=== PATIENT | female | born 1935 | race Caucasian/White ===

== ENCOUNTER → 2017-09-04 14:09 | Outpatient (CLI) | payer MEDICARE, SELFPAY ==
[2017-09-04 15:44] LABS: Absolute Lymphocyte Count 2.53 X10^3/ul (0.83-4.51); Absolute Neutrophil Count 4.2 X10^3/uL (2.0-7.7); Basophil# 0.04 X10^3/uL; Basophil% 0.5 % (0-1); Eosinophil# 0.16 X10^3/uL; Eosinophils% 2.2 % (0-5); Hematocrit 39.9 % (37-47); Hemoglobin 12.5 g/dl (12.0-15.0); Lymphocyte # 2.53 X10^3/ul (4.0); Lymphocyte % 34.6 % (19-41); Mean Corp Hgb Conc 31.3 g/gl (32-36); Mean Corpuscular Hgb 27.2 pg (27.0-32.0); Mean Corpuscular Volume 86.7 fL (81-99); Mean Platelet Vol. 9.2 fl (6.2-12.0); Monocyte# 0.36 X10^3/uL; Monocyte% 4.9 % (0-10); Neutrophil # 4.22 X10^3/uL (2.7-7.7); Neutrophil % 57.7 % (47-70); Platelet Count 234 K/mm3 (150-450); RBC Distribution Width CV 14.3 % (11.6-14.6); RBC Distribution Width SD 44.8 fl (35.1-43.9); White Blood Count 7.3 K/mm3 (4.4-11.0)
[2017-09-04 15:47] LABS: POSITIVE COUNT NO; POSITIVE DIFFERENTIAL NO; POSITIVE MORPHOLOGY NO
[2017-09-04 16:26] LABS: ALB/GLOB Ratio 1.1 RATIO (0.9-2.4); AST(SGOT) 18 U/L (15-37); Alanine Aminotransfer ALT/SGPT 25 U/L (13-56); Albumin, Serum 3.7 g/dL (3.2-5.0); Alkaline Phosphatase 46 U/L (45-117); Anion Gap 8 (5-15); BUN 23 mg/dL (7-18); Calcium,Total 9.2 mg/dL (8.5-10.1); Chloride 101 mmol/L (98-107); Creatinine, Serum 0.82 mg/dL (0.55-1.02); EST Glomerular Filtration Rate 71 mL/min (>60); Est Glom Filt Rate - Afr Amer 86 mL/min (>60); Globulin 3.5 g/dL (2.2-4.2); Glucose 94 mg/dL (70-110); Potassium 3.8 mmol/L (3.5-5.1); Protein, Total 7.2 g/dL (6.4-8.2); Sodium Level 139 mmol/L (136-145); Thyroid Stim Hormone (TSH) 1.33 uIU/mL (0.358-3.74)
[2017-09-05 10:04] LABS: Vitamin D,25 Hydroxy 30.4 ng/mL (19.95-100.01)
== END ==
PROVIDERS: Family Provider Family Medicine Geriatric Medicine; PCP Family Medicine Geriatric Medicine; Visit Provider Family Medicine Geriatric Medicine
DX: I10 Essential (primary) hypertension (principal); E55.9 Vitamin D deficiency, unspecified
CPT/HCPCS: 36415; 80053; 82306; 84443; 85025

== ENCOUNTER → 2018-02-21 09:18 | Outpatient (CLI) | payer MEDICARE, SELFPAY ==
[2018-02-21 12:53] LABS: Absolute Lymphocyte Count 1.98 X10^3/ul (0.83-4.51); Absolute Neutrophil Count 3.5 X10^3/uL (2.0-7.7); Basophil# 0.02 X10^3/uL; Basophil% 0.3 % (0-1); Eosinophils% 1.7 % (0-5); Hemoglobin 13.4 g/dl (12.0-15.0); Lymphocyte # 1.98 X10^3/ul (4.0); Lymphocyte % 32.9 % (19-41); Mean Corp Hgb Conc 31.9 g/gl (32-36); Mean Corpuscular Hgb 27.7 pg (27.0-32.0); Mean Corpuscular Volume 86.8 fL (81-99); Mean Platelet Vol. 10.5 fl (6.2-12.0); Monocyte% 6.7 % (0-10); Neutrophil % 58.2 % (47-70); Platelet Count 279 K/mm3 (150-450); RBC Distribution Width CV 14.4 % (11.6-14.6); RBC Distribution Width SD 45.7 fl (35.1-43.9); Red Blood Count 4.84 M/mm3 (4.2-5.4)
[2018-02-21 12:54] LABS: POSITIVE COUNT NO; POSITIVE DIFFERENTIAL NO; POSITIVE MORPHOLOGY NO
[2018-02-21 13:12] LABS: ALB/GLOB Ratio 1.1 RATIO (0.9-2.4); AST(SGOT) 17 U/L (15-37); Alanine Aminotransfer ALT/SGPT 30 U/L (13-56); Albumin, Serum 3.8 g/dL (3.2-5.0); Alkaline Phosphatase 49 U/L (45-117); Anion Gap 9 (5-15); BUN 21 mg/dL (7-18); BUN/Creat Ratio 20.4 RATIO (10-20); Calcium,Total 9.2 mg/dL (8.5-10.1); Chloride 106 mmol/L (98-107); Creatinine, Serum 1.03 mg/dL (0.55-1.02); EST Glomerular Filtration Rate 55 mL/min (>60); Est Glom Filt Rate - Afr Amer 66 mL/min (>60); Globulin 3.6 g/dL (2.2-4.2); Glucose 98 mg/dL (74-106); Potassium 4.2 mmol/L (3.5-5.1); Protein, Total 7.4 g/dL (6.4-8.2); Sodium Level 144 mmol/L (136-145); Thyroid Stim Hormone (TSH) 1.11 uIU/mL (0.358-3.74)
[2018-02-22 08:24] LABS: Vitamin D,25 Hydroxy 40.2 ng/mL (29.95-100.01)
== END ==
PROVIDERS: Family Provider Family Medicine Geriatric Medicine; PCP Family Medicine Geriatric Medicine; Visit Provider Family Medicine Geriatric Medicine
DX: E55.9 Vitamin D deficiency, unspecified (principal); I10 Essential (primary) hypertension
CPT/HCPCS: 36415; 80053; 82306; 84443; 85025

== ENCOUNTER → 2018-08-22 12:18 | Outpatient (CLI) | payer MEDICARE, SELFPAY ==
[2018-08-22 14:02] LABS: Absolute Lymphocyte Count 2.25 X10^3/ul (0.83-4.51); Absolute Neutrophil Count 4.3 X10^3/uL (2.0-7.7); Basophil# 0.03 X10^3/uL; Basophil% 0.4 % (0-1); Eosinophil# 0.12 X10^3/uL; Eosinophils% 1.7 % (0-5); Hematocrit 42.7 % (37-47); Hemoglobin 13.4 g/dl (12.0-15.0); Lymphocyte # 2.25 X10^3/ul (4.0); Lymphocyte % 31.3 % (19-41); Mean Corp Hgb Conc 31.4 g/gl (32-36); Mean Corpuscular Hgb 27.5 pg (27.0-32.0); Mean Corpuscular Volume 87.7 fL (81-99); Mean Platelet Vol. 10.5 fl (6.2-12.0); Monocyte# 0.47 X10^3/uL; Monocyte% 6.5 % (0-10); Neutrophil # 4.31 X10^3/uL (2.7-7.7); Neutrophil % 59.8 % (47-70); Platelet Count 280 K/mm3 (150-450); RBC Distribution Width CV 14.4 % (11.6-14.6); RBC Distribution Width SD 45.9 fl (35.1-43.9); Red Blood Count 4.87 M/mm3 (4.2-5.4); White Blood Count 7.2 K/mm3 (4.4-11.0)
[2018-08-22 14:06] LABS: POSITIVE COUNT NO; POSITIVE DIFFERENTIAL NO; POSITIVE MORPHOLOGY NO
[2018-08-22 14:16] LABS: Vitamin D,25 Hydroxy 38.8 ng/mL (29.95-100.01)
[2018-08-22 14:17] LABS: ALB/GLOB Ratio 1.1 RATIO (0.9-2.4); AST(SGOT) 20 U/L (15-37); Alanine Aminotransfer ALT/SGPT 31 U/L (13-56); Albumin, Serum 3.9 g/dL (3.2-5.0); Alkaline Phosphatase 51 U/L (45-117); Anion Gap 10 (5-15); BUN 25 mg/dL (7-18); BUN/Creat Ratio 23.4 RATIO (10-20); Calcium,Total 9.1 mg/dL (8.5-10.1); Chloride 106 mmol/L (98-107); Creatinine, Serum 1.07 mg/dL (0.55-1.02); EST Glomerular Filtration Rate 52 mL/min (>60); Est Glom Filt Rate - Afr Amer 63 mL/min (>60); Globulin 3.7 g/dL (2.2-4.2); Glucose 90 mg/dL (74-106); Potassium 4.1 mmol/L (3.5-5.1); Protein, Total 7.6 g/dL (6.4-8.2); Sodium Level 142 mmol/L (136-145); Thyroid Stim Hormone (TSH) 1.29 uIU/mL (0.358-3.74)
--- OUTSIDE RECORDS SUMMARY | 2018-10-27 04:19 | XMS RPT_ITS ---
:1935 Author Organization OH[facility] Care Team Providers Name Role Phone Aly, Maximino Chi Attending Unavailable Aly, Maximino Chi Primary Care Unavailable Aly, Maximino Chi Attending Unavailable Aly, Maximino Chi Primary Care Unavailable Aly, Maximino Chi Attending Unavailable Aly, Maximino Chi Primary Care Unavailable PROBLEMS PROBLEMS DATE TYPE CONDITION / CODE ATTENDING STATUS SOURCE 02/21/2018 Unknown E55.9 - Vitamin D Aly, Maximino Chi Active [place] deficiency, Community unspecified / Hospital E55.9(ICD-10) Repository 02/21/2018 Unknown I10 - Essential Aly, Maximino Chi Active [place] (primary) Community hypertension / Hospital I10(ICD-10) Repository PROCEDURES PROCEDURES No Procedure Records FoundRESULTS RESULTS CBC W/DIFF, AUTOMATED Collected: 08/22/2018 Status: F Source: [place] 12:19 PM [facility] REPOSITORY TYPE CODE TESTS RESULT OUT OF RANGE REFERENCE UNITS LAB L100.1000 4.4-11.0 K/mm3 Normal WBC 7.2 LAB L100.1200 4.2-5.4 M/mm3 Normal RBC 4.87 LAB L100.1300 12.0-15.0 g/dl Normal HGB 13.4 LAB L100.1400 37-47 % Normal HCT 42.7 LAB L100.1500 81-99 fL Normal MCV 87.7 LAB L100.1600 27.0-32.0 pg Normal MCH 27.5 LAB L100.1700 32-36 g/gl Low MCHC 31.4 LAB L100.1810 11.6-14.6 % Normal RDW CV 14.4 LAB L100.1820 35.1-43.9 fl High RDW SD 45.9 LAB L100.1900 150-450 K/mm3 Normal PLT 280 LAB L100.2000 6.2-12.0 fl Normal MPV 10.5 LAB L100.2100 47-70 % Normal NEUT% 59.8 LAB L100.2200 19-41 % Normal LY% 31.3 LAB L100.2300 0-10 % Normal MONO% 6.5 LAB L100.2400 0-5 % Normal EO% 1.7 LAB L100.2500 0-1 % Normal BASO% 0.4 LAB L100.2550 0.0-0.9 % Normal IM GRAN % 0.300 Result Comment: IG% - Immature Granulocytes (promyelocytes, myelocytes and metamyelocytes) > 1% indicates that a LEFT SHIFT is Present. LAB L100.2620 2.0-7.7 X10 3/uL Normal Absolute Neut 4.3 LAB L100.2720 0.83-4.51 X10 3/ul Normal Absolute Lymph 2.25 Performed By: #### L100.0100 #### [facility] [address] [place], [place], [address] VITAMIN D,25 HYDROXY Collected: 08/22/2018 Status: F Source: [place] 12:19 PM [facility] REPOSITORY TYPE CODE TESTS RESULT OUT OF RANGE REFERENCE UNITS LAB L506.1000 29.95-100.01 ng/mL Normal Vitamin D 38.8 25-OH Result Comment: Vitamin D 25(OH) Status Range Deficiency <20 ng/mL (50nmol/L) Insuffciency 20 - 30 ng/mL (50 - 75 nmol/L) Sufficiency 30 - 100 ng/mL (75 - 250 nmol/L) Toxicity >100 ng/mL (>250 nmol/L) Performed By: #### L506.1000 #### [facility] [address] [place], [address] COMPREHENSIVE METABOLIC Collected: 08/22/2018 Status: F Source: [facility] 12:19 PM [facility] REPOSITORY TYPE CODE TESTS RESULT OUT OF RANGE REFERENCE UNITS LAB L501.0100 74-106 mg/dL Normal GLU 90 Result Comment: Please note revised GLUCOSE reference range effective 2017. LAB L501.1000 7-18 mg/dL High BUN 25 LAB L501.1100 0.55-1.02 mg/dL High CREAT,SERUM 1.07 Result Comment: The validity of the calculated GFR AND GFRAA in patients over 70 years has not been determined. Clinical correlation is essential. LAB L501.1110 >60 mL/min Low EST GFR 52 Result Comment: Non- GFR Calc LAB L501.1115 >60 mL/min Normal EST GFR - AA 63 Result Comment: GFR Calc LAB L501.1300 10-20 RATIO High BUN/CRE 23.4 LAB L501.1500 6.4-8.2 g/dL T Normal PROT 7.6 LAB L501.1800 3.2-5.0 g/dL Normal ALB 3.9 LAB L501.1950 2.2-4.2 g/dL Normal GLOB 3.7 LAB L501.2000 0.9-2.4 RATIO Normal A/G 1.1 LAB L501.2200 8.5-10.1 mg/dL CA Normal 9.1 LAB L501.4100 15-37 U/L Normal AST 20 LAB L501.4305 45-117 U/L Normal ALK P 51 LAB L501.4405 13-56 U/L Normal ALT 31 LAB L501.4600 0.20-1.00 mg/dL T Normal BILI 0.50 LAB L501.5300 136-145 mmol/L NA Normal 142 LAB L501.5600 3.5-5.1 mmol/L K Normal 4.1 LAB L501.5900 98-107 mmol/L CL Normal 106 LAB L501.6100 21.0-32.0 mmol/L Normal CO2 26.0 LAB L501.6200 5-15 Normal GAP 10 Performed By: #### L500.4050, L501.9520 #### [facility] [address] [place], [address] THYROID STIM HORMONE Collected: 08/22/2018 Status: F Source: [place] (TSH) 12:19 PM [facility] REPOSITORY TYPE CODE TESTS RESULT OUT OF RANGE REFERENCE UNITS LAB L501.9520 0.358-3.74 uIU/mL Normal TSH 1.29 Performed By: #### L500.4050, L501.9520 #### [facility] [address] [place], [place], [address] CBC W/DIFF, AUTOMATED Collected: 02/21/2018 Status: F Source: [place] 10:18 AM [facility] REPOSITORY TYPE CODE TESTS RESULT OUT OF RANGE REFERENCE UNITS LAB L100.1000 4.4-11.0 K/mm3 Normal WBC 6.0 LAB L100.1200 4.2-5.4 M/mm3 Normal RBC 4.84 LAB L100.1300 12.0-15.0 g/dl Normal HGB 13.4 LAB L100.1400 37-47 % Normal HCT 42.0 LAB L100.1500 81-99 fL Normal MCV 86.8 LAB L100.1600 27.0-32.0 pg Normal MCH 27.7 LAB L100.1700 32-36 g/gl Low MCHC 31.9 LAB L100.1810 11.6-14.6 % Normal RDW CV 14.4 LAB L100.1820 35.1-43.9 fl High RDW SD 45.7 LAB L100.1900 150-450 K/mm3 Normal PLT 279 LAB L100.2000 6.2-12.0 fl Normal MPV 10.5 LAB L100.2100 47-70 % Normal NEUT% 58.2 LAB L100.2200 19-41 % Normal LY% 32.9 LAB L100.2300 0-10 % Normal MONO% 6.7 LAB L100.2400 0-5 % Normal EO% 1.7 LAB L100.2500 0-1 % Normal BASO% 0.3 LAB L100.2550 0.0-0.9 % Normal IM GRAN % 0.200 Result Comment: IG% - Immature Granulocytes (promyelocytes, myelocytes and metamyelocytes) > 1% indicates that a LEFT SHIFT is Present. LAB L100.2620 2.0-7.7 X10 3/uL Normal Absolute Neut 3.5 LAB L100.2720 0.83-4.51 X10 3/ul Normal Absolute Lymph 1.98 Performed By: #### L100.0100 #### [facility] [address] [place], [address] COMPREHENSIVE METABOLIC Collected: 02/21/2018 Status: F Source: [place] SANCHEZ 10:18 AM [facility] REPOSITORY TYPE CODE TESTS RESULT OUT OF RANGE REFERENCE UNITS LAB L501.0100 74-106 mg/dL Normal GLU 98 Result Comment: Please note revised GLUCOSE reference range effective 2017. LAB L501.1000 7-18 mg/dL High BUN 21 LAB L501.1100 0.55-1.02 mg/dL High CREAT,SERUM 1.03 Result Comment: The validity of the calculated GFR AND GFRAA in patients over 70 years has not been determined. Clinical correlation is essential. LAB L501.1110 >60 mL/min Low EST GFR 55 Result Comment: Non- GFR Calc LAB L501.1115 >60 mL/min Normal EST GFR - AA 66 Result Comment: GFR Calc LAB L501.1300 10-20 RATIO High BUN/CRE 20.4 LAB L501.1500 6.4-8.2 g/dL T Normal PROT 7.4 LAB L501.1800 3.2-5.0 g/dL Normal ALB 3.8 LAB L501.1950 2.2-4.2 g/dL Normal GLOB 3.6 LAB L501.2000 0.9-2.4 RATIO Normal A/G 1.1 LAB L501.2200 8.5-10.1 mg/dL CA Normal 9.2 LAB L501.4100 15-37 U/L Normal AST 17 Result Comment: Slight Hemolysis, Result may be falsely increased. LAB L501.4305 45-117 U/L Normal ALK P 49 LAB L501.4405 13-56 U/L Normal ALT 30 LAB L501.4600 0.20-1.00 mg/dL Normal T BILI 0.30 LAB L501.5300 136-145 mmol/L Normal NA 144 LAB L501.5600 3.5-5.1 mmol/L Normal K 4.2 Result Comment: Slight Hemolysis, Result may be falsely increased. LAB L501.5900 98-107 mmol/L Normal CL 106 LAB L501.6100 21.0-32.0 mmol/L Normal CO2 29.0 LAB L501.6200 5-15 Normal 9 GAP Performed By: #### L500.4050, L501.9520 #### [facility] [address] [place], [address] THYROID STIM HORMONE Collected: 02/21/2018 Status: F Source: [place] (TSH) 10:18 AM [facility] REPOSITORY TYPE CODE TESTS RESULT OUT OF RANGE REFERENCE UNITS LAB L501.9520 0.358-3.74 uIU/mL Normal TSH 1.11 Performed By: #### L500.4050, L501.9520 #### [facility] [address] [place], [address] VITAMIN D,25 HYDROXY Collected: 02/21/2018 Status: F Source: [place] 10:18 AM [facility] REPOSITORY TYPE CODE TESTS RESULT OUT OF RANGE REFERENCE UNITS LAB L506.1000 29.95-100.01 ng/mL Normal Vitamin D 40.2 25-OH Result Comment: Vitamin D 25(OH) Status Range Deficiency <20 ng/mL (50nmol/L) Insuffciency 20 - 30 ng/mL (50 - 75 nmol/L) Sufficiency 30 - 100 ng/mL (75 - 250 nmol/L) Toxicity >100 ng/mL (>250 nmol/L) Performed By: #### L506.1000 #### [facility] [address] [place], [address] CBC W/DIFF, AUTOMATED Collected: 09/04/2017 Status: F Source: [place] 2:14 PM [facility] REPOSITORY TYPE CODE TESTS RESULT OUT OF RANGE REFERENCE UNITS LAB L100.1000 4.4-11.0 K/mm3 Normal WBC 7.3 LAB L100.1200 4.2-5.4 M/mm3 Normal RBC 4.60 LAB L100.1300 12.0-15.0 g/dl Normal HGB 12.5 LAB L100.1400 37-47 % Normal HCT 39.9 LAB L100.1500 81-99 fL Normal MCV 86.7 LAB L100.1600 27.0-32.0 pg Normal MCH 27.2 LAB L100.1700 32-36 g/gl Low MCHC 31.3 LAB L100.1810 11.6-14.6 % Normal RDW CV 14.3 LAB L100.1820 35.1-43.9 fl High RDW SD 44.8 LAB L100.1900 150-450 K/mm3 Normal PLT 234 LAB L100.2000 6.2-12.0 fl Normal MPV 9.2 LAB L100.2100 47-70 % Normal NEUT% 57.7 LAB L100.2200 19-41 % Normal LY% 34.6 LAB L100.2300 0-10 % Normal MONO% 4.9 LAB L100.2400 0-5 % Normal EO% 2.2 LAB L100.2500 0-1 % Normal BASO% 0.5 LAB L100.2550 0.0-0.9 % Normal IM GRAN % 0.100 Result Comment: IG% - Immature Granulocytes (promyelocytes, myelocytes and metamyelocytes) > 1% indicates that a LEFT SHIFT is Present. LAB L100.2620 2.0-7.7 X10 3/uL Normal Absolute Neut 4.2 LAB L100.2720 0.83-4.51 X10 3/ul Normal Absolute Lymph 2.53 Performed By: #### L100.0100 #### [facility] [address] [place], [place], [address] COMPREHENSIVE METABOLIC Collected: 09/04/2017 Status: F Source: [facility] 2:14 PM [facility] REPOSITORY TYPE CODE TESTS RESULT OUT OF RANGE REFERENCE UNITS LAB L501.0100 70-110 mg/dL Normal GLU 94 LAB L501.1000 7-18 mg/dL High BUN 23 LAB L501.1100 0.55-1.02 mg/dL Normal 0.82 CREAT,SERUM Result Comment: The validity of the calculated GFR AND GFRAA in patients over 70 years has not been determined. Clinical correlation is essential. LAB L501.1110 >60 mL/min Normal EST GFR 71 Result Comment: Non- GFR Calc LAB L501.1115 >60 mL/min Normal EST GFR - AA 86 Result Comment: GFR Calc LAB L501.1300 10-20 RATIO High BUN/CRE 28.0 LAB L501.1500 6.4-8.2 g/dL T Normal PROT 7.2 LAB L501.1800 3.2-5.0 g/dL Normal ALB 3.7 LAB L501.1950 2.2-4.2 g/dL Normal GLOB 3.5 LAB L501.2000 0.9-2.4 RATIO Normal A/G 1.1 LAB L501.2200 8.5-10.1 mg/dL CA Normal 9.2 LAB L501.4100 15-37 U/L Normal AST 18 LAB L501.4305 45-117 U/L Normal ALK P 46 LAB L501.4405 13-56 U/L Normal ALT 25 Result Comment: Please note revised ALT reference range effective 2017. LAB L501.4600 0.20-1.00 mg/dL Normal T BILI 0.30 LAB L501.5300 136-145 mmol/L Normal NA 139 LAB L501.5600 3.5-5.1 mmol/L Normal K 3.8 LAB L501.5900 98-107 mmol/L Normal CL 101 LAB L501.6100 21.0-32.0 mmol/L Normal CO2 30.0 LAB L501.6200 5-15 Normal GAP 8 Performed By: #### L500.4050, L501.9520 #### [facility] [address] [place], [place], [address] THYROID STIM HORMONE Collected: 09/04/2017 Status: F Source: [place] (TSH) 2:14 PM [facility] REPOSITORY TYPE CODE TESTS RESULT OUT OF RANGE REFERENCE UNITS LAB L501.9520 0.358-3.74 uIU/mL Normal TSH 1.33 Performed By: #### L500.4050, L501.9520 #### [facility] [address] [place], [address] VITAMIN D,25 HYDROXY Collected: 09/04/2017 Status: F Source: [place] 2:14 PM [facility] REPOSITORY TYPE CODE TESTS RESULT OUT OF RANGE REFERENCE UNITS LAB L506.1000 19.95-100.01 ng/mL Normal Vitamin D 30.4 25-OH Result Comment: Vitamin D 25(OH) Status Range Deficiency <20 ng/mL (50nmol/L) Insuffciency 20 - 30 ng/mL (50 - 75 nmol/L) Sufficiency 30 - 100 ng/mL (75 - 250 nmol/L) Toxicity >100 ng/mL (>250 nmol/L) Performed By: #### L506.1000 #### [facility] [place], [address] ALLERGIES ALLERGIES DATE TYPE / CODE NAME / CODE REACTION SEVERITY SOURCE 10/27/2014 Drug ibandronate Other Unknown [place] Allergy/416 sodium/[id number]( [facility] 230457[facility]) Repository ENCOUNTERS ENCOUNTERS ADMIT/DISCHARGE ACCOUNT ADMITTING ENCOUNTER LOCATION SOURCE NUMBER CLASS 08/22/2018 [id number] Ambulatory [place] 7 [facility] ing:POLAB3 Repository 02/21/2018 [id number] Ambulatory [place] 3 [facility] ing:POLAB3 Repository 09/04/2017 [id number] Ambulatory [place] 4 [facility] ing:POLAB3 Repository PAYERS PAYERS ENCOUNTER GUARANTOR PAYER SUBSCRIBER SOURCE 08/22/2018 Frannie L Primary Frannie L [place] [id number] [facility] [place], MEDICAREPolicy [id number] [address]Bjf: Number: Repository [id number] (HP) Date:[id number] [address] [address]AK: 08/22/2018 Secondary NOT GIVENUNK [place] Insurance:SELF PAY [facility] Number: Effective Repository Date:2018-08-22 02/21/2018 Frannie L Primary Frannie L [place] [id number] [facility] Community [place], MEDICAREPolicy [id number] [address]Ofc: Number: Repository [id number] (HP) Date:[id number] [address] [address]AU: 02/21/2018 Secondary NOT GIVENUNK [place] Insurance:SELF PAY [facility] Number: Effective Repository Date:2018-02-21 09/04/2017 Frannie L Primary Frannie L [place] [address] Insurance:[facility] CooperDOB: [place] [id number] [address]Csw: Number: Repository [phone] [id number] (HP) Date:[id number], [place] [address]YQ: 09/04/2017 Secondary NOT GIVENRON [place] Insurance:SELF PAY [facility] Number: Effective Repository Date:2017-09-04
== END ==
PROVIDERS: Family Provider Family Medicine Geriatric Medicine; PCP Family Medicine Geriatric Medicine; Visit Provider Family Medicine Geriatric Medicine
DX: I10 Essential (primary) hypertension (principal); E55.9 Vitamin D deficiency, unspecified
CPT/HCPCS: 36415; 80053; 82306; 84443; 85025

== ENCOUNTER 2018-12-23 09:17 | Emergency (ER) | payer MEDICARE, SELFPAY ==
[2018-11-27 10:53] VITALS: BMI 32.3
[2018-12-23 09:18] VITALS: BP 117/66; PULSE 88; RESP 17; TEMP 37.2; O2SAT 98; BMI 31.6
--- NOTE | 2018-12-23 09:22 | NURSING ---
NO OLD EKGS
--- NOTE | 2018-12-23 09:37 | CT_ITS ---
STUDY: CT BRAIN WITHOUT CONTRAST REASON FOR EXAM: Female, 83 years old. Fall due to syncopal episode. RADIATION DOSAGE (If Supplied By Facility): CTDIvol = ( 44.99 ) mGy, DLP = ( 829.85 ) mGycm TECHNIQUE: Transaxial CT imaging of the brain was performed without administration of intravenous contrast material. Individualized dose optimization techniques were used for this CT. COMPARISON: No relevant priors. FINDINGS: Normal soft tissue structures. Normal calvarium. There is mild cerebral atrophy with widening of the extra-axial spaces and ventricular dilatation. There are areas of decreased attenuation within the white matter tracts of the supratentorial brain, consistent with microvascular disease changes. Normal basal ganglia and thalami. Normal brainstem. Normal cerebellum. There is no intracranial hemorrhage. There are no findings of an acute ischemic infarction. Atherosclerotic calcification of the cavernous portions of the internal carotid arteries bilaterally. Normal visualized paranasal sinuses. CT/Brain/Head without Contrast IMPRESSION: Chronic involutional changes of the brain. Electronically Signed: Roberto Brunner, at 10:39 EDT , Service support ,
--- NOTE | 2018-12-23 09:38 | EKG12_ITS ---
Test Reason : SYNCOPE Blood Pressure : / mmHG Vent. Rate : 074 BPM Atrial Rate : 074 BPM P-R Int : 156 ms QRS Dur : 098 ms QT Int : 400 ms P-R-T Axes : 033 -29 097 degrees QTc Int : 444 ms Sinus rhythm with Premature atrial complexes Left ventricular hypertrophy with repolarization abnormality Abnormal ECG Confirmed by SHARON CHEN, KENDRA ([id number]), dictionary editor FLORIAN BECKWITH ([id number]) on 12/26/2018 1:12:32 PM Referred By: SHAWNA Confirmed By:KENDRA HERRERA MD
--- NOTE | 2018-12-23 09:38 | RAD_ITS ---
STUDY: X-RAY CHEST REASON FOR EXAM: Female, 83 years old. Syncope. TECHNIQUE: Single AP portable view of the chest. COMPARISON: Comparison is made with prior study May 20, 2007. FINDINGS: EKG electrodes are seen. The lungs are clear and expanded. Scattered calcified granulomas. There is no demonstrated pleural abnormality. Normal size heart. Normal mediastinum and sonia. Normal visualized pulmonary arteries. There is atherosclerotic calcification of the aortic arch with tortuosity. There are degenerative changes of the visualized thoracic spine. Normal visualized ribs, clavicles, and shoulders. There is no demonstrated abnormality of the visualized soft tissue structures of the upper abdomen. RAD/Chest 1 View IMPRESSION: Scattered calcified granulomas. The lungs are clear. Electronically Signed: Roberto Brunner, at 10:32 EDT , Service support ,
--- NOTE | 2018-12-23 09:38 | RAD_ITS ---
STUDY: X-RAY - PELVIS REASON FOR EXAM: Female, 83 years old. Pain following a fall. TECHNIQUE: One view of the pelvis was obtained. COMPARISON: None. FINDINGS: There is a non-specific bowel gas pattern. There are atherosclerotic vascular calcifications of the pelvic arteries. A pessary device is seen within the pelvis. Normal bilateral iliac wings, sacroiliac joints and visualized sacrum. Normal visualized bilateral superior and inferior pubic rami. Normal pubic symphysis. Normal ischial tuberosities. Normal visualized right femoral head. Normal right acetabulum. There is mild articular joint space narrowing of the right hip. Normal visualized left femoral head. Normal left acetabulum. There is mild articular joint space narrowing of the left hip. RAD/Pelvis 1 or 2 Views IMPRESSION: No acute abnormality is seen. Electronically Signed: Roberto Brunner, at 10:32 EDT , Service support ,
--- NOTE | 2018-12-23 09:38 | CT_ITS ---
STUDY: CT CERVICAL SPINE WITHOUT CONTRAST REASON FOR EXAM: Female, 83 years old. Fall due to a syncopal episode. RADIATION DOSAGE (If Supplied By Facility): CTDIvol = ( 25.02 ) mGy, DLP = ( 466.96 ) mGycm TECHNIQUE: High resolution transaxial imaging was performed without contrast material. Sagittal and coronal images were reconstructed. Individualized dose optimization techniques were used for this CT. COMPARISON: None FINDINGS: Normal craniovertebral junction. There are degenerative changes of the anterior atlantoaxial articulation. Normal odontoid process. Normal cervical lordosis. Normal vertebral bodies and posterior osseous elements. C2-3: Normal endplates. Normal disc height and morphology. Normal central canal and intervertebral neuroforamina. 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 Mild degree of left neural foraminal stenosis. C4-5: Moderate degree of disc space narrowing. Minimal anterior listhesis of C4 on C5. 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 Moderate degree of left neural foraminal stenosis. C5-6: Marked degree of disc space narrowing. Spondylosis. Uncovertebral arthrosis. No significant stenosis is seen. C6-7: Marked degree of disc space narrowing. Minimal spondylosis. Uncovertebral arthrosis. No significant neural foraminal stenosis is seen. Scarring at the right lung apex. CT/Spine Cervical without Contras IMPRESSION: Multilevel degenerative changes, as described above. Electronically Signed: Roberto Brunner, at 10:42 EDT , Service support ,
[2018-12-23 09:50] LABS: Absolute Lymphocyte Count 0.99 X10^3/ul (0.83-4.51); Absolute Neutrophil Count 13.4 X10^3/uL (2.0-7.7); Basophil# 0.01 X10^3/uL; Basophil% 0.1 % (0-1); Hematocrit 43.5 % (37-47); Hemoglobin 14.6 g/dl (12.0-15.0); Lymphocyte # 0.99 X10^3/ul (4.0); Lymphocyte % 6.5 % (19-41); Mean Corp Hgb Conc 33.6 g/gl (32-36); Mean Corpuscular Hgb 27.8 pg (27.0-32.0); Mean Corpuscular Volume 82.7 fL (81-99); Monocyte# 0.85 X10^3/uL; Monocyte% 5.6 % (0-10); Neutrophil # 13.36 X10^3/uL (2.7-7.7); Neutrophil % 87.6 % (47-70); Platelet Count 293 K/mm3 (150-450); RBC Distribution Width SD 45.2 fl (35.1-43.9); Red Blood Count 5.26 M/mm3 (4.2-5.4); White Blood Count 15.2 K/mm3 (4.4-11.0)
[2018-12-23] MEDS: 0.9% Normal Saline 1,000 ML 1000 ML IV (09:53)
[2018-12-23 09:54] LABS: POSITIVE COUNT NO; POSITIVE DIFFERENTIAL NO; POSITIVE MORPHOLOGY NO
--- NOTE | 2018-12-23 10:59 | ED.DCSUM_ITS ---
- ER Visit Summary Date of Service: 12/23/18 Chief Complaint: Syncope History of Present Illness: The patient is a 83 F who states that yesterday around noon she began to have nausea vomiting and diarrhea. This persisted through the night. At around 0430 in the morning she was in the bathroom. After a bout of diarrhea she was washing her hands. She denies any prodrome and states that the next thing she remembers she woke up on the ground. She states that she struck the posterior left neck on the bathtub. She notes pain in that area in the neck and in her tailbone. She states that after an hour and a half she is able to get up off the floor. She reports that she pushed off the bed. She got up a couple more times with diarrhea and vomiting eventually she spoke with her sister and they came here. She denies any paresthesias or weakness in the upper or lower extremities. She denies any significant abdominal pain of the cramping. Physical Examination: Afebrile vital signs are stable Gen: Well-nourished well-developed Head: Normocephalic atraumatic Eyes: Perrl EOMI ENT: TMs clear no rhinorrhea moist mucous membranes Neck: Supple no lymphadenopathy no JVD neck is tender to palpation in the midline and to the left of midline in the paraspinal musculature. CVS: Regular rate rhythm no murmurs normal S1-S2 Respiratory: No distress clear to auscultation bilaterally chest nontender Abdomen: Soft nontender nondistended normal bowel sounds no masses Back: Tenderness over the lower sacral region Extremity: Nontender no edema Skin: Normal color no rash Neuro: alert orientated ?3 CN II-XII intact normal strength sensation reflexes Psych: Normal affect normal mood Test Results: EKG showed a sinus rhythm with PAC at a rate of 74. X-rays of the chest and pelvis were negative for acute. Head and C-spine CTs were negative. White count is elevated 15.2. BUN of 34 with creatinine 1.3. Troponin negative. Emergency Department Course and Treatment: Patient has received IV fluids and Zofran. P.o. challenge was passed. She was initially offered something for pain but declined. She later asked for Tylenol. Patient has been eating her son is here. Most likely explanations patient had gastroenteritis had a syncopal episode following bowel movements. She struck her neck. Fortunately there is no fractures. She is to expect soreness but should improve. Return if worsening or concerns Impression: 1. Syncope 2. Gastroenteritis 3. Sacral contusion 4. Neck contusion This note was generated with [employer]ogether dictation software. It may contain incorrect words, spelling, and punctuation that were not noted in review of the chart prior to signing ED Disposition - Plan for ED Patient: Disposition: Home or Assisted Living Instructions: ED Syncope Vasovagal, ED Gastroenteritis Viral, ED Contusion Back, ED Contusion Sacrum Coccyx Prescriptions: Ondansetron [Zofran Odt] 4 mg PO Q6H PRN PRN #14 tab PRN Reason: Nausea Referrals: Maximino Lu Chi, MD [Primary Care Provider] - 3-5 Days
[2018-12-23 11:40] VITALS: BP 121/88; PULSE 72; RESP 20; O2SAT 96
[2018-12-23 12:02] LABS: AST(SGOT) 21 U/L (15-37); Alanine Aminotransfer ALT/SGPT 26 U/L (13-56); Albumin, Serum 3.8 g/dL (3.2-5.0); Alkaline Phosphatase 54 U/L (45-117); Anion Gap 12 (5-15); BUN 34 mg/dL (7-18); BUN/Creat Ratio 24.6 RATIO (10-20); Calcium,Total 9.4 mg/dL (8.5-10.1); Chloride 104 mmol/L (98-107); Creatinine, Serum 1.38 mg/dL (0.55-1.02); EST Glomerular Filtration Rate 39 mL/min (>60); Est Glom Filt Rate - Afr Amer 47 mL/min (>60); Estimated Creatinine Clearance 25.29 ml/min; Glucose 165 mg/dL (74-106); Lipase 85 U/L (73-393); Protein, Total 7.8 g/dL (6.4-8.2); Sodium Level 140 mmol/L (136-145)
[2018-12-23 13:15] VITALS: BP 133/66; PULSE 16; O2SAT 99
[2018-12-23] MEDS: Acetaminophen 325 MG Tablet 650 MG PO (14:01)
== END 2018-12-23 14:54 | disposition home or self-care (01) ==
PROVIDERS: Emergency Provider Emergency Medicine; Family Provider Family Medicine Geriatric Medicine; PCP Family Medicine Geriatric Medicine
DX: R55 Syncope and collapse (principal); K52.9 Noninfective gastroenteritis and colitis, unspecified; S30.0XXA Contusion of lower back and pelvis, initial encounter; S10.93XA Contusion of unspecified part of neck, initial encounter; W22.8XXA Striking against or struck by other objects, initial encounter; Y93.9 Activity, unspecified; Y92.192 Bathroom in other specified residential institution as the place of occurrence of the external cause; Y99.9 Unspecified external cause status; I10 Essential (primary) hypertension; E78.00 Pure hypercholesterolemia, unspecified; Z87.891 Personal history of nicotine dependence
CPT/HCPCS: 70450; 71045; 72125; 72170; 80053; 83690; 84484; 85025; 93005; 96360; 99285; J7030; A4216

== ENCOUNTER → 2019-02-07 13:48 | Outpatient (CLI) | payer MEDICARE, SELFPAY ==
[2019-01-08 09:25] VITALS: BMI 32.0
[2019-02-05 09:46] VITALS: BMI 32.0
--- NOTE | 2019-02-07 13:51 | ECHOD_ITS ---
Reason For Study: MURMUR Procedure This was a 2D Doppler, Color Flow transthoracic echocardiogram. Exam performed in department. Left Ventricle Normal LV size. Left ventricular systolic function is normal. The estimated ejection fraction is 65 %. Stage 1 diastolic dysfunction. No regional wall motion abnormalities noted. Right Ventricle Normal RV size. Normal systolic function. Atria Normal left atrium. Normal right atrium. Mitral Valve Normal mitral valve. Trivial eccentric mitral valve insufficiency. Tricuspid Valve Normal tricuspid valve. Mild tricuspid valve insufficiency. Pulmonary artery systolic pressure is 30 mmHg. Aortic Valve Normal aortic valve. Trisinus/trileaflet aortic valve. Pulmonic Valve Normal pulmonic valve. Mild (1+) pulmonic valve insufficiency. Great Vessels Calcified aortic root. The pulmonary artery is normal size. Normal inferior vena cava. Pericardium/Pleural No pericardial effusion. MMode/2D Measurements & Calculations LVIDd: 4.3 cm IVSd: 0.94 cm Ao root diam: 2.7 cm LVIDs: 2.6 cm LVPWd: 0.94 cm RVDd: 3.1 cm FS: 39.8 % LAV(MOD-bp): 57.4 ml LA A4 area: 16.1 cm2 LA dimension(2D): 3.8 cm LAV(MOD-bp) Indexed: 31.8 ml/m2 LAV(MOD-sp2): 50.9 ml LAV(MOD-sp4): 50.9 ml RA A4 area: 13.9 cm2 Time Measurements MV dec time: 0.19 sec Doppler Measurements & Calculations MV E max christopher: 83.4 cm/sec Lat Peak E' Christopher: 6.5 cm/sec Med Peak E' Christopher: 6.5 cm/sec MV A max christopher: 112.8 cm/sec E/E' lat: 12.9 E/E' med: 12.8 MV E/A: 0.74 Ao V2 max: 129.3 cm/sec LV V1 max: 89.7 cm/sec PA V2 max: 86.9 cm/sec Ao max P.7 mmHg LV V1 max P.2 mmHg TR max christopher: 256.1 cm/sec TR max P.3 mmHg Interpretation Summary Normal LV size. Left ventricular systolic function is normal. The estimated ejection fraction is 65 %. Stage 1 diastolic dysfunction. Mild tricuspid valve insufficiency. Pulmonary artery systolic pressure is 30 mmHg. Ordering Physician: Frantz Fishman Referring Physician: Maximino Lu Chi Performed By: Jamaica Felix, SUSANA, RVT
== END ==
PROVIDERS: Family Provider Family Medicine Geriatric Medicine; PCP Family Medicine Geriatric Medicine; Referring Provider Internal Medicine Cardiovascular Disease; Visit Provider Internal Medicine Cardiovascular Disease
DX: I49.1 Atrial premature depolarization (principal)
CPT/HCPCS: 93306

== ENCOUNTER → 2019-02-27 08:40 | Outpatient (CLI) | payer MEDICARE, SELFPAY ==
[2019-02-05 09:46] VITALS: BMI 32.0
[2019-02-27 12:51] LABS: Absolute Lymphocyte Count 2.67 X10^3/uL (0.83-4.51); Basophil# 0.06 X10^3/uL; Basophil% 0.8 % (0-1); Eosinophil# 0.11 X10^3/uL; Eosinophils% 1.5 % (0-5); Hematocrit 41.4 % (37-47); Hemoglobin 12.8 g/dL (12.0-15.0); Lymphocyte # 2.67 X10^3/ul (4.0); Lymphocyte % 36.5 % (19-41); Mean Corp Hgb Conc 30.9 g/dL (32-36); Mean Corpuscular Hgb 27.2 pg (27.0-32.0); Mean Corpuscular Volume 87.9 fL (81-99); Mean Platelet Vol. 10.5 fl (6.2-12.0); Monocyte# 0.43 X10^3/uL; Monocyte% 5.9 % (0-10); NRBC Flagged by Analyzer 0 % (0-5); Neutrophil # 4.02 X10^3/uL (2.7-7.7); Platelet Count 272 K/mm3 (150-450); RBC Distribution Width CV 14.4 % (11.6-14.6); RBC Distribution Width SD 46.5 fl (35.1-43.9); Red Blood Count 4.71 M/mm3 (4.2-5.4); White Blood Count 7.3 K/mm3 (4.4-11.0)
[2019-02-27 13:05] LABS: Vitamin D,25 Hydroxy 37.8 ng/mL (29.95-100.01)
[2019-02-27 13:11] LABS: AST(SGOT) 13 U/L (15-37); Alanine Aminotransfer ALT/SGPT 24 U/L (13-56); Albumin, Serum 3.8 g/dL (3.2-5.0); Alkaline Phosphatase 54 U/L (45-117); Anion Gap 5 (5-15); BUN 29 mg/dL (7-18); BUN/Creat Ratio 31.6 RATIO (10-20); Calcium,Total 9.2 mg/dL (8.5-10.1); Chloride 104 mmol/L (98-107); Creatinine, Serum 0.92 mg/dL (0.55-1.02); EST Glomerular Filtration Rate 62 mL/min (>60); Est Glom Filt Rate - Afr Amer 75 mL/min (>60); Globulin 3.8 g/dL (2.2-4.2); Glucose 76 mg/dL (74-106); Potassium 4.2 mmol/L (3.5-5.1); Protein, Total 7.6 g/dL (6.4-8.2); Sodium Level 137 mmol/L (136-145)
== END ==
PROVIDERS: Family Provider Family Medicine Geriatric Medicine; PCP Family Medicine Geriatric Medicine; Visit Provider Family Medicine Geriatric Medicine
DX: E55.9 Vitamin D deficiency, unspecified (principal); I10 Essential (primary) hypertension
CPT/HCPCS: 36415; 80053; 82306; 84443; 85025

== ENCOUNTER → 2019-08-27 10:23 | Outpatient (CLI) | payer MEDICARE, SELFPAY ==
[2019-02-05 09:46] VITALS: BMI 32.0
[2019-08-27 12:15] LABS: Absolute Lymphocyte Count 2.08 X10^3/uL (0.83-4.51); Basophil# 0.04 X10^3/uL; Basophil% 0.6 % (0-1); Eosinophil# 0.13 X10^3/uL; Eosinophils% 1.9 % (0-5); Hematocrit 40.8 % (37-47); Hemoglobin 12.6 g/dL (12.0-15.0); Lymphocyte # 2.08 X10^3/ul (4.0); Lymphocyte % 30.8 % (19-41); Mean Corp Hgb Conc 30.9 g/dL (32-36); Mean Corpuscular Hgb 26.9 pg (27.0-32.0); Mean Platelet Vol. 10.3 fl (6.2-12.0); Monocyte# 0.52 X10^3/uL; Monocyte% 7.7 % (0-10); NRBC Flagged by Analyzer 0 % (0-5); Neutrophil # 3.97 X10^3/uL (2.7-7.7); Neutrophil % 58.7 % (47-70); Platelet Count 259 K/mm3 (150-450); RBC Distribution Width CV 14.4 % (11.6-14.6); RBC Distribution Width SD 45.7 fl (35.1-43.9); Red Blood Count 4.69 M/mm3 (4.2-5.4); White Blood Count 6.8 K/mm3 (4.4-11.0)
[2019-08-27 12:33] LABS: Vitamin D,25 Hydroxy 48.5 ng/mL (29.95-100.01)
[2019-08-27 12:38] LABS: AST(SGOT) 14 U/L (15-37); Alanine Aminotransfer ALT/SGPT 25 U/L (13-56); Albumin, Serum 3.6 g/dL (3.2-5.0); Alkaline Phosphatase 52 U/L (45-117); Anion Gap 4 (5-15); BUN 25 mg/dL (7-18); Calcium,Total 9.4 mg/dL (8.5-10.1); Chloride 107 mmol/L (98-107); EST Glomerular Filtration Rate 56 mL/min (>60); Est Glom Filt Rate - Afr Amer 68 mL/min (>60); Globulin 3.7 g/dL (2.2-4.2); Glucose 95 mg/dL (74-106); Potassium 4.1 mmol/L (3.5-5.1); Protein, Total 7.3 g/dL (6.4-8.2); Sodium Level 141 mmol/L (136-145)
== END ==
PROVIDERS: PCP Family Medicine Geriatric Medicine; Visit Provider Family Medicine Geriatric Medicine
DX: E55.9 Vitamin D deficiency, unspecified (principal); I10 Essential (primary) hypertension
CPT/HCPCS: 36415; 80053; 82306; 84443; 85025; 87086; 87088; 87186

== ENCOUNTER → 2019-12-17 | Outpatient (CLI) | payer MEDICARE, SELFPAY ==
[2019-02-05 09:46] VITALS: BMI 32.0
== END | disposition home or self-care (01) ==
LOC: LABSPEC 10:28
PROVIDERS: PCP Family Medicine Geriatric Medicine; Visit Provider Family Medicine Geriatric Medicine
DX: N39.0 Urinary tract infection, site not specified (principal)
CPT/HCPCS: 87086; 87088; 87186

== ENCOUNTER → 2020-03-03 | Outpatient (CLI) | payer MEDICARE, SELFPAY ==
[2020-01-08 11:32] VITALS: BMI 30.2
[2020-03-03 13:37] LABS: Vitamin D,25 Hydroxy 58.8 ng/mL
[2020-03-03 13:39] LABS: Absolute Lymphocyte Count 2.47 X10^3/uL (0.83-4.51); Absolute Neutrophil Count 3.7 X10^3/uL (2.0-7.7); Basophil# 0.06 X10^3/uL; Basophil% 0.9 % (0-1); Eosinophil# 0.13 X10^3/uL; Eosinophils% 1.9 % (0-5); Hematocrit 41.6 % (37-47); Hemoglobin 12.8 g/dL (12.0-15.0); Lymphocyte # 2.47 X10^3/ul (4.0); Lymphocyte % 35.8 % (19-41); Mean Corp Hgb Conc 30.8 g/dL (32-36); Mean Corpuscular Hgb 27.3 pg (27.0-32.0); Mean Corpuscular Volume 88.7 fL (81-99); Mean Platelet Vol. 10.4 fl (6.2-12.0); Monocyte# 0.49 X10^3/uL; Monocyte% 7.1 % (0-10); NRBC Flagged by Analyzer 0 % (0-5); Neutrophil # 3.72 X10^3/uL (2.7-7.7); Neutrophil % 53.9 % (47-70); Platelet Count 290 K/mm3 (150-450); RBC Distribution Width CV 14.7 % (11.6-14.6); RBC Distribution Width SD 47.1 fl (35.1-43.9); Red Blood Count 4.69 M/mm3 (4.2-5.4); White Blood Count 6.9 K/mm3 (4.4-11.0)
[2020-03-03 13:51] LABS: ALB/GLOB Ratio 1.1 RATIO (0.9-2.4); AST(SGOT) 17 U/L (15-37); Alanine Aminotransfer ALT/SGPT 22 U/L (13-56); Albumin, Serum 3.6 g/dL (3.2-5.0); Alkaline Phosphatase 53 U/L (45-117); Anion Gap 2 (5-15); BUN 19 mg/dL (7-18); BUN/Creat Ratio 23.1 RATIO (10-20); Calcium,Total 8.9 mg/dL (8.5-10.1); Chloride 108 mmol/L (98-107); Creatinine, Serum 0.82 mg/dL (0.55-1.02); EST Glomerular Filtration Rate 71 mL/min (>60); Est Glom Filt Rate - Afr Amer 86 mL/min (>60); Globulin 3.4 g/dL (2.2-4.2); Glucose 75 mg/dL (74-106); Potassium 4.1 mmol/L (3.5-5.1); Sodium Level 141 mmol/L (136-145); Thyroid Stim Hormone (TSH) 1.87 uIU/mL (0.358-3.74)
== END | disposition home or self-care (01) ==
LOC: POLAB3 12:02
PROVIDERS: PCP Family Medicine Geriatric Medicine; Visit Provider Family Medicine Geriatric Medicine
DX: E55.9 Vitamin D deficiency, unspecified (principal); I10 Essential (primary) hypertension
CPT/HCPCS: 36415; 80053; 82306; 84443; 85025

== ENCOUNTER → 2020-05-04 | Outpatient (CLI) | payer MEDICARE, SELFPAY ==
[2020-01-08 11:32] VITALS: BMI 30.2
== END | disposition home or self-care (01) ==
LOC: LABSPEC 15:56
PROVIDERS: PCP Family Medicine Geriatric Medicine; Visit Provider Family Medicine Geriatric Medicine
DX: N39.0 Urinary tract infection, site not specified (principal)
CPT/HCPCS: 87086; 87088; 87186

== ENCOUNTER → 2020-09-01 10:35 | Outpatient (CLI) | payer MEDICARE, SELFPAY ==
[2020-01-08 11:32] VITALS: BMI 30.2
[2020-09-01 12:12] LABS: Absolute Lymphocyte Count 2.51 X10^3/uL (0.83-4.51); Absolute Neutrophil Count 4.4 X10^3/uL (2.0-7.7); Basophil# 0.05 X10^3/uL; Basophil% 0.7 % (0-1); Eosinophil# 0.12 X10^3/uL; Eosinophils% 1.6 % (0-5); Hematocrit 42.2 % (37-47); Lymphocyte # 2.51 X10^3/ul (4.0); Lymphocyte % 32.7 % (19-41); Mean Corp Hgb Conc 30.8 g/dL (32-36); Mean Corpuscular Volume 87.6 fL (81-99); Mean Platelet Vol. 10.1 fl (6.2-12.0); Monocyte# 0.54 X10^3/uL; NRBC Flagged by Analyzer 0 % (0-5); Neutrophil # 4.42 X10^3/uL (2.7-7.7); Neutrophil % 57.6 % (47-70); Platelet Count 281 K/mm3 (150-450); RBC Distribution Width CV 13.9 % (11.6-14.6); RBC Distribution Width SD 44.8 fl (35.1-43.9); Red Blood Count 4.82 M/mm3 (4.2-5.4); White Blood Count 7.7 K/mm3 (4.4-11.0)
[2020-09-01 12:38] LABS: Vitamin D,25 Hydroxy 41.9 ng/mL
[2020-09-01 12:59] LABS: AST(SGOT) 21 U/L (15-37); Alanine Aminotransfer ALT/SGPT 26 U/L (13-56); Albumin, Serum 3.6 g/dL (3.2-5.0); Alkaline Phosphatase 57 U/L (45-117); Anion Gap 7 (5-15); BUN 18 mg/dL (7-18); BUN/Creat Ratio 19.3 RATIO (10-20); Calcium,Total 9.1 mg/dL (8.5-10.1); Chloride 104 mmol/L (98-107); Creatinine, Serum 0.93 mg/dL (0.55-1.02); EST Glomerular Filtration Rate 61 mL/min (>60); Est Glom Filt Rate - Afr Amer 74 mL/min (>60); Globulin 3.7 g/dL (2.2-4.2); Glucose 75 mg/dL (74-106); Protein, Total 7.3 g/dL (6.4-8.2); Sodium Level 140 mmol/L (136-145); Thyroid Stim Hormone (TSH) 1.11 uIU/mL (0.358-3.74)
== END ==
PROVIDERS: PCP Family Medicine Geriatric Medicine; Visit Provider Family Medicine Geriatric Medicine
DX: E55.9 Vitamin D deficiency, unspecified (principal); I10 Essential (primary) hypertension
CPT/HCPCS: 36415; 80053; 82306; 84443; 85025

== ENCOUNTER 2020-09-03 13:02 | Outpatient (RCR) | payer MEDICARE, SELFPAY ==
[2020-01-08 11:32] VITALS: BMI 30.2
== END 2020-09-03 23:59 ==
LOC: IMMUN 13:02
PROVIDERS: PCP Family Medicine Geriatric Medicine; Referring Provider Family Medicine; Visit Provider Family Medicine
DX: Z23 Encounter for immunization (principal)
CPT/HCPCS: 0011A; 0012A; 91301

== ENCOUNTER → 2021-03-07 10:36 | Outpatient (CLI) | payer MEDICARE, SELFPAY ==
[2020-01-08 11:32] VITALS: BMI 30.2
[2021-03-07 11:04] LABS: Absolute Lymphocyte Count 2.22 X10^3/uL (0.83-4.51); Absolute Neutrophil Count 4.2 X10^3/uL (2.0-7.7); Basophil# 0.04 X10^3/uL; Basophil% 0.6 % (0-1); Eosinophils% 1.4 % (0-5); Hematocrit 41.4 % (37-47); Lymphocyte # 2.22 X10^3/ul (0.83-4.51); Lymphocyte % 31.4 % (19-41); Mean Corp Hgb Conc 31.4 g/dL (32-36); Mean Corpuscular Hgb 27.3 pg (27.0-32.0); Mean Platelet Vol. 9.5 fl (6.2-12.0); Monocyte# 0.46 X10^3/uL; Monocyte% 6.5 % (0-10); NRBC Flagged by Analyzer 0 % (0-5); Neutrophil # 4.24 X10^3/uL (2.7-7.7); Neutrophil % 59.8 % (47-70); Platelet Count 278 K/mm3 (150-450); RBC Distribution Width CV 14.3 % (11.6-14.6); RBC Distribution Width SD 45.7 fl (35.1-43.9); Red Blood Count 4.76 M/mm3 (4.2-5.4); White Blood Count 7.1 K/mm3 (4.4-11.0)
[2021-03-07 11:43] LABS: AST(SGOT) 18 U/L (15-37); Alanine Aminotransfer ALT/SGPT 26 U/L (13-56); Albumin, Serum 3.7 g/dL (3.2-5.0); Alkaline Phosphatase 53 U/L (45-117); Anion Gap 4 (5-15); BUN 23 mg/dL (7-18); BUN/Creat Ratio 27.9 RATIO (10-20); Calcium,Total 9.2 mg/dL (8.5-10.1); Chloride 107 mmol/L (98-107); Creatinine, Serum 0.82 mg/dL (0.55-1.02); EST Glomerular Filtration Rate 70 mL/min (>60); Est Glom Filt Rate - Afr Amer 85 mL/min (>60); Globulin 3.6 g/dL (2.2-4.2); Glucose 80 mg/dL (74-106); Potassium 3.8 mmol/L (3.5-5.1); Protein, Total 7.3 g/dL (6.4-8.2); Sodium Level 139 mmol/L (136-145); Thyroid Stim Hormone (TSH) 1.45 uIU/mL (0.358-3.74)
[2021-03-07 11:55] LABS: Vitamin D,25 Hydroxy 43.6 ng/mL
== END ==
PROVIDERS: PCP Family Medicine Geriatric Medicine; Visit Provider Family Medicine Geriatric Medicine
DX: E55.9 Vitamin D deficiency, unspecified (principal); I10 Essential (primary) hypertension
CPT/HCPCS: 36415; 80053; 82306; 84443; 85025

== ENCOUNTER 2021-09-06 09:38 | Outpatient (CLI) | payer MEDICARE, SELFPAY ==
[2021-09-06 12:13] LABS: Absolute Lymphocyte Count 2.42 X10^3/uL (0.83-4.51); Absolute Neutrophil Count 3.9 X10^3/uL (2.0-7.7); Basophil# 0.05 X10^3/uL; Basophil% 0.7 % (0-1); Eosinophil# 0.11 X10^3/uL; Eosinophils% 1.6 % (0-5); Hematocrit 40.1 % (37-47); Hemoglobin 12.6 g/dL (12.0-15.0); Lymphocyte # 2.42 X10^3/ul (0.83-4.51); Lymphocyte % 34.9 % (19-41); Mean Corp Hgb Conc 31.4 g/dL (32-36); Mean Corpuscular Hgb 27.7 pg (27.0-32.0); Mean Corpuscular Volume 88.1 fL (81-99); Mean Platelet Vol. 9.4 fl (6.2-12.0); Monocyte# 0.41 X10^3/uL; Monocyte% 5.9 % (0-10); NRBC Flagged by Analyzer 0 % (0-5); Neutrophil # 3.91 X10^3/uL (2.7-7.7); Neutrophil % 56.5 % (47-70); Platelet Count 295 K/mm3 (150-450); RBC Distribution Width CV 15.4 % (11.6-14.6); RBC Distribution Width SD 49.1 fl (35.1-43.9); Red Blood Count 4.55 M/mm3 (4.2-5.4); White Blood Count 6.9 K/mm3 (4.4-11.0)
[2021-09-06 12:42] LABS: Vitamin D,25 Hydroxy 40.2 ng/mL
[2021-09-06 12:47] LABS: ALB/GLOB Ratio 0.9 RATIO (0.9-2.4); AST(SGOT) 17 U/L (15-37); Alanine Aminotransfer ALT/SGPT 28 U/L (13-56); Albumin, Serum 3.5 g/dL (3.2-5.0); Alkaline Phosphatase 55 U/L (45-117); Anion Gap 4 (5-15); BUN 16 mg/dL (7-18); Chloride 106 mmol/L (98-107); Creatinine, Serum 0.89 mg/dL (0.55-1.02); EST Glomerular Filtration Rate 65 mL/min (>60); Est Glom Filt Rate - Afr Amer 78 mL/min (>60); Globulin 3.8 g/dL (2.2-4.2); Glucose 100 mg/dL (74-106); Potassium 3.9 mmol/L (3.5-5.1); Protein, Total 7.3 g/dL (6.4-8.2); Sodium Level 140 mmol/L (136-145); Thyroid Stim Hormone (TSH) 1.08 uIU/mL (0.358-3.74)
== END 2021-09-06 23:59 | disposition short-term general hospital (02) ==
LOC: POLAB3 09:39
PROVIDERS: PCP Family Medicine Geriatric Medicine; Visit Provider Family Medicine Geriatric Medicine
DX: E55.9 Vitamin D deficiency, unspecified (principal); I10 Essential (primary) hypertension
CPT/HCPCS: 36415; 80053; 82306; 84443; 85025

== ENCOUNTER → 2022-03-23 | Outpatient (CLI) | payer MEDICARE, SELFPAY ==
[2022-03-23 12:38] LABS: Absolute Neutrophil Count 3.9 X10^3/uL (2.0-7.7); Basophil# 0.05 X10^3/uL; Basophil% 0.7 % (0-1); Eosinophil# 0.17 X10^3/uL; Eosinophils% 2.5 % (0-5); Hematocrit 41.9 % (37-47); Hemoglobin 13.1 g/dL (12.0-15.0); Lymphocyte % 33.4 % (19-41); Mean Corp Hgb Conc 31.3 g/dL (32-36); Mean Corpuscular Hgb 27.5 pg (27.0-32.0); Mean Corpuscular Volume 87.8 fL (81-99); Monocyte# 0.47 X10^3/uL; Monocyte% 6.8 % (0-10); NRBC Flagged by Analyzer 0 % (0-5); Neutrophil # 3.88 X10^3/uL (2.7-7.7); Neutrophil % 56.5 % (47-70); Platelet Count 299 K/mm3 (150-450); RBC Distribution Width CV 14.2 % (11.6-14.6); RBC Distribution Width SD 46.1 fl (35.1-43.9); Red Blood Count 4.77 M/mm3 (4.2-5.4); White Blood Count 6.9 K/mm3 (4.4-11.0)
[2022-03-23 12:48] LABS: Vitamin D,25 Hydroxy 45.2 ng/mL
[2022-03-23 13:07] LABS: AST(SGOT) 14 U/L (15-37); Alanine Aminotransfer ALT/SGPT 24 U/L (13-56); Albumin, Serum 3.7 g/dL (3.2-5.0); Alkaline Phosphatase 51 U/L (45-117); Anion Gap 4 (5-15); BUN 26 mg/dL (7-18); BUN/Creat Ratio 28.5 RATIO (10-20); Chloride 107 mmol/L (98-107); Creatinine, Serum 0.91 mg/dL (0.55-1.02); EST Glomerular Filtration Rate 62 mL/min (>60); Est Glom Filt Rate - Afr Amer 76 mL/min (>60); Globulin 3.7 g/dL (2.2-4.2); Glucose 94 mg/dL (74-106); Potassium 4.2 mmol/L (3.5-5.1); Protein, Total 7.4 g/dL (6.4-8.2); Sodium Level 141 mmol/L (136-145); Thyroid Stim Hormone (TSH) 1.14 uIU/mL (0.358-3.74)
== END | disposition home or self-care (01) ==
LOC: POLAB3 09:15
PROVIDERS: PCP Family Medicine Geriatric Medicine; Visit Provider Family Medicine Geriatric Medicine
DX: I10 Essential (primary) hypertension (principal); E55.9 Vitamin D deficiency, unspecified
CPT/HCPCS: 36415; 80053; 82306; 84443; 85025

== ENCOUNTER → 2022-09-21 | Outpatient (CLI) | payer MEDICARE, SELFPAY ==
[2022-09-21 12:32] LABS: Absolute Lymphocyte Count 1.82 X10^3/uL (0.83-4.51); Absolute Neutrophil Count 4.7 X10^3/uL (2.0-7.7); Basophil# 0.05 X10^3/uL; Basophil% 0.7 % (0-1); Eosinophil# 0.12 X10^3/uL; Eosinophils% 1.7 % (0-5); Hematocrit 41.2 % (37-47); Hemoglobin 12.9 g/dL (12.0-15.0); Lymphocyte # 1.82 X10^3/ul (0.83-4.51); Lymphocyte % 25.7 % (19-41); Mean Corp Hgb Conc 31.3 g/dL (32-36); Mean Corpuscular Hgb 27.6 pg (27.0-32.0); Mean Platelet Vol. 9.8 fl (6.2-12.0); Monocyte# 0.38 X10^3/uL; Monocyte% 5.4 % (0-10); NRBC Flagged by Analyzer 0 % (0-5); Neutrophil # 4.67 X10^3/uL (2.7-7.7); Neutrophil % 66.1 % (47-70); Platelet Count 279 K/mm3 (150-450); RBC Distribution Width CV 14.6 % (11.6-14.6); Red Blood Count 4.68 M/mm3 (4.2-5.4); White Blood Count 7.1 K/mm3 (4.4-11.0)
[2022-09-21 12:59] LABS: Vitamin D,25 Hydroxy 38.7 ng/mL
[2022-09-21 13:23] LABS: AST(SGOT) 18 U/L (15-37); Alanine Aminotransfer ALT/SGPT 23 U/L (13-56); Albumin, Serum 3.7 g/dL (3.2-5.0); Alkaline Phosphatase 58 U/L (45-117); Anion Gap 6 (5-15); BUN 20 mg/dL (7-18); BUN/Creat Ratio 21.7 RATIO (10-20); Calcium,Total 9.1 mg/dL (8.5-10.1); Chloride 107 mmol/L (98-107); Creatinine, Serum 0.92 mg/dL (0.55-1.02); EST Glomerular Filtration Rate 61 mL/min (>60); Est Glom Filt Rate - Afr Amer 74 mL/min (>60); Globulin 3.6 g/dL (2.2-4.2); Glucose 92 mg/dL (74-106); Protein, Total 7.3 g/dL (6.4-8.2); Sodium Level 141 mmol/L (136-145); Thyroid Stim Hormone (TSH) 1.33 uIU/mL (0.358-3.74)
== END | disposition home or self-care (01) ==
LOC: POLAB3 09:51
PROVIDERS: PCP Family Medicine Geriatric Medicine; Visit Provider Family Medicine Geriatric Medicine
DX: I10 Essential (primary) hypertension (principal); E55.9 Vitamin D deficiency, unspecified
CPT/HCPCS: 36415; 80053; 82306; 84443; 85025

== ENCOUNTER → 2023-03-29 | Outpatient (CLI) | payer MEDICARE, SELFPAY ==
[2023-03-29 12:36] LABS: Absolute Lymphocyte Count 2.81 X10^3/uL (0.83-4.51); Absolute Neutrophil Count 4.7 X10^3/uL (2.0-7.7); Basophil# 0.05 X10^3/uL; Basophil% 0.6 % (0-1); Eosinophil# 0.11 X10^3/uL; Eosinophils% 1.3 % (0-5); Hematocrit 44.2 % (37-47); Hemoglobin 13.7 g/dL (12.0-15.0); Lymphocyte # 2.81 X10^3/ul (0.83-4.51); Lymphocyte % 34.2 % (19-41); Mean Corpuscular Hgb 27.6 pg (27.0-32.0); Mean Corpuscular Volume 89.1 fL (81-99); Mean Platelet Vol. 9.8 fl (6.2-12.0); Monocyte% 6.1 % (0-10); NRBC Flagged by Analyzer 0 % (0-5); Neutrophil # 4.72 X10^3/uL (2.7-7.7); Neutrophil % 57.6 % (47-70); Platelet Count 316 K/mm3 (150-450); RBC Distribution Width CV 14.9 % (11.6-14.6); Red Blood Count 4.96 M/mm3 (4.2-5.4); White Blood Count 8.2 K/mm3 (4.4-11.0)
[2023-03-29 12:54] LABS: Vitamin D,25 Hydroxy 44.4 ng/mL
[2023-03-29 12:57] LABS: ALB/GLOB Ratio 1.1 RATIO (0.9-2.4); AST(SGOT) 17 U/L (15-37); Alanine Aminotransfer ALT/SGPT 24 U/L (13-56); Albumin, Serum 3.8 g/dL (3.2-5.0); Alkaline Phosphatase 54 U/L (45-117); Anion Gap 8 (5-15); BUN 16 mg/dL (7-18); BUN/Creat Ratio 17.1 RATIO (10-20); Calcium,Total 9.3 mg/dL (8.5-10.1); Chloride 104 mmol/L (98-107); Creatinine, Serum 0.94 mg/dL (0.55-1.02); EST Glomerular Filtration Rate 60 mL/min (>60); Est Glom Filt Rate - Afr Amer 73 mL/min (>60); Globulin 3.6 g/dL (2.2-4.2); Glucose 85 mg/dL (74-106); Protein, Total 7.4 g/dL (6.4-8.2); Sodium Level 139 mmol/L (136-145); Thyroid Stim Hormone (TSH) 1.58 uIU/mL (0.358-3.74)
== END | disposition home or self-care (01) ==
PROVIDERS: PCP Family Medicine Geriatric Medicine; Visit Provider Family Medicine Geriatric Medicine
DX: I10 Essential (primary) hypertension (principal); E55.9 Vitamin D deficiency, unspecified
CPT/HCPCS: 36415; 80053; 82306; 84443; 85025

== ENCOUNTER → 2023-09-26 | Outpatient (CLI) | payer MEDICARE, SELFPAY ==
[2023-09-26 10:53] LABS: Absolute Lymphocyte Count 2.44 X10^3/uL (0.83-4.51); Absolute Neutrophil Count 4.6 X10^3/uL (2.0-7.7); Basophil# 0.06 X10^3/uL; Basophil% 0.8 % (0-1); Eosinophil# 0.16 X10^3/uL; Eosinophils% 2.1 % (0-5); Hematocrit 42.1 % (37-47); Hemoglobin 13.2 g/dL (12.0-15.0); Lymphocyte # 2.44 X10^3/ul (0.83-4.51); Lymphocyte % 31.3 % (19-41); Mean Corp Hgb Conc 31.4 g/dL (32-36); Mean Corpuscular Hgb 27.3 pg (27.0-32.0); Mean Corpuscular Volume 87.2 fL (81-99); Mean Platelet Vol. 9.9 fl (6.2-12.0); Monocyte# 0.49 X10^3/uL; Monocyte% 6.3 % (0-10); NRBC Flagged by Analyzer 0 % (0-5); Neutrophil # 4.63 X10^3/uL (2.7-7.7); Neutrophil % 59.2 % (47-70); Platelet Count 300 K/mm3 (150-450); RBC Distribution Width SD 48.4 fl (35.1-43.9); Red Blood Count 4.83 M/mm3 (4.2-5.4); White Blood Count 7.8 K/mm3 (4.4-11.0)
[2023-09-26 11:08] LABS: Vitamin D,25 Hydroxy 42.7 ng/mL
[2023-09-26 11:15] LABS: ALB/GLOB Ratio 1.1 RATIO (0.9-2.4); AST(SGOT) 14 U/L (15-37); Alanine Aminotransfer ALT/SGPT 22 U/L (13-56); Albumin, Serum 3.6 g/dL (3.2-5.0); Alkaline Phosphatase 65 U/L (45-117); Anion Gap 3 (5-15); BUN 23 mg/dL (7-18); BUN/Creat Ratio 26.7 RATIO (10-20); Calcium,Total 9.3 mg/dL (8.5-10.1); Chloride 110 mmol/L (98-107); Creatinine, Serum 0.86 mg/dL (0.55-1.02); EST Glomerular Filtration Rate 66 mL/min (>60); Est Glom Filt Rate - Afr Amer 80 mL/min (>60); Globulin 3.4 g/dL (2.2-4.2); Glucose 89 mg/dL (74-106); Potassium 3.9 mmol/L (3.5-5.1); Sodium Level 141 mmol/L (136-145); Thyroid Stim Hormone (TSH) 0.97 uIU/mL (0.358-3.74)
== END | disposition home or self-care (01) ==
LOC: POLAB3 09:56
PROVIDERS: PCP Family Medicine Geriatric Medicine; Visit Provider Family Medicine Geriatric Medicine
DX: I10 Essential (primary) hypertension (principal); E55.9 Vitamin D deficiency, unspecified
CPT/HCPCS: 36415; 80053; 82306; 84443; 85025

== ENCOUNTER 2024-03-25 13:51 | Inpatient (IN) | payer MEDICARE, SELFPAY ==
[2024-03-25 13:52] VITALS: BP 149/71; PULSE 94; RESP 16; TEMP 36.3; O2SAT 100
--- NOTE | 2024-03-25 15:57 | EKG12_ITS ---
Test Reason : Blood Pressure : / mmHG Vent. Rate : 066 BPM Atrial Rate : 066 BPM P-R Int : 146 ms QRS Dur : 094 ms QT Int : 430 ms P-R-T Axes : 064 -41 095 degrees QTc Int : 450 ms Normal sinus rhythm Left axis deviation Left ventricular hypertrophy ( R in aVL , Vic product , Romhilt-James ) Cannot rule out Septal infarct , age undetermined Abnormal ECG Confirmed by JUAN CHEN, GONZALES ([id number]), editorial specialist CASPER RODRIGUEZ ([id number]) on 03/28/2024 6:37:18 AM Referred By: Confirmed By:RHONDA MARTINEZ MD
--- NOTE | 2024-03-25 15:59 | EDS_ITS ---
HPI History of Present Illness Chief Complaint: Abn Labs Narrative Narrative: 88-year-old female past medical history of hypertension presents with her son at the direction of her primary care provider, Dr. Lu, for abnormal laboratory value. She relates history that yesterday morning after 6:30 AM, she had a syncopal episode. She states she passed out and was out for at least 5 hours on her bedroom floor. She was unable to get up. She states she laid on the floor for approximately 11 hours. She was able to grab her cell phone off the nightstand which was plugged in and she called her son. Son states that he took her over to his house, cleaned her up, and they went to see her primary care provider today who did laboratory work. Her lungs sounded congested so he performed a COVID swab which was positive, but she denies any fevers or chills, cough, or any shortness of breath currently. She was also sent in because he performed a CK which was elevated at 2100. There was concern for rhabdomyolysis, and kidney damage. Patient denies any injury from her syncopal episode yesterday, only stating that she has been bruised up, but she has been able to ambulate. [facility] Medical History (Updated 03/25/24 @ 17:50 by Dillon Valdes MD) Acute cervical sprain Segmental and somatic dysfunction of cervical region Syncope (12/23/18) Osteoarthritis Obesity Essential (primary) hypertension Hyperlipidemia Home Medications ?Medication ?Instructions ?Recorded ?Last Taken ?Type multivitamin,cd-uwqe-tlndsttt 27 1 tab PO DAILY 10/27/14 Unknown History mg-0.4 mg tablet lisinopril 20 mg tablet 20 mg PO DAILY 01/08/20 Unknown History cholecalciferol (vitamin D3) 125 250 mcg PO .qsunday 03/25/24 03/25/24 History mcg (5,000 unit) tablet (Vitamin D3) Allergy/AdvReac Type Severity Reaction Status Date / Time latex Allergy Mild Other Verified 03/25/24 13:56 ibandronate sodium (From AdvReac Other Verified 03/25/24 13:56 Boniva) Family History Mother Diabetes Myocardial infarction Father Cancer throat- smoker Surgical History History of total right knee replacement Social History Smoking Status: Former smoker alcohol intake: never substance use type: does not use what type of physical activity do you participate in: walking seatbelt use: always do you feel safe at home: Yes additional social history: - Retired ROS ROS ED ROS Narrative Constitutional: No fever, no chills. HEENT: No sore throat. No neck pain. No loss of vision. No rhinorrhea. Cardiovascular: No chest pain. No palpitations. No pedal edema. Respiratory: No cough, no shortness of breath. Abdominal: No abdominal pain. No nausea. No vomiting. Genitourinary: No dysuria. No hematuria. Musculoskeletal: No myalgias. No arthralgias. Neurologic: No headaches. No dizziness. No lightheadedness. Positive syncopal episode. Skin: No rash. No change in color. Multiple bruises. Psychiatric: No depression. No anxiety. EXAM Physical Exam Narrative Exam Narrative: Afebrile. Vital signs noted. HEENT: Normocephalic. Atraumatic. PERRL, EOMI. Neck soft and supple. No point tenderness or step off. Cardiovascular: Regular rate and rhythm. No murmurs, rubs, or gallops appreciated. Respiratory: No tachypnea. Lungs clear to auscultation bilaterally. Gastrointestinal: Abdomen soft, nontender, with normoactive bowel sounds. No rebound or guarding. Neurological: Awake. Alert. Oriented. Nonfocal, nonlateralizing. Skin: No rash. Normal color. No pallor. Musculoskeletal: No pedal edema. Full range of motion extremities. Const Vital Signs: 03/25/24 13:52 03/25/24 16:11 03/25/24 16:13 Temperature 97.4 F L Temperature Source Temporal Pulse Rate 94 75 Respiratory Rate 16 18 Respiratory Effort Normal Non-Labored Respiratory Pattern Normal Blood Pressure 149/71 H 152/70 H Blood Pressure Mean 97 97 Pulse Ox 100 95 Oxygen Delivery Method Room Air Room Air MDM MDM MDM Narrative Medical decision making narrative: I reviewed the patient's out patient laboratory work and she is positive for COVID. Additionally, her CK was elevated at 2100 and she had a slight elevation in her creatinine. She will be bolused IV fluids. I will recheck her laboratory work including her CK along with a troponin. She may require observation for continued IV fluids and to ensure that her CK continues to trend downward. I reviewed her laboratory work that I repeated here and she has a normal white count 7.8, hemoglobin normal at 14.7 with hematocrit 42.5, platelet count normal at 316. Sodium is normal at 139 with potassium 3.7. BUN is elevated 23 with creatinine 1.08, glucose is normal at 106 with a normal anion gap of 7. Chest x-ray interpreted by myself independently shows no pneumothorax or pneumonia. I reviewed the radiology report which confirms my independent interpretation but comments on not being able to exclude left pleural effusion. EKG was obtained and interpreted by myself independently as normal sinus rhythm at 66 bpm without ectopy or acute ST changes. No STEMI. Additionally, patient is not experiencing chest pain currently. This was obtained more for her reported syncope. Review of her troponin does show that it is elevated at 61. AST is elevated at 81. Total CK is elevated at 1849, but down from previous of greater than 2100. She was bolused normal saline 1 L intravenously but given her elevated CK, elevated troponin with reported syncopal episode, I do feel that she merits discussion with the hospitalist for admission. Patient is in stable condition currently. History & Record Review Discussion w/independent historian: Patient and Family Lab Data Attestation: I reviewed the patient's lab results. Labs: Laboratory Results - last 24 hr 03/25/24 16:19 WBC 7.8 RBC 4.97 Hgb 14.7 Hct 42.5 MCV 85.5 MCH 29.6 MCHC 34.6 D RDW Std Deviation 45.0 H RDW Coeff of Alan 14.5 Plt Count 316 MPV 10.3 Immature Gran % (Auto) 0.300 Neut % (Auto) 70.7 H Lymph % (Auto) 19.5 [place] % (Auto) 9.1 Eos % (Auto) 0.0 Baso % (Auto) 0.4 Absolute Neuts (auto) 5.5 Absolute Lymphs (auto) 1.52 Nucleated RBC % 0 Sodium 139 Potassium 3.7 Chloride 107 Carbon Dioxide 25.0 Anion Gap 7 BUN 23 H Creatinine 1.08 H Estim Creat Clear Calc 34.51 Est GFR (MDRD) Af Amer 62 Est GFR (MDRD) Non-Af 51 L BUN/Creatinine Ratio 21.3 H Glucose 106 Calcium 8.9 Total Bilirubin 0.30 AST 81 H ALT 44 Alkaline Phosphatase 65 Total Creatine Kinase 1849 H Troponin I High Sens 61 H Total Protein 7.4 Albumin 3.5 Globulin 3.9 Albumin/Globulin Ratio 0.9 Radiography Diagnostic Testing: Clinical Impression(s) from Imaging Studies Chest X-Ray 03/25/24 16:45 IMPRESSION: Cannot exclude small left pleural effusion. No other definite acute or significant abnormality seen. Electronically Signed: Rene Jean Baptiste MD at 17:27 EDT , Management Discussion w/another healthcare provider: Hospitalist (Dr. Arce) Discharge Plan Dx/Rx/DC Orders Clinical Impression: Syncope, Elevated CK, Elevated troponin, COVID Disposition Disposition: Acute Care Hospital [facility]
[2024-03-25 16:11] VITALS: BP 152/70; PULSE 75; RESP 18; O2SAT 95; BMI 28.6
[2024-03-25] MEDS: 0.9% Normal Saline (1000mL) 1,000 ML 1000 ML IV (16:29)
--- NOTE | 2024-03-25 16:45 | RAD_ITS ---
STUDY: X-RAY CHEST REASON FOR EXAM: Female, 88 years old. Shortness of Breath TECHNIQUE: Single AP portable view of the chest. COMPARISON: 12/23/2018. FINDINGS: The lungs are clear and expanded. Blunting of the left costophrenic angle-small effusion cannot be excluded. Normal size heart. Normal mediastinum and sonia. Normal visualized pulmonary arteries. There is atherosclerotic calcification of the aortic arch with tortuosity. There are diffuse degenerative changes of the visualized thoracic spine. Normal visualized ribs, clavicles, and shoulders. There is no demonstrated abnormality of the visualized soft tissue structures of the upper abdomen. RAD/Chest 1 View (Portable) IMPRESSION: Cannot exclude small left pleural effusion. No other definite acute or significant abnormality seen. Electronically Signed: Rene Jean Baptiste MD at 17:27 EDT ,
[2024-03-25 16:54] LABS: Absolute Lymphocyte Count 1.52 X10^3/uL (0.83-4.51); Absolute Neutrophil Count 5.5 X10^3/uL (2.0-7.7); Basophil# 0.03 X10^3/uL; Basophil% 0.4 % (0-1); Hematocrit 42.5 % (37-47); Hemoglobin 14.7 g/dL (12.0-15.0); Lymphocyte # 1.52 X10^3/ul (0.83-4.51); Lymphocyte % 19.5 % (19-41); Mean Corp Hgb Conc 34.6 g/dL (32-36); Mean Corpuscular Hgb 29.6 pg (27.0-32.0); Mean Corpuscular Volume 85.5 fL (81-99); Mean Platelet Vol. 10.3 fl (6.2-12.0); Monocyte# 0.71 X10^3/uL; Monocyte% 9.1 % (0-10); NRBC Flagged by Analyzer 0 % (0-5); Neutrophil # 5.53 X10^3/uL (2.7-7.7); Neutrophil % 70.7 % (47-70); Platelet Count 316 K/mm3 (150-450); RBC Distribution Width CV 14.5 % (11.6-14.6); Red Blood Count 4.97 M/mm3 (4.2-5.4); White Blood Count 7.8 K/mm3 (4.4-11.0)
[2024-03-25 17:12] LABS: ALB/GLOB Ratio 0.9 RATIO (0.9-2.4); AST(SGOT) 81 U/L (15-37); Alanine Aminotransfer ALT/SGPT 44 U/L (13-56); Albumin, Serum 3.5 g/dL (3.2-5.0); Alkaline Phosphatase 65 U/L (45-117); Anion Gap 7 (5-15); BUN 23 mg/dL (7-18); BUN/Creat Ratio 21.3 RATIO (10-20); CPK Total, Creatine Kinase 1849 U/L (26-192); Calcium,Total 8.9 mg/dL (8.5-10.1); Chloride 107 mmol/L (98-107); Creatinine, Serum 1.08 mg/dL (0.55-1.02); EST Glomerular Filtration Rate 51 mL/min (>60); Est Glom Filt Rate - Afr Amer 62 mL/min (>60); Estimated Creatinine Clearance 34.51 ml/min; Globulin 3.9 g/dL (2.2-4.2); Glucose 106 mg/dL (74-106); Potassium 3.7 mmol/L (3.5-5.1); Protein, Total 7.4 g/dL (6.4-8.2); Sodium Level 139 mmol/L (136-145); Troponin-I HS 61 pg/mL (3.0-54.0)
[2024-03-25 18:00] VITALS: BP 161/82; PULSE 68; RESP 20; O2SAT 96
[2024-03-25] MEDS: 0.9% Normal Saline (1000mL) 1,000 ML 150 ML IV (18:05)
[2024-03-25 18:06] VITALS: BP 161/82; PULSE 68; RESP 20; TEMP 37; O2SAT 97
[2024-03-25 18:35] LABS: Magnesium 2.2 mg/dL (1.6-2.6); Phosphorus 3.8 mg/dL (2.5-4.9)
--- NOTE | 2024-03-25 19:39 | PCM.HP.STD ---
HPI - General General Date of Admission: 03/25/24 Date of Service: 03/25/24 Chief Complaint: Syncope and fall. Rhabdomyolysis HPI Narrative DENZEL CHU, is a 88 F was sent to ED from PCP Dr. Lu for concern of rhabdomyolysis. CPK 2100. Patient has a history of recurrent fall, feeling weak and fatigued for last 2 to 3 days. She also has imbalance and chronic dyspnea. When she woke up yesterday morning about 6:30 AM to go to the bathroom, she felt dizzy lightheaded and a spinning sensation and then on returning she passed out and fell on the back. She does not remember exact mechanism of fell but thinks he probably fell on the back of the head and then hit left shoulder and arm. She has been on the floor for long time, unable to get up. Will need on the floor for about 11 hours. Then last night she called her son and then he brought to his home and took [address] Lu in the morning. She had also fell down about a month ago and hit the back and buttock. Prior to that she had syncope and fall about 3 to 4 years ago. She denies any major injury but has left shoulder/deltoid region bruising but no open ulcer. Today Dr. Lu did CK level and found very high 2100 therefore sent to ED for rhabdomyolysis. She was able to ambulate today She has been not feeling good for last 3 to 4 days predominantly with sore throat, mild occasional cough but not able to bring up phlegm or expectorate. Fever was 101.8 Fahrenheit yesterday at home. She was tested positive of COVID in in PCP office. She had 4 vaccines of COVID-19 and had RSV and influenza vaccine also. She denies chest pain or shortness of breath. Vitals, labs and imaging reviewed and discussed with assessment and plan [facility] Medical History (Updated 03/25/24 @ 19:[address] Babak Arce MD) Acute cervical sprain Segmental and somatic dysfunction of cervical region Syncope (12/23/18) Osteoarthritis Obesity Essential (primary) hypertension Hyperlipidemia Home Medications ?Medication ?Instructions ?Recorded ?Last Taken ?Type multivitamin,sn-dqia-xevemstb 27 1 tab PO DAILY 10/27/14 Unknown History mg-0.4 mg tablet lisinopril 20 mg tablet 20 mg PO DAILY 01/08/20 Unknown History cholecalciferol (vitamin D3) 125 250 mcg PO .qsunday 03/25/24 03/25/24 History mcg (5,000 unit) tablet (Vitamin D3) Allergy/AdvReac Type Severity Reaction Status Date / Time latex Allergy Mild Other Verified 03/25/24 13:56 ibandronate sodium (From AdvReac Other Verified 03/25/24 13:56 Boniva) Family History Mother Diabetes Myocardial infarction Father Cancer throat- smoker Surgical History (Updated 03/25/24 @ 19:[address] Babak Arce MD) History of total right knee replacement Social History Smoking Status: Former smoker alcohol intake: never substance use type: does not use what type of physical activity do you participate in: walking seatbelt use: always do you feel safe at home: Yes additional social history: - Retired ROS ROS Narrative Constitutional: Reports fatigue and weakness for last 2-3. No fever. HEENT: Reports systems reviewed and no addt'l complaints, except as documented Respiratory/Chest: No acute shortness of breath or respiratory distress or wheezing. CVS: No chest pain pressure or tightness. Rest as described in HPI. Denies history of chronic heart disease Gastrointestinal: Denies coffee ground emesis, hematemesis or vomiting Genitourinary: Denies burning urination or new urinary tract symptoms Musculoskeletal: Chronic degenerative arthritis. Rest as described in HPI Neurologic: Denies seizure-like symptoms. skin: No ulcer. Mild bruise Endocrinology: Reports systems reviewed and no addt'l complaints, except as documented Hematologic/Lymphatic: Reports systems reviewed and no addt'l complaints, except as documented Rest 14 ROS are negative except as mentioned in HPI Vital Signs Vital Signs Vital Signs: 03/25/24 13:52 03/25/24 16:11 03/25/24 16:13 Temperature 97.4 F L Temperature Source Temporal Pulse Rate 94 75 Respiratory Rate 16 18 Respiratory Effort Normal Non-Labored Respiratory Pattern Normal Blood Pressure 149/71 H 152/70 H Blood Pressure Mean 97 97 Pulse Ox 100 95 Oxygen Delivery Method Room Air Room Air 03/25/24 18:00 08/20/24 18:06 Temperature 98.6 F Temperature Source Pulse Rate 68 68 Respiratory Rate 20 H 20 H Respiratory Effort Respiratory Pattern Blood Pressure 161/82 H 161/82 H Blood Pressure Mean 108 108 Pulse Ox 96 97 Oxygen Delivery Method Room Air Weight Weight: 156 lb 8.451 oz Body Mass Index (BMI) 28.6 Physical Exam Narrative General: Alert, Oriented x3, Cooperative HEENT: Atraumatic, PERRLA, EOMI, Normocephalic. No acute tenderness over head and neck region. Oral: No Gingival or Mucosal Lesions/ Ulcerations Neck: Supple, No JVD, Negative Carotid Bruits Chest wall/Lungs: Air entry diminished in bilateral lung bases. No crepitation/rhonchi Cardiovascular: R Regular signhythm, Normal S1, Normal S2, soft systolic murmur at right second ICS Abdomen: Bowel Sounds Present, Soft, Non Tender, Non-Distended : No dysuria. No renal angle tenderness. No suprapubic tenderness. Extremities: No edema, Capillary Refill Less than 3 Seconds Skin: No rashes, No breakdown Musculoskeletal: Mild tenderness over left deltoid region. Right TKR. Degenerative arthritis, chronic Neurological: Cranial nerves II-XII grossly intact, DTR 2+/4. No acute focal neurological deficit. Psych/Mental Status: Normal Affect, Appropriate. Results Lab / Micro Data 03/25/24 16:19 03/25/24 16:19 Labs: Laboratory Results - last 24 hr 03/25/24 16:19: WBC 7.8, RBC 4.97, Hgb 14.7, Hct 42.5, MCV 85.5, MCH 29.6, MCHC 34.6 D, RDW Std Deviation 45.0 H, RDW Coeff of Alan 14.5, Plt Count 316, MPV 10.3, Immature Gran % (Auto) 0.300, Neut % (Auto) 70.7 H, Lymph % (Auto) 19.5, [place] % (Auto) 9.1, Eos % (Auto) 0.0, Baso % (Auto) 0.4, Absolute Neuts (auto) 5.5, Absolute Lymphs (auto) 1.52, Nucleated RBC % 0, Sodium 139, Potassium 3.7, Chloride 107, Carbon Dioxide 25.0, Anion Gap 7, BUN 23 H, Creatinine 1.08 H, Estim Creat Clear Calc 34.51, Est GFR (MDRD) Af Amer 62, Est GFR (MDRD) Non-Af 51 L, BUN/Creatinine Ratio 21.3 H, Glucose 106, Calcium 8.9, Phosphorus 3.8, Magnesium 2.2, Total Bilirubin 0.30, AST 81 H, ALT 44, Alkaline Phosphatase 65, Total Creatine Kinase 1849 H, Troponin I High Sens 61 H, Total Protein 7.4, Albumin 3.5, Globulin 3.9, Albumin/Globulin Ratio 0.9 Imaging Radiology Impression Chest X-Ray 03/25/24 16:45 IMPRESSION: Cannot exclude small left pleural effusion. No other definite acute or significant abnormality seen. Electronically Signed: Rene Jean Baptiste MD at 17:27 EDT , Assessment & Plan Assessment/Plan (1) Syncope: (2) Rhabdomyolysis: PLAN: Plan This is a 88-year-old female came to ED after she had syncope and a fall laying on the floor for about 11 hours. 1. Acute rhabdomyolysis secondary to fall and prolonged laying on the floor: Patient is being admitted on [facility] floor. CPK 2100 at PCPs office today. In the ER CPK revealed 49. Patient had 1 L of normal saline bolus. Continue IV fluid normal saline 100 mL/h. Monitor CPK daily. PT and OT ordered. Pain control with Tylenol. 2. Syncope with dizziness and vertigo: Patient had syncope about 4 years ago. Twelve-lead EKG done in ED shows normal sinus rhythm, LAD, LVH, QTc 450 ms. Last echo in February 2019 shows EF 65%, stage I diastolic dysfunction suggestive of chronic HFpEF. Mild TR. PASP 30 mmHg. Repeat echo ordered. 3. Acute on recurrent fall: Patient had fall about a month ago. Degenerative arthritis of knee joints status post right TKR. 4. Acute COVID-19 infection: Patient had fever at home with generalized fatigue, sore throat. Patient not hypoxic or has significant cough but not able to expiratory phlegm. Mucinex DM 1200 mg twice daily. Incentive spirometry and Pep. Does not need a steroid or remdesivir or any further treatment 5. Hypertension: EKG has hypertensive changes of LVH. Patient used to follow Dr. Fishman last seen in January 2019 for syncope and hypertension. 6. CKD stage IIIb: Patient creatinine slightly went up from baseline 0.86-1.08 but does not meet definition of KENDELL. Continue IV fluid. Hold lisinopril. 7. Dyslipidemia: Not on a statin. Living will/advanced directive/end of life care: Patient does have living will or advanced directive. His son near the bedside is power of managing attorney for health. After discussion of benefits/risks procedures involved with full code, DNR CC arrest and DNR CC, the patient opted for DNR CC arrest with no interval Patient doesn't want artificial life support including intubation, tube feed, ventilator and/chest compression, central venous catheter, vasopressor and DC shock if needed Total time spent in [id number] encounter in discussion of advanced directive 17 minutes. Laboratory Results 03/25/24 16:19: WBC 7.8, RBC 4.97, Hgb 14.7, Hct 42.5, MCV 85.5, MCH 29.6, MCHC 34.6 D, RDW Std Deviation 45.0 H, RDW Coeff of Alan 14.5, Plt Count 316, MPV 10.3, Immature Gran % (Auto) 0.300, Neut % (Auto) 70.7 H, Lymph % (Auto) 19.5, [place] % (Auto) 9.1, Eos % (Auto) 0.0, Baso % (Auto) 0.4, Absolute Neuts (auto) 5.5, Absolute Lymphs (auto) 1.52, Nucleated RBC % 0, Sodium 139, Potassium 3.7, Chloride 107, Carbon Dioxide 25.0, Anion Gap 7, BUN 23 H, Creatinine 1.08 H, Estim Creat Clear Calc 34.51, Est GFR (MDRD) Af Amer 62, Est GFR (MDRD) Non-Af 51 L, BUN/Creatinine Ratio 21.3 H, Glucose 106, Calcium 8.9, Phosphorus 3.8, Magnesium 2.2, Total Bilirubin 0.30, AST 81 H, ALT 44, Alkaline Phosphatase 65, Total Creatine Kinase 1849 H, Troponin I High Sens 61 H, Total Protein 7.4, Albumin 3.5, Globulin 3.9, Albumin/Globulin Ratio 0.9 Charges/Coding Visit Charges Inpatient E&M: 99078 Init Hosp L3 Procedures Hospitalists Procedures: 14894 Advncd Care Plan 30 Min
[2024-03-25 19:43] VITALS: BMI 28.0
[2024-03-25 20:00] VITALS: BP 141/61; PULSE 60; RESP 18; TEMP 36.6; O2SAT 95
[2024-03-25] MEDS: Acetaminophen 500 MG Tablet 1000 MG PO (21:42)
[2024-03-25] MEDS: Enoxaparin 40 MG/0.4 ML Syringe SC (21:42)
[2024-03-26 00:09] VITALS: BMI 28.0
[2024-03-26 03:15] VITALS: BP 153/71; PULSE 61; RESP 18; TEMP 36.6; O2SAT 96
[2024-03-26] MEDS: Acetaminophen 500 MG Tablet 1000 MG PO (05:48)
--- NOTE | 2024-03-26 06:21 | PCM.PN.HOSP ---
Reason for Visit Reason for Visit: Diagnoses Rhabdomyolysis (03/25/24) Syncope and collapse (03/25/24) Subjective Subjective The patient notes less and nausea and no further dry heaving with request for advancement of diet. She notes that during this timeline she has had mild cough, dyspnea, fatigue, malaise, muscle aches as well as nausea and dry heaving although she seems somewhat improved today per her report. She does note feeling significantly weak and fatigued and is amenable to skilled facility placement. Discussed plan of care which included continue cardiac trending, COVID inflammatory panel to be obtained and ongoing PT and OT assessments as well as case management involvement to assist in choosing skilled facility in the community to which she is amenable. Patient denies any recent fevers, chills, nausea, emesis, abdominal pain, chest pain. Objective Data Objective Data Vital Signs: Vital Signs Temp Pulse Resp BP Pulse Ox O2 Del Method 97.8 F 61 18 153/71 H 96 Room Air 03/26/24 03:15 03/26/24 03:15 03/26/24 03:15 03/26/24 03:15 03/26/24 03:15 03/26/24 03:15 Oxygen Delivery Method Room Air Weight: 153 lb 7.068 oz Body Mass Index (BMI) 28.0 Intake & Output: Intake and Output for Last 24 Hours 03/24/24 03/25/24 03/26/24 23:59 23:59 23:59 Intake Total 180 / 1955 150 / 150 Balance 180 / 1955 150 / 150 Lab / Micro Data 03/26/24 07:23 03/26/24 07:23 Labs: Laboratory Results - last 24 hr 03/25/24 16:19: WBC 7.8, RBC 4.97, Hgb 14.7, Hct 42.5, MCV 85.5, MCH 29.6, MCHC 34.6 D, RDW Std Deviation 45.0 H, RDW Coeff of Alan 14.5, Plt Count 316, MPV 10.3, Immature Gran % (Auto) 0.300, Neut % (Auto) 70.7 H, Lymph % (Auto) 19.5, [place] % (Auto) 9.1, Eos % (Auto) 0.0, Baso % (Auto) 0.4, Absolute Neuts (auto) 5.5, Absolute Lymphs (auto) 1.52, Nucleated RBC % 0, Sodium 139, Potassium 3.7, Chloride 107, Carbon Dioxide 25.0, Anion Gap 7, BUN 23 H, Creatinine 1.08 H, Estim Creat Clear Calc 34.51, Est GFR (MDRD) Af Amer 62, Est GFR (MDRD) Non-Af 51 L, BUN/Creatinine Ratio 21.3 H, Glucose 106, Calcium 8.9, Phosphorus 3.8, Magnesium 2.2, Total Bilirubin 0.30, AST 81 H, ALT 44, Alkaline Phosphatase 65, Total Creatine Kinase 1849 H, Troponin I High Sens 61 H, Total Protein 7.4, Albumin 3.5, Globulin 3.9, Albumin/Globulin Ratio 0.9 Radiography Diagnostic Testing: Radiology Impression Chest X-Ray 03/25/24 16:45 IMPRESSION: Cannot exclude small left pleural effusion. No other definite acute or significant abnormality seen. Electronically Signed: Rene Jean Baptiste MD at 17:27 EDT , Physical Exam Narrative Physical Examination: General: Awake, alert, oriented x 3 and cooperative, seated upright in the MS bed, fatigued, ill-appearing. Skin: Normal color, normal turgor, no icterus, no cyanosis except occasional stage ecchymoses, venous stasis skin changes. HEENT: AT/NC, EOMI, PERRLA, mildly dry MM. Lungs: Diminished, greater bases, appropriate effort currently, no evidence of distress, no rales, ronchi or wheezing. Heart: Regular rate and rhythm; no gallop, rub audible. Abdomen: Soft, overweight, NTTP, ND, hyperactive BS Extremities: No cyanosis, no clubbing, mild peripheral not markedly pitting edema present Neurological: Patient awake, alert, oriented as noted, cognitive function intact; pupils equally reactive to light and accommodation, cranial nerves grossly normal, moving all 4 extremities, no focal deficits, strength severely globally decreased secondary to acute presentation. Psychiatric: Affect appears fatigued, ill-appearing, no acute evidence of depressive or anxiety feelings. Assessment & Plan Assessment/Plan (1) COVID: PLAN: Plan The patient is a 88 y/o F w/ PMHx: HTN, HLD, Overweight, OA, CKD stage II based on GFR trending who presents to the [facility] ED on 03/25/24 who presents with recurrent falls, fatigue malaise over the last 2 to 3 days with underlying chronic dyspnea and imbalance awakening the day prior to presentation with reported lightheadedness and dizziness as well as spinning sensation with suspected syncopal event unfortunately landing and hitting her left shoulder and arm lying on the floor for prolonged amount of time potentially 11 hours with PCP evaluation with significantly elevated creatinine kinase prompting referral to the ED for evaluation. #1. Adult FTT, Multifactorial, secondary to Acute Viral Syndrome, COVID-19 in addition to #2 Acute rhabdomyolysis secondary to fall w/ prolonged downtime with syncopal event suspected likely associated: Workup in the ED included T97.4, heart rate 94, BP 149/71, respiratory rate 16, 100% on room air, CBC with WC 7.8, hemoglobin 14.7, MCV 85.5, platelet 316 without marked shift, CMP with BUN/creatinine 23/1.08, GFR 51, AST 81, TCK 1849, troponin initial 61, chest x-ray with possible small left pleural effusion with otherwise no acute cardiopulmonary findings, SARS COVID PCR positive. Admitted to medical surgical floor, maintain on COVID precautions, will maintain on oxygen with wean as tolerated to room air, PRN albuterol, HOB, IS parameters w/ D-dimer, procalcitonin, CRP, CPK, Ferritin, LDH and BNP per cardiology order set protocol, continue supportive care including q 2 hour, given no evidence of any hypoxia of 94% or less will defer any Decadron steroid therapy and IV remdesivir at this time, continue to evaluate as noted also below. PT/OT/case management consult for discharge planning with likely skilled facility needs. #2. Acute rhabdomyolysis likely secondary to mechanical fall with prolonged downtime: Initial presentation TCK 1849, will continue hydration, monitor urine output, monitor liver function and renal function, trend TCK. #3. Elevated cardiac troponin, indeterminate with as noted syncopal event: Presentation troponin mildly elevated 61, likely secondary to acute presentation with COVID viral syndrome as well as acute rhabdomyolysis, will maintain on telemetry monitoring, cycle cardiac enzymes to be cautious, magnesium 2.2, if enzymes rise further may consider echocardiogram however given COVID illness would prefer to wait until out of precautions, continue judicious hydration. #4. Mild Acute Renal Insufficiency on Chronic Kidney Disease Stage II based on GFR trending: Admission BUN/Cr 23/1.08, GFR 51, baseline renal function 0.8-0.9, baseline GFR primarily greater than 60, mild insufficiency likely secondary to acute presentation #1, #2, continue to trend CMP. #5. Hypertension: Continue home regimen including lisinopril, PRN hydralazine. #6. Hyperlipidemia: Not on regimen, defer to outpatient. #7. DVT prophylaxis: Lovenox 30 mg SQ twice daily per COVID protocol. #8. CODE STATUS: DNR-CCA, no intubation. Charges/Coding Visit Charges Inpatient E&M: 54990 Subs Hosp L3
[2024-03-26 06:30] LABS: Bacteria 0 SEEN /hpf (None Seen); Mucous, Urine 0 SEEN /hpf (<or=2+); Red Blood Cells-Urine 0 SEEN /hpf (0-5)
[2024-03-26 06:31] LABS: Color, Urine Yellow (Yellow); Glucose, Dipstick Normal (Normal); Ketone-Dipstick Negative (Negative); Leukocyte Esterase-Dipstick 500 /ul (Negative); Nitrite-Dipstick Negative (Negative); Occult Blood-Urine Negative /ul (Negative); Protein-Dipstick Negative (Negative); Specific Gravity, Urine 1.015 (1.002-1.030); Urine Bilirubin Dipstick Negative (Negative); Urine Clarity Sl. Cloudy (Clear); Urine Urobilinogen Normal (Normal)
[2024-03-26 07:34] LABS: Squamous Epithelial Cells - UA 0-5 SEEN /hpf (5-10); White Blood Cells 5-10 SEEN /hpf (0-5)
[2024-03-26 07:38] LABS: Erythrocyte Sedimentation Rate 13 mm/hr (0-30)
[2024-03-26 07:39] LABS: Absolute Lymphocyte Count 1.92 X10^3/uL (0.83-4.51); Absolute Neutrophil Count 3.2 X10^3/uL (2.0-7.7); Basophil# 0.03 X10^3/uL; Basophil% 0.5 % (0-1); Eosinophil# 0.01 X10^3/uL; Eosinophils% 0.2 % (0-5); Hematocrit 37.8 % (37-47); Hemoglobin 12.1 g/dL (12.0-15.0); Lymphocyte # 1.92 X10^3/ul (0.83-4.51); Lymphocyte % 33.7 % (19-41); Mean Corpuscular Hgb 27.4 pg (27.0-32.0); Mean Corpuscular Volume 85.5 fL (81-99); Mean Platelet Vol. 9.5 fl (6.2-12.0); Monocyte# 0.55 X10^3/uL; Monocyte% 9.6 % (0-10); NRBC Flagged by Analyzer 0 % (0-5); Neutrophil # 3.18 X10^3/uL (2.7-7.7); Neutrophil % 55.8 % (47-70); Platelet Count 207 K/mm3 (150-450); RBC Distribution Width CV 14.5 % (11.6-14.6); RBC Distribution Width SD 45.8 fl (35.1-43.9); Red Blood Count 4.42 M/mm3 (4.2-5.4); White Blood Count 5.7 K/mm3 (4.4-11.0)
[2024-03-26 07:55] LABS: AST(SGOT) 59 U/L (15-37); Alanine Aminotransfer ALT/SGPT 39 U/L (13-56); Alkaline Phosphatase 52 U/L (45-117); Anion Gap 3 (5-15); BUN 18 mg/dL (7-18); BUN/Creat Ratio 24.6 RATIO (10-20); Calcium,Total 8.3 mg/dL (8.5-10.1); Chloride 114 mmol/L (98-107); Creatinine, Serum 0.73 mg/dL (0.55-1.02); EST Glomerular Filtration Rate 80 mL/min (>60); Est Glom Filt Rate - Afr Amer 97 mL/min (>60); Estimated Creatinine Clearance 46.14 ml/min; Globulin 3.1 g/dL (2.2-4.2); Glucose 104 mg/dL (74-106); Potassium 4.2 mmol/L (3.5-5.1); Protein, Total 6.1 g/dL (6.4-8.2); Sodium Level 140 mmol/L (136-145)
[2024-03-26 08:11] LABS: Ferritin 143 ng/mL (8-252); LDH 290 U/L (84-246); Troponin-I HS 44 pg/mL (3.0-54.0)
[2024-03-26 08:30] LABS: Procalcitonin 0.06 ng/mL (0.00-0.09)
[2024-03-26] MEDS: 0.9% Normal Saline (1000mL) 1,000 ML 100 ML IV (08:35)
[2024-03-26] MEDS: 0.9% Normal Saline (500mL Bag) 500 ML 999 ML IV (08:35)
[2024-03-26] MEDS: Menthol/Lanolin/Calamine/Znox 113 GM Tube 1 APPLIC TOPICAL ×4 (08:40→22:36)
[2024-03-26] MEDS: Enoxaparin 30 MG/0.3 ML Syringe SC ×2 (08:40→22:36)
[2024-03-26 09:00] VITALS: BP 155/76; PULSE 66; RESP 16; TEMP 36.6; O2SAT 96
[2024-03-26 09:11] LABS: D-Dimer Quantitative (DVT/PE) 0.63 FEU/ug/m (0.27-0.49)
[2024-03-26 09:30] LABS: BNP,B-Type NATRIURETIC PEPTIDE 55.8 pg/mL (0-100)
[2024-03-26 09:57] LABS: Troponin-I HS 40 pg/mL (3.0-54.0)
--- NOTE | 2024-03-26 11:23 | CASEMGMT ---
Addendum entered by Inés Bush 03/26/24 16:41: TCU accepted, precrt started. Pt advised SHANAE Ureña Original Note: Social Work SW?to room to meet with patient and patient son for initial transition planning/care coordination?assessment.?SW?introduced self and role at [facility].? Pt voices understanding and consents to?assessment.? Pt is A/Ox4 and answers all questions appropriately.?? PCP: Dr Lu Insurance: [facility] LNOK: Augustine, son [phone] Living Arrangements: Lives independently, alone at baseline. Currently staying with son, Augustine, who has offered that pt can reside in his home full-time at d/c if pt is agreeable. Pt states that she feels she can continue to live alone. Pt son makes meals. Transportation:?Pt drives herself to appointments, etc. Pt son expresses no concern. DME: At baseline, pt reports that she uses a cane. Does not have a medical alert, but has [employer] and reports that she has been pricing them through [employer] and is agreeable to get one? HHC/SNF: No HHC or community resources. PLAN: TCU; pending acceptance. SHANAE Ureña
[2024-03-26 13:51] LABS: Troponin-I HS 36 pg/mL (3.0-54.0)
[2024-03-26 15:00] VITALS: BP 140/78; BP 140/80; BP 142/76
[2024-03-26 15:10] VITALS: BP 140/78; PULSE 62; RESP 16; TEMP 36.4; O2SAT 98
[2024-03-26 22:29] VITALS: BP 162/72; PULSE 71; RESP 18; TEMP 36.8; O2SAT 97
[2024-03-26] MEDS: Lisinopril 20 MG Tablet PO (23:27)
[2024-03-27] VITALS (9 sets, daily range): BP systolic 117–171; BP diastolic 68–99; PULSE 68–91; RESP 14–18; TEMP 36.4–37; O2SAT 96–98; BMI 28.1
--- NOTE | 2024-03-27 06:21 | PCM.PN.HOSP ---
Reason for Visit Reason for Visit: Diagnoses Rhabdomyolysis (03/25/24) Syncope and collapse (03/25/24) COVID-19 (03/25/24) Subjective Subjective Patient with no acute events overnight per self and per nursing report. Patient notes her muscle aches have begun to subside and she is able to move around the room with much greater ease. Patient remains amenable to skilled facility transition although still awaiting precertification and she understands this may be today or tomorrow. Patient denies fevers, chills, nausea, emesis, abdominal pain, chest pain or dyspnea. Objective Data Objective Data Vital Signs: Vital Signs Temp Pulse Resp BP Pulse Ox O2 Del Method 98.6 F 69 18 158/72 H 96 Room Air 03/27/24 04:00 03/27/24 04:00 03/27/24 04:00 03/27/24 04:00 03/27/24 04:00 03/27/24 04:16 Oxygen Delivery Method Room Air Weight: 153 lb 14.122 oz Body Mass Index (BMI) 28.1 Intake & Output: Intake and Output for Last 24 Hours 03/25/24 03/26/24 03/27/24 23:59 23:59 23:59 Intake Total 1805 / 1955 1798.03 / 1798.03 Output Total 1250 / 1250 Balance 1805 / 1955 548.03 / 548.03 Lab / Micro Data 03/27/24 07:07 03/27/24 07:07 Labs: Laboratory Results - last 24 hr 03/26/24 06:00: Urine Color Yellow, Urine Clarity Sl. Cloudy, Urine pH 6.0, Ur Specific [place] 1.015, Urine Protein Negative, Urine Glucose (UA) Normal, Urine Ketones Negative, Urine Occult Blood Negative, Urine Nitrite Negative, Urine Bilirubin Negative, Urine Urobilinogen Normal, Ur Leukocyte Esterase 500 H, Urine RBC 0 SEEN, Urine WBC 5-10 SEEN, Ur Squamous Epith Cells 0-5 SEEN, Urine Bacteria 0 SEEN, Urine Mucus 0 SEEN 03/26/24 07:23: WBC 5.7, RBC 4.42, Hgb 12.1, Hct 37.8, MCV 85.5, MCH 27.4, MCHC 32.0 D, RDW Std Deviation 45.8 H, RDW Coeff of Alan 14.5, Plt Count 207, MPV 9.5, Immature Gran % (Auto) 0.200, Neut % (Auto) 55.8, Lymph % (Auto) 33.7, [place] % (Auto) 9.6, Eos % (Auto) 0.2, Baso % (Auto) 0.5, Absolute Neuts (auto) 3.2, Absolute Lymphs (auto) 1.92, Nucleated RBC % 0, ESR 13, D-Dimer Quant (PE/DVT) 0.63 H*, Sodium 140, Potassium 4.2, Chloride 114 H, Carbon Dioxide 23.0, Anion Gap 3 L, BUN 18, Creatinine 0.73, Estim Creat Clear Calc 46.14, Est GFR (MDRD) Af Amer 97, Est GFR (MDRD) Non-Af 80, BUN/Creatinine Ratio 24.6 H, Glucose 104, Calcium 8.3 L, Ferritin 143, Total Bilirubin 0.30, AST 59 H, ALT 39, Alkaline Phosphatase 52, Lactate Dehydrogenase 290 H, Troponin I High Sens 44, C-React Prot Ext Range 16.20 H, B-Natriuretic Peptide 55.8, Total Protein 6.1 L, Albumin 3.0 L, Globulin 3.1, Albumin/Globulin Ratio 1.0, Procalcitonin 0.06 03/26/24 09:16: Troponin I High Sens 40 03/26/24 13:11: Troponin I High Sens 36 Physical Exam Narrative Physical Examination: General: Awake, alert, oriented x 3 and cooperative, seated upright in the ID bedside chair, much improved appearance, talkative, smiling. Skin: Normal color, normal turgor, no icterus, no cyanosis except occasional stage ecchymoses, venous stasis skin changes. HEENT: AT/NC, EOMI, PERRLA, MMM. Lungs: Diminished, greater bases, appropriate effort, no rales, ronchi or wheezing. Heart: Regular rate and rhythm; no gallop, rub audible. Abdomen: Soft, overweight, NTTP, ND, normal BS. Extremities: No cyanosis, no clubbing, mild peripheral not markedly pitting edema present Neurological: Patient awake, alert, oriented as noted, cognitive function intact; pupils equally reactive to light and accommodation, cranial nerves grossly normal, moving all 4 extremities, no focal deficits, strength improved, moderately to severely globally decreased. Psychiatric: Affect appears more interactive, less fatigued, no acute evidence of depressive or anxiety feelings. Assessment & Plan Assessment/Plan (1) COVID: PLAN: Plan The patient is a 88 y/o F w/ PMHx: HTN, HLD, Overweight, OA, CKD stage II based on GFR trending who presents to the [facility] ED on 03/25/24 who presents with recurrent falls, fatigue malaise over the last 2 to 3 days with underlying chronic dyspnea and imbalance awakening the day prior to presentation with reported lightheadedness and dizziness as well as spinning sensation with suspected syncopal event unfortunately landing and hitting her left shoulder and arm lying on the floor for prolonged amount of time potentially 11 hours with PCP evaluation with significantly elevated creatinine kinase prompting referral to the ED for evaluation. #1. Adult FTT, Multifactorial, secondary to Acute Viral Syndrome, COVID-19 in addition to #2 Acute rhabdomyolysis secondary to fall w/ prolonged downtime with syncopal event suspected likely associated: Workup in the ED included T97.4, heart rate 94, BP 149/71, respiratory rate 16, 100% on room air, CBC with WC 7.8, hemoglobin 14.7, MCV 85.5, platelet 316 without marked shift, CMP with BUN/creatinine 23/1.08, GFR 51, AST 81, TCK 1849, troponin initial 61, chest x-ray with possible small left pleural effusion with otherwise no acute cardiopulmonary findings, SARS COVID PCR positive. Admitted to medical surgical floor, maintain on COVID precautions, will maintain on oxygen with wean as tolerated to room air, PRN albuterol, HOB, IS parameters, inflammatory panel with LDH 290, CRP 16.20, BNP 55.8, procalcitonin 0.06 D-dimer 0.63 normal once age-adjusted, w/ D-dimer, procalcitonin, CRP, CPK, Ferritin, LDH and BNP per cardiology order set protocol, continue supportive care including q 2 hour, given no evidence of any hypoxia of 94% or less will defer any Decadron steroid therapy and IV remdesivir at this time, continue to evaluate as noted also below. 03/27/2024 no acute events overnight, awaiting precertification for skilled facility placement, cardiac enzymes trended downward, renal function improved, creatinine kinase also lessened with less muscle aching. Will plan discharge to skilled facility 03/27/2024 versus 03/28/2024 when recertification is obtained. #2. Acute rhabdomyolysis likely secondary to mechanical fall with prolonged downtime: Initial presentation TCK 1849, maintain on hydration, monitoring urine output, liver function, renal function, 03/27/2024 total creatinine kinase 572. #3. Elevated cardiac troponin, indeterminate with as noted syncopal event likely secondary to #1, #2: Presentation troponin mildly elevated 61, likely secondary to acute presentation with COVID viral syndrome as well as acute rhabdomyolysis, maintain on telemetry monitoring without event, cycle cardiac enzymes improved with initial 61->44->40->36, given improvements will defer any echocardiogram at this time, magnesium 2.2. #4. Mild Acute Renal Insufficiency on Chronic Kidney Disease Stage II based on GFR trending: Admission BUN/Cr 23/1.08, GFR 51, baseline renal function 0.8-0.9, baseline GFR primarily greater than 60, mild insufficiency likely secondary to acute presentation #1, #2, 03/27/2024 BUN/creatinine 18/0.82, GFR 70, resolved. #5. Hypertension: Continue home regimen including lisinopril, PRN hydralazine. #6. Hyperlipidemia: Not on regimen, defer to outpatient. #7. DVT prophylaxis: Lovenox 30 mg SQ twice daily per COVID protocol. #8. CODE STATUS: DNR-CCA, no intubation. Charges/Coding Visit Charges Inpatient E&M: 99511 Subs Hosp L2
[2024-03-27 07:22] LABS: Absolute Lymphocyte Count 2.18 X10^3/uL (0.83-4.51); Absolute Neutrophil Count 2.7 X10^3/uL (2.0-7.7); Basophil# 0.03 X10^3/uL; Basophil% 0.6 % (0-1); Eosinophil# 0.05 X10^3/uL; Eosinophils% 0.9 % (0-5); Hematocrit 41.6 % (37-47); Lymphocyte # 2.18 X10^3/ul (0.83-4.51); Lymphocyte % 40.3 % (19-41); Mean Corp Hgb Conc 31.3 g/dL (32-36); Mean Corpuscular Volume 86.5 fL (81-99); Mean Platelet Vol. 9.6 fl (6.2-12.0); Monocyte# 0.44 X10^3/uL; Monocyte% 8.1 % (0-10); NRBC Flagged by Analyzer 0 % (0-5); Neutrophil # 2.68 X10^3/uL (2.7-7.7); Neutrophil % 49.5 % (47-70); Platelet Count 237 K/mm3 (150-450); RBC Distribution Width CV 14.4 % (11.6-14.6); RBC Distribution Width SD 45.7 fl (35.1-43.9); Red Blood Count 4.81 M/mm3 (4.2-5.4); White Blood Count 5.4 K/mm3 (4.4-11.0)
[2024-03-27 07:59] LABS: ALB/GLOB Ratio 0.9 RATIO (0.9-2.4); AST(SGOT) 53 U/L (15-37); Alanine Aminotransfer ALT/SGPT 45 U/L (13-56); Albumin, Serum 3.3 g/dL (3.2-5.0); Alkaline Phosphatase 55 U/L (45-117); Anion Gap 4 (5-15); BUN 18 mg/dL (7-18); CPK Total, Creatine Kinase 572 U/L (26-192); Calcium,Total 9.2 mg/dL (8.5-10.1); Chloride 109 mmol/L (98-107); Creatinine, Serum 0.82 mg/dL (0.55-1.02); EST Glomerular Filtration Rate 70 mL/min (>60); Est Glom Filt Rate - Afr Amer 85 mL/min (>60); Estimated Creatinine Clearance 45.08 ml/min; Globulin 3.6 g/dL (2.2-4.2); Glucose 111 mg/dL (74-106); Potassium 4.4 mmol/L (3.5-5.1); Protein, Total 6.9 g/dL (6.4-8.2); Sodium Level 140 mmol/L (136-145)
--- NOTE | 2024-03-27 09:28 | PCM.DC ---
Discharge Instructions Diet Discharge Diet: No restrictions Activity Discharge Activity: Return to Normal Activity May resume sexual activity in: - (Avoid until cleared from COVID precautions. Symptom onset suspected date: 03/23/24.) Weight Bearing Status: Weight bearing as tolerated Dressing / Incision Call your doctor if you observe: Fever of 101 or Higher, Shortness of breath, Dizziness, Swelling in the ankles, Chest pain, Increased palpitations (irregular heartbeat), Calf discomfort and Uncontrolled pain Follow Up Care Test Results: Test results from this visit will be discussed in further detail at your follow-up appointment, if applicable. Discharge Plan Admission Admit Date/Time: 03/25/24 17:55 Primary Reason for Your Visit: Adult FTT, COVID, Fall, Rhabdomyolsis, Indeterminant Troponin, Renal Insuff Attending Provider: Anel Cervantes Primary Care Provider: Maximino Lu Chi Consulting Providers: Babak Arce Instructions Patient Instructions: Rhabdomyolysis, Coronavirus Disease 2019 (COVID-19): Overview, Coronavirus Disease 2019 (COVID-19): Caring for Yourself or Others Additional Instructions / Restrictions: ADDITIONAL DISCHARGE INFORMATION/PLAN OF CARE/FOLLOW-UP: #1. Adult FTT, Multifactorial, secondary to Acute Viral Syndrome, COVID-19 in addition to #2: --Acute ED evaluation with work-up including: WBC 7.8, hemoglobin 14.7, MCV 85.5, platelet 316 without marked shift, CMP with BUN/creatinine 23/1.08, GFR 51, AST 81, TCK 1849, troponin initial 61, chest x-ray with possible small left pleural effusion with otherwise no acute cardiopulmonary findings, SARS COVID PCR positive. --Maintain COVID precautions to completion with initial sypmtoms date onset suspected 03/23/24. --No evidence of hypoxia or severe symptoms thus not treated with decadron or remdesivir. --Encourage continued chemoprophylaxis at TCU physician discretion for an additional 2 weeks given elevated VTE risk in the setting of COVID with lovenox 30 BID placed on discharge medications. #2. Acute rhabdomyolysis likely secondary to mechanical fall with prolonged downtime: --Initial presentation TCK 1849, hydrated with repeat total creatinine kinase 572 with improvement of muscle discomfort and aching. Encourage continued appropriate oral hydration. #3. Elevated cardiac troponin, indeterminate with as noted syncopal event in the setting of COVID as well as Acute Rehabdomyosis, most likely secondary to demand given these additional diagnoses: --Presentation troponin mildly elevated 61, likely secondary to acute presentation with COVID viral syndrome as well as acute rhabdomyolysis -- No cardiac telemetry events during presentation. --Additional cardiac enzyme trending included 61-> 44-> 40-> 36. --Initiated on baby aspirin, encourage continued outpatient follow-up and reassessment as needed with echocardiogram deferred at this time given enzyme resolution, reasonable reason for mild elevation and no marked EKG changes. #4. Mild Acute Renal Insufficiency on Chronic Kidney Disease Stage II based on GFR trending: --Admission BUN/Cr 23/1.08, GFR 51, baseline renal function 0.8-0.9, baseline GFR primarily greater than 60, mild insufficiency likely secondary to acute presentation #1, #2, 03/27/24 repeat BUN/creatinine improved 18/0.82, GFR 70. As noted recommend repeat labs in TCU to assure continued improvement/stabilization. Discharge Orders/Prescriptions Prescriptions: New aspirin 81 mg Tablet,Chewable 81 mg PO BREAKFAST Qty: 0 0RF enoxaparin 30 mg/0.3 mL Syringe 30 mg subcut BID 14 Days Qty: 0 0RF Continued lisinopril 20 mg tablet 20 mg PO DAILY Patient Comments: TAKE 1 TABLET BY MOUTH DAILY multivitamin,[id number] 1 TABLET tablet 1 tab PO DAILY Patient Comments: vitamin supplement cholecalciferol (vitamin D3) [Vitamin D3] 125 mcg (5,000 unit) tablet 250 mcg PO .qsunday Patient Comments: every sunday Referrals / Follow Up: Maximino Lu Chi, MD [Primary Care Provider] - (Follow-up upon transition to TCU for evaluation/review of admission and as directed upon TCU discharge per Dr. Lu given he manages TCU and is your PCP.) Disposition Disposition (needs filled in before D/C Order can be placed): Long Term Facility
--- NOTE | 2024-03-27 09:42 | TREXTCAR_ITS ---
Diet Diet Order/Speech Therapy: 03/25/24 20:12 Diet: Regular - General Food consistency:: Regular Liquid Consistency:: Regular/Thin Type of Dietary Supplement:: Ensure Plus High Protein Diet Comments: 120mL vanilla EPHP with lunch and dinner Routine Orders/Code Status Suppository Type: Dulcolax 10mg Suppository Frequency: Daily PRN Keep PO Greater than or Equal to (%): 92 Routine Lab Work: - (Repeat CBC, CMP in 1 week or per TCU physician discretion.) Code Status: DNRCC-A (DNR-CCA, no intubation status.) Suggestions for Active Care Change Position every (hours): 2 Hours to sit in a chair: 3 Times a day to sit in chair: 6 Therapies Weight Bearing: Full weight bearing Physical Therapy: Eval and Treat Occupational Therapy: Eval and Treat Problem/Diagnosis (1) COVID: Status: Acute Code(s): U07.1 - COVID-19 Comment: DISCHARGE DIAGNOSES: #1. Adult FTT, Multifactorial, secondary to Acute Viral Syndrome, COVID-19 in addition to #2 Acute rhabdomyolysis secondary to fall w/ prolonged downtime with syncopal event suspected likely associated #2. Acute rhabdomyolysis likely secondary to mechanical fall with prolonged downtime #3. Elevated cardiac troponin, indeterminate with as noted syncopal event, likely secondary to acute presentation with COVID viral syndrome as well as acute rhabdomyolysis #4. Mild Acute Renal Insufficiency on Chronic Kidney Disease Stage II based on GFR trending, likely secondary to #1, #2 #5. Hypertension #6. Hyperlipidemia #7. CODE STATUS: DNR-CCA, no intubation. Allergies/Procedures Done in Hospital Allergies latex Allergy (Mild, Verified 03/25/24 13:56) Other ibandronate sodium (From Boniva) Adverse Reaction (Verified 03/25/24 13:56) Other LEG PAIN Procedures: EKG Type of Care/Length of Stay Estimated LOS: Convalescent Care Less Than 30 days Type of Care Needed: Skilled Rehab Potential: Good Prognosis: Good Additional Orders/Day of Discharge Additional Orders: (1) Encourage OOB to chair with all meals and per activity section, (2) Fall precautions, (3) Aggressive ongoing IS 10x/hr 7a-7p Day of Discharge: 03/27/24 Dietary and Speech Recommendations Dietitian Recommendations/Changes: Continue regular diet. Will order 120ml vanilla ensure with lunch and dinner. Will monitor weight. Reviewed and approved by Megan Duval RD, LD. Discharge Plan Admission Admit Date/Time: 03/25/24 17:55 Primary Reason for Your Visit: Adult FTT, COVID, Fall, Rhabdomyolsis, Indeterminant Troponin, Renal Insuff Attending Provider: Anel Cervantes Primary Care Provider: Maximino Lu Chi Consulting Providers: Babak Arce Instructions Patient Instructions: Rhabdomyolysis, Coronavirus Disease 2019 (COVID-19): Overview, Coronavirus Disease 2019 (COVID-19): Caring for Yourself or Others Additional Instructions / Restrictions: ADDITIONAL DISCHARGE INFORMATION/PLAN OF CARE/FOLLOW-UP: #1. Adult FTT, Multifactorial, secondary to Acute Viral Syndrome, COVID-19 in addition to #2: --Acute ED evaluation with work-up including: WBC 7.8, hemoglobin 14.7, MCV 85.5, platelet 316 without marked shift, CMP with BUN/creatinine 23/1.08, GFR 51, AST 81, TCK 1849, troponin initial 61, chest x-ray with possible small left pleural effusion with otherwise no acute cardiopulmonary findings, SARS COVID PCR positive. --Maintain COVID precautions to completion with initial sypmtoms date onset suspected 03/23/24. --No evidence of hypoxia or severe symptoms thus not treated with decadron or remdesivir. --Encourage continued chemoprophylaxis at TCU physician discretion for an additional 2 weeks given elevated VTE risk in the setting of COVID with lovenox 30 BID placed on discharge medications. #2. Acute rhabdomyolysis likely secondary to mechanical fall with prolonged downtime: --Initial presentation TCK 1849, hydrated with repeat total creatinine kinase 572 with improvement of muscle discomfort and aching. Encourage continued appropriate oral hydration. #3. Elevated cardiac troponin, indeterminate with as noted syncopal event in the setting of COVID as well as Acute Rehabdomyosis, most likely secondary to demand given these additional diagnoses: --Presentation troponin mildly elevated 61, likely secondary to acute presentation with COVID viral syndrome as well as acute rhabdomyolysis -- No cardiac telemetry events during presentation. --Additional cardiac enzyme trending included 61-> 44-> 40-> 36. --Initiated on baby aspirin, encourage continued outpatient follow-up and reassessment as needed with echocardiogram deferred at this time given enzyme resolution, reasonable reason for mild elevation and no marked EKG changes. #4. Mild Acute Renal Insufficiency on Chronic Kidney Disease Stage II based on GFR trending: --Admission BUN/Cr 23/1.08, GFR 51, baseline renal function 0.8-0.9, baseline GFR primarily greater than 60, mild insufficiency likely secondary to acute presentation #1, #2, 03/27/24 repeat BUN/creatinine improved 18/0.82, GFR 70. As noted recommend repeat labs in TCU to assure continued improvement/stabilization. Discharge Orders/Prescriptions Prescriptions: New aspirin 81 mg Tablet,Chewable 81 mg PO BREAKFAST Qty: 0 0RF enoxaparin 30 mg/0.3 mL Syringe 30 mg subcut BID 14 Days Qty: 0 0RF Continued lisinopril 20 mg tablet 20 mg PO DAILY Patient Comments: TAKE 1 TABLET BY MOUTH DAILY multivitamin,fs-[id number] 1 TABLET tablet 1 tab PO DAILY Patient Comments: vitamin supplement cholecalciferol (vitamin D3) [Vitamin D3] 125 mcg (5,000 unit) tablet 250 mcg PO .qsunday Patient Comments: every sunday Referrals / Follow Up: Maximino Lu Chi, MD [Primary Care Provider] - (Follow-up upon transition to TCU for evaluation/review of admission and as directed upon TCU discharge per Dr. Lu given he manages TCU and is your PCP.) Disposition Disposition (needs filled in before D/C Order can be placed): [facility]
[2024-03-27] MEDS: Menthol/Lanolin/Calamine/Znox 113 GM Tube 1 APPLIC TOPICAL ×4 (09:58→20:38)
[2024-03-27] MEDS: Enoxaparin 30 MG/0.3 ML Syringe SC ×2 (09:58→20:37)
[2024-03-27] MEDS: Lisinopril 20 MG Tablet PO (09:58)
[2024-03-27] MEDS: Aspirin 81 MG TAB.CHEW PO (12:41)
[2024-03-27] MEDS: hydrALAZINE 20 MG/ML Vial 10 MG IV (20:36)
[2024-03-28] VITALS (8 sets, daily range): BP systolic 149–151; BP diastolic 74–94; PULSE 61–69; RESP 16–17; TEMP 36.4–36.6; O2SAT 94–95; BMI 28.1
--- NOTE | 2024-03-28 06:19 | PCM.DC.SUM ---
Providers Date of Admission: 03/25/24 Date of Discharge: 03/28/24 Primary Care Physician: Dr. Maximino Lu MD Reason For Visit: ACUTE RHABDOMYOLYSIS Diagnosis Discharge Diagnosis (1) COVID: Status: Acute Code(s): U07.1 - COVID-19 Plan: DISCHARGE DIAGNOSES: #1. Adult FTT, Multifactorial, secondary to Acute Viral Syndrome, COVID-19 in addition to #2 Acute rhabdomyolysis secondary to fall w/ prolonged downtime with syncopal event suspected likely associated #2. Acute rhabdomyolysis likely secondary to mechanical fall with prolonged downtime #3. Elevated cardiac troponin, indeterminate with as noted syncopal event, likely secondary to acute presentation with COVID viral syndrome as well as acute rhabdomyolysis #4. Mild Acute Renal Insufficiency on Chronic Kidney Disease Stage II based on GFR trending, likely secondary to #1, #2 #5. Hypertension #6. Hyperlipidemia #7. CODE STATUS: DNR-CCA, no intubation. Medications at Discharge Home Medications multivitamin,rm-vlbf-[id number] 27 mg-0.4 mg tablet 1 tab PO DAILY 10/27/14 lisinopril 20 mg tablet 20 mg PO DAILY 01/08/20 cholecalciferol (vitamin D3) 125 mcg (5,000 unit) tablet (Vitamin D3) 250 mcg PO .qsunday 03/25/24 aspirin 81 mg chewable tablet 81 mg PO BREAKFAST #0 tabs 03/27/24 enoxaparin 30 mg/0.3 mL subcutaneous syringe 30 mg (0.3 mL) subcut BID 14 days #0 mL 03/27/24 Hospital Course Operations None Procedures EKG Summary of Care Provided Minutes Spent on Discharge: 35 Hospital Course: The patient is a 88 y/o F w/ PMHx: HTN, HLD, Overweight, OA, CKD stage II based on GFR trending who presented to the [facility] ED on 03/25/24 who presents with recurrent falls, fatigue malaise over the last 2 to 3 days with underlying chronic dyspnea and imbalance awakening the day prior to presentation with reported lightheadedness and dizziness as well as spinning sensation with suspected syncopal event unfortunately landing and hitting her left shoulder and arm lying on the floor for prolonged amount of time potentially 11 hours with PCP evaluation with significantly elevated creatinine kinase prompting referral to the ED for evaluation. Workup in the ED included T97.4, heart rate 94, BP 149/71, respiratory rate 16, 100% on room air, CBC with WC 7.8, hemoglobin 14.7, MCV 85.5, platelet 316 without marked shift, CMP with BUN/creatinine 23/1.08, GFR 51, AST 81, TCK 1849, troponin initial 61, chest x-ray with possible small left pleural effusion with otherwise no acute cardiopulmonary findings, SARS COVID PCR positive. Admitted to medical surgical floor, maintained on COVID precautions, required no oxygen supplementation, encouraged HOB, IS parameters, inflammatory panel with LDH 290, CRP 16.20, BNP 55.8, procalcitonin 0.06 D-dimer 0.63 normal once age-adjusted, w/ D-dimer, procalcitonin, CRP, CPK, Ferritin, LDH and BNP per cardiology order set protocol, continued supportive care, given no evidence of any hypoxia of 94% or less will defer any Decadron steroid therapy and IV remdesivir at that time. Initial presentation TCK 1849, maintain on hydration, monitoring urine output, liver function, renal function, 03/27/2024 total creatinine kinase 572-->03/28/2024 total creatinine kinase 303. Presentation troponin mildly elevated 61, likely secondary to acute presentation with COVID viral syndrome as well as acute rhabdomyolysis, maintain on telemetry monitoring without event, cycle cardiac enzymes improved with initial 61->44->40->36, given improvement and reasonable mild rise explanation deferred ECHO, magnesium 2.2. PT/OT/CM consulted and patient once precertification obtained transitioned to TCU SNF for ongoing therapies and supportive care. DAY OF DISCHARGE PROGRESS NOTE: Subjective: Patient without acute event overnight per self and nursing report. Patient denies fever, chills, nausea, emesis, abdominal pain, chest pain or dyspnea. Patient denies any muscle pain or aches and notes that her legs have continued to feel improved. Patient agreeable to discharge to transition to TCU for ongoing therapies and conservative interventions/supportive care for COVID illness. Patient will be discharged with follow-up with primary care physician to assure ongoing stability and continued improvement outpatient once appropriate transition. Objective: T97.5, heart rate 66, BP 149/74, respiratory rate 16, 94% on room air. Physical Examination: General: Awake, alert, oriented x 3 and cooperative, seated upright in the MS bedside chair, no acute distress, eager for transition to TCU. Skin: Normal color, normal turgor, no icterus, no cyanosis except occasional stage ecchymoses, venous stasis skin changes. HEENT: AT/NC, EOMI, PERRLA, MMM. Lungs: Diminished, greater bases, appropriate effort, no rales, ronchi or wheezing. Heart: Regular rate and rhythm; no gallop, rub audible. Abdomen: Soft, overweight, NTTP, ND, normal BS. Extremities: No cyanosis, no clubbing, mild peripheral not markedly pitting edema present Neurological: Patient awake, alert, oriented as noted, cognitive function intact; pupils equally reactive to light and accommodation, cranial nerves grossly normal, moving all 4 extremities, no focal deficits, strength improved, moderately to severely globally decreased. Psychiatric: Affect appears normal, less fatigued appearing, no acute evidence of depressive or anxiety feelings. Assessment and Plan: Please see hospital summary above. Weight / BMI Weight Weight: 153 lb 14.122 oz Body Mass Index (BMI) 28.1 ABG / Lab / Microbiology Data 03/28/24 07:19 03/28/24 07:19 Laboratory: Laboratory Results - last 24 hr 03/26/24 09:16: Troponin I High Sens 40 03/26/24 13:11: Troponin I High Sens 36 03/27/24 07:07: WBC 5.4, RBC 4.81, Hgb 13.0, Hct 41.6, MCV 86.5, MCH 27.0, MCHC 31.3 L, RDW Std Deviation 45.7 H, RDW Coeff of Alan 14.4, Plt Count 237, MPV 9.6, Immature Gran % (Auto) 0.600, Neut % (Auto) 49.5, Lymph % (Auto) 40.3, [place] % (Auto) 8.1, Eos % (Auto) 0.9, Baso % (Auto) 0.6, Absolute Neuts (auto) 2.7, Absolute Lymphs (auto) 2.18, Nucleated RBC % 0, Sodium 140, Potassium 4.4, Chloride 109 H, Carbon Dioxide 27.0, Anion Gap 4 L, BUN 18, Creatinine 0.82, Estim Creat Clear Calc 45.08, Est GFR (MDRD) Af Amer 85, Est GFR (MDRD) Non-Af 70, BUN/Creatinine Ratio 22.0 H, Glucose 111 H, Calcium 9.2, Total Bilirubin 0.30, AST 53 H, ALT 45, Alkaline Phosphatase 55, Total Creatine Kinase 572 H, Total Protein 6.9, Albumin 3.3, Globulin 3.6, Albumin/Globulin Ratio 0.9 D/C Instructions Discharge Diet: No restrictions May resume sexual activity in: - (Avoid until cleared from COVID precautions. Symptom onset suspected date: 03/23/24.) Weight Bearing Status: Weight bearing as tolerated Call your doctor if you observe: Fever of 101 or Higher, Shortness of breath, Dizziness, Swelling in the ankles, Chest pain, Increased palpitations (irregular heartbeat), Calf discomfort and Uncontrolled pain Meaningful Use Info Meaningful Use Meaningful Use Diagnoses (Choose all that apply): None applicable Ischemic Stroke Statin Dosing Therapy Reference: STATIN DOSE THERAPY REFERENCE: * Patients > 75 years receive moderate or high dose statin therapy. * Patients 75 years or YOUNGER should receive HIGH intensity statin dose unless contraindicated. You will be required to document reason for non-treatment if statin daily dose does not meet guidelines. HIGH DOSE STATIN THERAPY DAILY Atorvastatin > than or = to 40 mg Rosuvastatin > than or = to 20 mg Amlodipine + Atorvastatin > than or = to 2.5/40 mg Ezetimibe + Simvastatin 10/80 mg Simvastatin 80mg Discharge Plan Admission Admit Date/Time: 03/25/24 17:55 Primary Reason for Your Visit: Adult FTT, COVID, Fall, Rhabdomyolsis, Indeterminant Troponin, Renal Insuff Attending Provider: Anel Cervantes Primary Care Provider: Maximino Lu Chi Consulting Providers: Babak Arce Instructions Patient Instructions: Rhabdomyolysis, Coronavirus Disease 2019 (COVID-19): Overview, Coronavirus Disease 2019 (COVID-19): Caring for Yourself or Others Additional Instructions / Restrictions: ADDITIONAL DISCHARGE INFORMATION/PLAN OF CARE/FOLLOW-UP: #1. Adult FTT, Multifactorial, secondary to Acute Viral Syndrome, COVID-19 in addition to #2: --Acute ED evaluation with work-up including: WBC 7.8, hemoglobin 14.7, MCV 85.5, platelet 316 without marked shift, CMP with BUN/creatinine 23/1.08, GFR 51, AST 81, TCK 1849, troponin initial 61, chest x-ray with possible small left pleural effusion with otherwise no acute cardiopulmonary findings, SARS COVID PCR positive. --Maintain COVID precautions to completion with initial sypmtoms date onset suspected 03/23/24. --No evidence of hypoxia or severe symptoms thus not treated with decadron or remdesivir. --Encourage continued chemoprophylaxis at TCU physician discretion for an additional 2 weeks given elevated VTE risk in the setting of COVID with lovenox 30 BID placed on discharge medications. #2. Acute rhabdomyolysis likely secondary to mechanical fall with prolonged downtime: --Initial presentation TCK 1849, hydrated with repeat total creatinine kinase 572 with improvement of muscle discomfort and aching. Encourage continued appropriate oral hydration. #3. Elevated cardiac troponin, indeterminate with as noted syncopal event in the setting of COVID as well as Acute Rehabdomyosis, most likely secondary to demand given these additional diagnoses: --Presentation troponin mildly elevated 61, likely secondary to acute presentation with COVID viral syndrome as well as acute rhabdomyolysis -- No cardiac telemetry events during presentation. --Additional cardiac enzyme trending included 61-> 44-> 40-> 36. --Initiated on baby aspirin, encourage continued outpatient follow-up and reassessment as needed with echocardiogram deferred at this time given enzyme resolution, reasonable reason for mild elevation and no marked EKG changes. #4. Mild Acute Renal Insufficiency on Chronic Kidney Disease Stage II based on GFR trending: --Admission BUN/Cr 23/1.08, GFR 51, baseline renal function 0.8-0.9, baseline GFR primarily greater than 60, mild insufficiency likely secondary to acute presentation #1, #2, 03/27/24 repeat BUN/creatinine improved 18/0.82, GFR 70. As noted recommend repeat labs in TCU to assure continued improvement/stabilization. Discharge Orders/Prescriptions Prescriptions: New aspirin 81 mg Tablet,Chewable 81 mg PO BREAKFAST Qty: 0 0RF enoxaparin 30 mg/0.3 mL Syringe 30 mg subcut BID 14 Days Qty: 0 0RF Continued lisinopril 20 mg tablet 20 mg PO DAILY Patient Comments: TAKE 1 TABLET BY MOUTH DAILY multivitamin,yh-ulcb-[id number] 1 TABLET tablet 1 tab PO DAILY Patient Comments: vitamin supplement cholecalciferol (vitamin D3) [Vitamin D3] 125 mcg (5,000 unit) tablet 250 mcg PO .qs Patient Comments: every sunday Referrals / Follow Up: Maximino Lu Chi, MD [Primary Care Provider] - (Follow-up upon transition to TCU for evaluation/review of admission and as directed upon TCU discharge per Dr. Lu given he manages TCU and is your PCP.) Disposition Disposition (needs filled in before D/C Order can be placed): [facility] Charges/Coding Visit Charges Inpatient E&M: 81672 Disch Hosp >30min
[2024-03-28 07:46] LABS: Absolute Lymphocyte Count 1.64 X10^3/uL (0.83-4.51); Absolute Neutrophil Count 2.1 X10^3/uL (2.0-7.7); Basophil# 0.03 X10^3/uL; Basophil% 0.7 % (0-1); Eosinophil# 0.06 X10^3/uL; Eosinophils% 1.4 % (0-5); Hematocrit 39.6 % (37-47); Hemoglobin 12.5 g/dL (12.0-15.0); Lymphocyte # 1.64 X10^3/ul (0.83-4.51); Lymphocyte % 38.7 % (19-41); Mean Corp Hgb Conc 31.6 g/dL (32-36); Mean Corpuscular Hgb 27.1 pg (27.0-32.0); Mean Corpuscular Volume 85.7 fL (81-99); Mean Platelet Vol. 9.6 fl (6.2-12.0); Monocyte% 9.4 % (0-10); NRBC Flagged by Analyzer 0 % (0-5); Neutrophil % 49.6 % (47-70); Platelet Count 214 K/mm3 (150-450); RBC Distribution Width CV 14.3 % (11.6-14.6); RBC Distribution Width SD 44.7 fl (35.1-43.9); Red Blood Count 4.62 M/mm3 (4.2-5.4); White Blood Count 4.2 K/mm3 (4.4-11.0)
[2024-03-28 08:18] LABS: ALB/GLOB Ratio 0.9 RATIO (0.9-2.4); AST(SGOT) 39 U/L (15-37); Alanine Aminotransfer ALT/SGPT 43 U/L (13-56); Albumin, Serum 3.1 g/dL (3.2-5.0); Alkaline Phosphatase 51 U/L (45-117); Anion Gap 5 (5-15); BUN 18 mg/dL (7-18); CPK Total, Creatine Kinase 303 U/L (26-192); Calcium,Total 8.6 mg/dL (8.5-10.1); Chloride 109 mmol/L (98-107); Creatinine, Serum 0.69 mg/dL (0.55-1.02); EST Glomerular Filtration Rate 85 mL/min (>60); Est Glom Filt Rate - Afr Amer 103 mL/min (>60); Globulin 3.4 g/dL (2.2-4.2); Glucose 113 mg/dL (74-106); Potassium 4.1 mmol/L (3.5-5.1); Protein, Total 6.5 g/dL (6.4-8.2); Sodium Level 140 mmol/L (136-145)
[2024-03-28] MEDS: Aspirin 81 MG TAB.CHEW PO (10:55)
[2024-03-28] MEDS: Menthol/Lanolin/Calamine/Znox 113 GM Tube 1 APPLIC TOPICAL (10:56)
[2024-03-28] MEDS: Lisinopril 20 MG Tablet PO (10:56)
[2024-03-28] MEDS: Enoxaparin 30 MG/0.3 ML Syringe SC (10:56)
--- NOTE | 2024-03-28 10:57 | CASEMGMT ---
Social Work Precert has been obtained.? Physician updated and pt is ready for discharge today.?SW met with pt and they are agreeable to discharge plan as stated above.? Bedside nurse notified of discharge. Disposition:?TCU, skilled level of care under convalescent stay. SHANAE Ureña
== END 2024-03-28 13:37 | disposition skilled nursing facility (03) | DRG 564 ==
LOC: ED 18:02 → MS3 20:28
PROVIDERS: Admitting Provider Internal Medicine; Emergency Provider Emergency Medicine; PCP Family Medicine Geriatric Medicine; Visit Provider Family Medicine
DX: T79.6XXA Traumatic ischemia of muscle, initial encounter (principal); U07.1 COVID-19; I13.0 Hypertensive heart and chronic kidney disease with heart failure and stage 1 through stage 4 chronic kidney disease, or unspecified chronic kidney disease; I50.32 Chronic diastolic (congestive) heart failure; R62.7 Adult failure to thrive; E78.5 Hyperlipidemia, unspecified; W19.XXXA Unspecified fall, initial encounter; N18.2 Chronic kidney disease, stage 2 (mild); R55 Syncope and collapse; R06.00 Dyspnea, unspecified; Z68.28 Body mass index [BMI] 28.0-28.9, adult; R79.89 Other specified abnormal findings of blood chemistry; Z66 Do not resuscitate; Z87.891 Personal history of nicotine dependence
CPT/HCPCS: 36415; 70450; 71045; 80048; 80053; 81001; 82550; 82728; 83615; 83735; 83880; 84100; 84145; 84484; 85025; 85379; 85652; 86140; 87631; 93005; 94668; 97162; 97166; 99284; J7030; J7040; A4216

== ENCOUNTER → 2024-03-25 | Outpatient (CLI) | payer MEDICARE, SELFPAY ==
--- NOTE | 2024-03-25 11:07 | CT_ITS ---
STUDY: CT BRAIN WITHOUT CONTRAST REASON FOR EXAM: Female, 88 years old. CLOSED HEAD INJURY RADIATION DOSAGE (If Supplied By Facility): CTDIvol = ( 44.99 ) mGy, DLP = ( 796.11 ) mGycm TECHNIQUE: Transaxial CT imaging of the brain was performed without administration of intravenous contrast material. Individualized dose optimization techniques were used for this CT. COMPARISON: Comparison is made with prior study dated December 23, 2018. FINDINGS: Normal soft tissue structures. Normal calvarium. There is moderate cerebral atrophy with widening of the extra-axial spaces and ventricular dilatation. There are areas of decreased attenuation within the white matter tracts of the supratentorial brain, consistent with microvascular disease changes. Normal basal ganglia and thalami. Normal brainstem. Normal cerebellum. There is no intracranial hemorrhage. There are no findings of an acute ischemic infarction. Atherosclerotic calcification of the cavernous portions of the internal carotid arteries bilaterally. Normal visualized paranasal sinuses. CT/Brain/Head without Contrast IMPRESSION: Chronic involutional changes of the brain. Electronically Signed: Roberto Brunner MD at 11:50 EDT ,
[2024-03-25 11:44] LABS: Absolute Lymphocyte Count 2.26 X10^3/uL (0.83-4.51); Absolute Neutrophil Count 8.1 X10^3/uL (2.0-7.7); Basophil# 0.06 X10^3/uL; Basophil% 0.5 % (0-1); Eosinophil# 0.01 X10^3/uL; Eosinophils% 0.1 % (0-5); Lymphocyte # 2.26 X10^3/ul (0.83-4.51); Lymphocyte % 19.7 % (19-41); Mean Corp Hgb Conc 31.8 g/dL (32-36); Mean Corpuscular Hgb 27.2 pg (27.0-32.0); Mean Corpuscular Volume 85.6 fL (81-99); Mean Platelet Vol. 9.9 fl (6.2-12.0); Monocyte# 1.04 X10^3/uL; Monocyte% 9.1 % (0-10); NRBC Flagged by Analyzer 0 % (0-5); Neutrophil # 8.07 X10^3/uL (2.7-7.7); Neutrophil % 70.3 % (47-70); Platelet Count 265 K/mm3 (150-450); RBC Distribution Width CV 14.6 % (11.6-14.6); RBC Distribution Width SD 45.4 fl (35.1-43.9); Red Blood Count 5.14 M/mm3 (4.2-5.4); White Blood Count 11.5 K/mm3 (4.4-11.0)
[2024-03-25 12:56] LABS: Anion Gap 9 (5-15); BUN 20 mg/dL (7-18); BUN/Creat Ratio 17.9 RATIO (10-20); CPK Total, Creatine Kinase 2161 U/L (26-192); Calcium,Total 9.2 mg/dL (8.5-10.1); Chloride 106 mmol/L (98-107); Creatinine, Serum 1.12 mg/dL (0.55-1.02); EST Glomerular Filtration Rate 49 mL/min (>60); Est Glom Filt Rate - Afr Amer 59 mL/min (>60); Glucose 113 mg/dL (74-106); Potassium 3.5 mmol/L (3.5-5.1); Sodium Level 140 mmol/L (136-145)
== END | disposition home or self-care (01) ==
PROVIDERS: PCP Family Medicine Geriatric Medicine; Referring Provider Family Medicine Geriatric Medicine; Visit Provider Family Medicine Geriatric Medicine
DX: R68.83 Chills (without fever) (principal); I10 Essential (primary) hypertension; E86.0 Dehydration; R32 Unspecified urinary incontinence; N39.0 Urinary tract infection, site not specified; S09.90XA Unspecified injury of head, initial encounter; X58.XXXA Exposure to other specified factors, initial encounter
CPT/HCPCS: 36415; 70450; 80048; 82550; 85025; 87631

== ENCOUNTER 2024-03-28 13:44 | Inpatient (IN) | payer MEDICARE, SELFPAY ==
[2024-03-28 14:22] VITALS: BMI 27.9; BMI 28.0
[2024-03-28 14:32] VITALS: BP 128/56; PULSE 69; RESP 16; TEMP 36.4; O2SAT 96; BMI 27.8
--- NOTE | 2024-03-28 15:07 | HP.PCM_ITS ---
HPI - General General Date of Admission: 03/28/24 Date of Service: 03/28/24 Chief Complaint: Here for rehabilitation. HPI Narrative 03/25/2024 DENZEL CHU, is a 88 Female who presents to [facility] ED. Covid +, laid on floor 11 hours, CK 2100. IV fluids given, repeat CK 1849, Troponin 61. 03/25/2024 Admit [facility]. NS iv, monitor CK, for rhabdomyolysis. Echo for syncope. Hold steroids, Hold Remdesivir for covid-19, no hypoxia. IV fluids for ckd stage 3b. 03/26/2024 Less nausea, dry heaving resolved, diet advanced. Cough, dysphagia, fatigue, malaise, muscle aches. Weak, ok with discharging to SNF. PT/OT for SNF. No hypoxia with covid. IV fluids for rhabdomyolysis. Elevated troponin 2/2 demand ischemia. 03/27/2024 Muscle aches improved. Agreeable to SNF for rehab. CK 592, continues to improve. Troponin trending down. KENDELL resolved. Await SNF. 03/28/2024 CK 303. 03/28/2024 Admit to TCU with debility, here for rehabilitation, strengthening, prior to discharge home alone. [facility] Medical History (Updated 03/28/24 @ 15:[address] Maximino Lu MD) Acute cervical sprain Segmental and somatic dysfunction of cervical region Syncope (12/23/18) Osteoarthritis Obesity Essential (primary) hypertension Hyperlipidemia Home Medications ?Medication ?Instructions ?Recorded ?Last Taken ?Type multivitamin,ss-lurr-yledfgks 27 1 tab PO DAILY supplement 10/27/14 Unknown History mg-0.4 mg tablet lisinopril 20 mg tablet 20 mg PO DAILY BP 01/08/20 Unknown History cholecalciferol (vitamin D3) 125 250 mcg PO PEREZ supplement 03/25/24 03/25/24 History mcg (5,000 unit) tablet (Vitamin D3) aspirin 81 mg chewable tablet 81 mg PO BREAKFAST blood thinner 03/27/24 Unknown Rx #0 tabs enoxaparin 30 mg/0.3 mL 30 mg (0.3 mL) subcut BID blood 03/27/24 Unknown Rx subcutaneous syringe thinner 14 days #0 mL Allergy/AdvReac Type Severity Reaction Status Date / Time latex Allergy Mild Other Verified 03/25/24 13:56 ibandronate sodium (From AdvReac Other Verified 03/25/24 13:56 Boniva) Family History Mother Diabetes Myocardial infarction Father Cancer throat- smoker Surgical History History of total right knee replacement Social History (Updated 03/28/24 @ 15:[address] Maximino Lu MD) household members: none Smoking Status: Former smoker alcohol intake: never substance use type: does not use what type of physical activity do you participate in: walking seatbelt use: always do you feel safe at home: Yes additional social history: - Retired ROS Constitutional Constitutional: Reports fatigue and weakness; Denies chills, fever(s) or weight gain ENT HEENT: Denies headache(s), nasal congestion or nasal discharge Cardiovascular Cardiovascular: Denies chest pain or palpitations Respiratory/Chest Respiratory/Chest: Denies cough, excessive phlegm production or shortness of breath with exertion Gastrointestinal Gastrointestinal: Denies abdominal pain, nausea or vomiting Genitourinary Genitourinary: Denies dysuria Musculoskeletal Musculoskeletal: Denies joint pain or joint swelling Integumentary Integumentary: Denies rash or wounds Neurologic Neurologic: Denies focal weakness, numbness or tingling Psychiatric Psychiatric: Denies anxiety, auditory hallucinations, depression, homicidal ideation or suicidal ideation Vital Signs Vital Signs Vital Signs: 03/28/24 14:32 Temperature 97.5 F L Temperature Source Temporal Pulse Rate 69 Respiratory Rate 16 Blood Pressure 128/56 H Blood Pressure Mean 80 Blood Pressure Source Monitor Pulse Ox 96 Oxygen Delivery Method Room Air Physical Exam Const alert General Appearance: cooperative HEENT normocephalic Eyes PERRL and EOMs intact bilaterally Neck supple, no JVD and no carotid bruits Resp normal respiratory effort, normal air movement and clear to auscultation bilaterally Cardio regular rate and regular rhythm GI normal to inspection, nondistended, normoactive bowel sounds, non-tender and non-distended Extremity normal capillary refill General Extremity: Negative for edema Skin no rashes or lesions noted General Skin Exam: no breakdown Psych affect normal Appearance: appropriate Assessment & Plan Assessment/Plan (1) Debility: (2) Syncope: (3) COVID-19: (4) Rhabdomyolysis: (5) Elevated troponin: (6) Essential (primary) hypertension: (7) Vitamin D deficiency: PLAN: Plan 88 year old female with below past medical history hospitalized for covid-19, syncope, rhabdomyolysis, complicated by elevated troponin, admitted to TCU with debility, here for rehabilitation, strengthening, prior to discharge home alone. * Debility - PT/OT. * Pain - Tylenol 1000mg q6 prn pain (1-10). * Bowel - senna/colace 1 tablet bid, Dulcolax 10mg pr daily prn. * Adult immunization - Administer pneumonia vaccine, covid vaccine, flu vaccine as appropriate. * DVT prophylaxis - Lovenox 30mg sc bid thru 04/11/2024. * Covid-19 - No hypoxia, no remdesivir or steroids needed. * CV prophylaxis - Aspirin 81mg daily. * Vitamin D deficiency - D3 250mcg qweek. * Hypertension - Lisinopril 20mg daily. * Nutrition - MVI 1 tablet daily. * Rhabdomyolysis - Trend CK x 3 days to ensure it normalizes. * Elevated troponin - 2/2 demand ischemia.
[2024-03-28] MEDS: Senna/Docusate Sodium 1 Tablet PO (22:05)
[2024-03-28] MEDS: Enoxaparin 30 MG/0.3 ML Syringe SC (22:05)
[2024-03-29 07:04] LABS: Absolute Neutrophil Count 2.5 X10^3/uL (2.0-7.7); Basophil# 0.03 X10^3/uL; Basophil% 0.6 % (0-1); Eosinophil# 0.08 X10^3/uL; Eosinophils% 1.7 % (0-5); Hematocrit 38.6 % (37-47); Hemoglobin 12.4 g/dL (12.0-15.0); Lymphocyte % 35.3 % (19-41); Mean Corp Hgb Conc 32.1 g/dL (32-36); Mean Corpuscular Hgb 27.3 pg (27.0-32.0); Mean Platelet Vol. 9.2 fl (6.2-12.0); Monocyte# 0.46 X10^3/uL; Monocyte% 9.6 % (0-10); NRBC Flagged by Analyzer 0 % (0-5); Neutrophil # 2.51 X10^3/uL (2.7-7.7); Neutrophil % 52.2 % (47-70); Platelet Count 198 K/mm3 (150-450); RBC Distribution Width CV 14.3 % (11.6-14.6); RBC Distribution Width SD 44.3 fl (35.1-43.9); Red Blood Count 4.54 M/mm3 (4.2-5.4); White Blood Count 4.8 K/mm3 (4.4-11.0)
[2024-03-29 08:13] LABS: Anion Gap 5 (5-15); BUN 17 mg/dL (7-18); BUN/Creat Ratio 23.3 RATIO (10-20); Calcium,Total 8.8 mg/dL (8.5-10.1); Chloride 107 mmol/L (98-107); Creatinine, Serum 0.73 mg/dL (0.55-1.02); EST Glomerular Filtration Rate 80 mL/min (>60); Est Glom Filt Rate - Afr Amer 97 mL/min (>60); Estimated Creatinine Clearance 45.93 ml/min; Glucose 102 mg/dL (74-106); Potassium 4.3 mmol/L (3.5-5.1); Sodium Level 140 mmol/L (136-145)
[2024-03-29 08:40] LABS: CPK Total, Creatine Kinase 174 U/L (26-192)
[2024-03-29] MEDS: Enoxaparin 30 MG/0.3 ML Syringe SC ×2 (09:10→21:31)
[2024-03-29] MEDS: Tuberculin,Purif.prot.deriv. 50 TU/ML Vial 0.1 ML ID (09:10)
[2024-03-29] MEDS: Lisinopril 20 MG Tablet PO (09:10)
[2024-03-29] MEDS: Senna/Docusate Sodium 1 Tablet PO (09:10)
[2024-03-29] MEDS: Multivitamins,Ther W-Minerals Tablet 1 TABLET PO (09:10)
[2024-03-29] MEDS: Aspirin 81 MG TAB.CHEW PO (09:10)
[2024-03-29 15:39] VITALS: BP 134/68; PULSE 71; RESP 13; TEMP 36.7; O2SAT 92
--- NOTE | 2024-03-29 16:18 | PCM.PN.DRR ---
Documented by User: Maci Lindsay 03/29/24 16:26 TCU RX Drug Regimen Review Subjective/Objective Subjective/Objective: Subjective: TCU Admission. 88 YOF presented to the ER after being down on the floor for 11 hours, COVID (+). Hospitalized for covid-19, syncope, rhabdomyolysis, complicated by elevated troponin. Admitted to TCU with debility for strengthening and rehabilitation. Objective: Allergies latex Allergy (Mild, Verified 03/25/24 13:56) [facility] Adverse Reaction (Verified 03/25/24 13:56) Other LEG PAIN Current Medications Generic Name Dose Route Start Last Admin Trade Name Freq PRN Reason Stop Dose Admin Acetaminophen 1,000 mg 03/28/24 15:21 Acetaminophen 500 Mg Tablet PO Q6H PRN PRN Pain Score 1-10 Aspirin 81 mg 03/29/24 08:00 03/29/24 09:10 Aspirin 81 Mg Tab.Chew PO 81 mg BREAKFAST [facility] Administration Bisacodyl 10 mg 03/28/24 14:22 Bisacodyl 10 Mg Suppository RC DAILY PRN PRN Constipation Cholecalciferol 250 mcg 03/30/24 10:00 Cholecalciferol (Vit D3) 125 Mcg Capsule (5,000 Units) PO Gagnon@1000 [facility] Enoxaparin Sodium 30 mg 03/28/24 22:00 03/29/24 09:10 Enoxaparin 30 Mg/0.3 Ml Syringe SC 04/11/24 22:01 30 mg BID KAREL Administration Lisinopril 20 mg 03/29/24 10:00 03/29/24 09:10 Lisinopril 20 Mg Tablet PO 20 mg DAILY KAREL Administration Protocol Multivitamins/Minerals 1 tablet 03/29/24 08:00 03/29/24 09:10 Multivitamins,Ther W-Minerals Tablet PO 1 tablet BREAKFAST [facility] Administration Senna/Docusate Sodium 1 tablet 03/28/24 22:00 03/29/24 09:10 Senna/Docusate Sodium 1 Tablet PO 1 tablet BID KAREL Administration Tuberculin PPD 0.1 ml 04/05/24 10:00 Tuberculin,Purif.Prot.Deriv. 50 Tu/Ml Vial ID 04/05/24 10:01 X1 ONE Problem List Vitamin D deficiency (Acute) Essential (primary) hypertension (Acute) COVID-19 (Acute) Debility (Acute) Rhabdomyolysis (Acute) Elevated troponin (Acute) Syncope (Acute) Vital Signs Temp Pulse Resp BP Pulse Ox O2 Del Method 98.1 F 71 13 134/68 H 92 Room Air 03/29/24 15:39 03/29/24 15:39 03/29/24 15:39 03/29/24 15:39 03/29/24 15:39 03/29/24 15:39 Oxygen Delivery Method Room Air Weight: 68.946 kg Body Mass Index (BMI) 27.8 Sodium 140 mmol/L (136-145) 03/29/24 06:56 Potassium 4.3 mmol/L (3.5-5.1) 03/29/24 06:56 Chloride 107 mmol/L (98-107) 03/29/24 06:56 Carbon Dioxide 28.0 mmol/L (21.0-32.0) 03/29/24 06:56 Anion Gap 5 (5-15) 03/29/24 06:56 BUN 17 mg/dL (7-18) 03/29/24 06:56 Creatinine 0.73 mg/dL (0.55-1.02) 03/29/24 06:56 Est GFR (MDRD) Af Amer 97 mL/min (>60) 03/29/24 06:56 Est GFR (MDRD) Non-Af 80 mL/min (>60) 03/29/24 06:56 BUN/Creatinine Ratio 23.3 RATIO (10-20) H 03/29/24 06:56 Glucose 102 mg/dL (74-106) 03/29/24 06:56 Assessment/Plan: 1. Pain: acetaminophen 1000mg PO Q6H PRN pain 1-10. Resident has not had any PRN doses. Please continue to monitor for increased pain and PRN usage. 2. Bowel: senna/docusate 1T PO BID and bisacodyl 10mg RC daily PRN constipation. Please continue to monitor for constipation and PRN usage. Last documented bowel movement was 03/29. 3. DVT prophylaxis: enoxaparin 30mg SC BID thru 04/11/24. Please continue to monitor for S/S of bleeding, hemoglobin (last 12.4g/dL), platelets (last 198,000) and renal function (SCr 0.73mg/dL). 4. CV prophylaxis: aspirin 81mg PO breakfast. Please continue to monitor for S/S of bleeding and hemoglobin. 5. Hypertension: lisinopril 20mg PO daily. Please continue to monitor BP (last 134/68), potassium (last 4.3mmo/L), cough and renal function. 6. Nutrition/vitamin D deficiency: multivitamin with minerals 1T PO breakfast and cholecalciferol 250mcg PO Sundays. Please continue to monitor vitamin D (last 09/26/23). Assessment/Plan for indications treated with psychotropic medications: None Medical chart and medication regimen reviewed. The following medication irregularities or issues were identified: None Date Date of Note:: 03/29/24 Documented by User: Dr. Maximino Lu MD 03/30/24 09:53 TCU RX Drug Regimen Review Provider Comments Provider responsibility Provider Comments to Recommendations by Pharmacy: Agree
[2024-03-30 08:22] LABS: CPK Total, Creatine Kinase 73 U/L (26-192)
[2024-03-30] MEDS: Enoxaparin 30 MG/0.3 ML Syringe SC ×2 (09:07→20:05)
[2024-03-30] MEDS: Aspirin 81 MG TAB.CHEW PO (09:07)
[2024-03-30] MEDS: Lisinopril 20 MG Tablet PO (09:08)
[2024-03-30] MEDS: Multivitamins,Ther W-Minerals Tablet 1 TABLET PO (09:08)
[2024-03-30] MEDS: Senna/Docusate Sodium 1 Tablet PO (09:08)
[2024-03-30] MEDS: Cholecalciferol (Vit D3) 125 MCG CAPSULE (5,000 UNITS) 250 MCG PO (09:08)
[2024-03-30 13:49] VITALS: BP 101/56; PULSE 81; RESP 14; TEMP 37.2; O2SAT 95
--- NOTE | 2024-03-31 06:27 | NURSING ---
All care given in room due to Covid precautions. Pt has productive cough but denies any other symptoms.
[2024-03-31 06:35] LABS: CPK Total, Creatine Kinase 47 U/L (26-192)
[2024-03-31] MEDS: Lisinopril 20 MG Tablet PO (09:43)
[2024-03-31] MEDS: Multivitamins,Ther W-Minerals Tablet 1 TABLET PO (09:43)
[2024-03-31] MEDS: Aspirin 81 MG TAB.CHEW PO (09:43)
[2024-03-31] MEDS: Enoxaparin 30 MG/0.3 ML Syringe SC ×2 (09:46→22:02)
[2024-03-31 09:53] VITALS: BP 121/74; PULSE 80
[2024-03-31 10:10] VITALS: PULSE 80; RESP 18; O2SAT 93
--- NOTE | 2024-03-31 12:00 | NURSING ---
Worm Grower Note; Activity Asset: Yuliya Kathleen is independent in her choice of daily activities with reminds. At this time due to covid she is on isolation in her room and is just tired and prefers to rest or watch tv. Staff will have social visits with her in room w/covid precautions in place. She will be off on 04/06 and will be reminded of social activities, weekly activities and staff will respect her right to say no.
--- NOTE | 2024-03-31 12:32 | NS ---
MST score = 2
--- NOTE | 2024-03-31 12:44 | NURSING ---
ALL CARE GIVEN IN ROOM DUE TO PT IN PRECAUTIONS FOR COVID.
[2024-03-31 18:57] VITALS: BP 115/63; PULSE 73; RESP 18; TEMP 36.2; O2SAT 97
[2024-04-01 09:45] VITALS: BP 114/60; PULSE 76; RESP 14; TEMP 35.9; O2SAT 96
[2024-04-01] MEDS: Aspirin 81 MG TAB.CHEW PO (09:46)
[2024-04-01] MEDS: Multivitamins,Ther W-Minerals Tablet 1 TABLET PO (09:47)
[2024-04-01] MEDS: Enoxaparin 30 MG/0.3 ML Syringe SC ×2 (09:47→21:57)
[2024-04-01] MEDS: Lisinopril 20 MG Tablet PO (09:47)
[2024-04-01 10:54] VITALS: BMI 28.7
--- NOTE | 2024-04-01 16:13 | CASEMGMT ---
Social Work SW spoke with pt to complete initial assessment. Introduced self and role. Verified contacts. Patient confirmed code status as DNR-CCA, no intubation. SW requested family provide copies of advanced directives. [facility] and continued stay is not guaranteed with each review. Pt mentioned wanting to DC home by the end of the week. Pt has scheduled POC meeting tomorrow with son and will discuss DC plans and recommendations. Pt agreed. SW will continue to follow. ANNI JustinW
[2024-04-01 22:29] VITALS: RESP 16
[2024-04-02] MEDS: Aspirin 81 MG TAB.CHEW PO (09:31)
[2024-04-02] MEDS: Enoxaparin 30 MG/0.3 ML Syringe SC ×2 (09:32→21:55)
[2024-04-02] MEDS: Multivitamins,Ther W-Minerals Tablet 1 TABLET PO (09:32)
[2024-04-02] MEDS: Senna/Docusate Sodium 1 Tablet PO (09:33)
[2024-04-02] MEDS: Lisinopril 20 MG Tablet PO (09:33)
--- NOTE | 2024-04-02 10:12 | CASEMGMT ---
Social Work IDT met with son alone as pt is in-room isolation for COVID. Discussed patient's progress in PT/OT/SN. SW educated to [facility] insurance with NRD 04/03 and continued stay is not guaranteed. Pt requesting to DC home and IDT agreeable for 04/03. Son requesting information on medical alert. SW provided resources. Son did note that pt is a hoarder and son and his have cleaned out the house and moved her stuff to the garage. IDT recommending OP PT and provided options. Son prefers [facility] SW to place referral. No DME needs. Son to transport at [place]. Plan: DC home alone 04/03, [facility] PT Charisse Vick MSW [employer]
[2024-04-02 14:08] VITALS: BP 110/59; PULSE 79; RESP 20; TEMP 35.8; O2SAT 95
--- NOTE | 2024-04-02 16:21 | NURSING ---
All meals and medications and nursing care provided in room while patient remains under enhanced droplet precautions.
--- NOTE | 2024-04-02 20:28 | DS.PCM_ITS ---
Providers Date of Admission: 03/28/24 Primary Care Physician: Dr. Maximino Lu MD Reason For Visit: ACUTE RHAMBDOMYLITIS Diagnosis Discharge Diagnosis (1) Debility: Status: Acute Code(s): R53.81 - Other malaise (2) Syncope: Status: Acute Code(s): R55 - Syncope and collapse (3) COVID-19: Status: Acute Code(s): U07.1 - COVID-19 (4) Rhabdomyolysis: Status: Acute Code(s): M62.82 - Rhabdomyolysis (5) Elevated troponin: Status: Acute Code(s): R79.89 - Other specified abnormal findings of blood chemistry (6) Essential (primary) hypertension: Status: Acute Code(s): I10 - Essential (primary) hypertension (7) Vitamin D deficiency: Status: Acute Code(s): E55.9 - Vitamin D deficiency, unspecified Plan 88 year old female with below past medical history hospitalized for covid-19, syncope, rhabdomyolysis, complicated by elevated troponin, admitted to TCU with debility, here for rehabilitation, strengthening, prior to discharge home alone. * Debility - PT/OT. * Pain - Tylenol 1000mg q6 prn pain (1-10). * Bowel - senna/colace 1 tablet bid, Dulcolax 10mg pr daily prn. * Adult immunization - Administer pneumonia vaccine, covid vaccine, flu vaccine as appropriate. * DVT prophylaxis - Lovenox 30mg sc bid thru 04/11/2024. * Covid-19 - No hypoxia, no remdesivir or steroids needed. * CV prophylaxis - Aspirin 81mg daily. * Vitamin D deficiency - D3 250mcg qweek. * Hypertension - Lisinopril 20mg daily. * Nutrition - MVI 1 tablet daily. * Rhabdomyolysis - Trend CK x 3 days to ensure it normalizes. * Elevated troponin - 2/2 demand ischemia. Medications at Discharge Home Medications lisinopril 20 mg tablet 20 mg PO DAILY BP 01/08/20 cholecalciferol (vitamin D3) 125 mcg (5,000 unit) tablet (Vitamin D3) 250 mcg PO PEREZ supplement 03/25/24 Hospital Course Operations None Procedures None Summary of Care Provided Minutes Spent on Discharge: 35 Hospital Course: 88 year old female with below past medical history hospitalized for covid-19, syncope, rhabdomyolysis, complicated by elevated troponin, admitted to TCU with debility, here for rehabilitation, strengthening, prior to discharge home alone. Discharge home alone 04/03/2024, [facility] PT. Physical Exam Const alert General Appearance: cooperative HEENT normocephalic Eyes PERRL and EOMs intact bilaterally Neck supple, no JVD and no carotid bruits Resp normal respiratory effort, normal air movement and clear to auscultation bilaterally Cardio regular rate and regular rhythm GI normal to inspection, nondistended, normoactive bowel sounds, non-tender and non-distended Extremity normal capillary refill General Extremity: Negative for edema Skin no rashes or lesions noted General Skin Exam: no breakdown Psych affect normal Appearance: appropriate Weight / BMI Weight Weight: 71.214 kg Body Mass Index (BMI) 28.7 ABG / Lab / Microbiology Data 03/29/24 06:56 03/29/24 06:56 D/C Instructions Discharge Diet: No restrictions Discharge Activity: Return to Normal Activity, May Shower and Use Walker Weight Bearing Status: Weight bearing as tolerated Call your doctor if you observe: Fever of 101 or Higher, Inability to urinate, Inability to have a bowel movement, Shortness of breath, Dizziness, Fainting spells, Swelling in the ankles, Chest pain and Uncontrolled pain Additional Instructions: Discharge home alone 04/03/2024, [facility] PT. Meaningful Use Info Meaningful Use Meaningful Use Diagnoses (Choose all that apply): None applicable Ischemic Stroke Statin Dosing Therapy Reference: STATIN DOSE THERAPY REFERENCE: * Patients > 75 years receive moderate or high dose statin therapy. * Patients 75 years or YOUNGER should receive HIGH intensity statin dose unless contraindicated. You will be required to document reason for non-treatment if statin daily dose does not meet guidelines. HIGH DOSE STATIN THERAPY DAILY Atorvastatin > than or = to 40 mg Rosuvastatin > than or = to 20 mg Amlodipine + Atorvastatin > than or = to 2.5/40 mg Ezetimibe + Simvastatin 10/80 mg Simvastatin 80mg Discharge Plan Admission Admit Date/Time: 03/28/24 13:44 Primary Reason for Your Visit: Debility. Attending Provider: Maximino Lu Chi Primary Care Provider: Maximino Lu Chi Instructions Additional Instructions / Restrictions: Discharge home alone 04/03/2024, [facility] PT. Discharge Orders/Prescriptions Prescriptions: Continued lisinopril 20 mg tablet 20 mg PO DAILY Patient Comments: TAKE 1 TABLET BY MOUTH DAILY cholecalciferol (vitamin D3) [Vitamin D3] 125 mcg (5,000 unit) tablet 250 mcg PO PEREZ Patient Comments: every sunday Discontinued multivitamin,[id number] 1 TABLET tablet 1 tab PO DAILY Patient Comments: vitamin supplement aspirin 81 mg Tablet,Chewable 81 mg PO BREAKFAST Qty: 0 0RF enoxaparin 30 mg/0.3 mL Syringe 30 mg subcut BID 14 Days Qty: 0 0RF Referrals / Follow Up: Maximino Lu Chi, MD [Primary Care Provider] - Within 1 Week (pt to make own appt ) Disposition Disposition (needs filled in before D/C Order can be placed): Home, Self Care
--- NOTE | 2024-04-03 08:44 | NURSING ---
Docking Pilot Note; MDS for 04/03/2024 Complete
[2024-04-03] MEDS: Aspirin 81 MG TAB.CHEW PO (09:48)
[2024-04-03] MEDS: Multivitamins,Ther W-Minerals Tablet 1 TABLET PO (09:48)
[2024-04-03] MEDS: Lisinopril 20 MG Tablet PO (09:49)
[2024-04-03] MEDS: Enoxaparin 30 MG/0.3 ML Syringe SC (09:52)
[2024-04-03 10:10] VITALS: BP 143/59; PULSE 67; RESP 18; TEMP 36.2; O2SAT 95
[2024-04-03 10:15] VITALS: BP 143/59; PULSE 67; RESP 18; TEMP 36.2; O2SAT 95
--- NOTE | 2024-04-10 11:51 | MDS.RN ---
Information for the MDS was obtained from review of the clinical record, interview of resident, staff, and direct observation of resident?s care.
== END 2024-04-03 10:15 | disposition home or self-care (01) | DRG 558 ==
PROVIDERS: Admitting Provider Family Medicine Geriatric Medicine; PCP Family Medicine Geriatric Medicine; Referring Provider Family Medicine Geriatric Medicine; Visit Provider Family Medicine Geriatric Medicine
DX: M62.82 Rhabdomyolysis (principal); I24.89 Other forms of acute ischemic heart disease; N18.32 Chronic kidney disease, stage 3b; I12.9 Hypertensive chronic kidney disease with stage 1 through stage 4 chronic kidney disease, or unspecified chronic kidney disease; E78.5 Hyperlipidemia, unspecified; E55.9 Vitamin D deficiency, unspecified; R55 Syncope and collapse; Z87.891 Personal history of nicotine dependence; Z79.82 Long term (current) use of aspirin; Z79.899 Other long term (current) drug therapy; Z79.01 Long term (current) use of anticoagulants; R79.89 Other specified abnormal findings of blood chemistry; Z86.16 Personal history of COVID-19
CPT/HCPCS: 36415; 80048; 82550; 85025; 97110; 97162; 97165; 97530; 97535; 97802

== ENCOUNTER → 2024-05-06 | Outpatient (CLI) | payer MEDICARE, SELFPAY ==
[2024-05-06 14:26] LABS: Absolute Lymphocyte Count 2.73 X10^3/uL (0.83-4.51); Absolute Neutrophil Count 4.8 X10^3/uL (2.0-7.7); Basophil# 0.06 X10^3/uL; Basophil% 0.7 % (0-1); Eosinophil# 0.14 X10^3/uL; Eosinophils% 1.7 % (0-5); Hematocrit 39.3 % (37-47); Lymphocyte # 2.73 X10^3/ul (0.83-4.51); Lymphocyte % 33.1 % (19-41); Mean Corp Hgb Conc 30.5 g/dL (32-36); Mean Corpuscular Volume 88.5 fL (81-99); Mean Platelet Vol. 9.5 fl (6.2-12.0); Monocyte# 0.53 X10^3/uL; Monocyte% 6.4 % (0-10); NRBC Flagged by Analyzer 0 % (0-5); Neutrophil # 4.76 X10^3/uL (2.7-7.7); Neutrophil % 57.7 % (47-70); Platelet Count 296 K/mm3 (150-450); RBC Distribution Width CV 15.5 % (11.6-14.6); RBC Distribution Width SD 50.5 fl (35.1-43.9); Red Blood Count 4.44 M/mm3 (4.2-5.4); White Blood Count 8.3 K/mm3 (4.4-11.0)
[2024-05-06 14:56] LABS: Vitamin D,25 Hydroxy 45.7 ng/mL
[2024-05-06 15:04] LABS: AST(SGOT) 16 U/L (15-37); Alanine Aminotransfer ALT/SGPT 20 U/L (13-56); Albumin, Serum 3.6 g/dL (3.2-5.0); Alkaline Phosphatase 58 U/L (45-117); Anion Gap 3 (5-15); BUN 19 mg/dL (7-18); BUN/Creat Ratio 22.7 RATIO (10-20); Calcium,Total 9.2 mg/dL (8.5-10.1); Chloride 106 mmol/L (98-107); Cholesterol 185 mg/dL (200); Creatinine, Serum 0.84 mg/dL (0.55-1.02); EST Glomerular Filtration Rate 69 mL/min (>60); Est Glom Filt Rate - Afr Amer 83 mL/min (>60); Globulin 3.6 g/dL (2.2-4.2); Glucose 91 mg/dL (74-106); High Density Lipoprotein 54 mg/dL; Potassium 3.8 mmol/L (3.5-5.1); Protein, Total 7.2 g/dL (6.4-8.2); Sodium Level 139 mmol/L (136-145); Triglycerides 98 mg/dL; Very Low Density Lipoprotein 20 mg/dL (5-40)
== END | disposition home or self-care (01) ==
LOC: POLAB3 14:02
PROVIDERS: PCP Family Medicine Geriatric Medicine; Visit Provider Family Medicine Geriatric Medicine
DX: I10 Essential (primary) hypertension (principal); E55.9 Vitamin D deficiency, unspecified; E78.5 Hyperlipidemia, unspecified
CPT/HCPCS: 36415; 80053; 80061; 82306; 84443; 85025

== ENCOUNTER → 2024-06-24 | Outpatient (CLI) | payer MEDICARE, SELFPAY ==
--- NOTE | 2024-06-24 06:48 | ECHOD_ITS ---
Reason For Study: Abnormal EKG Procedure This was a 2D Doppler, Color Flow transthoracic echocardiogram. Exam performed in department. Left Ventricle Normal LV size. Left ventricular systolic function is normal. The left ventricular ejection fraction is 65 %. No regional wall motion abnormalities noted. Right Ventricle Normal RV size. Normal systolic function. Atria Normal left atrium. Normal right atrium. Mitral Valve There is mild mitral annular calcification. Mild (1+) eccentric mitral valve insufficiency. Tricuspid Valve Normal tricuspid valve. Mild (1+) tricuspid valve insufficiency. Pulmonary artery systolic pressure is 30 mmHg. Aortic Valve Trisinus/trileaflet aortic valve. Pulmonic Valve Normal pulmonic valve. Great Vessels Normal aortic root. The pulmonary artery is normal size. Normal inferior vena cava. Pericardium/Pleural No pericardial effusion. MMode/2D Measurements & Calculations LVIDd: 3.4 cm IVSd: 1.2 cm asc Aorta Diam: 2.3 cm LVIDs: 2.3 cm LVPWd: 0.93 cm RVDd: 3.3 cm FS: 33.6 % LAV(MOD-bp): 29.9 ml LVAd ap4: 18.5 cm2 SV(MOD-sp4): 29.8 ml LAV(MOD-bp) Indexed: 17.6 ml/m2 LVLd ap4: 6.2 cm SI(MOD-sp4): 17.5 ml/m2 LAV(MOD-sp2): 31.9 ml EDV(MOD-sp4): 44.9 ml LAV(MOD-sp4): 25.0 ml EDV(sp4-el): 47.0 ml LVAs ap4: 9.2 cm2 LVLs ap4: 4.7 cm ESV(MOD-sp4): 15.1 ml ESV(sp4-el): 15.3 ml EF(MOD-sp4): 66.4 % EF(sp4-el): 67.5 % SV(sp4-el): 31.7 ml LA A4 area: 12.4 cm2 LA dimension(2D): 3.4 cm RA A4 area: 9.8 cm2 TAPSE: 2.0 cm Time Measurements MV dec time: 0.29 sec Doppler Measurements & Calculations MV E max christopher: 76.2 cm/sec Lat Peak E' Christopher: 6.0 cm/sec Med Peak E' Christopher: 4.8 cm/sec MV A max christopher: 127.6 cm/sec E/E' lat: 12.7 E/E' med: 16.0 MV E/A: 0.60 Ao V2 max: 166.2 cm/sec LV V1 max: 126.6 cm/sec MV dec slope: 258.4 cm/sec2 Ao max P.1 mmHg LV V1 max P.4 mmHg Ao V2 mean: 124.1 cm/sec Ao mean P.6 mmHg Ao V2 VTI: 34.9 cm PA V2 max: 90.8 cm/sec TR max christopher: 259.8 cm/sec TR max P.0 mmHg ECHO/Echo Complete Interpretation Summary Normal LV size. Left ventricular systolic function is normal. The left ventricular ejection fraction is 65 %. Mild (1+) tricuspid valve insufficiency. There is mild mitral annular calcification. Ordering Physician: Maximino Lu Chi Referring Physician: Maximino Lu Chi Performed By: Anita Tran, RDCS, RVT
--- NOTE | 2024-06-24 14:03 | STRESSREP ---
Stress Test Report Pharmacologic myocardial perfusion stress test. 88-year-old lady with a history of abnormal EKG Resting EKG demonstrates sinus rhythm with a rate of 66 bpm. Resting blood pressure is 150/77 mmHg. 0.4 mg of regadenoson was infused per usual protocol followed by rapid intravenous saline flush injection. Continuous EKG monitoring was performed. The maximum heart rate was 97 bpm which was 72% of max impacted heart rate the maximum workload was 1 metabolic equivalent. At rest there were no ST or T wave changes noted to suggest ischemia and at peak infusion nonspecific ST changes were noted which did not meet the criteria for ischemia. No clinical angina is noted. The final blood pressure was 133/70 mmHg. Myocardial perfusion protocol. 11.6 mCi of technetium 99m sestamibi was injected at rest. 0.4 mg of regadenoson was infused per usual protocol. At peak infusion 33.3 mCi of technetium 99m sestamibi was injected stress images were obtained stress and rest images were reconstructed and compared in the short axis vertical long and horizontal long axis. Gated images were also obtained. Perfusion SPECT analysis: Review of the stress images demonstrate normal uptake of tracer noted in all areas of the myocardium. The resting images similar demonstrated normal uptake of tracer noted in all areas of the myocardium. No areas of reversibility are noted to suggest ischemia and no previous infarct is noted. Gated SPECT analysis: The gated ejection fraction is 65%. Conclusion: Normal pharmacologic myocardial perfusion stress test. Preserved ejection fraction.
== END | disposition home or self-care (01) ==
PROVIDERS: PCP Family Medicine Geriatric Medicine; Referring Provider Family Medicine Geriatric Medicine; Visit Provider Family Medicine Geriatric Medicine
DX: R94.31 Abnormal electrocardiogram [ECG] [EKG] (principal); H34.12 Central retinal artery occlusion, left eye
CPT/HCPCS: 78452; 93017; 93306; A9500; J2785

== ENCOUNTER → 2024-07-10 | Outpatient (CLI) | payer MEDICARE, SELFPAY ==
--- NOTE | 2024-07-10 07:25 | MRI_ITS ---
ACR Level 3 findings have been noted. An addendum which confirms receipt of the report will follow. 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 TECHNIQUE: Multiplanar and multisequence MR images of the brain were obtained without contrast. 276 images. COMPARISON: CT 03/25/2024. FINDINGS: BRAIN PARENCHYMA: Multiple foci and zones of increased T2 FLAIR signal in the bilateral cerebral white matter. Right periventricular 2-3 mm focus of restricted diffusion. No acute intracranial hemorrhage identified. CSF SPACES: Chronic moderate volume loss. No significant midline shift or other mass effect.No extra-axial fluid collection. VASCULAR SYSTEM: Major intracranial flow voids are maintained. PARANASAL SINUSES AND MASTOID AIR CELLS: No significant air fluid levels. ORBITS: (Dissection. MRI/Brain without Contrast IMPRESSION: Acute right periventricular lacunar infarct. Moderate chronic involutional and white matter changes. Electronically Signed: Summer Parrish MD at 9:56 EST ,
--- NOTE | 2024-07-10 07:26 | MRI_ITS ---
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 TECHNIQUE: Routine nez perce of [place]/brain 3D time of flight MR angiogram protocol was performed without contrast. 3D reconstructions were reviewed. 239 images. COMPARISON: MRI same day. FINDINGS: ICAs: No significant stenosis at the intracranial/visualized segments. ACAs: No significant stenosis at the visualized segments. MCAs: No significant stenosis at the visualized segments. cat scan tech: No significant stenosis at the visualized segments. BASILAR ARTERY: No significant stenosis. VERTEBRAL ARTERIES: No significant stenosis at the intradural/visualized segments. No evidence of intracranial aneurysm or vascular malformation. MRI/MRA Head ONLY without Contrast IMPRESSION: No evidence for large vessel occlusion or other focal vascular abnormality in the nez [place] region. Electronically Signed: Summer Parrish MD at 10:01 EST ,
--- NOTE | 2024-07-10 07:27 | MRI_ITS ---
HISTORY: ISCHEMIC STROKE. TECHNIQUE: Routine [id number] carotid MR angiogram protocol was performed after the intravenous administration of 15 cc Clariscan. 3D reconstructions were reviewed. NASCET criteria using the distal ICAs for comparison were used for evaluation of stenoses. 316 images. COMPARISON: None. FINDINGS: AORTIC ARCH AND BRANCHES: Artifact limiting evaluation at the origin of the right brachiocephalic trunk. RIGHT CCA: No occlusion or significant stenosis. RIGHT ICA: No occlusion, significant stenosis, or dissection. LEFT CCA: Motion artifact. No occlusion. LEFT ICA: No occlusion, significant stenosis, or dissection. RIGHT VERTEBRAL ARTERY: Narrowing at the origin. No occlusion, significant stenosis, or dissection. LEFT VERTEBRAL ARTERY: Narrowing of the origin. Otherwise patent without occlusion, significant stenosis, or dissection. MRI/MRA Neck WITH and W/O Contrast IMPRESSION: No evidence for significant stenosis or occlusion in the vertebral or carotid arteries of the neck. Electronically Signed: Summer Parrish MD at 10:00 EST ,
[2024-07-10 08:08] LABS: CREATININE FINGERSTICK < 1.0 mg/dL (0.55-1.02); EGFR FINGERSTICK > 60.0000 mL/min (>60)
== END | disposition home or self-care (01) ==
PROVIDERS: PCP Family Medicine Geriatric Medicine; Referring Provider Family Medicine Geriatric Medicine; Visit Provider Family Medicine Geriatric Medicine
DX: R94.31 Abnormal electrocardiogram [ECG] [EKG] (principal); I63.9 Cerebral infarction, unspecified; H34.12 Central retinal artery occlusion, left eye
CPT/HCPCS: 70544; 70549; 70551; A9575; A4216

== ENCOUNTER → 2024-10-27 | Outpatient (CLI) | payer MEDICARE, SELFPAY ==
[2024-10-27 11:41] LABS: Absolute Lymphocyte Count 2.96 X10^3/uL (0.83-4.51); Absolute Neutrophil Count 6.3 X10^3/uL (2.0-7.7); Basophil# 0.03 X10^3/uL; Basophil% 0.3 % (0-1); Eosinophil# 0.06 X10^3/uL; Eosinophils% 0.6 % (0-5); Hematocrit 43.5 % (37-47); Hemoglobin 13.8 g/dL (12.0-15.0); Lymphocyte # 2.96 X10^3/ul (0.83-4.51); Lymphocyte % 29.7 % (19-41); Mean Corp Hgb Conc 31.7 g/dL (32-36); Mean Corpuscular Hgb 27.6 pg (27.0-32.0); Mean Platelet Vol. 10.5 fl (6.2-12.0); Monocyte# 0.51 X10^3/uL; Monocyte% 5.1 % (0-10); NRBC Flagged by Analyzer 0 % (0-5); Neutrophil # 6.31 X10^3/uL (2.7-7.7); Neutrophil % 63.4 % (47-70); Platelet Count 258 K/mm3 (150-450); RBC Distribution Width CV 14.6 % (11.6-14.6); RBC Distribution Width SD 46.5 fl (35.1-43.9)
== END | disposition home or self-care (01) ==
LOC: POLAB3 10:37
PROVIDERS: PCP Family Medicine Geriatric Medicine; Visit Provider Family Medicine Geriatric Medicine
DX: R68.83 Chills (without fever) (principal); I10 Essential (primary) hypertension
CPT/HCPCS: 36415; 85025; 87631

== ENCOUNTER → 2024-10-28 | Outpatient (CLI) | payer MEDICARE, SELFPAY ==
--- NOTE | 2024-10-28 08:08 | CT_ITS ---
EXAM: CT Head Without Intravenous Contrast CLINICAL INDICATION: CLOSED HEAD INJURY TECHNIQUE: Axial computed tomography images of the head/brain without intravenous contrast. This CT exam was performed using one or more of the following dose reduction techniques: automated exposure control, adjustment of the mA and/or kV according to patient size, and/or use of iterative reconstruction technique. COMPARISON: No relevant prior studies available. FINDINGS: BRAIN AND EXTRA-AXIAL SPACES: The cerebral and cerebellar sulci are prominent consistent with brain atrophy. Areas of decreased attenuation in the deep cerebral white matter are consistent with small vessel ischemic/degenerative changes. No acute intracranial hemorrhage, midline shift or mass effect. If symptoms persist, further evaluation with MRI is recommended. BONES/JOINTS: Unremarkable. No acute fracture. SOFT TISSUES: Unremarkable. SINUSES: Unremarkable as visualized. No acute sinusitis. MASTOID AIR CELLS: Unremarkable as visualized. No mastoid effusion. CT/Brain/Head without Contrast IMPRESSION: 1. Generalized brain atrophy. 2. Small vessel ischemic/degenerative changes. 3. No acute intracranial hemorrhage, midline shift or mass effect. If symptoms persist, further evaluation with MRI is recommended. Reading [facility]
== END | disposition home or self-care (01) ==
PROVIDERS: PCP Family Medicine Geriatric Medicine; Referring Provider Family Medicine Geriatric Medicine; Visit Provider Family Medicine Geriatric Medicine
DX: S09.90XA Unspecified injury of head, initial encounter (principal); X58.XXXA Exposure to other specified factors, initial encounter
CPT/HCPCS: 70450

== ENCOUNTER → 2024-11-05 | Outpatient (CLI) | payer MEDICARE, SELFPAY ==
[2024-11-05 10:19] LABS: Absolute Lymphocyte Count 2.75 X10^3/uL (0.83-4.51); Absolute Neutrophil Count 7.6 X10^3/uL (2.0-7.7); Basophil# 0.06 X10^3/uL; Basophil% 0.5 % (0-1); Eosinophil# 0.13 X10^3/uL; Eosinophils% 1.1 % (0-5); Hemoglobin 12.5 g/dL (12.0-15.0); Lymphocyte # 2.75 X10^3/ul (0.83-4.51); Lymphocyte % 24.1 % (19-41); Mean Corp Hgb Conc 32.1 g/dL (32-36); Mean Corpuscular Hgb 27.6 pg (27.0-32.0); Mean Corpuscular Volume 86.1 fL (81-99); Mean Platelet Vol. 9.1 fl (6.2-12.0); Monocyte# 0.74 X10^3/uL; Monocyte% 6.5 % (0-10); NRBC Flagged by Analyzer 0 % (0-5); Neutrophil # 7.63 X10^3/uL (2.7-7.7); Platelet Count 304 K/mm3 (150-450); RBC Distribution Width CV 15.2 % (11.6-14.6); RBC Distribution Width SD 47.5 fl (35.1-43.9); Red Blood Count 4.53 M/mm3 (4.2-5.4); White Blood Count 11.4 K/mm3 (4.4-11.0)
[2024-11-05 11:00] LABS: ALB/GLOB Ratio 1.4 RATIO (0.9-2.4); AST(SGOT) 24 U/L (<=31); Alanine Aminotransfer ALT/SGPT 22 U/L (<=34); Albumin, Serum 3.7 g/dL (3.4-4.8); Alkaline Phosphatase 54 U/L (35-104); Anion Gap 10 (5-15); BUN 24 mg/dL (4-19); BUN/Creat Ratio 30.2 RATIO (10-20); Calcium,Total 9.3 mg/dL (7.6-11.0); Carbon Dioxide 26.7 mmol/L (21.0-32.0); Chloride 105 mmol/L (98-108); Cholesterol 131 mg/dL (<=200); Creatinine, Serum 0.79 mg/dL (0.70-1.20); EST Glomerular Filtration Rate 72 (>60); Globulin 2.6 g/dL (2.2-4.2); Glucose 80 mg/dL (70-99); High Density Lipoprotein 53 mg/dL; Low Density Lipoprotein Calc. 58 mg/dL; Potassium 4.3 mmol/L (3.3-5.1); Protein, Total 6.3 g/dL (5.9-8.4); Sodium Level 141 mmol/L (133-145); Total Bilirubin 0.65 mg/dL (0.00-1.30); Triglycerides 101 mg/dL; Very Low Density Lipoprotein 20 mg/dL (5-40); Vitamin D,25 Hydroxy 40.1 ng/mL (30-100); cholesterol:hdl ratio screen 2.47
== END | disposition home or self-care (01) ==
LOC: LAB 10:04
PROVIDERS: PCP Family Medicine Geriatric Medicine; Referring Provider Family Medicine Geriatric Medicine; Visit Provider Family Medicine Geriatric Medicine
DX: I10 Essential (primary) hypertension (principal); E55.9 Vitamin D deficiency, unspecified
CPT/HCPCS: 36415; 80053; 80061; 82306; 84443; 85025

== ENCOUNTER → 2025-01-07 | Outpatient (CLI) | payer MEDICARE, SELFPAY ==
[2025-01-07 11:25] LABS: Absolute Lymphocyte Count 1.39 X10^3/uL (0.83-4.51); Absolute Neutrophil Count 9.3 X10^3/uL (2.0-7.7); Basophil# 0.03 X10^3/uL; Basophil% 0.3 % (0-1); Eosinophil# 0.03 X10^3/uL; Eosinophils% 0.3 % (0-5); Hematocrit 36.7 % (37-47); Hemoglobin 11.8 g/dL (12.0-15.0); Lymphocyte # 1.39 X10^3/ul (0.83-4.51); Mean Corp Hgb Conc 32.2 g/dL (32-36); Mean Corpuscular Hgb 27.8 pg (27.0-32.0); Mean Corpuscular Volume 86.6 fL (81-99); Mean Platelet Vol. 9.5 fl (6.2-12.0); Monocyte# 0.88 X10^3/uL; Monocyte% 7.6 % (0-10); NRBC Flagged by Analyzer 0 % (0-5); Neutrophil # 9.27 X10^3/uL (2.7-7.7); Neutrophil % 79.5 % (47-70); Platelet Count 276 K/mm3 (150-450); RBC Distribution Width CV 14.6 % (11.6-14.6); RBC Distribution Width SD 46.6 fl (35.1-43.9); Red Blood Count 4.24 M/mm3 (4.2-5.4); White Blood Count 11.6 K/mm3 (4.4-11.0)
--- NOTE | 2025-01-07 11:30 | RAD_ITS ---
PROCEDURE: L/S SPINE MIN 4 VIEWS 01/07/2025 REASON FOR EXAM: LOW BACK PAIN TECHNIQUE: Standing four view lumbar spine series was performed. FINDINGS: There is maintenance of the normal lumbar lordosis. There are no compression fractures. There is degenerative disc disease, L1-2 through L5-S1 with narrowing of the intervertebral disc spaces and marginal osteophytes, most severe at the L1-2 and L2-3 levels were there is almost complete loss of the intervertebral disc space and endplate sclerosis. There is multilevel facet arthropathy. There is degenerative grade 1 retrolisthesis of L2 on L3 and L4 on L5 and degenerative grade 1 anterolisthesis of L5 on S1. Suspect central canal stenosis L2-3 through L4-5. There is mild degenerative spurring of both SI joints. There is calcific vascular disease of the abdominal aorta. RAD/L/S Spine Min 4 Views IMPRESSION: 1. 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 2. Multilevel facet arthropathy with degenerative spondylolisthesis at multipl e levels as described. 3. Suspect central canal stenosis L2-3 through L4-5. 4. Other findings as noted. Reading Location: [id number]
--- NOTE | 2025-01-07 11:30 | RAD_ITS ---
PROCEDURE: RIBS UNI MIN 3V W/PA CHEST 01/07/2025 REASON FOR EXAM: R RIB PAIN TECHNIQUE: Frontal view of the chest and bilateral oblique views of the bilateral ribs. COMPARISON: Portable chest, 03/25/2020. FINDINGS: There is mild chronic blunting of both costophrenic angles. The lungs are otherwise clear. The heart size is normal. There is calcific vascular disease of the thoracic aorta. There are minimally displaced fractures of the right 7th, 8th and 9th ribs. There is no evidence of pneumothorax or pulmonary contusion. There is mild dextroscoliosis of the thoracolumbar spine. The upper abdominal bowel gas pattern is normal. RAD/Ribs Uni Min 3V w/PA Chest IMPRESSION: 1. Acute fractures of the right 7th through 9th ribs without evidence of compl ications. 2. Other findings as noted. Reading Location: [id number]
[2025-01-07 11:50] LABS: ALB/GLOB Ratio 1.3 RATIO (0.9-2.4); AST(SGOT) 26 U/L (<=31); Alanine Aminotransfer ALT/SGPT 16 U/L (<=34); Albumin, Serum 3.6 g/dL (3.4-4.8); Alkaline Phosphatase 58 U/L (35-104); Anion Gap 12 (5-15); BUN 24 mg/dL (4-19); BUN/Creat Ratio 23.2 RATIO (10-20); Calcium,Total 8.8 mg/dL (7.6-11.0); Carbon Dioxide 25.5 mmol/L (21.0-32.0); Chloride 103 mmol/L (98-108); Creatinine, Serum 1.05 mg/dL (0.70-1.20); EST Glomerular Filtration Rate 51 (>60); Globulin 2.7 g/dL (2.2-4.2); Glucose 131 mg/dL (70-99); Protein, Total 6.3 g/dL (5.9-8.4); Sodium Level 140 mmol/L (133-145); Total Bilirubin 0.64 mg/dL (0.00-1.30)
--- OUTSIDE RECORDS SUMMARY | 2025-01-07 20:19 | XMS RPT_ITS | CCD ---
Author Organization [facility] Care Team Providers Care Behavioral Analyst Name Role Phone Aly CHEN, Dr. Maximino Sullivan Primary Care Provider Aly CHEN, Dr. Maximino Sullivan Attending Provider Aly CHEN, Dr. Maximino Sullivan Referring Provider Clinic, NOW Attending Provider Unavailable Aly, Maximino Chi Referring Unavailable Aly, Maximino Chi Primary Care Unavailable Aly, Maximino Chi Attending Unavailable Aly, Maximino Chi Admitting Unavailable Aly, Maximino Chi Referring Unavailable Aly, Maximino Chi Primary Care Unavailable Aly, Maximino Chi Attending Unavailable Claude, Babak Admitting Unavailable Aly, Maximino Chi Primary Care Unavailable Claude, Babak Consulting Unavailable WhiteAnel L Attending Unavailable White, Anel L Consulting Unavailable Claude, Babak Attending Unavailable Aly, Maximino Chi Primary Care Unavailable Aly, Maximino Chi Referring Unavailable Aly, Maximino Chi Attending Unavailable Aly, Maximino Chi Primary Care Unavailable Aly, Maximino Chi Attending Unavailable Aly, Maximino Chi Attending Unavailable Aly, Maximino Chi Referring Unavailable Aly, Maximino Chi Primary Care Unavailable William Leigh Consulting Unavailable Aly, Maximino Chi Attending Unavailable Aly, Maximino Chi Referring Unavailable Aly, Maximino Chi Primary Care Unavailable Aly, Maximino Chi Referring Unavailable Aly, Maximino Chi Primary Care Unavailable Aly, Maximino Chi Attending Unavailable Frantz Fishman Attending Unavailable William Leigh Consulting Unavailable Aly, Maximino Chi Referring Unavailable Aly, Maximino Chi Primary Care Unavailable Aly, Maximino Chi Consulting Unavailable Javi Tran NP Attending Unavailable Aly, Maximino Chi Referring Unavailable Aly, Maximino Chi Primary Care Unavailable Aly, Maximino Chi Primary Care Unavailable Aly, Maximino Chi Attending Unavailable Aly, Maximino Chi Primary Care Unavailable Aly, Maximino Chi Referring Unavailable Aly, Maximino Chi Attending Unavailable Claude, Babak Admitting Unavailable Claude, Babak Consulting Unavailable WhiteAnel L Attending Unavailable Aly, Maximino Chi Primary Care Unavailable Allergies Allergy Classification Reported Allergen(s) Allergy Type Date of Onset Reaction(s) Facility (6 sources) Ibandronate Drug Allergy 01-08-2020 Other [facility] Comment on above: LEG PAIN (6 sources) Latex Allergy to substance 01-08-2020 Other [facility] (1 source) Ibadronate Drug Allergy 10-19-2024 [facility] Repository (1 source) Latex Drug allergy (disorder) 10-19-2024 [facility] Repository Medications Current Medications Medication Drug Class(es) Dates Sig (Normalized) Sig (Original) aspirin 81 mg delayed release oral tablet (6 sources) Platelet Aggregation Inhibitor, Nonsteroidal Anti-inflammatory Drug Start: 10-19-2024 take 1 tablet by mouth once daily Aspirin 81 mg tablet,delayed release (DR/EC) Active 81 mg PO daily October 19, 2024 12:00am Start: 03-27-2024 End: 04-02-2024 take 1 tablet by mouth at breakfast Aspirin 81 mg Tablet,Chewable Discontinued 81 mg PO WITH BREAKFAST 0 March 27, 2024 12:00am April 02, 2024 8:29pm azithromycin 250 mg oral tablet (3 sources) Macrolide Antimicrobial Start: 10-19-2024 Azithromycin (Zithromax Z-Chris) 250 mg tablet Active 0 PO .COMPLEX 6 October 19, 2024 12:00am For 250 mg dose pack: take 500 mg today (day 1), then 250 mg for 4 days (days 2-5) PO cholecalciferol 0.125 mg oral tablet (3 sources) Vitamin D Start: 03-25-2024 Cholecalciferol (Vitamin D3) (Vitamin D3) 125 mcg (5,000 unit) tablet Active 250 ug PO PEREZ March 25, 2024 12:00am lisinopril 20 mg oral tablet (6 sources) Angiotensin Converting Enzyme Inhibitor Start: 01-08-2020 take 1 tablet by mouth once daily Lisinopril 20 mg tablet Active 20 mg PO DAILY January 08, 2020 12:00am Multivitamin,Tx-Iron- Minerals (3 sources) Start: 10-27-2014 take 1 tablet by mouth once daily Multivitamin,Tx-Iron -Minerals Active 1 TABLET PO DAILY October 26, 2014 11:00pm Start: 10-27-2014 take 1 tablet by calvin th once daily Multivitamin,Wc-Mtwe-Vkdiurog Active 1 T ABLET PO DAILY October 27, 2014 12:00am Completed/Discontinued Medications Medication Drug Class(es) Dates Sig (Normalized) Sig (Original) acetaminophen 325 mg oral tablet (6 sources) Start: 11-12-2014 End: 10-22-2018 take 2 tablets by mouth every eight hours as needed for pain Acetaminophen 325 MG tablet Discontinued 650 mg PO EVERY 8 HOURS NEEDED as needed for PAIN 0 November 12, 2014 12:00am October 22, 2018 10:23am Start: 11-12-2014 End: 10-22-2018 take 650 mg by mouth every eight hours as needed Acetaminophen Discontinued 650 MG PO EVERY 8 HOURS NEEDED 0 November 12, 2014 12:00am October 22, 2018 10:23am acetaminophen 325 mg / oxyCODONE hydrochloride 5 mg oral tablet (6 sources) Opioid Agonist Start: 11-05-2014 End: 11-12-2014 Oxycodone-Acetaminophen 1 TABLET tablet Discontinued 1 - 2 {tbl} PO EVERY 4 HOURS NEEDED as needed for Pain 60 November 05, 2014 12:00am November 12, 2014 8:32am Start: 11-05-2014 End: 11-12-2014 take 1 tablet by mouth every four hours as needed Oxycodone-Acetaminophen Discontinued 1 - 2 TABLET PO EVERY 4 HOURS NEEDED 60 November 05, 2014 12:00am November 12, 2014 8:32am baclofen 10 mg oral tablet (6 sources) gamma-Aminobutyric Acid-ergic Agonist Start: 01-08-2019 End: 01-08-2020 Baclofen 10 mg tablet Discontinued PO 14 14 January 08, 2019 12:00am January 08, 2020 11:37am Start: 01-08-2019 End: 01-08-2020 Baclofen Discontinued PO 14 14 January 08, 2019 12:00am January 08, 2020 11:37am diclofenac sodium 75 mg delayed release oral tablet (6 sources) Nonsteroidal Anti-inflammatory Drug Start: 01-08-2019 End: 01-08-2019 take 1 tablet by mouth twice daily Diclofenac Sodium 75 mg tablet,delayed release (DR/EC) Discontinued 75 mg PO TWICE A DAY January 08, 2019 12:00am January 08, 2019 2:32pm docusate sodium 50 mg / sennosides, long term 8.6 mg oral tablet (6 sources) Start: 11-12-2014 End: 10-22-2018 Sennosides-Docusate Sodium 1 TABLET tablet Discontinued 1 {tbl} PO TWICE A DAY 0 November 12, 2014 12:00am October 22, 2018 10:23am Start: 11-12-2014 End: 10-22-2018 take 1 tablet by mouth twice daily Sennosides-Docusate Sodium Discontinued 1 TABLET PO TWICE A DAY 0 November 12, 2014 12:00am October 22, 2018 10:23am 0.3 ml enoxaparin sodium 100 mg/ml prefilled syringe (15 sources) Low Molecular Weight Heparin Start: 03-27-2024 End: 04-02-2024 Enoxaparin 30 mg/0.3 mL Syringe Discontinued 30 mg SC TWICE A DAY 0 March 27, 2024 12:00am April 02, 2024 8:30pm Start: 11-05-2014 End: 10-22-2018 Enoxaparin 30 MG/0.3 ML syri nge Discontinued 30 mg SC DAILY@0600 4 November 11, 2014 7:56am October 22, 2018 10:23am ergocalciferol 1.25 mg oral capsule (6 sources) Provitamin D2 Compound Start: 10-27-2014 End: 03-25-2024 Ergocalciferol (Vitamin D2) 50,000 UNIT capsule Discontinued 09106 U PO EVERY MONTH October 27, 2014 12:00am March 25, 2024 4:16pm hydroCHLOROthiazide 12.5 mg / lisinopril 20 mg oral tablet (6 sources) Thiazide Diuretic, Angiotensin Converting Enzyme Inhibitor Start: 10-27-2014 End: 01-08-2020 Lisinopril-Hydrochlor othiazide 1 TABLET tablet Discontinued 1 {tbl} PO DAILY October 27, 2014 12:00am January 08, 2020 11:37am Start: 10-27-2014 End: 01-08-2020 take 1 tablet by mouth once daily Lisinopril-Hydrochlorothiazide Discontin ued 1 TABLET PO DAILY October 27, 2014 12:00am January 08, 2020 11:37am Multivitamin,Et-Pflp-Opfzgkd s 1 TABLET tablet (3 sources) Start: 10-27-2014 End: 04-02-2024 take 1 tablet by mouth once daily Multivitamin,Tp-Hxec-Lmedibii 1 TABLET tablet Discontinued 1 {tbl} PO DAILY October 27, 2014 12:00am April 02, 2024 8:30pm ondansetron 4 mg disintegrating oral tablet (6 sources) Seroto kasia-3 Recept or Antago nist Start: 12-23-2018 End: 01-08-2019 take 1 tablet by mouth every six hours as needed for nausea Ondansetron 4 MG tablet Discontinued 4 mg PO EVERY 6 HOURS NEEDED as needed for Nausea December 23, 2018 2:24pm January 08, 2019 2:15pm prasterone 25 mg oral capsul e (6 sources) Start: 10-27-2014 End: 01-08-2019 take 1 capsule by mouth once daily Prasterone (Dhea) 25 MG capsule Discontinued 25 mg PO DAILY October 27, 2014 12:00am January 08, 2019 2:15pm pravastatin sodium 40 mg ora l tablet (6 sources) HMG-Co A Reduct ase Inhibi tor Start: 10-27-2014 End: 10-22-2018 take 2 tablets by mouth at bedtime Pravastatin 40 MG tablet Discontinued 80 mg PO AT BEDTIME October 27, 2014 12:00am October 22, 2018 10:23am Start: 10-27-2014 End: 10-22-2018 take 80 mg by mouth at bedtime Pravastatin Discontinue d 80 MG PO AT BEDTIME October 27, 2014 12:00am October 22, 2018 10:23am predniSONE 20 mg oral tablet (3 sources) Start: 10-19-2024 End: 10-24-2024 take 2 tablets by mouth once daily Prednisone 20 mg tablet Discontinued 40 mg PO daily 05 10October 19, 2024 12:00am October 23, 2024 12:00am October 24, 2024 12:14am promethazine hydrochloride 25 mg oral tablet (6 sources) Phenothiazine Start: 11-05-2014 End: 11-12-2014 take 1 tablet by mouth every four hours as needed for nausea Promethazine 25 MG tablet Discontinued 25 mg PO EVERY 4 HOURS NEEDED as needed for Nausea November 05, 2014 12:00am November 12, 2014 8:32am simvastatin 20 mg oral tablet (6 sources) HMG-CoA Reductase Inhibitor Start: 10-22-2018 End: 01-08-2020 take 1 tablet by mouth at bedtime Simvastatin 20 mg tablet Discontinued 20 mg PO AT BEDTIME October 22, 2018 12:00am January 08, 2020 11:37am Problems Active Problems Problem Classification Problem Date Documented Date Episodic/Chronic Acute cerebrovascular disease (1 source) Cerebral infarction, unspecified; Translations: [Cerebral infarction, unspecified] Onset: 07-21-2024 Chronic Cardiac dysrhythmias (6 sources) Premature atrial contraction; Translations: [Atrial premature depolarization] 01-07-2020 Chronic Disorders of lipid metabolism (6 sources) Hyperlipidemia; Translations: [Hyperlipidemia, unspecified] 01-07-2019 Chronic Essential hypertension (10 sources) Essential hypertension; Translations: [Essential (primary) hypertension] Onset: 11-06-2024 01-07-2019 Chronic Malaise and fatigue (3 sources) Asthenia; Translations: [Other malaise] 03-28-2024 Episodic Nutritional deficiencies (3 sources) Vitamin D deficiency; Translations: [Vitamin D deficiency, unspecified] 03-28-2024 Chronic Other connective tissue disease (5 sources) History of prosthetic unicompartmental arthroplasty of right knee; Translations: [Presence of right artificial knee joint] 01-07-2019 Chronic Other connective tissue disease (3 sources) Rhabdomyolysis; Translations: [Rhabdomyolysis] 04-05-2024 Episodic Other injuries and conditions due to external causes (1 source) Unspecified injury of head, initial encounter; Translations: [Unspecified injury of head, initial encounter] Onset: 11-03-2024 Episodic Other upper respiratory infections (7 sources) Upper respiratory infection; Translations: [Acute upper respiratory infection, unspecified] Onset: 11-14-2024 10-19-2024 Episodic Residual codes; unclassified (1 source) Chills (without fever); Translations: [Chills (without fever)] Onset: 11-03-2024 Episodic Viral infection (6 sources) Disease caused by 2019-nCoV; Translations: [COVID-19] 03-28-2024 Episodic Comment on above: DISCHARGE DIAGNOSES: #1. Adult FTT, Multifactorial, secondary to Acute Viral Syndrome, COVID-19 in addition to #2 Acute rhabdomyolysis secondary to fall w/ prolonged downtime with syncopal event suspected likely associated#2. Acute rhabdomyolysis likely secondary to mechanical fall with prolonged downtime#3. Elevated cardiac troponin, indeterminate with as noted syncopal event, likely secondary to acute presentation with COVID viral syndrome as well as acute rhabdomyolysis#4. Mild Acute Renal Insufficiency on Chronic Kidney Disease Stage II based on GFR trending, likely secondary to #1, #2#5. Hypertension#6. Hyperlipidemia#7. CODE STATUS: DNR-CCA, no intubation. Viral infection (1 source) COVID-19; Translations: [COVID-19] Onset: 03-28-2024 Past or Other Problems Problem Classification Problem Date Documented Date Episodic/Chronic Other connective tissue disease (2 sources) Rhabdomyolysis; Translations: [Rhabdomyolysis] Onset: 03-28-2024 Episodic Other screening for suspected conditions (not mental disorders or infectious disease) (2 sources) Abnormal electrocardiogram [ECG] [EKG]; Translations: [Abnormal electrocardiogram [ECG] [EKG]] Onset: 07-21-2024 Episodic Syncope (7 sources) Syncope; Translations: [Syncope and collapse] Onset: 12-23-2018 01-07-2020 Episodic Results Test Name Value Interpretation Reference Range Facility Absolute neutrophil countOrd ered By: Maximino Lu on 11-05-2024 Neutrophils (Bld) [#/Vol] 7.6 10*3/uL 2.0-7.7 [facility] Anion gap in Serum or Plasma Ordered By: Maximino Lu on 11-05-2024 Anion gap [Moles/Vol] 10 mmol/L 5-15 [facility] BUN/creatinine ratioOrdered By: Maximino Lu on 11-05-2024 Urea nitrogen/Creatinine [Mass ratio] 30.2 mg/mg High 10-20 [facility] Basophil percentageOrdered B y: Maximino Lu on 11-05-2024 Basophils/100 WBC (Bld) 0.5 % 0-1 [facility] Bilirubin, totalOrdered By: Maximino Lu on 11-05-2024 Bilirubin [Mass/Vol] 0.65 mg/dL Normal 0.00-1.30 [facility] Comment on above: Performed By: #### L 500.4100, L501.9520, L506.1001, L100.0100, L500.4050 ####[facility] [address] [place], [address] CBC W/Diff, Automatedon Absolute Lymph 2.75 X10 3/uL Normal 0.83-4.51 [facility] Comment on above: Performed By: #### L 500.4100, L501.9520, L506.1001, L100.0100, L500.4050 ####[facility] [address] [place], [address] Absolute Neut 7.6 X10 3/uL Normal 2.0-7.7 [facility] Comment on above: Performed By: #### L 500.4100, L501.9520, L506.1001, L100.0100, L500.4050 ####[facility] [address] [place], [address] Basophils/100 WBC (Bld) 0.5 % Normal 0-1 [facility] Comment on above: Performed By: #### L 500.4100, L501.9520, L506.1001, L100.0100, L500.4050 ####[facility] [address] [place], [address] Eosinophils/100 WBC (Bld) 1.1 % Normal 0-5 [facility] Comment on above: Performed By: #### L 500.4100, L501.9520, L506.1001, L100.0100, L500.4050 ####[facility] [address] [place], [address] Erythrocyte distribution width (RBC) [Ratio] 15.2 % High 11.6-14.6 [facility] Comment on above: Performed By: #### L 500.4100, L501.9520, L506.1001, L100.0100, L500.4050 ####[facility] [address] [place], [address] Hematocrit (Bld) [Volume fraction] 39.0 % Normal 37-47 [facility] Comment on above: Performed By: #### L 500.4100, L501.9520, L506.1001, L100.0100, L500.4050 ####[facility] [address] [place], [address] Hemoglobin (Bld) [Mass/Vol] 12.5 g/dL Normal 12.0-15.0 [facility] Comment on above: Performed By: #### L 500.4100, L501.9520, L506.1001, L100.0100, L500.4050 ####[facility] [address] [place], [address] IG% 0.800 Normal 0.0-0.9 [facility] Comment on above: Result Comment: IG% - Immature Granulocytes (promyelocytes, myelocytes andmetamyelocytes) > 1% indicates that a LEFT SHIFT is Present. Performed By: #### L 500.4100, L501.9520, L506.1001, L100.0100, L500.4050 ####[facility] [address] [place], [address] Lymphocytes/100 WBC (Bld) 24.1 % Normal 19-41 [facility] Comment on above: Performed By: #### L 500.4100, L501.9520, L506.1001, L100.0100, L500.4050 ####[facility] [address] [place], [address] MCH (RBC) [Entitic mass] 27.6 pg Normal 27.0-32.0 [facility] Comment on above: Performed By: #### L 500.4100, L501.9520, L506.1001, L100.0100, L500.4050 ####[facility] [address] [place], [address] MCHC (RBC) [Mass/Vol] 32.1 g/dL Normal 32-36 [facility] Comment on above: Performed By: #### L 500.4100, L501.9520, L506.1001, L100.0100, L500.4050 ####[facility] [address] [place], [address] MCV (RBC) [Entitic vol] 86.1 fL Normal 81-99 [facility] Comment on above: Performed By: #### L 500.4100, L501.9520, L506.1001, L100.0100, L500.4050 ####[facility] [address] [place], [address] Monocytes/100 WBC (Bld) 6.5 % Normal 0-10 [facility] Comment on above: Performed By: #### L 500.4100, L501.9520, L506.1001, L100.0100, L500.4050 ####[facility] [address] [place], [address] Neutrophils/100 WBC (Bld) 67.0 % Normal 47-70 [facility] Comment on above: Performed By: #### L 500.4100, L501.9520, L506.1001, L100.0100, L500.4050 ####[facility] [address] [place], [address] Nucleated RBC (Bld) [#/Vol] 0 10*3/uL Normal 0-5 [facility] Comment on above: Performed By: #### L 500.4100, L501.9520, L506.1001, L100.0100, L500.4050 ####[facility] [address] [place], [address] Platelet mean volume (Bld) [Entitic vol] 9.1 fL Normal 6.2-12.0 [facility] Comment on above: Performed By: #### L 500.4100, L501.9520, L506.1001, L100.0100, L500.4050 ####[facility] [address] [place], [address] Platelets (Bld) [#/Vol] 304 10*3/uL Normal 150-450 [facility] Comment on above: Performed By: #### L 500.4100, L501.9520, L506.1001, L100.0100, L500.4050 ####[facility] [address] [place], [address] RBC (Bld) [#/Vol] 4.53 10*6/uL Normal 4.2-5.4 [facility] Comment on above: Performed By: #### L 500.4100, L501.9520, L506.1001, L100.0100, L500.4050 ####[facility] [address] [place], [address] RDW SD 47.5 fl High 35.1-43.9 [facility] Comment on above: Performed By: #### L 500.4100, L501.9520, L506.1001, L100.0100, L500.4050 ####[facility] [address] [place], [address] WBC (Bld) [#/Vol] 11.4 10*3/uL High 4.4-11.0 [facility] Comment on above: Performed By: #### L 500.4100, L501.9520, L506.1001, L100.0100, L500.4050 ####[facility] [address] [place], [address] Calculated very low density lipoprotein (VLDL) cholesterol measurementOrdered By: Maximino Lu on 11-05-2024 VLDL Cholesterol 20 mg/dL 5-40 [facility] Carbon dioxide, total [Moles /volume] in Central venous bloodOrdered By: Maximino Lu on 11-05-2024 CO2 [Moles/Vol] 26.7 mmol/L Normal 21.0-32.0 [facility] Comment on above: Performed By: #### L 500.4100, L501.9520, L506.1001, L100.0100, L500.4050 ####[facility] [address] [place], [address] Chloride assayOrdered By: Tom Lu on 11-05-2024 Chloride [Moles/Vol] 105 mmol/L Normal 98-108 [facility] Comment on above: Performed By: #### L 500.4100, L501.9520, L506.1001, L100.0100, L500.4050 ####[facility] [address] [place], [address] Comprehensive Metabolic Prof ilon 11-05-2024 ALK PHOS 54 U/L Normal 35-104 [facility] Comment on above: Performed By: #### L 500.4100, L501.9520, L506.1001, L100.0100, L500.4050 ####[facility] [address] [place], [address] BUN/CRE 30.2 RATIO High 10-20 [facility] Comment on above: Performed By: #### L 500.4100, L501.9520, L506.1001, L100.0100, L500.4050 ####[facility] [address] [place], [address] GAP 10 Normal 5-15 [facility] Comment on above: Performed By: #### L 500.4100, L501.9520, L506.1001, L100.0100, L500.4050 ####[facility] [address] [place], [address] GFR/1.73 sq M.predicted among non-blacks MDRD (S/P/Bld) [Vol rate/Area] 72 mL/min/{1.73_m2} Normal >60 [facility] Comment on above: Result Comment: mL/m in/1.73m2 CKD-EPI Creatinine Equation (2020) Performed By: #### L 500.4100, L501.9520, L506.1001, L100.0100, L500.4050 ####[facility] [address] [place], [address] T PROT 6.3 g/dL Normal 5.9-8.4 [facility] Comment on above: Performed By: #### L 500.4100, L501.9520, L506.1001, L100.0100, L500.4050 ####[facility] [address] [place], [address] Comprehensive Metabolic Prof ilOrdered By: Maximino Lu on 11-05-2024 AST [Catalytic activity/Vol] 24 U/L Normal <=31 [facility] Comment on above: Performed By: #### L 500.4100, L501.9520, L506.1001, L100.0100, L500.4050 ####[facility] [address] [place], [address] Eosinophil percentageOrdered By: Maximino Lu on 11-05-2024 Eosinophils/100 WBC (Bld) 1.1 % 0-5 [facility] Erythrocyte distribution wid th (RBC) [Ratio]Ordered By: Maximino Lu on 11-05-2024 Erythrocyte distribution width (RBC) [Entitic vol] 47.5 fL High 35.1-43.9 [facility] Erythrocyte distribution wid th ratioOrdered By: Maximino Lu on 11-05-2024 Erythrocyte distribution width (RBC) [Ratio] 15.2 % High 11.6-14.6 [facility] GFR/1.73 sq M.predicted nani g non-blacks MDRD (S/P/Bld) [Vol rate/Area]Ordered By: Maximino Lu on 11-05-2024 Estimated GFR (MDRD) Non-Af Amer 72 >60 [facility] Comment on above: mL/min/1.73m2 CKD-EP I Creatinine Equation (2020) Hematocrit Auto (Bld) [Volum e fraction]Ordered By: Maximino Lu on 11-05-2024 Hematocrit (Bld) [Volume fraction] 39.0 % 37-47 [facility] Hemoglobin measurementOrdere d By: Maximino Lu on 11-05-2024 Hemoglobin (Bld) [Mass/Vol] 12.5 g/dL 12.0-15.0 [facility] Immature granulocytes/100 WB C Auto (Bld)Ordered By: Maximino Lu on 11-05-2024 Immature granulocytes/100 WBC (Bld) 0.800 % 0.0-0.9 [facility] Comment on above: IG% - Immature Granu locytes (promyelocytes, myelocytes and metamyelocytes) > 1% indicates that a LEFT SHIFT is Present. L506.1001on 11-05-2024 Vitamin D 25-OH 40.1 ng/mL Normal 30-100 [facility] Comment on above: Result Comment: Leyda min D StatusDeficiency: <20 ng/mL (50nmol/L)Insufficiency: 20-30 ng/mL (50-75 nmol/L)Sufficiency: 30-100 ng/mL (75-250 nmol/L)Toxicity: >100 ng/mL (>250 nmol/L) Performed By: #### L 500.4100, L501.9520, L506.1001, L100.0100, L500.4050 ####[facility] [address] [place], [address] LDL calc ser/plasOrdered By: Maximino Lu on 11-05-2024 LDL Cholesterol, Calculated 58 mg/dL [facility] Comment on above: Sftikpgruc=254-607 m g/dL & Higher Qxnu=879 mg/dL or greater Lipid Profileon 11-05-2024 CHOL:HDL 2.47 Normal [facility] Comment on above: Performed By: #### L 500.4100, L501.9520, L506.1001, L100.0100, L500.4050 ####[facility] [address] [place], [address] Cholesterol in LDL [Mass/Vol] 58 mg/dL Normal [facility] Comment on above: Result Comment: Bord fwneeq=636-719 mg/dL Higher Ndsa=871 mg/dL or greater Performed By: #### L 500.4100, L501.9520, L506.1001, L100.0100, L500.4050 ####[facility] [address] [place], [place], [address] Cholesterol in VLDL [Mass/Vol] 20 mg/dL Normal 5-40 [facility] Comment on above: Performed By: #### L 500.4100, L501.9520, L506.1001, L100.0100, L500.4050 ####[facility] [address] [place], [address] Lymphocytes Auto (Unsp spec) [#/Vol]Ordered By: Maximino Lu on 11-05-2024 Lymphocytes (Bld) [#/Vol] 2.75 10*3/uL 0.83-4.51 [facility] Lymphocytes/100 WBC Auto (Un sp spec)Ordered By: Maximino Lu on 11-05-2024 Lymphocytes/100 WBC (Bld) 24.1 % 19-41 [facility] MCV (mean corpuscular volume ) determinationOrdered By: Maximino Lu on 11-05-2024 MCV (RBC) [Entitic vol] 86.1 fL 81-99 [facility] Mean corpuscular hemoglobin (MCH) determinationOrdered By: Maximino Lu on 11-05-2024 MCH (RBC) [Entitic mass] 27.6 pg 27.0-32.0 [facility] Mean corpuscular hemoglobin concentration (MCHC) determinationOrdered By: Maximino Lu on 11-05-2024 MCHC (RBC) [Mass/Vol] 32.1 g/dL 32-36 [facility] Mean platelet volume determi nationOrdered By: Maximino Lu on 11-05-2024 Platelet mean volume (Bld) [Entitic vol] 9.1 fL 6.2-12.0 [facility] Monocyte percentageOrdered B y: Maximino Lu on 11-05-2024 Monocytes/100 WBC (Bld) 6.5 % 0-10 [facility] Neutrophil percentageOrdered By: Maximino Lu on 11-05-2024 Neutrophils/100 WBC (Bld) 67.0 % 47-70 [facility] Nucleated red blood cell per centageOrdered By: Maximino Lu on 11-05-2024 Nucleated RBC/100 WBC (Bld) [Ratio] 0 % 0-5 [facility] Platelet countOrdered By: Tom Lu on 11-05-2024 Platelets (Bld) [#/Vol] 304 10*3/uL 150-450 [facility] Potassium measurement (mass/ volume)Ordered By: Maximino Lu on 11-05-2024 Potassium [Moles/Vol] 4.3 mmol/L Normal 3.3-5.1 [facility] Comment on above: Performed By: #### L 500.4100, L501.9520, L506.1001, L100.0100, L500.4050 ####[facility] [address] [place], [place], [id number] RBC Auto (Bld) [#/Vol]Ordere d By: Maximino Lu on 11-05-2024 RBC (Bld) [#/Vol] 4.53 10*6/uL 4.2-5.4 [facility] Screening total cholesterol/ high density lipoprotein (HDL) cholesterol ratioOrdered By: Maximino Lu on 11-05-2024 Cholesterol.total/Anabella sterol in HDL [Mass ratio] 2.47 {ratio} [facility] Serum creatinine measurement (mass/volume)Ordered By: Maximino Lu on 11-05-2024 Creatinine [Mass/Vol] 0.79 mg/dL Normal 0.70-1.20 [facility] Comment on above: Performed By: #### L 500.4100, L501.9520, L506.1001, L100.0100, L500.4050 ####[facility] [address] [place], [place], [id number] Serum globulin measurementOr dered By: Maximino Lu on 11-05-2024 Globulin (S) [Mass/Vol] 2.6 g/dL Normal 2.2-4.2 [facility] Comment on above: Performed By: #### L 500.4100, L501.9520, L506.1001, L100.0100, L500.4050 ####[facility] [address] [place], [address] Serum glucose measurement (m ass/volume)Ordered By: Maximino Lu on 11-05-2024 Glucose [Mass/Vol] 80 mg/dL Normal 70-99 [facility] Comment on above: Performed By: #### L 500.4100, L501.9520, L506.1001, L100.0100, L500.4050 ####[facility] [address] [place], [address] Serum or plasma alanine goode otransferase (ALT) measurementOrdered By: Maximino Lu on 11-05-2024 ALT [Catalytic activity/Vol] 22 U/L Normal <=34 [facility] Comment on above: Performed By: #### L 500.4100, L501.9520, L506.1001, L100.0100, L500.4050 ####[facility] [address] [place], [address] Serum or plasma albumin macrellus urement (mass/volume)Ordered By: Maximino Lu on 11-05-2024 Albumin [Mass/Vol] 3.7 g/dL Normal 3.4-4.8 [facility] Comment on above: Performed By: #### L 500.4100, L501.9520, L506.1001, L100.0100, L500.4050 ####[facility] [address] [place], [address] Serum or plasma albumin/glob ulin mass ratioOrdered By: Maximino Lu on 11-05-2024 Albumin/Globulin [Mass ratio] 1.4 {ratio} Normal 0.9-2.4 [facility] Comment on above: Performed By: #### L 500.4100, L501.9520, L506.1001, L100.0100, L500.4050 ####[facility] [address] [place], [address] Serum or plasma alkaline layne sphatase measurementOrdered By: Maximino Lu on 11-05-2024 ALP [Catalytic activity/Vol] 54 U/L 35-104 [facility] Serum or plasma calcium marcellus urement (mass/volume)Ordered By: Maximino Lu on 11-05-2024 Calcium [Mass/Vol] 9.3 mg/dL Normal 7.6-11.0 [facility] Comment on above: Performed By: #### L 500.4100, L501.9520, L506.1001, L100.0100, L500.4050 ####[facility] [address] [place], [address] Serum or plasma cholesterol in HDL measurement (mass/volume)Ordered By: Maximino Lu on 11-05-2024 Cholesterol in HDL [Mass/Vol] 53 mg/dL Normal [facility] Comment on above: National Cholesterol Education Program (NCEP) guidelines:<40 mg/dL: Low HDL-cholesterol (major risk factor for CHD)>= 60 mg/dL: High HDL-cholesterol (negative risk factor for CHD)HDL-cholesterol is affected by a number of factors, e.g. smoking, exercise, hormones, sex and age. Result Comment: Deborah onal Cholesterol Education Program (NCEP) guidelines:<40 mg/dL: Low HDL-cholesterol (major risk factor for CHD)>= 60 mg/dL: High HDL-cholesterol (negative risk factor forCHD)HDL-cholesterol is affected by a number of factors, e.g.smoking, exercise, hormones, sex and age. Performed By: #### L 500.4100, L501.9520, L506.1001, L100.0100, L500.4050 ####[facility] [address] [place], [address] Serum or plasma cholesterol measurement (mass/volume)Ordered By: Maximino Lu on 11-05-2024 Cholesterol [Mass/Vol] 131 mg/dL Normal <=200 [facility] Comment on above: Cholesterol level, D esirable <200 mg/dLBorderline high cholesterol 200-239 mg/dLHigh cholesterol >=240 mg/dLRecommendations of the NCEP Adult Treatment Panel for the following risk-cutoff thresholds for the [place] population. Result Comment: Chol esterol level, Desirable <200 mg/dLBorderline high cholesterol 200-239 mg/dLHigh cholesterol >=240 mg/dLRecommendations of the NCEP Adult Treatment Panel for thefollowing risk-cutoff thresholds for the [place] Americanpopulation. Performed By: #### L 500.4100, L501.9520, L506.1001, L100.0100, L500.4050 ####[facility] [address] [place], [place], [id number] Serum or plasma urea nitroge n measurement (mass/volume)Ordered By: Maximino Lu on 11-05-2024 Urea nitrogen [Mass/Vol] 24 mg/dL High 4-19 [facility] Comment on above: Performed By: #### L 500.4100, L501.9520, L506.1001, L100.0100, L500.4050 ####[facility] [address] [place], [address] Sodium levelOrdered By: Maximino Lu on 11-05-2024 Sodium [Moles/Vol] 141 mmol/L Normal 133-145 [facility] Comment on above: Performed By: #### L 500.4100, L501.9520, L506.1001, L100.0100, L500.4050 ####[facility] [address] [place], [place], [id number] TSH DL <= 0.005 mIU/L QnOrde red By: Maximino Lu on 11-05-2024 Thyroid Stimulating Hormone (TSH) 1.360 uIU/mL 0.300-4.200 [facility] Thyroid Stim Hormone (TSH)on 11-05-2024 TSH 1.360 uIU/mL Normal 0.300-4.200 [facility] Comment on above: Performed By: #### L 500.4100, L501.9520, L506.1001, L100.0100, L500.4050 ####[facility] [address] [place], [address] Total proteinOrdered By: Maximino Lu on 11-05-2024 Protein [Mass/Vol] 6.3 g/dL 5.9-8.4 [facility] Triglycerides measurementOrd ered By: Maximino Lu on 11-05-2024 Triglyceride [Mass/Vol] 101 mg/dL Normal [facility] Comment on above: The drugs N-Acetylcy steine and Metamizole may falsely depress this assay. Normal range: <150 mg/dLBorderline High: 150-199 mg/dLHigh: 200-499 mg/dLVery High: >500 mg/dL Result Comment: The drugs N-Acetylcysteine and Metamizole may falselydepress this assay.Normal range: <150 mg/dLBorderline High: 150-199 mg/dLHigh: 200-499 mg/dLVery High: >500 mg/dL Performed By: #### L 500.4100, L501.9520, L506.1001, L100.0100, L500.4050 ####[facility] [address] [facility] [address] [place], [place], [id number] Vitamin D, 25-hydroxyOrdered By: Maximino Lu on 11-05-2024 Vitamin D 25-Hydroxy 40.1 ng/mL 30-100 [facility] Comment on above: Vitamin D StatusDefi ciency: <20 ng/mL (50nmol/L)Insufficiency: 20-30 ng/mL (50-75 nmol/L)Sufficiency: 30-100 ng/mL (75-250 nmol/L)Toxicity: >100 ng/mL (>250 nmol/L) White blood cell (WBC) count Ordered By: Maximino Lu on 11-05-2024 WBC (Bld) [#/Vol] 11.4 10*3/uL High 4.4-11.0 [facility] Brain/Head without Contrasto n 10-28-2024 Brain/Head without Contrast Normal [facility] Absolute neutrophil countOrd ered By: Maximino Lu on 10-27-2024 Neutrophils (Bld) [#/Vol] 6.3 10*3/uL 2.0-7.7 [facility] Basophil percentageOrdered B y: Maximino Lu on 10-27-2024 Basophils/100 WBC (Bld) 0.3 % 0-1 [facility] CBC W/Diff, Automatedon 10-05 Absolute Lymph 2.96 X10 3/uL Normal 0.83-4.51 [facility] Comment on above: Performed By: #### L 100.0100, M100.678 ####[facility] [address] [place], [address] Absolute Neut 6.3 X10 3/uL Normal 2.0-7.7 [facility] Comment on above: Performed By: #### L 100.0100, M1.678 ####[facility] [address] [place], [address] Basophils/100 WBC (Bld) 0.3 % Normal 0-1 [facility] Comment on above: Performed By: #### L 100.0100, M100.678 ####[facility] [address] [place], [address] Eosinophils/100 WBC (Bld) 0.6 % Normal 0-5 [facility] Comment on above: Performed By: #### L 100.0100, M100.678 ####[facility] [address] [place], [address] Erythrocyte distribution width (RBC) [Ratio] 14.6 % Normal 11.6-14.6 [facility] Comment on above: Performed By: #### L 100.0100, M100.678 ####[facility] [address] [place], [address] Hematocrit (Bld) [Volume fraction] 43.5 % Normal 37-47 [facility] Comment on above: Performed By: #### L 100.0100, ####[facility] [address] [place], [address] Hemoglobin (Bld) [Mass/Vol] 13.8 g/dL Normal 12.0-15.0 [facility] Comment on above: Performed By: #### L 100.0100, ####[facility] [address] [place], [address] IG% 0.900 Normal 0.0-0.9 [facility] Comment on above: Result Comment: IG% - Immature Granulocytes (promyelocytes, myelocytes andmetamyelocytes) > 1% indicates that a LEFT SHIFT is Present. Performed By: #### L 100.0100, ####[facility] [address] [place], [address] Lymphocytes/100 WBC (Bld) 29.7 % Normal 19-41 [facility] Comment on above: Performed By: #### L 100.0100, ####[facility] [address] [place], [address] MCH (RBC) [Entitic mass] 27.6 pg Normal 27.0-32.0 [facility] Comment on above: Performed By: #### L 100.0100, ####[facility] [address] [place], [address] MCHC (RBC) [Mass/Vol] 31.7 g/dL Low 32-36 [facility] Comment on above: Performed By: #### L 100.0100, 8 ####[facility] [address] [place], [address] MCV (RBC) [Entitic vol] 87.0 fL Normal 81-99 [facility] Comment on above: Performed By: #### L 100.0100, ####[facility] [address] [place], [address] Monocytes/100 WBC (Bld) 5.1 % Normal 0-10 [facility] Comment on above: Performed By: #### L 100.0100, ####[facility] [address] [place], [address] Neutrophils/100 WBC (Bld) 63.4 % Normal 47-70 [facility] Comment on above: Performed By: #### L 100.0100, ####[facility] [address] [place], [address] Nucleated RBC (Bld) [#/Vol] 0 10*3/uL Normal 0-5 [facility] Comment on above: Performed By: #### L 100.0100, ####[facility] [address] [place], [address] Platelet mean volume (Bld) [Entitic vol] 10.5 fL Normal 6.2-12.0 [facility] Comment on above: Performed By: #### L 100.0100, ####[facility] [address] [place], [address] Platelets (Bld) [#/Vol] 258 10*3/uL Normal 150-450 [facility] Comment on above: Performed By: #### L 100.0100, ####[facility] [address] [place], [address] RBC (Bld) [#/Vol] 5.00 10*6/uL Normal 4.2-5.4 [facility] Comment on above: Performed By: #### L 100.0100, ####[facility] [address] [place], [address] RDW SD 46.5 fl High 35.1-43.9 [facility] Comment on above: Performed By: #### L 100.0100, M100.678 ####[facility] [address] [place], [address] WBC (Bld) [#/Vol] 10.0 10*3/uL Normal 4.4-11.0 [facility] Comment on above: Performed By: #### L 100.0100, M100.678 ####[facility] [address] [place], [address] Eosinophil percentageOrdered By: Maximino Lu on 10-27-2024 Eosinophils/100 WBC (Bld) 0.6 % 0-5 [facility] Erythrocyte distribution wid th ratioOrdered By: Maximino Aly on 10-27-2024 Erythrocyte distribution width (RBC) [Ratio] 14.6 % 11.6-14.6 [facility] Erythrocyte distribution wid th standard deviationOrdered By: [facility] Erythrocyte distribution width (RBC) [Entitic vol] 46.5 fL High 35.1-43.9 [facility] Hematocrit Auto (Bld) [Volum e fraction]Ordered By: [facility] 10-27-2024 Hematocrit (Bld) [Volume fraction] 43.5 % 37-47 [facility] Hemoglobin measurementOrdere d By: Maximino Lu 10-27-2024 Hemoglobin (Bld) [Mass/Vol] 13.8 g/dL 12.0-15.0 [facility] Immature granulocytes/100 WB C Auto (Bld)Ordered By: Maximino Aly 10-27-2024 Immature granulocytes/100 WBC (Bld) 0.900 % 0.0-0.9 [facility] Comment on above: IG% - Immature Granu locytes (promyelocytes, myelocytes and metamyelocytes) > 1% indicates that a LEFT SHIFT is Present. Influenza virus A and B and SARS-CoV-2 (COVID-19) and Respiratory syncytial virus RNAOrdered By: aMximino Lu on 10-27-2024 SARS-CoV-2 (COVID-19) RNA TAI+probe Ql (Unsp spec) Influenzae A Abnormal [facility] Lymphocytes Auto (Unsp spec) [#/Vol]Ordered By: Maximino Lu on 10-27-2024 Lymphocytes (Bld) [#/Vol] 2.96 10*3/uL 0.83-4.51 [facility] Lymphocytes/100 WBC Auto (Un sp spec)Ordered By: Maximino Lu on 10-27-2024 Lymphocytes/100 WBC (Bld) 29.7 % 19-41 [facility] M100.678on 10-27-2024 M100.678 Normal [facility] Comment on above: Performed By: #### L 100.0100, M100.678 ####[facility] [address] [place], [address] MCV (mean corpuscular volume ) determinationOrdered By: Maximino Lu on 10-27-2024 MCV (RBC) [Entitic vol] 87.0 fL 81-99 [facility] Mean corpuscular hemoglobin (MCH) determinationOrdered By: Maximino Lu on 10-27-2024 MCH (RBC) [Entitic mass] 27.6 pg 27.0-32.0 [facility] Mean corpuscular hemoglobin concentration (MCHC) determinationOrdered By: Maximino Lu on 10-27-2024 MCHC (RBC) [Mass/Vol] 31.7 g/dL Low 32-36 [facility] Mean platelet volume determi nationOrdered By: Maximino Lu on 10-27-2024 Platelet mean volume (Bld) [Entitic vol] 10.5 fL 6.2-12.0 [facility] Monocyte percentageOrdered B y: Maximino Lu on 10-27-2024 Monocytes/100 WBC (Bld) 5.1 % 0-10 [facility] Neutrophil percentageOrdered By: Maximino Lu on 10-27-2024 Neutrophils/100 WBC (Bld) 63.4 % 47-70 [facility] Nucleated red blood cell per centageOrdered By: Maximino Lu on 10-27-2024 Nucleated RBC/100 WBC (Bld) [Ratio] 0 % 0-5 [facility] Platelet countOrdered By: Tom Lu on 10-27-2024 Platelets (Bld) [#/Vol] 258 10*3/uL 150-450 [facility] RBC Auto (Bld) [#/Vol]Ordere d By: Maximino Lu on 10-27-2024 RBC (Bld) [#/Vol] 5.00 10*6/uL 4.2-5.4 [facility] White blood cell (WBC) count Ordered By: Maximino Lu on 10-27-2024 WBC (Bld) [#/Vol] 10.0 10*3/uL 4.4-11.0 [facility] Urgent Care Visit Reporton 0 10-19-2024 Urgent Care Visit Report Normal [facility] Brain without Contraston Brain without Contrast Normal [facility] CREATININE FINGERSTICKon CREATININE WB < 1.0 Normal 0.55-1.02 [facility] Comment on above: Performed By: #### L 9100.0200 ####[facility] [address] [place], [address] EGFR WB > 60.0000 Normal >60 [facility] Comment on above: Performed By: #### L 9100.0200 ####[facility] [address] [facility] [place], [place], [id number] Creatinine measurement at dsideOrdered By: Maximino Lu on 07-10-2024 Bedside Creatinine < 1.0 mg/dL 0.55-1.02 [facility] EGFROrdered By: Maximino Lu on 07-10-2024 Bedside Estimated GFR (eGFR) > 60.0000 mL/min >60 [facility] MRA Head ONLY without Contra ston 07-10-2024 MRA Head ONLY without Contrast Normal [facility] MRA Neck WITH and W/O Contra ston 07-10-2024 MRA Neck WITH and W/O Contrast Normal [facility] Echo Completeon 06-24-2024 Echo Complete Normal [facility] Stress Reporton 06-24-2024 Stress Report Normal [facility] Basic Metabolic Profile (BMP )on 05-09-2024 BUN Normal 7-18 [facility] Comment on above: Result Comment: Canc elled via OM: Order cancelled - Patient discharged Performed By: #### L 500.2500, L100.0100 ####[facility] [address] [place], [address] BUN/CRE Normal 10-20 [facility] Comment on above: Result Comment: Canc elled via OM: Order cancelled - Patient discharged Performed By: #### L 500.2500, L100.0100 ####[facility] [address] [place], [address] CA,Total Normal 8.5-10.1 [facility] Comment on above: Result Comment: Canc elled via OM: Order cancelled - Patient discharged Performed By: #### L 500.2500, L100.0100 ####[facility] [address] [place], [address] CL Normal 98-107 [facility] Comment on above: Result Comment: Canc elled via OM: Order cancelled - Patient discharged Performed By: #### L 500.2500, L100.0100 ####[facility] [address] [place], [address] CO2 Normal 21.0-32.0 [facility] Comment on above: Result Comment: Canc elled via OM: Order cancelled - Patient discharged Performed By: #### L 500.2500, L100.0100 ####[facility] [address] [place], [address] CREAT,SERUM Normal 0.55-1.02 [facility] Comment on above: Result Comment: Canc elled via OM: Order cancelled - Patient discharged Performed By: #### L 500.2500, L100.0100 ####[facility] [address] [place], [address] EST GFR Normal >60 [facility] Comment on above: Result Comment: Canc elled via OM: Order cancelled - Patient discharged Performed By: #### L 500.2500, L100.0100 ####[facility] [address] [place], [address] EST GFR - AA Normal >60 [facility] Comment on above: Result Comment: Canc elled via OM: Order cancelled - Patient discharged Performed By: #### L 500.2500, L100.0100 ####[facility] [address] [place], [address] GAP Normal 5-15 [facility] Comment on above: Result Comment: Canc elled via OM: Order cancelled - Patient discharged Performed By: #### L 500.2500, L100.0100 ####[facility] [address] [place], [address] GLU Normal 74-106 [facility] Comment on above: Result Comment: Canc elled via OM: Order cancelled - Patient discharged Performed By: #### L 500.2500, L100.0100 ####[facility] [address] [place], [address] Potassium Normal 3.5-5.1 [facility] Comment on above: Result Comment: Canc elled via OM: Order cancelled - Patient discharged Performed By: #### L 500.2500, L100.0100 ####[facility] [address] [place], [address] Basic Metabolic Profile (BMP) Normal 136-145 [facility] Comment on above: Result Comment: Canc elled via OM: Order cancelled - Patient discharged Performed By: #### L 500.2500, L100.0100 ####[facility] [address] [place], [address] CBC W/Diff, Automatedon 10-0 Absolute Neut Normal 2.0-7.7 [facility] Comment on above: Result Comment: Canc elled via OM: Order cancelled - Patient discharged Performed By: #### L 500.2500, L100.0100 ####[facility] [address] [place], [address] HCT Normal 37-47 [facility] Comment on above: Result Comment: Canc elled via OM: Order cancelled - Patient discharged Performed By: #### L 500.2500, L100.0100 ####[facility] [address] [place], [address] HGB Normal 12.0-15.0 [facility] Comment on above: Result Comment: Canc elled via OM: Order cancelled - Patient discharged Performed By: #### L 500.2500, L100.0100 ####[facility] [address] [place], [address] MCH Normal 27.0-32.0 [facility] Comment on above: Result Comment: Canc elled via OM: Order cancelled - Patient discharged Performed By: #### L 500.2500, L100.0100 ####[facility] [address] [place], [address] MCHC Normal 32-36 [facility] Comment on above: Result Comment: Canc elled via OM: Order cancelled - Patient discharged Performed By: #### L 500.2500, L100.0100 ####[facility] [address] [place], [address] MCV Normal 81-99 [facility] Comment on above: Result Comment: Canc elled via OM: Order cancelled - Patient discharged Performed By: #### L 500.2500, L100.0100 ####[facility] [address] [place], [address] NEUT% Normal 47-70 [facility] Comment on above: Result Comment: Canc elled via OM: Order cancelled - Patient discharged Performed By: #### L 500.2500, L100.0100 ####[facility] [address] [place], [address] PLT Normal 150-450 [facility] Comment on above: Result Comment: Canc elled via OM: Order cancelled - Patient discharged Performed By: #### L 500.2500, L100.0100 ####[facility] [address] [place], [address] RBC Normal 4.2-5.4 [facility] Comment on above: Result Comment: Canc elled via OM: Order cancelled - Patient discharged Performed By: #### L 500.2500, L100.0100 ####[facility] [address] [place], [address] RDW CV Normal 11.6-14.6 [facility] Comment on above: Result Comment: Canc elled via OM: Order cancelled - Patient discharged Performed By: #### L 500.2500, L100.0100 ####[facility] [address] [place], [address] RDW SD Normal 35.1-43.9 [facility] Comment on above: Result Comment: Canc elled via OM: Order cancelled - Patient discharged Performed By: #### L 500.2500, L100.0100 ####[facility] [address] [place], [address] WBC Normal 4.4-11.0 [facility] Comment on above: Result Comment: Canc elled via OM: Order cancelled - Patient discharged Performed By: #### L 500.2500, L100.0100 ####[facility] [address] [place], [address] CBC W/Diff, Automatedon 10-0 -2023 Absolute Lymph 2.73 X10 3/uL Normal 0.83-4.51 [facility] Comment on above: Performed By: #### L 100.0100, L506.1000, L500.4050, L500.4100, L501.9520 ####[facility] [address] [place], [address] Absolute Neut 4.8 X10 3/uL Normal 2.0-7.7 [facility] Comment on above: Performed By: #### L 100.0100, L506.1000, L500.4050, L500.4100, L501.9520 ####[facility] [address] [place], [address] Basophils/100 WBC (Bld) 0.7 % Normal 0-1 [facility] Comment on above: Performed By: #### L 100.0100, L506.1000, L500.4050, L500.4100, L501.9520 ####[facility] [address] [place], [address] Eosinophils/100 WBC (Bld) 1.7 % Normal 0-5 [facility] Comment on above: Performed By: #### L 100.0100, L506.1000, L500.4050, L500.4100, L501.9520 ####[facility] [address] [place], [address] Erythrocyte distribution width (RBC) [Ratio] 15.5 % High 11.6-14.6 [facility] Comment on above: Performed By: #### L 100.0100, L506.1000, L500.4050, L500.4100, L501.9520 ####[facility] [address] [place], [address] Hematocrit (Bld) [Volume fraction] 39.3 % Normal 37-47 [facility] Comment on above: Performed By: #### L 100.0100, L506.1000, L500.4050, L500.4100, L501.9520 ####[facility] [address] [place], [address] Hemoglobin (Bld) [Mass/Vol] 12.0 g/dL Normal 12.0-15.0 [facility] Comment on above: Performed By: #### L 100.0100, L506.1000, L500.4050, L500.4100, L501.9520 ####[facility] [address] [place], [address] IG% 0.400 Normal 0.0-0.9 [facility] Comment on above: Result Comment: IG% - Immature Granulocytes (promyelocytes, myelocytes andmetamyelocytes) > 1% indicates that a LEFT SHIFT is Present. Performed By: #### L 100.0100, L506.1000, L500.4050, L500.4100, L501.9520 ####[facility] [address] [place], [address] Lymphocytes/100 WBC (Bld) 33.1 % Normal 19-41 [facility] Comment on above: Performed By: #### L 100.0100, L506.1000, L500.4050, L500.4100, L501.9520 ####[facility] [address] [place], [address] MCH (RBC) [Entitic mass] 27.0 pg Normal 27.0-32.0 [facility] Comment on above: Performed By: #### L 100.0100, L506.1000, L500.4050, L500.4100, L501.9520 ####[facility] [address] [place], [address] MCHC (RBC) [Mass/Vol] 30.5 g/dL Low 32-36 [facility] Comment on above: Performed By: #### L 100.0100, L506.1000, L500.4050, L500.4100, L501.9520 ####[facility] [address] [place], [address] MCV (RBC) [Entitic vol] 88.5 fL Normal 81-99 [facility] Comment on above: Performed By: #### L 100.0100, L506.1000, L500.4050, L500.4100, L501.9520 ####[facility] [address] [place], [address] Monocytes/100 WBC (Bld) 6.4 % Normal 0-10 [facility] Comment on above: Performed By: #### L 100.0100, L506.1000, L500.4050, L500.4100, L501.9520 ####[facility] [address] [place], [address] Neutrophils/100 WBC (Bld) 57.7 % Normal 47-70 [facility] Comment on above: Performed By: #### L 100.0100, L506.1000, L500.4050, L500.4100, L501.9520 ####[facility] [address] [place], [address] Nucleated RBC (Bld) [#/Vol] 0 10*3/uL Normal 0-5 [facility] Comment on above: Performed By: #### L 100.0100, L506.1000, L500.4050, L500.4100, L501.9520 ####[facility] [address] [place], [address] Platelet mean volume (Bld) [Entitic vol] 9.5 fL Normal 6.2-12.0 [facility] Comment on above: Performed By: #### L 100.0100, L506.1000, L500.4050, L500.4100, L501.9520 ####[facility] [address] [place], [address] Platelets (Bld) [#/Vol] 296 10*3/uL Normal 150-450 [facility] Comment on above: Performed By: #### L 100.0100, L506.1000, L500.4050, L500.4100, L501.9520 ####[facility] [address] [place], [address] RBC (Bld) [#/Vol] 4.44 10*6/uL Normal 4.2-5.4 [facility] Comment on above: Performed By: #### L 100.0100, L506.1000, L500.4050, L500.4100, L501.9520 ####[facility] [address] [place], [address] RDW SD 50.5 fl High 35.1-43.9 [facility] Comment on above: Performed By: #### L 100.0100, L506.1000, L500.4050, L500.4100, L501.9520 ####[facility] [address] [place], [address] WBC (Bld) [#/Vol] 8.3 10*3/uL Normal 4.4-11.0 [facility] Comment on above: Performed By: #### L 100.0100, L506.1000, L500.4050, L500.4100, L501.9520 ####[facility] [address] [place], [address] Comprehensive Metabolic [facility] 05-06-2024 Albumin [Mass/Vol] 3.6 g/dL Normal 3.2-5.0 [facility] Comment on above: Performed By: #### L 100.0100, L506.1000, L500.4050, L500.4100, L501.9520 ####[facility] [address] [place], [address] Albumin/Globulin [Mass ratio] 1.0 {ratio} Normal 0.9-2.4 [facility] Comment on above: Performed By: #### L 100.0100, L506.1000, L500.4050, L500.4100, L501.9520 ####[facility] [address] [place], [address] ALK P 58 U/L Normal 45-117 [facility] Comment on above: Performed By: #### L 100.0100, L506.1000, L500.4050, L500.4100, L501.9520 ####[facility] [address] [place], [address] ALT [Catalytic activity/Vol] 20 U/L Normal 13-56 [facility] Comment on above: Performed By: #### L 100.0100, L506.1000, L500.4050, L500.4100, L501.9520 ####[facility] [address] [place], [address] AST [Catalytic activity/Vol] 16 U/L Normal 15-37 [facility] Comment on above: Performed By: #### L 100.0100, L506.1000, L500.4050, L500.4100, L501.9520 ####[facility] [address] [place], [address] Bilirubin [Mass/Vol] 0.50 mg/dL Normal 0.20-1.00 [facility] Comment on above: Result Comment: For patients on eltrombopag therapy, use of Dimension Juliaetta TBIL is not recommended. Performed By: #### L 100.0100, L506.1000, L500.4050, L500.4100, L501.9520 ####[facility] [address] [place], [address] BUN/CRE 22.7 RATIO High 10-20 [facility] Comment on above: Performed By: #### L 100.0100, L506.1000, L500.4050, L500.4100, L501.9520 ####[facility] [address] [place], [address] CA,Total 9.2 mg/dL Normal 8.5-10.1 [facility] Comment on above: Performed By: #### L 100.0100, L506.1000, L500.4050, L500.4100, L501.9520 ####[facility] [address] [place], [address] Chloride [Moles/Vol] 106 mmol/L Normal 98-107 [facility] Comment on above: Performed By: #### L 100.0100, L506.1000, L500.4050, L500.4100, L501.9520 ####[facility] [address] [place], [address] CO2 [Moles/Vol] 30.0 mmol/L Normal 21.0-32.0 [facility] Comment on above: Performed By: #### L 100.0100, L506.1000, L500.4050, L500.4100, L501.9520 ####[facility] [address] [place], [address] Creatinine [Mass/Vol] 0.84 mg/dL Normal 0.55-1.02 [facility] Comment on above: Result Comment: The validity of the calculated GFR GFRAA in patients over70 years has not been determined. Clinical correlation isessential. Performed By: #### L 100.0100, L506.1000, L500.4050, L500.4100, L501.9520 ####[facility] [address] [place], [address] EST GFR - AA 83 mL/min Normal >60 [facility] Comment on above: Result Comment: Afri can [place]kin[place] GFR Calc Performed By: #### L 100.0100, L506.1000, L500.4050, L500.4100, L501.9520 ####[facility] [address] [place], [address] GAP 3 Low 5-15 [facility] Comment on above: Performed By: #### L 100.0100, L506.1000, L500.4050, L500.4100, L501.9520 ####[facility] [address] [place], [address] GFR/1.73 sq M.predicted among non-blacks MDRD (S/P/Bld) [Vol rate/Area] 69 mL/min/{1.73_m2} Normal >60 [facility] Comment on above: Result Comment: Non- GFR Calc Performed By: #### L 100.0100, L506.1000, L500.4050, L500.4100, L501.9520 ####[facility] [address] [place], [address] Globulin (S) [Mass/Vol] 3.6 g/dL Normal 2.2-4.2 [facility] Comment on above: Performed By: #### L 100.0100, L506.1000, L500.4050, L500.4100, L501.9520 ####[facility] [address] [place], [address] Glucose [Mass/Vol] 91 mg/dL Normal 74-106 [facility] Comment on above: Performed By: #### L 100.0100, L506.1000, L500.4050, L500.4100, L501.9520 ####[facility] [address] [place], [address] Potassium [Moles/Vol] 3.8 mmol/L Normal 3.5-5.1 [facility] Comment on above: Performed By: #### L 100.0100, L506.1000, L500.4050, L500.4100, L501.9520 ####[facility] [address] [place], [address] Sodium [Moles/Vol] 139 mmol/L Normal 136-145 [facility] Comment on above: Performed By: #### L 100.0100, L506.1000, L500.4050, L500.4100, L501.9520 ####[facility] [address] [place], [address] T PROT 7.2 g/dL Normal 6.4-8.2 [facility] Comment on above: Performed By: #### L 100.0100, L506.1000, L500.4050, L500.4100, L501.9520 ####[facility] [address] [place], [address] Urea nitrogen [Mass/Vol] 19 mg/dL High 7-18 [facility] Comment on above: Performed By: #### L 100.0100, L506.1000, L500.4050, L500.4100, L501.9520 ####[facility] [address] [place], [address] Lipid Profileon 05-06-2024 Cholesterol [Mass/Vol] 185 mg/dL Normal 200 [facility] Comment on above: Result Comment: <200 mg/dL Desirable 200-240 mg/dL Borderline >240 mg/dL High Risk Performed By: #### L 100.0100, L506.1000, L500.4050, L500.4100, L501.9520 ####[facility] [address] [place], [address] Cholesterol in HDL [Mass/Vol] 54 mg/dL Normal [facility] Comment on above: Result Comment: The drugs N-Acetylcysteine and Metamizole may falselydepress this assay. Reference Range HDL <40 mg/dL Low HDL Cholesterol HDL >or= 60 mg/dL High HDL Cholesterol Performed By: #### L 100.0100, L506.1000, L500.4050, L500.4100, L501.9520 ####[facility] [address] [place], [address] Cholesterol in LDL [Mass/Vol] 111 mg/dL Normal 0-130 [facility] Comment on above: Performed By: #### L 100.0100, L506.1000, L500.4050, L500.4100, L501.9520 ####[facility] [address] [place], [address] Cholesterol in VLDL [Mass/Vol] 20 mg/dL Normal 5-40 [facility] Comment on above: Performed By: #### L 100.0100, L506.1000, L500.4050, L500.4100, L501.9520 ####[facility] [address] [place], [address] Triglyceride [Mass/Vol] 98 mg/dL Normal [facility] Comment on above: Result Comment: The drugs N-Acetylcysteine and Metamizole may falselydepress this assay.Serum Triglycerides Reference Interval Normal <150 mg/dL Borderline high 150 - 199 mg/dL High 200 - 499 mg/dL Very High > or = 500 mg/dL Performed By: #### L 100.0100, L506.1000, L500.4050, L500.4100, L501.9520 ####[facility] [address] [place], [address] Thyroid Stim Hormone (TSH)on 05-06-2024 TSH 1.680 uIU/mL Normal 0.358-3.740 [facility] Comment on above: Performed By: #### L 100.0100, L506.1000, L500.4050, L500.4100, L501.9520 ####[facility] [address] [place], [address] Vitamin D,25 Hydroxyon 05-06 Vitamin D 25-OH 45.7 ng/mL Normal [facility] Comment on above: Result Comment: Leyda min D 25(OH) Status Range Deficiency <20 ng/mL (50nmol/L) Insufficiency 20 - 30 ng/mL (50 - 75 nmol/L) Sufficiency 30 - 100 ng/mL (75 - 250 nmol/L) Toxicity >100 ng/mL (>250 nmol/L) Performed By: #### L 100.0100, L506.1000, L500.4050, L500.4100, L501.9520 ####[facility] [address] [place], [address] Basic Metabolic Profile (BMP )on 05-02-2024 BUN Normal 7-18 [facility] Comment on above: Result Comment: Canc elled via OM: Order cancelled - Patient discharged Performed By: #### L 500.2500, L100.0100 ####[facility] [address] [place], [address] BUN/CRE Normal 10-20 [facility] Comment on above: Result Comment: Canc elled via OM: Order cancelled - Patient discharged Performed By: #### L 500.2500, L100.0100 ####[facility] [address] [place], [address] CA,Total Normal 8.5-10.1 [facility] Comment on above: Result Comment: Canc elled via OM: Order cancelled - Patient discharged Performed By: #### L 500.2500, L100.0100 ####[facility] [address] [place], [address] CL Normal 98-107 [facility] Comment on above: Result Comment: Canc elled via OM: Order cancelled - Patient discharged Performed By: #### L 500.2500, L100.0100 ####[facility] [address] [place], [address] CO2 Normal 21.0-32.0 [facility] Comment on above: Result Comment: Canc elled via OM: Order cancelled - Patient discharged Performed By: #### L 500.2500, L100.0100 ####[facility] [address] [place], [address] CREAT,SERUM Normal 0.55-1.02 [facility] Comment on above: Result Comment: Canc elled via OM: Order cancelled - Patient discharged Performed By: #### L 500.2500, L100.0100 ####[facility] [address] [place], [address] EST GFR Normal >60 [facility] Comment on above: Result Comment: Canc elled via OM: Order cancelled - Patient discharged Performed By: #### L 500.2500, L100.0100 ####[facility] [address] [place], [address] EST GFR - AA Normal >60 [facility] Comment on above: Result Comment: Canc elled via OM: Order cancelled - Patient discharged Performed By: #### L 500.2500, L100.0100 ####[facility] [address] [place], [address] GAP Normal 5-15 [facility] Comment on above: Result Comment: Canc elled via OM: Order cancelled - Patient discharged Performed By: #### L 500.2500, L100.0100 ####[facility] [address] [place], [address] GLU Normal 74-106 [facility] Comment on above: Result Comment: Canc elled via OM: Order cancelled - Patient discharged Performed By: #### L 500.2500, L100.0100 ####[facility] [address] [place], [address] Potassium Normal 3.5-5.1 [facility] Comment on above: Result Comment: Canc elled via OM: Order cancelled - Patient discharged Performed By: #### L 500.2500, L100.0100 ####[facility] [address] [place], [address] Basic Metabolic Profile (BMP) Normal 136-145 [facility] Comment on above: Result Comment: Canc elled via OM: Order cancelled - Patient discharged Performed By: #### L 500.2500, L100.0100 ####[facility] [address] [place], [address] CBC W/Diff, Automatedon 09-2 Absolute Neut Normal 2.0-7.7 [facility] Comment on above: Result Comment: Canc elled via OM: Order cancelled - Patient discharged Performed By: #### L 500.2500, L100.0100 ####[facility] [address] [place], [address] HCT Normal 37-47 [facility] Comment on above: Result Comment: Canc elled via OM: Order cancelled - Patient discharged Performed By: #### L 500.2500, L100.0100 ####[facility] [address] [place], [address] HGB Normal 12.0-15.0 [facility] Comment on above: Result Comment: Canc elled via OM: Order cancelled - Patient discharged Performed By: #### L 500.2500, L100.0100 ####[facility] [address] [place], [address] MCH Normal 27.0-32.0 [facility] Comment on above: Result Comment: Canc elled via OM: Order cancelled - Patient discharged Performed By: #### L 500.2500, L100.0100 ####[facility] [address] [place], [address] MCHC Normal 32-36 [facility] Comment on above: Result Comment: Canc elled via OM: Order cancelled - Patient discharged Performed By: #### L 500.2500, L100.0100 ####[facility] [address] [place], [address] MCV Normal 81-99 [facility] Comment on above: Result Comment: Canc elled via OM: Order cancelled - Patient discharged Performed By: #### L 500.2500, L100.0100 ####[facility] [address] [place], [address] NEUT% Normal 47-70 [facility] Comment on above: Result Comment: Canc elled via OM: Order cancelled - Patient discharged Performed By: #### L 500.2500, L100.0100 ####[facility] [address] [place], [address] PLT Normal 150-450 [facility] Comment on above: Result Comment: Canc elled via OM: Order cancelled - Patient discharged Performed By: #### L 500.2500, L100.0100 ####[facility] [address] [place], [address] RBC Normal 4.2-5.4 [facility] Comment on above: Result Comment: Canc elled via OM: Order cancelled - Patient discharged Performed By: #### L 500.2500, L100.0100 ####[facility] [address] [place], [address] RDW CV Normal 11.6-14.6 [facility] Comment on above: Result Comment: Canc elled via OM: Order cancelled - Patient discharged Performed By: #### L 500.2500, L100.0100 ####[facility] [address] [place], [address] RDW SD Normal 35.1-43.9 [facility] Comment on above: Result Comment: Canc elled via OM: Order cancelled - Patient discharged Performed By: #### L 500.2500, L100.0100 ####[facility] [address] [place], [address] WBC Normal 4.4-11.0 [facility] Comment on above: Result Comment: Canc elled via OM: Order cancelled - Patient discharged Performed By: #### L 500.2500, L100.0100 ####[facility] [address] [place], [address] Basic Metabolic Profile (BMP )on 04-25-2024 BUN Normal 7-18 [facility] Comment on above: Result Comment: Canc elled via OM: Order cancelled - Patient discharged Performed By: #### L 500.2500, L100.0100 ####[facility] [address] [place], [address] BUN/CRE Normal 10-20 [facility] Comment on above: Result Comment: Canc elled via OM: Order cancelled - Patient discharged Performed By: #### L 500.2500, L100.0100 ####[facility] [address] [place], [address] CA,Total Normal 8.5-10.1 [facility] Comment on above: Result Comment: Canc elled via OM: Order cancelled - Patient discharged Performed By: #### L 500.2500, L100.0100 ####[facility] [address] [place], [address] CL Normal 98-107 [facility] Comment on above: Result Comment: Canc elled via OM: Order cancelled - Patient discharged Performed By: #### L 500.2500, L100.0100 ####[facility] [address] [place], [address] CO2 Normal 21.0-32.0 [facility] Comment on above: Result Comment: Canc elled via OM: Order cancelled - Patient discharged Performed By: #### L 500.2500, L100.0100 ####[facility] [address] [place], [address] CREAT,SERUM Normal 0.55-1.02 [facility] Comment on above: Result Comment: Canc elled via OM: Order cancelled - Patient discharged Performed By: #### L 500.2500, L100.0100 ####[facility] [address] [place], [address] EST GFR Normal >60 [facility] Comment on above: Result Comment: Canc elled via OM: Order cancelled - Patient discharged Performed By: #### L 500.2500, L100.0100 ####[facility] [address] [place], [address] EST GFR - AA Normal >60 [facility] Comment on above: Result Comment: Canc elled via OM: Order cancelled - Patient discharged Performed By: #### L 500.2500, L100.0100 ####[facility] [address] [place], [address] GAP Normal 5-15 [facility] Comment on above: Result Comment: Canc elled via OM: Order cancelled - Patient discharged Performed By: #### L 500.2500, L100.0100 ####[facility] [address] [place], [address] GLU Normal 74-106 [facility] Comment on above: Result Comment: Canc elled via OM: Order cancelled - Patient discharged Performed By: #### L 500.2500, L100.0100 ####[facility] [address] [place], [address] Potassium Normal 3.5-5.1 [facility] Comment on above: Result Comment: Canc elled via OM: Order cancelled - Patient discharged Performed By: #### L 500.2500, L100.0100 ####[facility] [address] [place], [address] Basic Metabolic Profile (BMP) Normal 136-145 [facility] Comment on above: Result Comment: Canc elled via OM: Order cancelled - Patient discharged Performed By: #### L 500.2500, L100.0100 ####[facility] [address] [place], [address] CBC W/Diff, Automatedon 09-2 0-2023 Absolute Neut Normal 2.0-7.7 [facility] Comment on above: Result Comment: Canc elled via OM: Order cancelled - Patient discharged Performed By: #### L 500.2500, L100.0100 ####[facility] [address] [place], [address] HCT Normal 37-47 [facility] Comment on above: Result Comment: Canc elled via OM: Order cancelled - Patient discharged Performed By: #### L 500.2500, L100.0100 ####[facility] [address] [place], [address] HGB Normal 12.0-15.0 [facility] Comment on above: Result Comment: Canc elled via OM: Order cancelled - Patient discharged Performed By: #### L 500.2500, L100.0100 ####[facility] [address] [place], [address] MCH Normal 27.0-32.0 [facility] Comment on above: Result Comment: Canc elled via OM: Order cancelled - Patient discharged Performed By: #### L 500.2500, L100.0100 ####[facility] [address] [place], [address] MCHC Normal 32-36 [facility] Comment on above: Result Comment: Canc elled via OM: Order cancelled - Patient discharged Performed By: #### L 500.2500, L100.0100 ####[facility] [address] [place], [address] MCV Normal 81-99 [facility] Comment on above: Result Comment: Canc elled via OM: Order cancelled - Patient discharged Performed By: #### L 500.2500, L100.0100 ####[facility] [address] [place], [address] NEUT% Normal 47-70 [facility] Comment on above: Result Comment: Canc elled via OM: Order cancelled - Patient discharged Performed By: #### L 500.2500, L100.0100 ####[facility] [address] [place], [address] PLT Normal 150-450 [facility] [facility] Comment on above: Result Comment: Canc elled via OM: Order cancelled - Patient discharged Performed By: #### L 500.2500, L100.0100 ####[facility] [address] [place], [address] RBC Normal 4.2-5.4 [facility] Comment on above: Result Comment: Canc elled via OM: Order cancelled - Patient discharged Performed By: #### L 500.2500, L100.0100 ####[facility] [address] [place], [address] RDW CV Normal 11.6-14.6 [facility] Comment on above: Result Comment: Canc elled via OM: Order cancelled - Patient discharged Performed By: #### L 500.2500, L100.0100 ####[facility] [address] [place], [address] RDW SD Normal 35.1-43.9 [facility] Comment on above: Result Comment: Canc elled via OM: Order cancelled - Patient discharged Performed By: #### L 500.2500, L100.0100 ####[facility] [address] [place], [address] WBC Normal 4.4-11.0 [facility] Comment on above: Result Comment: Canc elled via OM: Order cancelled - Patient discharged Performed By: #### L 500.2500, L100.0100 ####[facility] [address] [place], [address] Basic Metabolic Profile (BMP )on 04-18-2024 BUN Normal 7-18 [facility] Comment on above: Result Comment: Canc elled via OM: Order cancelled - Patient discharged Performed By: #### L 500.2500, L100.0100 ####[facility] [address] [place], [address] BUN/CRE Normal 10-20 [facility] Comment on above: Result Comment: Canc elled via OM: Order cancelled - Patient discharged Performed By: #### L 500.2500, L100.0100 ####[facility] [address] [place], [address] CA,Total Normal 8.5-10.1 [facility] Comment on above: Result Comment: Canc elled via OM: Order cancelled - Patient discharged Performed By: #### L 500.2500, L100.0100 ####[facility] [address] [place], [address] CL Normal 98-107 [facility] Comment on above: Result Comment: Canc elled via OM: Order cancelled - Patient discharged Performed By: #### L 500.2500, L100.0100 ####[facility] [address] [place], [address] CO2 Normal 21.0-32.0 [facility] Comment on above: Result Comment: Canc elled via OM: Order cancelled - Patient discharged Performed By: #### L 500.2500, L100.0100 ####[facility] [address] [place], [address] CREAT,SERUM Normal 0.55-1.02 [facility] Comment on above: Result Comment: Canc elled via OM: Order cancelled - Patient discharged Performed By: #### L 500.2500, L100.0100 ####[facility] [address] [place], [address] EST GFR Normal >60 [facility] Comment on above: Result Comment: Canc elled via OM: Order cancelled - Patient discharged Performed By: #### L 500.2500, L100.0100 ####[facility] [address] [place], [address] EST GFR - AA Normal >60 [facility] Comment on above: Result Comment: Canc elled via OM: Order cancelled - Patient discharged Performed By: #### L 500.2500, L100.0100 ####[facility] [address] [place], [address] GAP Normal 5-15 [facility] Comment on above: Result Comment: Canc elled via OM: Order cancelled - Patient discharged Performed By: #### L 500.2500, L100.0100 ####[facility] [address] [place], [address] GLU Normal 74-106 [facility] Comment on above: Result Comment: Canc elled via OM: Order cancelled - Patient discharged Performed By: #### L 500.2500, L100.0100 ####[facility] [address] [place], [address] Potassium Normal 3.5-5.1 [facility] Comment on above: Result Comment: Canc elled via OM: Order cancelled - Patient discharged Performed By: #### L 500.2500, L100.0100 ####[facility] [address] [place], [address] Basic Metabolic Profile (BMP) Normal 136-145 [facility] Comment on above: Result Comment: Canc elled via OM: Order cancelled - Patient discharged Performed By: #### L 500.2500, L100.0100 ####[facility] [address] [place], [address] CBC W/Diff, Automatedon 09-1 Absolute Neut Normal 2.0-7.7 [facility] Comment on above: Result Comment: Canc elled via OM: Order cancelled - Patient discharged Performed By: #### L 500.2500, L100.0100 ####[facility] [address] [place], [address] HCT Normal 37-47 [facility] Comment on above: Result Comment: Canc elled via OM: Order cancelled - Patient discharged Performed By: #### L 500.2500, L100.0100 ####[facility] [address] [place], [address] HGB Normal 12.0-15.0 [facility] Comment on above: Result Comment: Canc elled via OM: Order cancelled - Patient discharged Performed By: #### L 500.2500, L100.0100 ####[facility] [address] [place], [address] MCH Normal 27.0-32.0 [facility] Comment on above: Result Comment: Canc elled via OM: Order cancelled - Patient discharged Performed By: #### L 500.2500, L100.0100 ####[facility] [address] [place], [address] MCHC Normal 32-36 [facility] Comment on above: Result Comment: Canc elled via OM: Order cancelled - Patient discharged Performed By: #### L 500.2500, L100.0100 ####[facility] [address] [place], [address] MCV Normal 81-99 [facility] Comment on above: Result Comment: Canc elled via OM: Order cancelled - Patient discharged Performed By: #### L 500.2500, L100.0100 ####[facility] [address] [place], [address] NEUT% Normal 47-70 [facility] Comment on above: Result Comment: Canc elled via OM: Order cancelled - Patient discharged Performed By: #### L 500.2500, L100.0100 ####[facility] [address] [place], [address] PLT Normal 150-450 [facility] Comment on above: Result Comment: Canc elled via OM: Order cancelled - Patient discharged Performed By: #### L 500.2500, L100.0100 ####[facility] [address] [place], [address] RBC Normal 4.2-5.4 [facility] Comment on above: Result Comment: Canc elled via OM: Order cancelled - Patient discharged Performed By: #### L 500.2500, L100.0100 ####[facility] [address] [place], [address] RDW CV Normal 11.6-14.6 [facility] Comment on above: Result Comment: Canc elled via OM: Order cancelled - Patient discharged Performed By: #### L 500.2500, L100.0100 ####[facility] [address] [place], [address] RDW SD Normal 35.1-43.9 [facility] Comment on above: Result Comment: Canc elled via OM: Order cancelled - Patient discharged Performed By: #### L 500.2500, L100.0100 ####[facility] [address] [place], [address] WBC Normal 4.4-11.0 [facility] Comment on above: Result Comment: Canc elled via OM: Order cancelled - Patient discharged Performed By: #### L 500.2500, L100.0100 ####[facility] [address] [place], [address] Basic Metabolic Profile (BMP )on 04-11-2024 BUN Normal 7-18 [facility] Comment on above: Result Comment: Canc elled via OM: Order cancelled - Patient discharged Performed By: #### L 500.2500, L100.0100 ####[facility] [address] [place], [address] BUN/CRE Normal 10-20 [facility] Comment on above: Result Comment: Canc elled via OM: Order cancelled - Patient discharged Performed By: #### L 500.2500, L100.0100 ####[facility] [address] [place], [address] CA,Total Normal 8.5-10.1 [facility] Comment on above: Result Comment: Canc elled via OM: Order cancelled - Patient discharged Performed By: #### L 500.2500, L100.0100 ####[facility] [address] [place], [address] CL Normal 98-107 [facility] Comment on above: Result Comment: Canc elled via OM: Order cancelled - Patient discharged Performed By: #### L 500.2500, L100.0100 ####[facility] [address] [place], [address] CO2 Normal 21.0-32.0 [facility] Comment on above: Result Comment: Canc elled via OM: Order cancelled - Patient discharged Performed By: #### L 500.2500, L100.0100 ####[facility] [address] [place], [address] CREAT,SERUM Normal 0.55-1.02 [facility] Comment on above: Result Comment: Canc elled via OM: Order cancelled - Patient discharged Performed By: #### L 500.2500, L100.0100 ####[facility] [address] [place], [address] EST GFR Normal >60 [facility] Comment on above: Result Comment: Canc elled via OM: Order cancelled - Patient discharged Performed By: #### L 500.2500, L100.0100 ####[facility] [address] [place], [address] EST GFR - AA Normal >60 [facility] Comment on above: Result Comment: Canc elled via OM: Order cancelled - Patient discharged Performed By: #### L 500.2500, L100.0100 ####[facility] [address] [place], [address] GAP Normal 5-15 [facility] Comment on above: Result Comment: Canc elled via OM: Order cancelled - Patient discharged Performed By: #### L 500.2500, L100.0100 ####[facility] [address] [place], [address] GLU Normal 74-106 [facility] Comment on above: Result Comment: Canc elled via OM: Order cancelled - Patient discharged Performed By: #### L 500.2500, L100.0100 ####[facility] [address] [place], [address] Potassium Normal 3.5-5.1 [facility] Comment on above: Result Comment: Canc elled via OM: Order cancelled - Patient discharged Performed By: #### L 500.2500, L100.0100 ####[facility] [address] [place], [address] Basic Metabolic Profile (BMP) Normal 136-145 [facility] Comment on above: Result Comment: Canc elled via OM: Order cancelled - Patient discharged Performed By: #### L 500.2500, L100.0100 ####[facility] [address] [place], [address] CBC W/Diff, Automatedon 09-0 -2023 Absolute Neut Normal 2.0-7.7 [facility] Comment on above: Result Comment: Canc elled via OM: Order cancelled - Patient discharged Performed By: #### L 500.2500, L100.0100 ####[facility] [address] [place], [address] HCT Normal 37-47 [facility] Comment on above: Result Comment: Canc elled via OM: Order cancelled - Patient discharged Performed By: #### L 500.2500, L100.0100 ####[facility] [address] [place], [address] HGB Normal 12.0-15.0 [facility] Comment on above: Result Comment: Canc elled via OM: Order cancelled - Patient discharged Performed By: #### L 500.2500, L100.0100 ####[facility] [address] [place], [address] MCH Normal 27.0-32.0 [facility] Comment on above: Result Comment: Canc elled via OM: Order cancelled - Patient discharged Performed By: #### L 500.2500, L100.0100 ####[facility] [address] [place], [address] MCHC Normal 32-36 [facility] Comment on above: Result Comment: Canc elled via OM: Order cancelled - Patient discharged Performed By: #### L 500.2500, L100.0100 ####[facility] [address] [place], [address] MCV Normal 81-99 [facility] Comment on above: Result Comment: Canc elled via OM: Order cancelled - Patient discharged Performed By: #### L 500.2500, L100.0100 ####[facility] [address] [place], [address] NEUT% Normal 47-70 [facility] Comment on above: Result Comment: Canc elled via OM: Order cancelled - Patient discharged Performed By: #### L 500.2500, L100.0100 ####[facility] [address] [place], [address] PLT Normal 150-450 [facility] Comment on above: Result Comment: Canc elled via OM: Order cancelled - Patient discharged Performed By: #### L 500.2500, L100.0100 ####[facility] [address] [place], [address] RBC Normal 4.2-5.4 [facility] Comment on above: Result Comment: Canc elled via OM: Order cancelled - Patient discharged Performed By: #### L 500.2500, L100.0100 ####[facility] [address] [place], [address] RDW CV Normal 11.6-14.6 [facility] Comment on above: Result Comment: Canc elled via OM: Order cancelled - Patient discharged Performed By: #### L 500.2500, L100.0100 ####[facility] [address] [place], [address] RDW SD Normal 35.1-43.9 [facility] Comment on above: Result Comment: Canc elled via OM: Order cancelled - Patient discharged Performed By: #### L 500.2500, L100.0100 ####[facility] [address] [place], [address] WBC Normal 4.4-11.0 [facility] Comment on above: Result Comment: Canc elled via OM: Order cancelled - Patient discharged Performed By: #### L 500.2500, L100.0100 ####[facility] [address] [place], [address] Basic Metabolic Profile (BMP )on 04-04-2024 BUN Normal 7-18 [facility] Comment on above: Result Comment: Canc elled via OM: Order cancelled - Patient discharged Performed By: #### L 500.2500, L100.0100 ####[facility] [address] [place], [address] BUN/CRE Normal 10-20 [facility] Comment on above: Result Comment: Canc elled via OM: Order cancelled - Patient discharged Performed By: #### L 500.2500, L100.0100 ####[facility] [address] [place], [address] CA,Total Normal 8.5-10.1 [facility] Comment on above: Result Comment: Canc elled via OM: Order cancelled - Patient discharged Performed By: #### L 500.2500, L100.0100 ####[facility] [address] [place], [address] CL Normal 98-107 [facility] Comment on above: Result Comment: Canc elled via OM: Order cancelled - Patient discharged Performed By: #### L 500.2500, L100.0100 ####[facility] [address] [place], [address] CO2 Normal 21.0-32.0 [facility] Comment on above: Result Comment: Canc elled via OM: Order cancelled - Patient discharged Performed By: #### L 500.2500, L100.0100 ####[facility] [address] [place], [address] CREAT,SERUM Normal 0.55-1.02 [facility] Comment on above: Result Comment: Canc elled via OM: Order cancelled - Patient discharged Performed By: #### L 500.2500, L100.0100 ####[facility] [address] [place], [address] EST GFR Normal >60 [facility] Comment on above: Result Comment: Canc elled via OM: Order cancelled - Patient discharged Performed By: #### L 500.2500, L100.0100 ####[facility] [address] [place], [address] EST GFR - AA Normal >60 [facility] Comment on above: Result Comment: Canc elled via OM: Order cancelled - Patient discharged Performed By: #### L 500.2500, L100.0100 ####[facility] [address] [place], [address] GAP Normal 5-15 [facility] Comment on above: Result Comment: Canc elled via OM: Order cancelled - Patient discharged Performed By: #### L 500.2500, L100.0100 ####[facility] [address] [place], [address] GLU Normal 74-106 [facility] Comment on above: Result Comment: Canc elled via OM: Order cancelled - Patient discharged Performed By: #### L 500.2500, L100.0100 ####[facility] [address] [place], [address] Potassium Normal 3.5-5.1 [facility] Comment on above: Result Comment: Canc elled via OM: Order cancelled - Patient discharged Performed By: #### L 500.2500, L100.0100 ####[facility] [address] [place], [address] Basic Metabolic Profile (BMP) Normal 136-145 [facility] Comment on above: Result Comment: Canc elled via OM: Order cancelled - Patient discharged Performed By: #### L 500.2500, L100.0100 ####[facility] [address] [place], [address] CBC W/Diff, Automatedon 08-3 0-2023 Absolute Neut Normal 2.0-7.7 [facility] Comment on above: Result Comment: Canc elled via OM: Order cancelled - Patient discharged Performed By: #### L 500.2500, L100.0100 ####[facility] [address] [place], [address] HCT Normal 37-47 [facility] Comment on above: Result Comment: Canc elled via OM: Order cancelled - Patient discharged Performed By: #### L 500.2500, L100.0100 ####[facility] [address] [place], [address] HGB Normal 12.0-15.0 [facility] Comment on above: Result Comment: Canc elled via OM: Order cancelled - Patient discharged Performed By: #### L 500.2500, L100.0100 ####[facility] [address] [place], [address] MCH Normal 27.0-32.0 [facility] Comment on above: Result Comment: Canc elled via OM: Order cancelled - Patient discharged Performed By: #### L 500.2500, L100.0100 ####[facility] [address] [place], [address] MCHC Normal 32-36 [facility] Comment on above: Result Comment: Canc elled via OM: Order cancelled - Patient discharged Performed By: #### L 500.2500, L100.0100 ####[facility] [address] [place], [address] MCV Normal 81-99 [facility] Comment on above: Result Comment: Canc elled via OM: Order cancelled - Patient discharged Performed By: #### L 500.2500, L100.0100 ####[facility] [address] [place], [address] NEUT% Normal 47-70 [facility] Comment on above: Result Comment: Canc elled via OM: Order cancelled - Patient discharged Performed By: #### L 500.2500, L100.0100 ####[facility] [address] [place], [address] PLT Normal 150-450 [facility] Comment on above: Result Comment: Canc elled via OM: Order cancelled - Patient discharged Performed By: #### L 500.2500, L100.0100 ####[facility] [address] [place], [address] RBC Normal 4.2-5.4 [facility] Comment on above: Result Comment: Canc elled via OM: Order cancelled - Patient discharged Performed By: #### L 500.2500, L100.0100 ####[facility] [address] [place], [address] RDW CV Normal 11.6-14.6 [facility] Comment on above: Result Comment: Canc elled via OM: Order cancelled - Patient discharged Performed By: #### L 500.2500, L100.0100 ####[facility] [address] [place], [address] RDW SD Normal 35.1-43.9 [facility] Comment on above: Result Comment: Canc elled via OM: Order cancelled - Patient discharged Performed By: #### L 500.2500, L100.0100 ####[facility] [address] [place], [address] WBC Normal 4.4-11.0 [facility] Comment on above: Result Comment: Canc elled via OM: Order cancelled - Patient discharged Performed By: #### L 500.2500, L100.0100 ####[facility] [address] [place], [address] CBC W/Diff, Automatedon 08-2 -2023 Absolute Neut Normal 2.0-7.7 [facility] Comment on above: Result Comment: Canc elled via OM: Order cancelled - Patient discharged Performed By: #### L 500.4050, L100.0100 ####[facility] [address] [place], [address] HCT Normal 37-47 [facility] Comment on above: Result Comment: Canc elled via OM: Order cancelled - Patient discharged Performed By: #### L 500.4050, L100.0100 ####[facility] [address] [place], [address] HGB Normal 12.0-15.0 [facility] Comment on above: Result Comment: Canc elled via OM: Order cancelled - Patient discharged Performed By: #### L 500.4050, L100.0100 ####[facility] [address] [place], [address] MCH Normal 27.0-32.0 [facility] Comment on above: Result Comment: Canc elled via OM: Order cancelled - Patient discharged Performed By: #### L 500.4050, L100.0100 ####[facility] [address] [place], [address] MCHC Normal 32-36 [facility] Comment on above: Result Comment: Canc elled via OM: Order cancelled - Patient discharged Performed By: #### L 500.4050, L100.0100 ####[facility] [address] [place], [address] MCV Normal 81-99 [facility] Comment on above: Result Comment: Canc elled via OM: Order cancelled - Patient discharged Performed By: #### L 500.4050, L100.0100 ####[facility] [address] [place], [address] NEUT% Normal 47-70 [facility] Comment on above: Result Comment: Canc elled via OM: Order cancelled - Patient discharged Performed By: #### L 500.4050, L100.0100 ####[facility] [address] [place], [address] PLT Normal 150-450 [facility] Comment on above: Result Comment: Canc elled via OM: Order cancelled - Patient discharged Performed By: #### L 500.4050, L100.0100 ####[facility] [address] [place], [address] RBC Normal 4.2-5.4 [facility] Comment on above: Result Comment: Canc elled via OM: Order cancelled - Patient discharged Performed By: #### L 500.4050, L100.0100 ####[facility] [address] [place], [address] RDW CV Normal 11.6-14.6 [facility] Comment on above: Result Comment: Canc elled via OM: Order cancelled - Patient discharged Performed By: #### L 500.4050, L100.0100 ####[facility] [address] [place], [address] RDW SD Normal 35.1-43.9 [facility] Comment on above: Result Comment: Canc elled via OM: Order cancelled - Patient discharged Performed By: #### L 500.4050, L100.0100 ####[facility] [address] [place], [address] WBC Normal 4.4-11.0 [facility] Comment on above: Result Comment: Canc elled via OM: Order cancelled - Patient discharged Performed By: #### L 500.4050, L100.0100 ####[facility] [address] [place], [address] Comprehensive Metabolic Prof ilon 04-01-2024 ALB Normal 3.2-5.0 [facility] Comment on above: Result Comment: Canc elled via OM: Order cancelled - Patient discharged Performed By: #### L 500.4050, L100.0100 ####[facility] [address] [place], [address] ALK P Normal 45-117 [facility] Comment on above: Result Comment: Canc elled via OM: Order cancelled - Patient discharged Performed By: #### L 500.4050, L100.0100 ####[facility] [address] [place], [address] ALT Normal 13-56 [facility] Comment on above: Result Comment: Canc elled via OM: Order cancelled - Patient discharged Performed By: #### L 500.4050, L100.0100 ####[facility] [address] [place], [address] AST Normal 15-37 [facility] Comment on above: Result Comment: Canc elled via OM: Order cancelled - Patient discharged Performed By: #### L 500.4050, L100.0100 ####[facility] [address] [place], [address] BUN Normal 7-18 [facility] Comment on above: Result Comment: Canc elled via OM: Order cancelled - Patient discharged Performed By: #### L 500.4050, L100.0100 ####[facility] [address] [place], [address] BUN/CRE Normal 10-20 [facility] Comment on above: Result Comment: Canc elled via OM: Order cancelled - Patient discharged Performed By: #### L 500.4050, L100.0100 ####[facility] [address] [place], [address] CA,Total Normal 8.5-10.1 [facility] Comment on above: Result Comment: Canc elled via OM: Order cancelled - Patient discharged Performed By: #### L 500.4050, L100.0100 ####[facility] [address] [place], [address] CL Normal 98-107 [facility] Comment on above: Result Comment: Canc elled via OM: Order cancelled - Patient discharged Performed By: #### L 500.4050, L100.0100 ####[facility] [address] [place], [address] CO2 Normal 21.0-32.0 [facility] Comment on above: Result Comment: Canc elled via OM: Order cancelled - Patient discharged Performed By: #### L 500.4050, L100.0100 ####[facility] [address] [place], [address] CREAT,SERUM Normal 0.55-1.02 [facility] Comment on above: Result Comment: Canc elled via OM: Order cancelled - Patient discharged Performed By: #### L 500.4050, L100.0100 ####[facility] [address] [place], [address] EST GFR Normal >60 [facility] Comment on above: Result Comment: Canc elled via OM: Order cancelled - Patient discharged Performed By: #### L 500.4050, L100.0100 ####[facility] [address] [place], [address] EST GFR - AA Normal >60 [facility] Comment on above: Result Comment: Canc elled via OM: Order cancelled - Patient discharged Performed By: #### L 500.4050, L100.0100 ####[facility] [address] [place], [address] GAP Normal 5-15 [facility] Comment on above: Result Comment: Canc elled via OM: Order cancelled - Patient discharged Performed By: #### L 500.4050, L100.0100 ####[facility] [address] [place], [address] GLU Normal 74-106 [facility] Comment on above: Result Comment: Canc elled via OM: Order cancelled - Patient discharged Performed By: #### L 500.4050, L100.0100 ####[facility] [address] [place], [address] Potassium Normal 3.5-5.1 [facility] Comment on above: Result Comment: Canc elled via OM: Order cancelled - Patient discharged Performed By: #### L 500.4050, L100.0100 ####[facility] [address] [place], [address] T BILI Normal 0.20-1.00 [facility] Comment on above: Result Comment: Canc elled via OM: Order cancelled - Patient discharged Performed By: #### L 500.4050, L100.0100 ####[facility] [address] [place], [address] T PROT Normal 6.4-8.2 [facility] Comment on above: Result Comment: Canc elled via OM: Order cancelled - Patient discharged Performed By: #### L 500.4050, L100.0100 ####[facility] [address] [place], [address] Comprehensive Metabolic Profil Normal 136-145 [facility] Comment on above: Result Comment: Canc elled via OM: Order cancelled - Patient discharged Performed By: #### L 500.4050, L100.0100 ####[facility] [address] [place], [address] CBC W/Diff, Automatedon 08-2 -2023 Absolute Neut Normal 2.0-7.7 [facility] Comment on above: Result Comment: Canc elled via OM: Order cancelled - Patient discharged Performed By: #### L 500.4050, L100.0100 ####[facility] [address] [place], [address] HCT Normal 37-47 [facility] Comment on above: Result Comment: Canc elled via OM: Order cancelled - Patient discharged Performed By: #### L 500.4050, L100.0100 ####[facility] [address] [place], [address] HGB Normal 12.0-15.0 [facility] Comment on above: Result Comment: Canc elled via OM: Order cancelled - Patient discharged Performed By: #### L 500.4050, L100.0100 ####[facility] [address] [place], [address] MCH Normal 27.0-32.0 [facility] Comment on above: Result Comment: Canc elled via OM: Order cancelled - Patient discharged Performed By: #### L 500.4050, L100.0100 ####[facility] [address] [place], [address] MCHC Normal 32-36 [facility] Comment on above: Result Comment: Canc elled via OM: Order cancelled - Patient discharged Performed By: #### L 500.4050, L100.0100 ####[facility] [address] [place], [address] MCV Normal 81-99 [facility] Comment on above: Result Comment: Canc elled via OM: Order cancelled - Patient discharged Performed By: #### L 500.4050, L100.0100 ####[facility] [address] [place], [address] NEUT% Normal 47-70 [facility] Comment on above: Result Comment: Canc elled via OM: Order cancelled - Patient discharged Performed By: #### L 500.4050, L100.0100 ####[facility] [address] [place], [address] PLT Normal 150-450 [facility] Comment on above: Result Comment: Canc elled via OM: Order cancelled - Patient discharged Performed By: #### L 500.4050, L100.0100 ####[facility] [address] [place], [address] RBC Normal 4.2-5.4 [facility] Comment on above: Result Comment: Canc elled via OM: Order cancelled - Patient discharged Performed By: #### L 500.4050, L100.0100 ####[facility] [address] [place], [address] RDW CV Normal 11.6-14.6 [facility] Comment on above: Result Comment: Canc elled via OM: Order cancelled - Patient discharged Performed By: #### L 500.4050, L100.0100 ####[facility] [address] [place], [address] RDW SD Normal 35.1-43.9 [facility] Comment on above: Result Comment: Canc elled via OM: Order cancelled - Patient discharged Performed By: #### L 500.4050, L100.0100 ####[facility] [address] [place], [address] WBC Normal 4.4-11.0 [facility] Comment on above: Result Comment: Canc elled via OM: Order cancelled - Patient discharged Performed By: #### L 500.4050, L100.0100 ####[facility] [address] [place], [address] CPK Total, Creatine Kinaseon 03-31-2024 CPK TOTAL 47 U/L Normal 26-192 [facility] Comment on above: Performed By: #### L 501.3620 ####[facility] [address] [place], [address] Comprehensive Metabolic Prof ilon 03-31-2024 ALB Normal 3.2-5.0 [facility] Comment on above: Result Comment: Canc elled via OM: Order cancelled - Patient discharged Performed By: #### L 500.4050, L100.0100 ####[facility] [address] [place], [address] ALK P Normal 45-117 [facility] Comment on above: Result Comment: Canc elled via OM: Order cancelled - Patient discharged Performed By: #### L 500.4050, L100.0100 ####[facility] [address] [place], [address] ALT Normal 13-56 [facility] Comment on above: Result Comment: Canc elled via OM: Order cancelled - Patient discharged Performed By: #### L 500.4050, L100.0100 ####[facility] [address] [place], [address] AST Normal 15-37 [facility] Comment on above: Result Comment: Canc elled via OM: Order cancelled - Patient discharged Performed By: #### L 500.4050, L100.0100 ####[facility] [address] [place], [address] BUN Normal 7-18 [facility] Comment on above: Result Comment: Canc elled via OM: Order cancelled - Patient discharged Performed By: #### L 500.4050, L100.0100 ####[facility] [address] [place], [address] BUN/CRE Normal 10-20 [facility] Comment on above: Result Comment: Canc elled via OM: Order cancelled - Patient discharged Performed By: #### L 500.4050, L100.0100 ####[facility] [address] [place], [address] CA,Total Normal 8.5-10.1 [facility] Comment on above: Result Comment: Canc elled via OM: Order cancelled - Patient discharged Performed By: #### L 500.4050, L100.0100 ####[facility] [address] [place], [address] CL Normal 98-107 [facility] Comment on above: Result Comment: Canc elled via OM: Order cancelled - Patient discharged Performed By: #### L 500.4050, L100.0100 ####[facility] [address] [place], [address] CO2 Normal 21.0-32.0 [facility] Comment on above: Result Comment: Canc elled via OM: Order cancelled - Patient discharged Performed By: #### L 500.4050, L100.0100 ####[facility] [address] [place], [address] CREAT,SERUM Normal 0.55-1.02 [facility] Comment on above: Result Comment: Canc elled via OM: Order cancelled - Patient discharged Performed By: #### L 500.4050, L100.0100 ####[facility] [address] [place], [address] EST GFR Normal >60 [facility] Comment on above: Result Comment: Canc elled via OM: Order cancelled - Patient discharged Performed By: #### L 500.4050, L100.0100 ####[facility] [address] [place], [address] EST GFR - AA Normal >60 [facility] Comment on above: Result Comment: Canc elled via OM: Order cancelled - Patient discharged Performed By: #### L 500.4050, L100.0100 ####[facility] [address] [place], [address] GAP Normal 5-15 [facility] Comment on above: Result Comment: Canc elled via OM: Order cancelled - Patient discharged Performed By: #### L 500.4050, L100.0100 ####[facility] [address] [place], [address] GLU Normal 74-106 [facility] Comment on above: Result Comment: Canc elled via OM: Order cancelled - Patient discharged Performed By: #### L 500.4050, L100.0100 ####[facility] [address] [place], [address] Potassium Normal 3.5-5.1 [facility] Comment on above: Result Comment: Canc elled via OM: Order cancelled - Patient discharged Performed By: #### L 500.4050, L100.0100 ####[facility] [address] [place], [address] T BILI Normal 0.20-1.00 [facility] Comment on above: Result Comment: Canc elled via OM: Order cancelled - Patient discharged Performed By: #### L 500.4050, L100.0100 ####[facility] [address] [place], [address] T PROT Normal 6.4-8.2 [facility] Comment on above: Result Comment: Canc elled via OM: Order cancelled - Patient discharged Performed By: #### L 500.4050, L100.0100 ####[facility] [address] [place], [address] Comprehensive Metabolic Profil Normal 136-145 [facility] Comment on above: Result Comment: Canc elled via OM: Order cancelled - Patient discharged Performed By: #### L 500.4050, L100.0100 ####[facility] [address] [place], [address] CBC W/Diff, Automatedon 08-2 -2023 Absolute Neut Normal 2.0-7.7 [facility] Comment on above: Result Comment: Canc elled via OM: Order cancelled - Patient discharged Performed By: #### L 500.4050, L100.0100 ####[facility] [address] [place], [address] HCT Normal 37-47 [facility] Comment on above: Result Comment: Canc elled via OM: Order cancelled - Patient discharged Performed By: #### L 500.4050, L100.0100 ####[facility] [address] [place], [address] HGB Normal 12.0-15.0 [facility] Comment on above: Result Comment: Canc elled via OM: Order cancelled - Patient discharged Performed By: #### L 500.4050, L100.0100 ####[facility] [address] [place], [address] MCH Normal 27.0-32.0 [facility] Comment on above: Result Comment: Canc elled via OM: Order cancelled - Patient discharged Performed By: #### L 500.4050, L100.0100 ####[facility] [address] [place], [address] MCHC Normal 32-36 [facility] Comment on above: Result Comment: Canc elled via OM: Order cancelled - Patient discharged Performed By: #### L 500.4050, L100.0100 ####[facility] [address] [place], [address] MCV Normal 81-99 [facility] Comment on above: Result Comment: Canc elled via OM: Order cancelled - Patient discharged Performed By: #### L 500.4050, L100.0100 ####[facility] [address] [place], [address] NEUT% Normal 47-70 [facility] Comment on above: Result Comment: Canc elled via OM: Order cancelled - Patient discharged Performed By: #### L 500.4050, L100.0100 ####[facility] [address] [place], [address] PLT Normal 150-450 [facility] Comment on above: Result Comment: Canc elled via OM: Order cancelled - Patient discharged Performed By: #### L 500.4050, L100.0100 ####[facility] [address] [place], [address] RBC Normal 4.2-5.4 [facility] Comment on above: Result Comment: Canc elled via OM: Order cancelled - Patient discharged Performed By: #### L 500.4050, L100.0100 ####[facility] [address] [place], [address] RDW CV Normal 11.6-14.6 [facility] Comment on above: Result Comment: Canc elled via OM: Order cancelled - Patient discharged Performed By: #### L 500.4050, L100.0100 ####[facility] [address] [place], [address] RDW SD Normal 35.1-43.9 [facility] Comment on above: Result Comment: Canc elled via OM: Order cancelled - Patient discharged Performed By: #### L 500.4050, L100.0100 ####[facility] [address] [place], [address] WBC Normal 4.4-11.0 [facility] Comment on above: Result Comment: Canc elled via OM: Order cancelled - Patient discharged Performed By: #### L 500.4050, L100.0100 ####[facility] [address] [place], [address] CPK Total, Creatine Kinaseon 03-30-2024 CPK TOTAL 73 U/L Normal 26-192 [facility] Comment on above: Performed By: #### L 501.3620 ####[facility] [address] [place], [address] Comprehensive Metabolic Prof ilon 03-30-2024 ALB Normal 3.2-5.0 [facility] Comment on above: Result Comment: Canc elled via OM: Order cancelled - Patient discharged Performed By: #### L 500.4050, L100.0100 ####[facility] [address] [place], [address] ALK P Normal 45-117 [facility] Comment on above: Result Comment: Canc elled via OM: Order cancelled - Patient discharged Performed By: #### L 500.4050, L100.0100 ####[facility] [address] [place], [address] ALT Normal 13-56 [facility] Comment on above: Result Comment: Canc elled via OM: Order cancelled - Patient discharged Performed By: #### L 500.4050, L100.0100 ####[facility] [address] [place], [address] AST Normal 15-37 [facility] Comment on above: Result Comment: Canc elled via OM: Order cancelled - Patient discharged Performed By: #### L 500.4050, L100.0100 ####[facility] [address] [place], [address] BUN Normal 7-18 [facility] Comment on above: Result Comment: Canc elled via OM: Order cancelled - Patient discharged Performed By: #### L 500.4050, L100.0100 ####[facility] [address] [place], [address] BUN/CRE Normal 10-20 [facility] Comment on above: Result Comment: Canc elled via OM: Order cancelled - Patient discharged Performed By: #### L 500.4050, L100.0100 ####[facility] [address] [place], [address] CA,Total Normal 8.5-10.1 [facility] Comment on above: Result Comment: Canc elled via OM: Order cancelled - Patient discharged Performed By: #### L 500.4050, L100.0100 ####[facility] [address] [place], [address] CL Normal 98-107 [facility] Comment on above: Result Comment: Canc elled via OM: Order cancelled - Patient discharged Performed By: #### L 500.4050, L100.0100 ####[facility] [address] [place], [address] CO2 Normal 21.0-32.0 [facility] Comment on above: Result Comment: Canc elled via OM: Order cancelled - Patient discharged Performed By: #### L 500.4050, L100.0100 ####[facility] [address] [place], [address] CREAT,SERUM Normal 0.55-1.02 [facility] Comment on above: Result Comment: Canc elled via OM: Order cancelled - Patient discharged Performed By: #### L 500.4050, L100.0100 ####[facility] [address] [place], [address] EST GFR Normal >60 [facility] Comment on above: Result Comment: Canc elled via OM: Order cancelled - Patient discharged Performed By: #### L 500.4050, L100.0100 ####[facility] [address] [place], [address] EST GFR - AA Normal >60 [facility] Comment on above: Result Comment: Canc elled via OM: Order cancelled - Patient discharged Performed By: #### L 500.4050, L100.0100 ####[facility] [address] [place], [address] GAP Normal 5-15 [facility] Comment on above: Result Comment: Canc elled via OM: Order cancelled - Patient discharged Performed By: #### L 500.4050, L100.0100 ####[facility] [address] [place], [address] GLU Normal 74-106 [facility] Comment on above: Result Comment: Canc elled via OM: Order cancelled - Patient discharged Performed By: #### L 500.4050, L100.0100 ####[facility] [address] [place], [address] Potassium Normal 3.5-5.1 [facility] Comment on above: Result Comment: Canc elled via OM: Order cancelled - Patient discharged Performed By: #### L 500.4050, L100.0100 ####[facility] [address] [place], [address] T BILI Normal 0.20-1.00 [facility] Comment on above: Result Comment: Canc elled via OM: Order cancelled - Patient discharged Performed By: #### L 500.4050, L100.0100 ####[facility] [address] [place], [address] T PROT Normal 6.4-8.2 [facility] Comment on above: Result Comment: Canc elled via OM: Order cancelled - Patient discharged Performed By: #### L 500.4050, L100.0100 ####[facility] [address] [place], [address] Comprehensive Metabolic Profil Normal 136-145 [facility] Comment on above: Result Comment: Canc elled via OM: Order cancelled - Patient discharged Performed By: #### L 500.4050, L100.0100 ####[facility] [address] [place], [address] Basic Metabolic Profile (BMP )on 03-29-2024 BUN/CRE 23.3 RATIO High 10-20 [facility] Comment on above: Performed By: #### L 100.0100, L500.2500 ####[facility] [address] [place], [address] CA,Total 8.8 mg/dL Normal 8.5-10.1 [facility] Comment on above: Performed By: #### L 100.0100, L500.2500 ####[facility] [address] [place], [address] Chloride [Moles/Vol] 107 mmol/L Normal 98-107 [facility] Comment on above: Performed By: #### L 100.0100, L500.2500 ####[facility] [address] [place], [address] CO2 [Moles/Vol] 28.0 mmol/L Normal 21.0-32.0 [facility] Comment on above: Performed By: #### L 100.0100, L500.2500 ####[facility] [address] [place], [address] Creatinine [Mass/Vol] 0.73 mg/dL Normal 0.55-1.02 [facility] Comment on above: Result Comment: The validity of the calculated GFR GFRAA in patients over70 years has not been determined. Clinical correlation isessential. Performed By: #### L 100.0100, L500.2500 ####[facility] [address] [place], [address] ECRCL 45.93 ml/min Normal [facility] Comment on above: Performed By: #### L 100.0100, L500.2500 ####[facility] [address] [place], [address] EST GFR - AA 97 mL/min Normal >60 [facility] Comment on above: Result Comment: Afri can [place] GFR Calc Performed By: #### L 100.0100, L500.2500 ####[facility] [address] [place], [address] GAP 5 Normal 5-15 [facility] Comment on above: Performed By: #### L 100.0100, L500.2500 ####[facility] [address] [place], [address] GFR/1.73 sq M.predicted among non-blacks MDRD (S/P/Bld) [Vol rate/Area] 80 mL/min/{1.73_m2} Normal >60 [facility] Comment on above: Result Comment: Non- GFR Calc Performed By: #### L 100.0100, L500.2500 ####[facility] [address] [place], [address] Glucose [Mass/Vol] 102 mg/dL Normal 74-106 [facility] Comment on above: Result Comment: Fast ing Glucose result from 100 to 125 mg/dLsuggests IMPAIRED HOMEOSTASIS per A.D.A. criteria. Performed By: #### L 100.0100, L500.2500 ####[facility] [address] [place], [address] Potassium [Moles/Vol] 4.3 mmol/L Normal 3.5-5.1 [facility] Comment on above: Performed By: #### L 100.0100, L500.2500 ####[facility] [address] [place], [address] Sodium [Moles/Vol] 140 mmol/L Normal 136-145 [facility] Comment on above: Performed By: #### L 100.0100, L500.2500 ####[facility] [address] [place], [address] Urea nitrogen [Mass/Vol] 17 mg/dL Normal 7-18 [facility] Comment on above: Performed By: #### L 100.0100, L500.2500 ####[facility] [address] [place], [address] CBC W/Diff, Automatedon 08-2 Absolute Lymph 1.70 X10 3/uL Normal 0.83-4.51 [facility] Comment on above: Performed By: #### L 100.0100, L500.2500 ####[facility] [address] [place], [address] Absolute Neut 2.5 X10 3/uL Normal 2.0-7.7 [facility] Comment on above: Performed By: #### L 100.0100, L500.2500 ####[facility] [address] [place], [address] Basophils/100 WBC (Bld) 0.6 % Normal 0-1 [facility] Comment on above: Performed By: #### L 100.0100, L500.2500 ####[facility] [address] [place], [address] Eosinophils/100 WBC (Bld) 1.7 % Normal 0-5 [facility] Comment on above: Performed By: #### L 100.0100, L500.2500 ####[facility] [address] [place], [address] Erythrocyte distribution width (RBC) [Ratio] 14.3 % Normal 11.6-14.6 [facility] Comment on above: Performed By: #### L 100.0100, L500.2500 ####[facility] [address] [place], [address] Hematocrit (Bld) [Volume fraction] 38.6 % Normal 37-47 [facility] Comment on above: Performed By: #### L 100.0100, L500.2500 ####[facility] [address] [place], [address] Hemoglobin (Bld) [Mass/Vol] 12.4 g/dL Normal 12.0-15.0 [facility] Comment on above: Performed By: #### L 100.0100, L500.2500 ####[facility] [address] [place], [address] IG% 0.600 Normal 0.0-0.9 [facility] Comment on above: Result Comment: IG% - Immature Granulocytes (promyelocytes, myelocytes andmetamyelocytes) > 1% indicates that a LEFT SHIFT is Present. Performed By: #### L 100.0100, L500.2500 ####[facility] [address] [place], [address] Lymphocytes/100 WBC (Bld) 35.3 % Normal 19-41 [facility] Comment on above: Performed By: #### L 100.0100, L500.2500 ####[facility] [address] [place], [address] MCH (RBC) [Entitic mass] 27.3 pg Normal 27.0-32.0 [facility] Comment on above: Performed By: #### L 100.0100, L500.2500 ####[facility] [address] [place], [address] MCHC (RBC) [Mass/Vol] 32.1 g/dL Normal 32-36 [facility] Comment on above: Performed By: #### L 100.0100, L500.2500 ####[facility] [address] [place], [address] MCV (RBC) [Entitic vol] 85.0 fL Normal 81-99 [facility] Comment on above: Performed By: #### L 100.0100, L500.2500 ####[facility] [address] [place], [address] Monocytes/100 WBC (Bld) 9.6 % Normal 0-10 [facility] Comment on above: Performed By: #### L 100.0100, L500.2500 ####[facility] [address] [place], [address] Neutrophils/100 WBC (Bld) 52.2 % Normal 47-70 [facility] Comment on above: Performed By: #### L 100.0100, L500.2500 ####[facility] [address] [place], [address] Nucleated RBC (Bld) [#/Vol] 0 10*3/uL Normal 0-5 [facility] Comment on above: Performed By: #### L 100.0100, L500.2500 ####[facility] [address] [place], [address] Platelet mean volume (Bld) [Entitic vol] 9.2 fL Normal 6.2-12.0 [facility] Comment on above: Performed By: #### L 100.0100, L500.2500 ####[facility] [address] [place], [address] Platelets (Bld) [#/Vol] 198 10*3/uL Normal 150-450 [facility] Comment on above: Performed By: #### L 100.0100, L500.2500 ####[facility] [address] [place], [address] RBC (Bld) [#/Vol] 4.54 10*6/uL Normal 4.2-5.4 [facility] Comment on above: Performed By: #### L 100.0100, L500.2500 ####[facility] [address] [place], [address] RDW SD 44.3 fl High 35.1-43.9 [facility] Comment on above: Performed By: #### L 100.0100, L500.2500 ####[facility] [address] [place], [address] WBC (Bld) [#/Vol] 4.8 10*3/uL Normal 4.4-11.0 [facility] Comment on above: Performed By: #### L 100.0100, L500.2500 ####[facility] [address] [place], [address] Absolute Neut Normal 2.0-7.7 [facility] Comment on above: Result Comment: Canc elled via OM: Order cancelled - Patient discharged Performed By: #### L 500.4050, L100.0100 ####[facility] [address] [place], [address] HCT Normal 37-47 [facility] Comment on above: Result Comment: Canc elled via OM: Order cancelled - Patient discharged Performed By: #### L 500.4050, L100.0100 ####[facility] [address] [place], [address] HGB Normal 12.0-15.0 [facility] Comment on above: Result Comment: Canc elled via OM: Order cancelled - Patient discharged Performed By: #### L 500.4050, L100.0100 ####[facility] [address] [place], [address] MCH Normal 27.0-32.0 [facility] Comment on above: Result Comment: Canc elled via OM: Order cancelled - Patient discharged Performed By: #### L 500.4050, L100.0100 ####[facility] [address] [place], [address] MCHC Normal 32-36 [facility] Comment on above: Result Comment: Canc elled via OM: Order cancelled - Patient discharged Performed By: #### L 500.4050, L100.0100 ####[facility] [address] [place], [address] MCV Normal 81-99 [facility] Comment on above: Result Comment: Canc elled via OM: Order cancelled - Patient discharged Performed By: #### L 500.4050, L100.0100 ####[facility] [address] [place], [address] NEUT% Normal 47-70 [facility] Comment on above: Result Comment: Canc elled via OM: Order cancelled - Patient discharged Performed By: #### L 500.4050, L100.0100 ####[facility] [address] [place], [address] PLT Normal 150-450 [facility] Comment on above: Result Comment: Canc elled via OM: Order cancelled - Patient discharged Performed By: #### L 500.4050, L100.0100 ####[facility] [address] [place], [address] RBC Normal 4.2-5.4 [facility] Comment on above: Result Comment: Canc elled via OM: Order cancelled - Patient discharged Performed By: #### L 500.4050, L100.0100 ####[facility] [address] [place], [address] RDW CV Normal 11.6-14.6 [facility] Comment on above: Result Comment: Canc elled via OM: Order cancelled - Patient discharged Performed By: #### L 500.4050, L100.0100 ####[facility] [address] [place], [address] RDW SD Normal 35.1-43.9 [facility] Comment on above: Result Comment: Canc elled via OM: Order cancelled - Patient discharged Performed By: #### L 500.4050, L100.0100 ####[facility] [address] [place], [address] WBC Normal 4.4-11.0 [facility] Comment on above: Result Comment: Canc elled via OM: Order cancelled - Patient discharged Performed By: #### L 500.4050, L100.0100 ####[facility] [address] [place], [address] CPK Total, Creatine Kinaseon 03-29-2024 CPK TOTAL 174 U/L Normal 26-192 [facility] Comment on above: Performed By: #### L 501.3620 ####[facility] [address] [place], [address] Comprehensive Metabolic Prof ilon 03-29-2024 ALB Normal 3.2-5.0 [facility] Comment on above: Result Comment: Canc elled via OM: Order cancelled - Patient discharged Performed By: #### L 500.4050, L100.0100 ####[facility] [address] [place], [address] ALK P Normal 45-117 [facility] Comment on above: Result Comment: Canc elled via OM: Order cancelled - Patient discharged Performed By: #### L 500.4050, L100.0100 ####[facility] [address] [place], [address] ALT Normal 13-56 [facility] Comment on above: Result Comment: Canc elled via OM: Order cancelled - Patient discharged Performed By: #### L 500.4050, L100.0100 ####[facility] [address] [place], [address] AST Normal 15-37 [facility] Comment on above: Result Comment: Canc elled via OM: Order cancelled - Patient discharged Performed By: #### L 500.4050, L100.0100 ####[facility] [address] [place], [address] BUN Normal 7-18 [facility] Comment on above: Result Comment: Canc elled via OM: Order cancelled - Patient discharged Performed By: #### L 500.4050, L100.0100 ####[facility] [address] [place], [address] BUN/CRE Normal 10-20 [facility] Comment on above: Result Comment: Canc elled via OM: Order cancelled - Patient discharged Performed By: #### L 500.4050, L100.0100 ####[facility] [address] [place], [address] CA,Total Normal 8.5-10.1 [facility] Comment on above: Result Comment: Canc elled via OM: Order cancelled - Patient discharged Performed By: #### L 500.4050, L100.0100 ####[facility] [address] [facility] [place], [address] CL Normal 98-107 [facility] Comment on above: Result Comment: Canc elled via OM: Order cancelled - Patient discharged Performed By: #### L 500.4050, L100.0100 ####[facility] [address] [place], [address] CO2 Normal 21.0-32.0 [facility] Comment on above: Result Comment: Canc elled via OM: Order cancelled - Patient discharged Performed By: #### L 500.4050, L100.0100 ####[facility] [address] [place], [address] CREAT,SERUM Normal 0.55-1.02 [facility] Comment on above: Result Comment: Canc elled via OM: Order cancelled - Patient discharged Performed By: #### L 500.4050, L100.0100 ####[facility] [address] [place], [address] EST GFR Normal >60 [facility] Comment on above: Result Comment: Canc elled via OM: Order cancelled - Patient discharged Performed By: #### L 500.4050, L100.0100 ####[facility] [address] [place], [address] EST GFR - AA Normal >60 [facility] Comment on above: Result Comment: Canc elled via OM: Order cancelled - Patient discharged Performed By: #### L 500.4050, L100.0100 ####[facility] [address] [place], [address] GAP Normal 5-15 [facility] Comment on above: Result Comment: Canc elled via OM: Order cancelled - Patient discharged Performed By: #### L 500.4050, L100.0100 ####[facility] [address] [place], [address] GLU Normal 74-106 [facility] Comment on above: Result Comment: Canc elled via OM: Order cancelled - Patient discharged Performed By: #### L 500.4050, L100.0100 ####[facility] [address] [place], [address] Potassium Normal 3.5-5.1 [facility] Comment on above: Result Comment: Canc elled via OM: Order cancelled - Patient discharged Performed By: #### L 500.4050, L100.0100 ####[facility] [address] [place], [address] T BILI Normal 0.20-1.00 [facility] Comment on above: Result Comment: Canc elled via OM: Order cancelled - Patient discharged Performed By: #### L 500.4050, L100.0100 ####[facility] [address] [place], [address] T PROT Normal 6.4-8.2 [facility] Comment on above: Result Comment: Canc elled via OM: Order cancelled - Patient discharged Performed By: #### L 500.4050, L100.0100 ####[facility] [address] [place], [address] Comprehensive Metabolic Profil Normal 136-145 [facility] Comment on above: Result Comment: Canc elled via OM: Order cancelled - Patient discharged Performed By: #### L 500.4050, L100.0100 ####[facility] [address] [place], [address] CBC W/Diff, Automatedon 08-2 -2023 Absolute Lymph 1.64 X10 3/uL Normal 0.83-4.51 [facility] Comment on above: Performed By: #### L 100.0100 ####[facility] [address] [place], [address] Absolute Neut 2.1 X10 3/uL Normal 2.0-7.7 [facility] Comment on above: Performed By: #### L 100.0100 ####[facility] [address] [place], [address] Basophils/100 WBC (Bld) 0.7 % Normal 0-1 [facility] Comment on above: Performed By: #### L 100.0100 ####[facility] [address] [place], [address] Eosinophils/100 WBC (Bld) 1.4 % Normal 0-5 [facility] Comment on above: Performed By: #### L 100.0100 ####[facility] [address] [place], [address] Erythrocyte distribution width (RBC) [Ratio] 14.3 % Normal 11.6-14.6 [facility] Comment on above: Performed By: #### L 100.0100 ####[facility] [address] [place], [address] Hematocrit (Bld) [Volume fraction] 39.6 % Normal 37-47 [facility] Comment on above: Performed By: #### L 100.0100 ####[facility] [address] [place], [address] Hemoglobin (Bld) [Mass/Vol] 12.5 g/dL Normal 12.0-15.0 [facility] Comment on above: Performed By: #### L 100.0100 ####[facility] [address] [place], [address] IG% 0.200 Normal 0.0-0.9 [facility] Comment on above: Result Comment: IG% - Immature Granulocytes (promyelocytes, myelocytes andmetamyelocytes) > 1% indicates that a LEFT SHIFT is Present. Performed By: #### L 100.0100 ####[facility] [address] [place], [address] Lymphocytes/100 WBC (Bld) 38.7 % Normal 19-41 [facility] Comment on above: Performed By: #### L 100.0100 ####[facility] [address] [place], [address] MCH (RBC) [Entitic mass] 27.1 pg Normal 27.0-32.0 [facility] Comment on above: Performed By: #### L 100.0100 ####[facility] [address] [place], [address] MCHC (RBC) [Mass/Vol] 31.6 g/dL Low 32-36 [facility] Comment on above: Performed By: #### L 100.0100 ####[facility] [address] [place], [address] MCV (RBC) [Entitic vol] 85.7 fL Normal 81-99 [facility] Comment on above: Performed By: #### L 100.0100 ####[facility] [address] [place], [address] Monocytes/100 WBC (Bld) 9.4 % Normal 0-10 [facility] Comment on above: Performed By: #### L 100.0100 ####[facility] [address] [place], [address] Neutrophils/100 WBC (Bld) 49.6 % Normal 47-70 [facility] Comment on above: Performed By: #### L 100.0100 ####[facility] [address] [place], [address] Nucleated RBC (Bld) [#/Vol] 0 10*3/uL Normal 0-5 [facility] Comment on above: Performed By: #### L 100.0100 ####[facility] [address] [place], [address] Platelet mean volume (Bld) [Entitic vol] 9.6 fL Normal 6.2-12.0 [facility] Comment on above: Performed By: #### L 100.0100 ####[facility] [address] [place], [address] Platelets (Bld) [#/Vol] 214 10*3/uL Normal 150-450 [facility] Comment on above: Performed By: #### L 100.0100 ####[facility] [address] [place], [address] RBC (Bld) [#/Vol] 4.62 10*6/uL Normal 4.2-5.4 [facility] Comment on above: Performed By: #### L 100.0100 ####[facility] [address] [place], [address] RDW SD 44.7 fl High 35.1-43.9 [facility] Comment on above: Performed By: #### L 100.0100 ####[facility] [address] [place], [address] WBC (Bld) [#/Vol] 4.2 10*3/uL Low 4.4-11.0 [facility] Comment on above: Performed By: #### L 100.0100 ####[facility] [address] [place], [address] CPK Total, Creatine Kinaseon 03-28-2024 CPK TOTAL 303 U/L High 26-192 [facility] Comment on above: Performed By: #### L 500.4050, L501.3620 ####[facility] [address] [place], [address] Comprehensive Metabolic Prof ilon 03-28-2024 Albumin [Mass/Vol] 3.1 g/dL Low 3.2-5.0 [facility] Comment on above: Performed By: #### L 500.4050, L501.3620 ####[facility] [address] [place], [address] Albumin/Globulin [Mass ratio] 0.9 {ratio} Normal 0.9-2.4 [facility] Comment on above: Performed By: #### L 500.4050, L501.3620 ####[facility] [address] [place], [address] ALK P 51 U/L Normal 45-117 [facility] Comment on above: Performed By: #### L 500.4050, L501.3620 ####[facility] [address] [place], [address] ALT [Catalytic activity/Vol] 43 U/L Normal 13-56 [facility] Comment on above: Performed By: #### L 500.4050, L501.3620 ####[facility] [address] [place], [address] AST [Catalytic activity/Vol] 39 U/L High 15-37 [facility] Comment on above: Performed By: #### L 500.4050, L501.3620 ####[facility] [address] [place], [address] Bilirubin [Mass/Vol] 0.40 mg/dL Normal 0.20-1.00 [facility] Comment on above: Result Comment: For patients on eltrombopag therapy, use of Dimension Juliaetta TBIL is not recommended. Performed By: #### L 500.4050, L501.3620 ####[facility] [address] [place], [address] BUN/CRE 26.0 RATIO High 10-20 [facility] Comment on above: Performed By: #### L 500.4050, L501.3620 ####[facility] [address] [place], [address] CA,Total 8.6 mg/dL Normal 8.5-10.1 [facility] Comment on above: Performed By: #### L 500.4050, L501.3620 ####[facility] [address] [place], [address] Chloride [Moles/Vol] 109 mmol/L High 98-107 [facility] Comment on above: Performed By: #### L 500.4050, L501.3620 ####[facility] [address] [place], [address] CO2 [Moles/Vol] 26.0 mmol/L Normal 21.0-32.0 [facility] Comment on above: Performed By: #### L 500.4050, L501.3620 ####[facility] [address] [place], [address] Creatinine [Mass/Vol] 0.69 mg/dL Normal 0.55-1.02 [facility] Comment on above: Result Comment: The validity of the calculated GFR GFRAA in patients over70 years has not been determined. Clinical correlation isessential. Performed By: #### L 500.4050, L501.3620 ####[facility] [address] [place], [address] ECRCL 46.20 ml/min Normal [facility] Comment on above: Performed By: #### L 500.4050, L501.3620 ####[facility] [address] [place], [address] EST GFR - AA 103 mL/min Normal >60 [facility] Comment on above: Result Comment: Afri can [place] GFR Calc Performed By: #### L 500.4050, L501.3620 ####[facility] [address] [place], [address] GAP 5 Normal 5-15 [facility] Comment on above: Performed By: #### L 500.4050, L501.3620 ####[facility] [address] [place], [address] GFR/1.73 sq M.predicted among non-blacks MDRD (S/P/Bld) [Vol rate/Area] 85 mL/min/{1.73_m2} Normal >60 [facility] Comment on above: Result Comment: Non- GFR Calc Performed By: #### L 500.4050, L501.3620 ####[facility] [address] [place], [address] Globulin (S) [Mass/Vol] 3.4 g/dL Normal 2.2-4.2 [facility] Comment on above: Performed By: #### L 500.4050, L501.3620 ####[facility] [address] [place], [address] Glucose [Mass/Vol] 113 mg/dL High 74-106 [facility] Comment on above: Result Comment: Fast ing Glucose result from 100 to 125 mg/dLsuggests IMPAIRED HOMEOSTASIS per A.D.A. criteria. Performed By: #### L 500.4050, L501.3620 ####[facility] [address] [place], [address] Potassium [Moles/Vol] 4.1 mmol/L Normal 3.5-5.1 [facility] Comment on above: Performed By: #### L 500.4050, L501.3620 ####[facility] [address] [place], [address] Sodium [Moles/Vol] 140 mmol/L Normal 136-145 [facility] Comment on above: Performed By: #### L 500.4050, L501.3620 ####[facility] [address] [place], [address] T PROT 6.5 g/dL Normal 6.4-8.2 [facility] Comment on above: Performed By: #### L 500.4050, L501.3620 ####[facility] [address] [place], [address] Urea nitrogen [Mass/Vol] 18 mg/dL Normal 7-18 [facility] Comment on above: Performed By: #### L 500.4050, L501.3620 ####[facility] [address] [place], [address] CBC W/Diff, Automatedon 08-2 2-2023 Absolute Lymph 2.18 X10 3/uL Normal 0.83-4.51 [facility] Comment on above: Performed By: #### L 100.0100 ####[facility] [address] [place], [address] Absolute Neut 2.7 X10 3/uL Normal 2.0-7.7 [facility] Comment on above: Performed By: #### L 100.0100 ####[facility] [address] [place], [address] Basophils/100 WBC (Bld) 0.6 % Normal 0-1 [facility] Comment on above: Performed By: #### L 100.0100 ####[facility] [address] [place], [address] Eosinophils/100 WBC (Bld) 0.9 % Normal 0-5 [facility] Comment on above: Performed By: #### L 100.0100 ####[facility] [address] [place], [address] Erythrocyte distribution width (RBC) [Ratio] 14.4 % Normal 11.6-14.6 [facility] Comment on above: Performed By: #### L 100.0100 ####[facility] [address] [place], [address] Hematocrit (Bld) [Volume fraction] 41.6 % Normal 37-47 [facility] Comment on above: Performed By: #### L 100.0100 ####[facility] [address] [place], [address] Hemoglobin (Bld) [Mass/Vol] 13.0 g/dL Normal 12.0-15.0 [facility] Comment on above: Performed By: #### L 100.0100 ####[facility] [address] [place], [address] IG% 0.600 Normal 0.0-0.9 [facility] Comment on above: Result Comment: IG% - Immature Granulocytes (promyelocytes, myelocytes andmetamyelocytes) > 1% indicates that a LEFT SHIFT is Present. Performed By: #### L 100.0100 ####[facility] [address] [place], [address] Lymphocytes/100 WBC (Bld) 40.3 % Normal 19-41 [facility] Comment on above: Performed By: #### L 100.0100 ####[facility] [address] [place], [address] MCH (RBC) [Entitic mass] 27.0 pg Normal 27.0-32.0 [facility] Comment on above: Performed By: #### L 100.0100 ####[facility] [address] [place], [address] MCHC (RBC) [Mass/Vol] 31.3 g/dL Low 32-36 [facility] Comment on above: Performed By: #### L 100.0100 ####[facility] [address] [place], [address] MCV (RBC) [Entitic vol] 86.5 fL Normal 81-99 [facility] Comment on above: Performed By: #### L 100.0100 ####[facility] [address] [place], [address] Monocytes/100 WBC (Bld) 8.1 % Normal 0-10 [facility] Comment on above: Performed By: #### L 100.0100 ####[facility] [address] [place], [address] Neutrophils/100 WBC (Bld) 49.5 % Normal 47-70 [facility] Comment on above: Performed By: #### L 100.0100 ####[facility] [address] [place], [address] Nucleated RBC (Bld) [#/Vol] 0 10*3/uL Normal 0-5 [facility] Comment on above: Performed By: #### L 100.0100 ####[facility] [address] [place], [address] Platelet mean volume (Bld) [Entitic vol] 9.6 fL Normal 6.2-12.0 [facility] Comment on above: Performed By: #### L 100.0100 ####[facility] [address] [place], [address] Platelets (Bld) [#/Vol] 237 10*3/uL Normal 150-450 [facility] Comment on above: Performed By: #### L 100.0100 ####[facility] [address] [place], [address] RBC (Bld) [#/Vol] 4.81 10*6/uL Normal 4.2-5.4 [facility] Comment on above: Performed By: #### L 100.0100 ####[facility] [address] [place], [address] RDW SD 45.7 fl High 35.1-43.9 [facility] Comment on above: Performed By: #### L 100.0100 ####[facility] [address] [place], [address] WBC (Bld) [#/Vol] 5.4 10*3/uL Normal 4.4-11.0 [facility] Comment on above: Performed By: #### L 100.0100 ####[facility] [address] [place], [address] CPK Total, Creatine Kinaseon 03-27-2024 CPK TOTAL 572 U/L High 26-192 [facility] Comment on above: Performed By: #### L 500.4050, L501.3620 ####[facility] [address] [place], [address] Comprehensive Metabolic Prof ilon 03-27-2024 Albumin [Mass/Vol] 3.3 g/dL Normal 3.2-5.0 [facility] Comment on above: Performed By: #### L 500.4050, L501.3620 ####[facility] [address] [place], [address] Albumin/Globulin [Mass ratio] 0.9 {ratio} Normal 0.9-2.4 [facility] Comment on above: Performed By: #### L 500.4050, L501.3620 ####[facility] [address] [place], [address] ALK P 55 U/L Normal 45-117 [facility] Comment on above: Performed By: #### L 500.4050, L501.3620 ####[facility] [address] [place], [address] ALT [Catalytic activity/Vol] 45 U/L Normal 13-56 [facility] Comment on above: Performed By: #### L 500.4050, L501.3620 ####[facility] [address] [place], [address] AST [Catalytic activity/Vol] 53 U/L High 15-37 [facility] Comment on above: Performed By: #### L 500.4050, L501.3620 ####[facility] [address] [place], [address] Bilirubin [Mass/Vol] 0.30 mg/dL Normal 0.20-1.00 [facility] Comment on above: Result Comment: For patients on eltrombopag therapy, use of Dimension [place] TBIL is not recommended. Performed By: #### L 500.4050, L501.3620 ####[facility] [address] [place], [address] BUN/CRE 22.0 RATIO High 10-20 [facility] Comment on above: Performed By: #### L 500.4050, L501.3620 ####[facility] [address] [place], [address] CA,Total 9.2 mg/dL Normal 8.5-10.1 [facility] Comment on above: Performed By: #### L 500.4050, L501.3620 ####[facility] [address] [place], [address] Chloride [Moles/Vol] 109 mmol/L High 98-107 [facility] Comment on above: Performed By: #### L 500.4050, L501.3620 ####[facility] [address] [place], [address] CO2 [Moles/Vol] 27.0 mmol/L Normal 21.0-32.0 [facility] Comment on above: Performed By: #### L 500.4050, L501.3620 ####[facility] [address] [place], [address] Creatinine [Mass/Vol] 0.82 mg/dL Normal 0.55-1.02 [facility] Comment on above: Result Comment: The validity of the calculated GFR GFRAA in patients over70 years has not been determined. Clinical correlation isessential. Performed By: #### L 500.4050, L501.3620 ####[facility] [address] [place], [address] ECRCL 45.08 ml/min Normal [facility] Comment on above: Performed By: #### L 500.4050, L501.3620 ####[facility] [address] [place], [address] EST GFR - AA 85 mL/min Normal >60 [facility] Comment on above: Result Comment: Afri can [place] GFR Calc Performed By: #### L 500.4050, L501.3620 ####[facility] [address] [place], [address] GAP 4 Low 5-15 [facility] Comment on above: Performed By: #### L 500.4050, L501.3620 ####[facility] [address] [place], [address] GFR/1.73 sq M.predicted among non-blacks MDRD (S/P/Bld) [Vol rate/Area] 70 mL/min/{1.73_m2} Normal >60 [facility] Comment on above: Result Comment: Non- GFR Calc Performed By: #### L 500.4050, L501.3620 ####[facility] [address] [place], [address] Globulin (S) [Mass/Vol] 3.6 g/dL Normal 2.2-4.2 [facility] Comment on above: Performed By: #### L 500.4050, L501.3620 ####[facility] [address] [place], [address] Glucose [Mass/Vol] 111 mg/dL High 74-106 [facility] Comment on above: Result Comment: Fast ing Glucose result from 100 to 125 mg/dLsuggests IMPAIRED HOMEOSTASIS per A.D.A. criteria. Performed By: #### L 500.4050, L501.3620 ####[facility] [address] [place], [address] Potassium [Moles/Vol] 4.4 mmol/L Normal 3.5-5.1 [facility] Comment on above: Performed By: #### L 500.4050, L501.3620 ####[facility] [address] [place], [address] Sodium [Moles/Vol] 140 mmol/L Normal 136-145 [facility] Comment on above: Performed By: #### L 500.4050, L501.3620 ####[facility] [address] [place], [address] T PROT 6.9 g/dL Normal 6.4-8.2 [facility] Comment on above: Performed By: #### L 500.4050, L501.3620 ####[facility] [address] [place], [address] Urea nitrogen [Mass/Vol] 18 mg/dL Normal - [facility] Comment on above: Performed By: #### L 500.4050, L501.3620 ####[facility] [address] [place], [address] Discharge Instructionon - Discharge Instruction Normal [facility] BNP,B-Type NATRIURETIC PEPTI Maria D 03-26-2024 Natriuretic peptide B (Bld) [Mass/Vol] 55.8 pg/mL Normal 0-100 [facility] Comment on above: Performed By: #### L 503.6620 ####[facility] [address] [place], [address] Basic Metabolic Profile (BMP )on 03-26-2024 BUN Normal -18 [facility] Comment on above: Result Comment: CANC EL PER DR Performed By: #### L 500.2500, L100.0100 ####[facility] [address] [place], [address] BUN/CRE Normal 10-20 [facility] Comment on above: Result Comment: CANC EL PER DR Performed By: #### L 500.2500, L100.0100 ####[facility] [address] [place], [address] CA,Total Normal 8.5-10.1 [facility] Comment on above: Result Comment: CANC EL PER DR Performed By: #### L 500.2500, L100.0100 ####[facility] [address] [place], [address] CL Normal 98-107 [facility] Comment on above: Result Comment: CANC EL PER DR Performed By: #### L 500.2500, L100.0100 ####[facility] [address] [place], [address] CO2 Normal 21.0-32.0 [facility] Comment on above: Result Comment: CANC EL PER DR Performed By: #### L 500.2500, L100.0100 ####[facility] [address] [place], [address] CREAT,SERUM Normal 0.55-1.02 [facility] Comment on above: Result Comment: CANC EL PER DR Performed By: #### L 500.2500, L100.0100 ####[facility] [address] [place], [address] EST GFR Normal >60 [facility] Comment on above: Result Comment: CANC EL PER DR Performed By: #### L 500.2500, L100.0100 ####[facility] [address] [place], [address] EST GFR - AA Normal >60 [facility] Comment on above: Result Comment: CANC EL PER DR Performed By: #### L 500.2500, L100.0100 ####[facility] [address] [place], [address] GAP Normal 5-15 [facility] Comment on above: Result Comment: CANC EL PER DR Performed By: #### L 500.2500, L100.0100 ####[facility] [address] [place], [address] GLU Normal 74-106 [facility] Comment on above: Result Comment: CANC EL PER DR Performed By: #### L 500.2500, L100.0100 ####[facility] [address] [place], [address] Potassium Normal 3.5-5.1 [facility] Comment on above: Result Comment: CANC EL PER DR Performed By: #### L 500.2500, L100.0100 ####[facility] [address] [place], [address] Basic Metabolic Profile (BMP) Normal 136-145 [facility] Comment on above: Result Comment: CANC EL PER DR Performed By: #### L 500.2500, L100.0100 ####[facility] [address] [place], [address] CBC W/Diff, Automatedon 08-2 -2023 Absolute Lymph 1.92 X10 3/uL Normal 0.83-4.51 [facility] Comment on above: Performed By: #### L 500.2500, L100.0100 ####[facility] [address] [place], [address] Absolute Neut 3.2 X10 3/uL Normal 2.0-7.7 [facility] Comment on above: Performed By: #### L 500.2500, L100.0100 ####[facility] [address] [place], [address] Basophils/100 WBC (Bld) 0.5 % Normal 0-1 [facility] Comment on above: Performed By: #### L 500.2500, L100.0100 ####[facility] [address] [place], [address] Eosinophils/100 WBC (Bld) 0.2 % Normal 0-5 [facility] Comment on above: Performed By: #### L 500.2500, L100.0100 ####[facility] [address] [place], [address] Erythrocyte distribution width (RBC) [Ratio] 14.5 % Normal 11.6-14.6 [facility] Comment on above: Performed By: #### L 500.2500, L100.0100 ####[facility] [address] [place], [address] Hematocrit (Bld) [Volume fraction] 37.8 % Normal 37-47 [facility] Comment on above: Performed By: #### L 500.2500, L100.0100 ####[facility] [address] [place], [address] Hemoglobin (Bld) [Mass/Vol] 12.1 g/dL Normal 12.0-15.0 [facility] Comment on above: Performed By: #### L 500.2500, L100.0100 ####[facility] [address] [place], [address] IG% 0.200 Normal 0.0-0.9 [facility] Comment on above: Result Comment: IG% - Immature Granulocytes (promyelocytes, myelocytes andmetamyelocytes) > 1% indicates that a LEFT SHIFT is Present. Performed By: #### L 500.2500, L100.0100 ####[facility] [address] [place], [address] Lymphocytes/100 WBC (Bld) 33.7 % Normal 19-41 [facility] Comment on above: Performed By: #### L 500.2500, L100.0100 ####[facility] [address] [place], [address] MCH (RBC) [Entitic mass] 27.4 pg Normal 27.0-32.0 [facility] Comment on above: Performed By: #### L 500.2500, L100.0100 ####[facility] [address] [place], [address] MCHC (RBC) [Mass/Vol] 32.0 g/dL Normal 32-36 [facility] Comment on above: Performed By: #### L 500.2500, L100.0100 ####[facility] [address] [place], [address] MCV (RBC) [Entitic vol] 85.5 fL Normal 81-99 [facility] Comment on above: Performed By: #### L 500.2500, L100.0100 ####[facility] [address] [place], [address] Monocytes/100 WBC (Bld) 9.6 % Normal 0-10 [facility] Comment on above: Performed By: #### L 500.2500, L100.0100 ####[facility] [address] [place], [address] Neutrophils/100 WBC (Bld) 55.8 % Normal 47-70 [facility] Comment on above: Performed By: #### L 500.2500, L100.0100 ####[facility] [address] [place], [address] Nucleated RBC (Bld) [#/Vol] 0 10*3/uL Normal 0-5 [facility] Comment on above: Performed By: #### L 500.2500, L100.0100 ####[facility] [address] [place], [address] Platelet mean volume (Bld) [Entitic vol] 9.5 fL Normal 6.2-12.0 [facility] Comment on above: Performed By: #### L 500.2500, L100.0100 ####[facility] [address] [place], [address] Platelets (Bld) [#/Vol] 207 10*3/uL Normal 150-450 [facility] Comment on above: Performed By: #### L 500.2500, L100.0100 ####[facility] [address] [place], [address] RBC (Bld) [#/Vol] 4.42 10*6/uL Normal 4.2-5.4 [facility] Comment on above: Performed By: #### L 500.2500, L100.0100 ####[facility] [address] [place], [address] RDW SD 45.8 fl High 35.1-43.9 [facility] Comment on above: Performed By: #### L 500.2500, L100.0100 ####[facility] [address] [place], [address] WBC (Bld) [#/Vol] 5.7 10*3/uL Normal 4.4-11.0 [facility] Comment on above: Performed By: #### L 500.2500, L100.0100 ####[facility] [address] [place], [address] CRPon 03-26-2024 C-REACTIVE PROT 16.20 mg/L High 0.0-3.0 [facility] Comment on above: Order Comment: Comme nts: May add to ED labs Result Comment: C-Re active Protein (CRP) provides useful information for thediagnosis, therapy and monitoring of inflammatory processesand associated diseases. For the evaluation of Relative Riskfor Cardiovascular Disease, a High Sensitivity CRP (HSCRP)should be ordered. Performed By: #### L 500.4050, L501.6710 ####[facility] [address] [place], [address] Comprehensive Metabolic Prof ilon 03-26-2024 Albumin [Mass/Vol] 3.0 g/dL Low 3.2-5.0 [facility] Comment on above: Order Comment: Comme nts: May add to ED labs Performed By: #### L 500.4050, L501.6710 ####[facility] [address] [place], [address] Albumin/Globulin [Mass ratio] 1.0 {ratio} Normal 0.9-2.4 [facility] Comment on above: Order Comment: Comme nts: May add to ED labs Performed By: #### L 500.4050, L501.6710 ####[facility] [address] [place], [address] ALK P 52 U/L Normal 45-117 [facility] Comment on above: Order Comment: Comme nts: May add to ED labs Performed By: #### L 500.4050, L501.6710 ####[facility] [address] [place], [address] ALT [Catalytic activity/Vol] 39 U/L Normal 13-56 [facility] Comment on above: Order Comment: Comme nts: May add to ED labs Performed By: #### L 500.4050, L501.6710 ####[facility] [address] [place], [address] AST [Catalytic activity/Vol] 59 U/L High 15-37 [facility] Comment on above: Order Comment: Comme nts: May add to ED labs Performed By: #### L 500.4050, L501.6710 ####[facility] [address] [place], [address] Bilirubin [Mass/Vol] 0.30 mg/dL Normal 0.20-1.00 [facility] Comment on above: Order Comment: Comme nts: May add to ED labs Result Comment: For patients on eltrombopag therapy, use of Dimension [place] TBIL is not recommended. Performed By: #### L 500.4050, L501.6710 ####[facility] [address] [place], [address] BUN/CRE 24.6 RATIO High 10-20 [facility] Comment on above: Order Comment: Comme nts: May add to ED labs Performed By: #### L 500.4050, L501.6710 ####[facility] [address] [place], [address] CA,Total 8.3 mg/dL Low 8.5-10.1 [facility] Comment on above: Order Comment: Comme nts: May add to ED labs Performed By: #### L 500.4050, L501.6710 ####[facility] [address] [place], [address] Chloride [Moles/Vol] 114 mmol/L High 98-107 [facility] Comment on above: Order Comment: Comme nts: May add to ED labs Performed By: #### L 500.4050, L501.6710 ####[facility] [address] [place], [address] CO2 [Moles/Vol] 23.0 mmol/L Normal 21.0-32.0 [facility] Comment on above: Order Comment: Comme nts: May add to ED labs Performed By: #### L 500.4050, L501.6710 ####[facility] [address] [place], [address] Creatinine [Mass/Vol] 0.73 mg/dL Normal 0.55-1.02 [facility] Comment on above: Order Comment: Comme nts: May add to ED labs Result Comment: The validity of the calculated GFR GFRAA in patients over70 years has not been determined. Clinical correlation isessential. Performed By: #### L 500.4050, L501.6710 ####[facility] [address] [place], [address] ECRCL 46.14 ml/min Normal [facility] Comment on above: Order Comment: Comme nts: May add to ED labs Performed By: #### L 500.4050, L501.6710 ####[facility] [address] [place], [address] EST GFR - AA 97 mL/min Normal >60 [facility] Comment on above: Order Comment: Comme nts: May add to ED labs Result Comment: Afri can [place] GFR Calc Performed By: #### L 500.4050, L501.6710 ####[facility] [address] [place], [address] GAP 3 Low 5-15 [facility] Comment on above: Order Comment: Comme nts: May add to ED labs Performed By: #### L 500.4050, L501.6710 ####[facility] [address] [place], [address] GFR/1.73 sq M.predicted among non-blacks MDRD (S/P/Bld) [Vol rate/Area] 80 mL/min/{1.73_m2} Normal >60 [facility] Comment on above: Order Comment: Comme nts: May add to ED labs Result Comment: Non- GFR Calc Performed By: #### L 500.4050, L501.6710 ####[facility] [address] [place], [address] Globulin (S) [Mass/Vol] 3.1 g/dL Normal 2.2-4.2 [facility] Comment on above: Order Comment: Comme nts: May add to ED labs Performed By: #### L 500.4050, L501.6710 ####[facility] [address] [place], [address] Glucose [Mass/Vol] 104 mg/dL Normal 74-106 [facility] Comment on above: Order Comment: Comme nts: May add to ED labs Result Comment: Fast ing Glucose result from 100 to 125 mg/dLsuggests IMPAIRED HOMEOSTASIS per A.D.A. criteria. Performed By: #### L 500.4050, L501.6710 ####[facility] [address] [place], [address] Potassium [Moles/Vol] 4.2 mmol/L Normal 3.5-5.1 [facility] Comment on above: Order Comment: Comme nts: May add to ED labs Performed By: #### L 500.4050, L501.6710 ####[facility] [address] [place], [address] Sodium [Moles/Vol] 140 mmol/L Normal 136-145 [facility] Comment on above: Order Comment: Comme nts: May add to ED labs Performed By: #### L 500.4050, L501.6710 ####[facility] [address] [place], [address] T PROT 6.1 g/dL Low 6.4-8.2 [facility] Comment on above: Order Comment: Comme nts: May add to ED labs Performed By: #### L 500.4050, L501.6710 ####[facility] [address] [place], [address] Urea nitrogen [Mass/Vol] 18 mg/dL Normal 7-18 [facility] Comment on above: Order Comment: Comme nts: May add to ED labs Performed By: #### L 500.4050, L501.6710 ####[facility] [address] [place], [address] D-Dimer Quantitative (DVT/PE )on 03-26-2024 D-DIMER QUANT 0.63 FEU/ug/m Invalid Interpretation Code 0.27-0.49 [facility] Comment on above: Result Comment: D-Di brandon ELEVATED (>0.49): Additional studies and clinicalassessments are indicated to conclude diagnosis of:Deep Vein Thrombosis (DVT) or Pulmonary Embolism (PE)CRITICAL VALUE VERIFIED. CALLED TO YOLA BINGHAM (MS3)03/26/24 0911 Kofi Broussard.RESULTS READ BACK BY SAME. Performed By: #### L 101.9900, L509.7000, L300.8000 ####[facility] [address] [place], [address] Erythrocyte Sed Rateon 03-26 SED RATE 13 mm/hr Normal 0-30 [facility] Comment on above: Performed By: #### L 101.9900, L509.7000, L300.8000 ####[facility] [address] [place], [address] Ferritinon 03-26-2024 Ferritin [Mass/Vol] 143 ng/mL Normal 8-252 [facility] Comment on above: Order Comment: Comme nts: May add to ED labs'TROP' Serial specimen #1, #2 or #3: 1may add to ED labs11 Performed By: #### L 501.4020, L503.6550, L504.2610 ####[facility] [address] [place], [address] L501.4020on 03-26-2024 TROPONIN-I HS 36 pg/mL Normal 3.0-54.0 [facility] Comment on above: Order Comment: Comme nts: SPECIMEN #3'TROP' Serial specimen #1, #2 or #3: 3 Result Comment: Plea se Note: New Test Units and Gender Specific Reference Ranges. For more information see Policy Stat Procedure [place] High Sensitivity Troponin (TNIH) and attachments. Performed By: #### L 501.4020 ####[facility] [address] [place], [address] TROPONIN-I HS 40 pg/mL Normal 3.0-54.0 [facility] Comment on above: Order Comment: Comme nts: SPECIMEN #2'TROP' Serial specimen #1, #2 or #3: 2 Result Comment: Plea se Note: New Test Units and Gender Specific Reference Ranges. For more information see Policy Stat Procedure [place] High Sensitivity Troponin (TNIH) and attachments. Performed By: #### L 501.4020 ####[facility] [address] [place], [address] TROPONIN-I HS 44 pg/mL Normal 3.0-54.0 [facility] Comment on above: Order Comment: Comme nts: May add to ED labs'TROP' Serial specimen #1, #2 or #3: 1may add to ED labs11 Result Comment: Jazmín barriga Note: New Test Units and Gender Specific Reference Ranges. For more information see Policy Stat Procedure [place] High Sensitivity Troponin (TNIH) and attachments. Performed By: #### L 501.4020, L503.6550, L504.2610 ####[facility] [address] [place], [address] LDHon 03-26-2024 LDH 290 U/L High 84-246 [facility] Comment on above: Order Comment: Comme nts: May add to ED labs'TROP' Serial specimen #1, #2 or #3: 1may add to ED labs11 Performed By: #### L 501.4020, L503.6550, L504.2610 ####[facility] [address] [place], [address] Procalcitoninon 03-26-2024 Procalcitonin 0.06 ng/mL Normal 0.00-0.09 [facility] Comment on above: Result Comment: A pr ocalcitonin (PCT) level above 2.0 ng/mL on the first day of ICU admission is associated with a high risk for progression to severe sepsis and/or septic shock. A PCT level below 0.5 ng/mL on the first day of ICU admission is associated with a low risk for progression to severe and/or septic shock. Note: Concentrations <0.5 ng/mL do not exclude an infection on account of localized infections (without systemic signs) which can be associated with such low concentrations, or a systemic infection in its initial stages (<6 hours). Furthermore, increased procalcitonin can occur without infection. PCT concentrations between 0.5 and 2.0 ng/mL should be interpreted taking into account the patient's history. It is recommended to retest PCT within 6-24 hours if any concentrations <2 ng/mL are obtained. Performed By: #### L 101.9900, L509.7000, L300.8000 ####[facility] [address] [place], [address] Urinalysis, Completeon 03-26 EPI,SQUAMOUS 0-5 SEEN Normal 5-10 [facility] Comment on above: Order Comment: CLEAN CATCH Performed By: #### L 400.0001 ####[facility] [address] [place], [address] WBC 5-10 SEEN Normal 0-5 [facility] Comment on above: Order Comment: CLEAN CATCH Performed By: #### L 400.0001 ####[facility] [address] [place], [address] BACTERIA 0 SEEN Normal None Seen [facility] Comment on above: Order Comment: CLEAN CATCH Performed By: #### L 400.0001 ####[facility] [address] [place], [address] Mucus Ql (Urine sed) 0 SEEN Normal [facility] Comment on above: Order Comment: CLEAN CATCH Performed By: #### L 400.0001 ####[facility] [address] [place], [address] RBC 0 SEEN Normal 0-5 [facility] Comment on above: Order Comment: CLEAN CATCH Performed By: #### L 400.0001 ####[facility] [address] [place], [address] 12 Lead EKGon 03-25-2024 12 Lead EKG Normal [facility] Basic Metabolic Profile (BMP )on 03-25-2024 BUN/CRE 17.9 RATIO Normal 10-20 [facility] Comment on above: Performed By: #### L 100.0100, L500.2500, L501.3620, M100.678 ####[facility] [address] [place], [address] CA,Total 9.2 mg/dL Normal 8.5-10.1 [facility] Comment on above: Performed By: #### L 100.0100, L500.2500, L501.3620, M100.678 ####[facility] [address] [place], [address] Chloride [Moles/Vol] 106 mmol/L Normal 98-107 [facility] Comment on above: Performed By: #### L 100.0100, L500.2500, L501.3620, M100.678 ####[facility] [address] [place], [address] CO2 [Moles/Vol] 25.0 mmol/L Normal 21.0-32.0 [facility] Comment on above: Performed By: #### L 100.0100, L500.2500, L501.3620, M100.678 ####[facility] [address] [place], [address] Creatinine [Mass/Vol] 1.12 mg/dL High 0.55-1.02 [facility] Comment on above: Result Comment: The validity of the calculated GFR GFRAA in patients over70 years has not been determined. Clinical correlation isessential. Performed By: #### L 100.0100, L500.2500, L501.3620, M100.678 ####[facility] [address] [place], [address] EST GFR - AA 59 mL/min Low >60 [facility] Comment on above: Result Comment: Afri can [place] GFR Calc Performed By: #### L 100.0100, L500.2500, L501.3620, M100.678 ####[facility] [address] [place], [address] GAP 9 Normal 5-15 [facility] Comment on above: Performed By: #### L 100.0100, L500.2500, L501.3620, M100.678 ####[facility] [address] [place], [address] GFR/1.73 sq M.predicted among non-blacks MDRD (S/P/Bld) [Vol rate/Area] 49 mL/min/{1.73_m2} Low >60 [facility] Comment on above: Result Comment: Non- GFR Calc Performed By: #### L 100.0100, L500.2500, L501.3620, M100.678 ####[facility] [address] [place], [address] Glucose [Mass/Vol] 113 mg/dL High 74-106 [facility] Comment on above: Result Comment: Fast ing Glucose result from 100 to 125 mg/dLsuggests IMPAIRED HOMEOSTASIS per A.D.A. criteria. Performed By: #### L 100.0100, L500.2500, L501.3620, M100.678 ####[facility] [address] [place], [address] Potassium [Moles/Vol] 3.5 mmol/L Normal 3.5-5.1 [facility] Comment on above: Performed By: #### L 100.0100, L500.2500, L501.3620, M100.678 ####[facility] [address] [place], [address] Sodium [Moles/Vol] 140 mmol/L Normal 136-145 [facility] Comment on above: Performed By: #### L 100.0100, L500.2500, L501.3620, M100.678 ####[facility] [address] [place], [address] Urea nitrogen [Mass/Vol] 20 mg/dL High 7-18 [facility] Comment on above: Performed By: #### L 100.0100, L500.2500, L501.3620, M100.678 ####[facility] [address] [place], [address] Brain/Head without Contrasto n 03-25-2023 Brain/Head without Contrast Normal [facility] CBC W/Diff, Automatedon 03-07 0-2023 Absolute Lymph 1.52 X10 3/uL Normal 0.83-4.51 [facility] Comment on above: Performed By: #### L 501.4020, L100.0100, L500.4050, L501.3620 ####[facility] [address] [place], [address] Absolute Neut 5.5 X10 3/uL Normal 2.0-7.7 [facility] Comment on above: Performed By: #### L 501.4020, L100.0100, L500.4050, L501.3620 ####[facility] [address] [place], [address] Basophils/100 WBC (Bld) 0.4 % Normal 0-1 [facility] Comment on above: Performed By: #### L 501.4020, L100.0100, L500.4050, L501.3620 ####[facility] [address] [place], [address] Eosinophils/100 WBC (Bld) 0.0 % Normal 0-5 [facility] Comment on above: Performed By: #### L 501.4020, L100.0100, L500.4050, L501.3620 ####[facility] [address] [place], [address] Erythrocyte distribution width (RBC) [Ratio] 14.5 % Normal 11.6-14.6 [facility] Comment on above: Performed By: #### L 501.4020, L100.0100, L500.4050, L501.3620 ####[facility] [address] [place], [address] Hematocrit (Bld) [Volume fraction] 42.5 % Normal 37-47 [facility] Comment on above: Performed By: #### L 501.4020, L100.0100, L500.4050, L501.3620 ####[facility] [address] [place], [address] Hemoglobin (Bld) [Mass/Vol] 14.7 g/dL Normal 12.0-15.0 [facility] Comment on above: Performed By: #### L 501.4020, L100.0100, L500.4050, L501.3620 ####[facility] [address] [place], [address] IG% 0.300 Normal 0.0-0.9 [facility] Comment on above: Result Comment: IG% - Immature Granulocytes (promyelocytes, myelocytes andmetamyelocytes) > 1% indicates that a LEFT SHIFT is Present. Performed By: #### L 501.4020, L100.0100, L500.4050, L501.3620 ####[facility] [address] [place], [address] Lymphocytes/100 WBC (Bld) 19.5 % Normal 19-41 [facility] Comment on above: Performed By: #### L 501.4020, L100.0100, L500.4050, L501.3620 ####[facility] [address] [place], [address] MCH (RBC) [Entitic mass] 29.6 pg Normal 27.0-32.0 [facility] Comment on above: Performed By: #### L 501.4020, L100.0100, L500.4050, L501.3620 ####[facility] [address] [place], [address] MCHC (RBC) [Mass/Vol] 34.6 g/dL Normal 32-36 [facility] Comment on above: Performed By: #### L 501.4020, L100.0100, L500.4050, L501.3620 ####[facility] [address] [place], [address] MCV (RBC) [Entitic vol] 85.5 fL Normal 81-99 [facility] Comment on above: Performed By: #### L 501.4020, L100.0100, L500.4050, L501.3620 ####[facility] [address] [place], [address] Monocytes/100 WBC (Bld) 9.1 % Normal 0-10 [facility] Comment on above: Performed By: #### L 501.4020, L100.0100, L500.4050, L501.3620 ####[facility] [address] [place], [address] Neutrophils/100 WBC (Bld) 70.7 % High 47-70 [facility] Comment on above: Performed By: #### L 501.4020, L100.0100, L500.4050, L501.3620 ####[facility] [address] [place], [address] Nucleated RBC (Bld) [#/Vol] 0 10*3/uL Normal 0-5 [facility] Comment on above: Performed By: #### L 501.4020, L100.0100, L500.4050, L501.3620 ####[facility] [address] [place], [address] Platelet mean volume (Bld) [Entitic vol] 10.3 fL Normal 6.2-12.0 [facility] Comment on above: Performed By: #### L 501.4020, L100.0100, L500.4050, L501.3620 ####[facility] [address] [place], [address] Platelets (Bld) [#/Vol] 316 10*3/uL Normal 150-450 [facility] Comment on above: Performed By: #### L 501.4020, L100.0100, L500.4050, L501.3620 ####[facility] [address] [place], [address] RBC (Bld) [#/Vol] 4.97 10*6/uL Normal 4.2-5.4 [facility] Comment on above: Performed By: #### L 501.4020, L100.0100, L500.4050, L501.3620 ####[facility] [address] [place], [address] RDW SD 45.0 fl High 35.1-43.9 [facility] Comment on above: Performed By: #### L 501.4020, L100.0100, L500.4050, L501.3620 ####[facility] [address] [place], [address] WBC (Bld) [#/Vol] 7.8 10*3/uL Normal 4.4-11.0 [facility] Comment on above: Performed By: #### L 501.4020, L100.0100, L500.4050, L501.3620 ####[facility] [address] [place], [address] Absolute Lymph 2.26 X10 3/uL Normal 0.83-4.51 [facility] Comment on above: Performed By: #### L 100.0100, L500.2500, L501.3620, M100.678 ####[facility] [address] [place], [address] Absolute Neut 8.1 X10 3/uL High 2.0-7.7 [facility] Comment on above: Performed By: #### L 100.0100, L500.2500, L501.3620, M100.678 ####[facility] [address] [place], [address] Basophils/100 WBC (Bld) 0.5 % Normal 0-1 [facility] Comment on above: Performed By: #### L 100.0100, L500.2500, L501.3620, M100.678 ####[facility] [address] [place], [address] Eosinophils/100 WBC (Bld) 0.1 % Normal 0-5 [facility] Comment on above: Performed By: #### L 100.0100, L500.2500, L501.3620, M100.678 ####[facility] [address] [place], [address] Erythrocyte distribution width (RBC) [Ratio] 14.6 % Normal 11.6-14.6 [facility] Comment on above: Performed By: #### L 100.0100, L500.2500, L501.3620, M100.678 ####[facility] [address] [place], [address] Hematocrit (Bld) [Volume fraction] 44.0 % Normal 37-47 [facility] Comment on above: Performed By: #### L 100.0100, L500.2500, L501.3620, M100.678 ####[facility] [address] [place], [address] Hemoglobin (Bld) [Mass/Vol] 14.0 g/dL Normal 12.0-15.0 [facility] Comment on above: Performed By: #### L 100.0100, L500.2500, L501.3620, M100.678 ####[facility] [address] [place], [address] IG% 0.300 Normal 0.0-0.9 [facility] Comment on above: Result Comment: IG% - Immature Granulocytes (promyelocytes, myelocytes andmetamyelocytes) > 1% indicates that a LEFT SHIFT is Present. Performed By: #### L 100.0100, L500.2500, L501.3620, M100.678 ####[facility] [address] [place], [address] Lymphocytes/100 WBC (Bld) 19.7 % Normal 19-41 [facility] Comment on above: Performed By: #### L 100.0100, L500.2500, L501.3620, M100.678 ####[facility] [address] [place], [address] MCH (RBC) [Entitic mass] 27.2 pg Normal 27.0-32.0 [facility] Comment on above: Performed By: #### L 100.0100, L500.2500, L501.3620, M100.678 ####[facility] [address] [place], [address] MCHC (RBC) [Mass/Vol] 31.8 g/dL Low 32-36 [facility] Comment on above: Performed By: #### L 100.0100, L500.2500, L501.3620, M100.678 ####[facility] [address] [place], [address] MCV (RBC) [Entitic vol] 85.6 fL Normal 81-99 [facility] Comment on above: Performed By: #### L 100.0100, L500.2500, L501.3620, M100.678 ####[facility] [address] [place], [address] Monocytes/100 WBC (Bld) 9.1 % Normal 0-10 [facility] Comment on above: Performed By: #### L 100.0100, L500.2500, L501.3620, M100.678 ####[facility] [address] [place], [address] Neutrophils/100 WBC (Bld) 70.3 % High 47-70 [facility] Comment on above: Performed By: #### L 100.0100, L500.2500, L501.3620, M100.678 ####[facility] [address] [place], [address] Nucleated RBC (Bld) [#/Vol] 0 10*3/uL Normal 0-5 [facility] Comment on above: Performed By: #### L 100.0100, L500.2500, L501.3620, M100.678 ####[facility] [address] [place], [address] Platelet mean volume (Bld) [Entitic vol] 9.9 fL Normal 6.2-12.0 [facility] Comment on above: Performed By: #### L 100.0100, L500.2500, L501.3620, M100.678 ####[facility] [address] [place], [address] Platelets (Bld) [#/Vol] 265 10*3/uL Normal 150-450 [facility] Comment on above: Performed By: #### L 100.0100, L500.2500, L501.3620, M100.678 ####[facility] [address] [place], [address] RBC (Bld) [#/Vol] 5.14 10*6/uL Normal 4.2-5.4 [facility] Comment on above: Performed By: #### L 100.0100, L500.2500, L501.3620, M100.678 ####[facility] [address] [place], [address] RDW SD 45.4 fl High 35.1-43.9 [facility] Comment on above: Performed By: #### L 100.0100, L500.2500, L501.3620, M100.678 ####[facility] [address] [place], [address] WBC (Bld) [#/Vol] 11.5 10*3/uL High 4.4-11.0 [facility] Comment on above: Performed By: #### L 100.0100, L500.2500, L501.3620, M100.678 ####[facility] [address] [place], [address] CPK Total, Creatine Kinaseon 03-25-2024 CPK TOTAL 1849 U/L High 26-192 [facility] Comment on above: Order Comment: 'TROP ' Serial specimen #1, #2 or #3: 1 Performed By: #### L 501.4020, L100.0100, L500.4050, L501.3620 ####[facility] [address] [place], [address] CPK TOTAL 2161 U/L High 26-192 [facility] Comment on above: Result Comment: Crit ical Result(s) Called at: 12:55:16 03/25/2024 by:elzbieta badillo Results read back by same. Performed By: #### L 100.0100, L500.2500, L501.3620, M100.678 ####[facility] [address] [place], [address] Chest 1 View (Portable)on Chest 1 View (Portable) Normal [facility] Comprehensive Metabolic Prof ilon 03-25-2024 Albumin [Mass/Vol] 3.5 g/dL Normal 3.2-5.0 [facility] Comment on above: Order Comment: 'TROP ' Serial specimen #1, #2 or #3: 1 Performed By: #### L 501.4020, L100.0100, L500.4050, L501.3620 ####[facility] [address] [place], [address] Albumin/Globulin [Mass ratio] 0.9 {ratio} Normal 0.9-2.4 [facility] Comment on above: Order Comment: 'TROP ' Serial specimen #1, #2 or #3: 1 Performed By: #### L 501.4020, L100.0100, L500.4050, L501.3620 ####[facility] [address] [place], [address] ALK P 65 U/L Normal 45-117 [facility] Comment on above: Order Comment: 'TROP ' Serial specimen #1, #2 or #3: 1 Performed By: #### L 501.4020, L100.0100, L500.4050, L501.3620 ####[facility] [address] [place], [address] ALT [Catalytic activity/Vol] 44 U/L Normal 13-56 [facility] Comment on above: Order Comment: 'TROP ' Serial specimen #1, #2 or #3: 1 Performed By: #### L 501.4020, L100.0100, L500.4050, L501.3620 ####[facility] [address] [place], [address] AST [Catalytic activity/Vol] 81 U/L High 15-37 [facility] Comment on above: Order Comment: 'TROP ' Serial specimen #1, #2 or #3: 1 Performed By: #### L 501.4020, L100.0100, L500.4050, L501.3620 ####[facility] [address] [place], [address] Bilirubin [Mass/Vol] 0.30 mg/dL Normal 0.20-1.00 [facility] Comment on above: Order Comment: 'TROP ' Serial specimen #1, #2 or #3: 1 Result Comment: For patients on eltrombopag therapy, use of Dimension [place] TBIL is not recommended. Performed By: #### L 501.4020, L100.0100, L500.4050, L501.3620 ####[facility] [address] [place], [address] BUN/CRE 21.3 RATIO High 10-20 [facility] Comment on above: Order Comment: 'TROP ' Serial specimen #1, #2 or #3: 1 Performed By: #### L 501.4020, L100.0100, L500.4050, L501.3620 ####[facility] [address] [place], [address] CA,Total 8.9 mg/dL Normal 8.5-10.1 [facility] Comment on above: Order Comment: 'TROP ' Serial specimen #1, #2 or #3: 1 Performed By: #### L 501.4020, L100.0100, L500.4050, L501.3620 ####[facility] [address] [place], [address] Chloride [Moles/Vol] 107 mmol/L Normal 98-107 [facility] Comment on above: Order Comment: 'TROP ' Serial specimen #1, #2 or #3: 1 Performed By: #### L 501.4020, L100.0100, L500.4050, L501.3620 ####[facility] [address] [place], [address] CO2 [Moles/Vol] 25.0 mmol/L Normal 21.0-32.0 [facility] Comment on above: Order Comment: 'TROP ' Serial specimen #1, #2 or #3: 1 Performed By: #### L 501.4020, L100.0100, L500.4050, L501.3620 ####[facility] [address] [place], [address] Creatinine [Mass/Vol] 1.08 mg/dL High 0.55-1.02 [facility] Comment on above: Order Comment: 'TROP ' Serial specimen #1, #2 or #3: 1 Result Comment: The validity of the calculated GFR GFRAA in patients over70 years has not been determined. Clinical correlation isessential. Performed By: #### L 501.4020, L100.0100, L500.4050, L501.3620 ####[facility] [address] [place], [address] ECRCL 34.51 ml/min Normal [facility] Comment on above: Order Comment: 'TROP ' Serial specimen #1, #2 or #3: 1 Performed By: #### L 501.4020, L100.0100, L500.4050, L501.3620 ####[facility] [address] [place], [address] EST GFR - AA 62 mL/min Normal >60 [facility] Comment on above: Order Comment: 'TROP ' Serial specimen #1, #2 or #3: 1 Result Comment: Afri can [place] GFR Calc Performed By: #### L 501.4020, L100.0100, L500.4050, L501.3620 ####[facility] [address] [place], [address] GAP 7 Normal 5-15 [facility] Comment on above: Order Comment: 'TROP ' Serial specimen #1, #2 or #3: 1 Performed By: #### L 501.4020, L100.0100, L500.4050, L501.3620 ####[facility] [address] [place], [address] GFR/1.73 sq M.predicted among non-blacks MDRD (S/P/Bld) [Vol rate/Area] 51 mL/min/{1.73_m2} Low >60 [facility] Comment on above: Order Comment: 'TROP ' Serial specimen #1, #2 or #3: 1 Result Comment: Non- GFR Calc Performed By: #### L 501.4020, L100.0100, L500.4050, L501.3620 ####[facility] [address] [place], [address] Globulin (S) [Mass/Vol] 3.9 g/dL Normal 2.2-4.2 [facility] Comment on above: Order Comment: 'TROP ' Serial specimen #1, #2 or #3: 1 Performed By: #### L 501.4020, L100.0100, L500.4050, L501.3620 ####[facility] [address] [place], [address] Glucose [Mass/Vol] 106 mg/dL Normal 74-106 [facility] Comment on above: Order Comment: 'TROP ' Serial specimen #1, #2 or #3: 1 Result Comment: Fast ing Glucose result from 100 to 125 mg/dLsuggests IMPAIRED HOMEOSTASIS per A.D.A. criteria. Performed By: #### L 501.4020, L100.0100, L500.4050, L501.3620 ####[facility] [address] [place], [address] Potassium [Moles/Vol] 3.7 mmol/L Normal 3.5-5.1 [facility] Comment on above: Order Comment: 'TROP ' Serial specimen #1, #2 or #3: 1 Performed By: #### L 501.4020, L100.0100, L500.4050, L501.3620 ####[facility] [address] [place], [address] Sodium [Moles/Vol] 139 mmol/L Normal 136-145 [facility] Comment on above: Order Comment: 'TROP ' Serial specimen #1, #2 or #3: 1 Performed By: #### L 501.4020, L100.0100, L500.4050, L501.3620 ####[facility] [address] [place], [address] T PROT 7.4 g/dL Normal 6.4-8.2 [facility] Comment on above: Order Comment: 'TROP ' Serial specimen #1, #2 or #3: 1 Performed By: #### L 501.4020, L100.0100, L500.4050, L501.3620 ####[facility] [address] [place], [address] Urea nitrogen [Mass/Vol] 23 mg/dL High 7-18 [facility] Comment on above: Order Comment: 'TROP ' Serial specimen #1, #2 or #3: 1 Performed By: #### L 501.4020, L100.0100, L500.4050, L501.3620 ####[facility] [address] [place], [address] Emergency Department Summary on 03-25-2024 Emergency Department Summary Normal [facility] H AND P Exam - Hospitaliston 03-25-2024 H&P Exam - Hospitalist Normal [facility] L501.4020on 03-25-2024 TROPONIN-I HS 61 pg/mL High 3.0-54.0 [facility] Comment on above: Order Comment: 'TROP ' Serial specimen #1, #2 or #3: 1 Result Comment: Plea se Note: New Test Units and Gender Specific Reference Ranges. For more information see Policy Stat Procedure [place] High Sensitivity Troponin (TNIH) and attachments. Performed By: #### L 501.4020, L100.0100, L500.4050, L501.3620 ####[facility] [address] [place], [address] M100.678on 03-25-2024 M100.678 Normal [facility] Comment on above: Performed By: #### L 100.0100, L500.2500, L501.3620, M100.678 ####[facility] [address] [place], [address] Magnesiumon 03-25-2024 Magnesium [Mass/Vol] 2.2 mg/dL Normal 1.6-2.6 [facility] Comment on above: Result Comment: Mode rate Hemolysis, Result may be falsely increased. Performed By: #### L 501.2300, L501.5200 ####[facility] [address] [place], [address] Phosphoruson 03-25-2024 Phosphate [Mass/Vol] 3.8 mg/dL Normal 2.5-4.9 [facility] Comment on above: Performed By: #### L 501.2300, L501.5200 ####[facility] [address] [place], [address] Absolute lymphocyte countOrd ered By: Maximino Lu on 03-29-2023 Lymphocytes Auto (Unsp spec) [#/Vol] 2.81 10*3/uL 0.83-4.51 [facility] Basophil percentageOrdered B y: Maximino Lu on 03-29-2023 Basophils/100 WBC (Bld) 0.6 % 0-1 [facility] Bilirubin [Mass/Vol] 0.30 mg/dL 0.20-1.00 [facility] Comment on above: For patients on eltr ombopag therapy, use of Dimension [place] TBIL is not recommended. Chloride [Moles/Vol] 104 mmol/L 98-107 [facility] Eosinophils/100 WBC (Bld) 1.3 % 0-5 [facility] Glucose [Mass/Vol] 85 mg/dL 74-106 [facility] Neutrophils (Bld) [#/Vol] 4.7 10*3/uL 2.0-7.7 [facility] Neutrophils/100 WBC (Bld) 57.6 % 47-70 [facility] Potassium [Moles/Vol] 4.0 mmol/L 3.5-5.1 [facility] Protein [Mass/Vol] 7.4 g/dL 6.4-8.2 [facility] Sodium [Moles/Vol] 139 mmol/L 136-145 [facility] WBC (Bld) [#/Vol] 8.2 10*3/uL 4.4-11.0 [facility] Blood erythrocytes count (nu mber/volume)Ordered By: Maximino Lu on 03-29-2023 RBC (Bld) [#/Vol] 4.96 10*6/uL 4.2-5.4 [facility] Blood hemoglobin measurement (mass/volume)Ordered By: Maximino Lu on 03-29-2023 Hemoglobin (Bld) [Mass/Vol] 13.7 g/dL 12.0-15.0 [facility] Blood lymphocytes/100 leukoc ytesOrdered By: Maximino Lu on 03-29-2023 Lymphocytes/100 WBC (Bld) 34.2 % 19-41 [facility] Blood monocytes/100 leukocyt esOrdered By: Maximino Lu on 03-29-2023 Monocytes/100 WBC (Bld) 6.1 % 0-10 [facility] Blood platelet mean volumeOr dered By: Maximino Lu on 03-29-2023 Platelet mean volume (Bld) [Entitic vol] 9.8 fL 6.2-12.0 [facility] Determination of erythrocyte mean corpuscular volume (MCV)Ordered By: Maximino Lu on 03-29-2023 MCV (RBC) [Entitic vol] 89.1 fL 81-99 [facility] Hematocrit Auto (Bld) [Volum e fraction]Ordered By: Maximino Lu on 03-29-2023 Hematocrit (Bld) [Volume fraction] 44.2 % 37-47 [facility] Laboratory - Chemistry and C hemistry - challengeOrdered By: Maximino Lu on 03-29-2023 ALP [Catalytic activity/Vol] 54 U/L 45-117 [facility] ALT [Catalytic activity/Vol] 24 U/L 13-56 [facility] CO2 [Moles/Vol] 27.0 mmol/L 21.0-32.0 [facility] Globulin (S) [Mass/Vol] 3.6 g/dL 2.2-4.2 [facility] Urea nitrogen/Creatinine [Mass ratio] 17.1 mg/mg 10-20 [facility] Laboratory - Hematology and Cell countsOrdered By: Maximino Lu on 03-29-2023 Erythrocyte distribution width (RBC) [Entitic vol] 49.0 fL 35.1-43.9 [facility] Erythrocyte distribution width (RBC) [Ratio] 14.9 % 11.6-14.6 [facility] Immature granulocytes/100 WBC (Bld) 0.200 % 0.0-0.9 [facility] Comment on above: IG% - Immature Granu locytes (promyelocytes, myelocytes and metamyelocytes) > 1% indicates that a LEFT SHIFT is Present. MCH (RBC) [Entitic mass] 27.6 pg 27.0-32.0 [facility] Nucleated RBC/100 WBC (Bld) [Ratio] 0 % 0-5 [facility] MCHC Auto (RBC) [Mass/Vol]Or dered By: Maximino Lu on 03-29-2023 MCHC (RBC) [Mass/Vol] 31.0 g/dL 32-36 [facility] No Panel InformationOrdered By: Maximino Lu on 03-29-2023 Estimated GFR (MDRD) Amer 73 mL/min >60 [facility] Comment on above: GFR Calc Estimated GFR (MDRD) Non-Af Amer 60 mL/min >60 [facility] Comment on above: Non- GFR Calc Thyroid Stimulating Hormone (TSH) 1.58 uIU/mL 0.358-3.74 [facility] Vitamin D 25-Hydroxy 44.4 ng/mL [facility] Comment on above: Vitamin D 25(OH) Sta tus Range Deficiency <20 ng/mL (50nmol/L) Insufficiency 20 - 30 ng/mL (50 - 75 nmol/L) Sufficiency 30 - 100 ng/mL (75 - 250 nmol/L) Toxicity >100 ng/mL (>250 nmol/L) Platelets bldOrdered By: Maximino Lu on 03-29-2023 Platelets (Bld) [#/Vol] 316 10*3/uL 150-450 [facility] Serum or plasma albumin marcellus urement (mass/volume)Ordered By: Maximino Lu on 03-29-2023 Albumin [Mass/Vol] 3.8 g/dL 3.2-5.0 [facility] Serum or plasma albumin/glob ulin mass ratioOrdered By: Maximino Lu on 03-29-2023 Albumin/Globulin [Mass ratio] 1.1 {ratio} 0.9-2.4 [facility] Serum or plasma calcium marcellus urement (mass/volume)Ordered By: Maximino Lu on 03-29-2023 Calcium [Mass/Vol] 9.3 mg/dL 8.5-10.1 [facility] Serum or plasma creatinine m easurement (mass/volume)Ordered By: Maximino Lu on 03-29-2023 Creatinine [Mass/Vol] 0.94 mg/dL 0.55-1.02 [facility] Comment on above: The validity of the calculated GFR & GFRAA in patients over 70 years has not been determined. Clinical correlation is essential. Serum or plasma urea nitroge n measurement (mass/volume)Ordered By: Maximino Lu on 03-29-2023 Urea nitrogen [Mass/Vol] 16 mg/dL 7-18 [facility] Thin prep Papanicolaou smear with manual screeningOrdered By: Maximino Lu on 03-29-2023 Thin prep Papanicolaou smear with manual screening 17 U/L 15-37 [facility] Thin prep Papanicolaou smear with manual screening 8 5-15 [facility] Absolute lymphocyte countOrd ered By: Dr. Lu on 09-21-2022 Lymphocytes Auto (Unsp spec) [#/Vol] 1.82 10*3/uL 0.83-4.51 [facility] Basophil percentageOrdered B y: Dr. Lu on 09-21-2022 Basophils/100 WBC (Bld) 0.7 % 0-1 [facility] Bilirubin [Mass/Vol] 0.30 mg/dL 0.20-1.00 [facility] Comment on above: For patients on eltr ombopag therapy, use of Dimension [place] TBIL is not recommended. Chloride [Moles/Vol] 107 mmol/L 98-107 [facility] Eosinophils/100 WBC (Bld) 1.7 % 0-5 [facility] Glucose [Mass/Vol] 92 mg/dL 74-106 [facility] Neutrophils (Bld) [#/Vol] 4.7 10*3/uL 2.0-7.7 [facility] Neutrophils/100 WBC (Bld) 66.1 % 47-70 [facility] Potassium [Moles/Vol] 4.0 mmol/L 3.5-5.1 [facility] Protein [Mass/Vol] 7.3 g/dL 6.4-8.2 [facility] Sodium [Moles/Vol] 141 mmol/L 136-145 [facility] WBC (Bld) [#/Vol] 7.1 10*3/uL 4.4-11.0 [facility] Blood erythrocytes count (nu mber/volume)Ordered By: Dr. Lu on 09-21-2022 RBC (Bld) [#/Vol] 4.68 10*6/uL 4.2-5.4 [facility] Blood hemoglobin measurement (mass/volume)Ordered By: Dr. Lu on 09-21-2022 Hemoglobin (Bld) [Mass/Vol] 12.9 g/dL 12.0-15.0 [facility] Blood lymphocytes/100 leukoc ytesOrdered By: Dr. Lu on 09-21-2022 Lymphocytes/100 WBC (Bld) 25.7 % 19-41 [facility] Blood monocytes/100 leukocyt esOrdered By: Dr. Lu on 09-21-2022 Monocytes/100 WBC (Bld) 5.4 % 0-10 [facility] Blood platelet mean volumeOr dered By: Dr. Lu on 09-21-2022 Platelet mean volume (Bld) [Entitic vol] 9.8 fL 6.2-12.0 [facility] Determination of erythrocyte mean corpuscular volume (MCV)Ordered By: Dr. Lu on 09-21-2022 MCV (RBC) [Entitic vol] 88.0 fL 81-99 [facility] Hematocrit Auto (Bld) [Volum e fraction]Ordered By: Dr. Lu on 09-21-2022 Hematocrit (Bld) [Volume fraction] 41.2 % 37-47 [facility] Laboratory - Chemistry and C hemistry - challengeOrdered By: Dr. Lu on 09-21-2022 ALP [Catalytic activity/Vol] 58 U/L 45-117 [facility] ALT [Catalytic activity/Vol] 23 U/L 13-56 [facility] CO2 [Moles/Vol] 28.0 mmol/L 21.0-32.0 [facility] Globulin (S) [Mass/Vol] 3.6 g/dL 2.2-4.2 [facility] Urea nitrogen/Creatinine [Mass ratio] 21.7 mg/mg 10-20 [facility] Laboratory - Hematology and Cell countsOrdered By: Dr. Lu on 09-21-2022 Erythrocyte distribution width (RBC) [Entitic vol] 47.0 fL 35.1-43.9 [facility] Erythrocyte distribution width (RBC) [Ratio] 14.6 % 11.6-14.6 [facility] Immature granulocytes/100 WBC (Bld) 0.400 % 0.0-0.9 [facility] Comment on above: IG% - Immature Granu locytes (promyelocytes, myelocytes and metamyelocytes) > 1% indicates that a LEFT SHIFT is Present. MCH (RBC) [Entitic mass] 27.6 pg 27.0-32.0 [facility] Nucleated RBC/100 WBC (Bld) [Ratio] 0 % 0-5 [facility] MCHC Auto (RBC) [Mass/Vol]Or dered By: Dr. Lu on 09-21-2022 MCHC (RBC) [Mass/Vol] 31.3 g/dL 32-36 [facility] No Panel InformationOrdered By: Dr. Lu on 09-21-2022 Estimated GFR (MDRD) Amer 74 mL/min >60 [facility] Comment on above: GFR Calc Estimated GFR (MDRD) Non-Af Amer 61 mL/min >60 [facility] Comment on above: Non- GFR Calc Thyroid Stimulating Hormone (TSH) 1.33 uIU/mL 0.358-3.74 [facility] Vitamin D 25-Hydroxy 38.7 ng/mL [facility] Comment on above: Vitamin D 25(OH) Sta tus Range Deficiency <20 ng/mL (50nmol/L) Insufficiency 20 - 30 ng/mL (50 - 75 nmol/L) Sufficiency 30 - 100 ng/mL (75 - 250 nmol/L) Toxicity >100 ng/mL (>250 nmol/L) Platelets bldOrdered By: Dr. Lu on 09-21-2022 Platelets (Bld) [#/Vol] 279 10*3/uL 150-450 [facility] Serum or plasma albumin marcellus urement (mass/volume)Ordered By: Dr. Lu on 09-21-2022 Albumin [Mass/Vol] 3.7 g/dL 3.2-5.0 [facility] Serum or plasma albumin/glob ulin mass ratioOrdered By: Dr. Lu on 09-21-2022 Albumin/Globulin [Mass ratio] 1.0 {ratio} 0.9-2.4 [facility] Serum or plasma calcium marcellus urement (mass/volume)Ordered By: Dr. Lu on 09-21-2022 Calcium [Mass/Vol] 9.1 mg/dL 8.5-10.1 [facility] Serum or plasma creatinine m easurement (mass/volume)Ordered By: Dr. Lu on 09-21-2022 Creatinine [Mass/Vol] 0.92 mg/dL 0.55-1.02 [facility] Comment on above: The validity of the calculated GFR & GFRAA in patients over 70 years has not been determined. Clinical correlation is essential. Serum or plasma urea nitroge n measurement (mass/volume)Ordered By: Dr. Lu on 09-21-2022 Urea nitrogen [Mass/Vol] 20 mg/dL 7-18 [facility] Thin prep Papanicolaou smear with manual screeningOrdered By: Dr. Lu on 09-21-2022 Thin prep Papanicolaou smear with manual screening 18 U/L 15-37 [facility] Thin prep Papanicolaou smear with manual screening 6 5-15 [facility] Absolute lymphocyte counton 03-23-2022 Lymphocytes Auto (Unsp spec) [#/Vol] 2.30 10*3/uL 0.83-4.51 [facility] Work Phone: Basophil percentageon 2021 Basophils/100 WBC (Bld) 0.7 % 0-1 [facility] Work Phone: Bilirubin [Mass/Vol] 0.30 mg/dL 0.20-1.00 [facility] Work Phone: Comment on above: For patients on eltr ombopag therapy, use of Dimension [place] TBIL is not recommended. Chloride [Moles/Vol] 107 mmol/L 98-107 [facility] Work Phone: Eosinophils/100 WBC (Bld) 2.5 % 0-5 [facility] Work Phone: Glucose [Mass/Vol] 94 mg/dL 74-106 [facility] Work Phone: Neutrophils (Bld) [#/Vol] 3.9 10*3/uL 2.0-7.7 [facility] Work Phone: Neutrophils/100 WBC (Bld) 56.5 % 47-70 [facility] Work Phone: Potassium [Moles/Vol] 4.2 mmol/L 3.5-5.1 [facility] Work Phone: [phone] Protein [Mass/Vol] 7.4 g/dL 6.4-8.2 [facility] Work Phone: Sodium [Moles/Vol] 141 mmol/L 136-145 [facility] Work Phone: WBC (Bld) [#/Vol] 6.9 10*3/uL 4.4-11.0 [facility] Work Phone: Blood erythrocytes count (nu mber/volume)on 03-23-2022 RBC (Bld) [#/Vol] 4.77 10*6/uL 4.2-5.4 [facility] Work Phone: Blood hemoglobin measurement (mass/volume)on 03-23-2022 Hemoglobin (Bld) [Mass/Vol] 13.1 g/dL 12.0-15.0 [facility] Work Phone: Blood lymphocytes/100 leukoc yteson 03-23-2022 Lymphocytes/100 WBC (Bld) 33.4 % 19-41 [facility] Work Phone: Blood monocytes/100 leukocyt eson 03-23-2022 Monocytes/100 WBC (Bld) 6.8 % 0-10 [facility] Work Phone: Blood platelet mean volumeon 03-23-2022 Platelet mean volume (Bld) [Entitic vol] 10.0 fL 6.2-12.0 [facility] Work Phone: Determination of erythrocyte mean corpuscular volume (MCV)on 03-23-2022 MCV (RBC) [Entitic vol] 87.8 fL 81-99 [facility] Work Phone: Hematocrit Auto (Bld) [Volum e fraction]on 03-23-2022 Hematocrit (Bld) [Volume fraction] 41.9 % 37-47 [facility] Work Phone: Laboratory - Chemistry and C hemistry - challengeon 03-23-2022 ALP [Catalytic activity/Vol] 51 U/L 45-117 [facility] Work Phone: ALT [Catalytic activity/Vol] 24 U/L 13-56 [facility] Work Phone: CO2 [Moles/Vol] 30.0 mmol/L 21.0-32.0 [facility] Work Phone: Globulin (S) [Mass/Vol] 3.7 g/dL 2.2-4.2 [facility] Work Phone: Urea nitrogen/Creatinine [Mass ratio] 28.5 mg/mg 10-20 [facility] Work Phone: Laboratory - Hematology and Cell countson 03-23-2022 Erythrocyte distribution width (RBC) [Entitic vol] 46.1 fL 35.1-43.9 [facility] Work Phone: Erythrocyte distribution width (RBC) [Ratio] 14.2 % 11.6-14.6 [facility] Work Phone: Immature granulocytes/100 WBC (Bld) 0.100 % 0.0-0.9 [facility] Work Phone: Comment on above: IG% - Immature Granu locytes (promyelocytes, myelocytes and metamyelocytes) > 1% indicates that a LEFT SHIFT is Present. MCH (RBC) [Entitic mass] 27.5 pg 27.0-32.0 [facility] Work Phone: Nucleated RBC/100 WBC (Bld) [Ratio] 0 % 0-5 [facility] Work Phone: MCHC Auto (RBC) [Mass/Vol]on 03-23-2022 MCHC (RBC) [Mass/Vol] 31.3 g/dL 32-36 [facility] Work Phone: No Panel Informationon 03-23 Estimated GFR (MDRD) Amer 76 mL/min >60 [facility] Work Phone: Comment on above: GFR Calc Estimated GFR (MDRD) Non-Af Amer 62 mL/min >60 [facility] Work Phone: Comment on above: Non- GFR Calc Thyroid Stimulating Hormone (TSH) 1.14 uIU/mL 0.358-3.74 [facility] Work Phone: Vitamin D 25-Hydroxy 45.2 ng/mL [facility] Work Phone: Comment on above: Vitamin D 25(OH) Sta tus Range Deficiency <20 ng/mL (50nmol/L) Insufficiency 20 - 30 ng/mL (50 - 75 nmol/L) Sufficiency 30 - 100 ng/mL (75 - 250 nmol/L) Toxicity >100 ng/mL (>250 nmol/L) Platelets bldon 03-23-2022 Platelets (Bld) [#/Vol] 299 10*3/uL 150-450 [facility] Work Phone: Serum or plasma albumin marcellus urement (mass/volume)on 03-23-2022 Albumin [Mass/Vol] 3.7 g/dL 3.2-5.0 [facility] Work Phone: Serum or plasma albumin/glob ulin mass ratioon 03-23-2022 Albumin/Globulin [Mass ratio] 1.0 {ratio} 0.9-2.4 [facility] Work Phone: Serum or plasma calcium marcellus urement (mass/volume)on 03-23-2022 Calcium [Mass/Vol] 10.0 mg/dL 8.5-10.1 [facility] Work Phone: Serum or plasma creatinine m easurement (mass/volume)on 03-23-2022 Creatinine [Mass/Vol] 0.91 mg/dL 0.55-1.02 [facility] Work Phone: Comment on above: The validity of the calculated GFR & GFRAA in patients over 70 years has not been determined. Clinical correlation is essential. Serum or plasma urea nitroge n measurement (mass/volume)on 03-23-2022 Urea nitrogen [Mass/Vol] 26 mg/dL 7-18 [facility] Work Phone: Thin prep Papanicolaou smear with manual screeningon 03-23-2022 Thin prep Papanicolaou smear with manual screening 14 U/L 15-37 [facility] Work Phone: Thin prep Papanicolaou smear with manual screening 4 5-15 [facility] Work Phone: Vital Signs Date Time Vital Sign Value Performing Clinician Faci lity 10-19-2024 10:28-0400 Body height 157.[address] Maximino Lu MD Work Phone: [facility] 10-19-2024 10:28-0400 Body mass index (BMI) [Ratio] 28.5 kg/m2 Dr. Maximino Lu MD Work Phone: [facility] 10-19-2024 10:28-0400 Body temperature 98.4 [degF] Dr. Maximino Lu MD Work Phone: [facility] 10-19-2024 10:28-0400 Body weight 70.[address] Maximino Lu MD Work Phone: [facility] 10-19-2024 10:28-0400 Diastolic blood pressure 70 mm[Hg] Dr. Maximino Lu MD Work Phone: [facility] 10-19-2024 10:28-0400 Heart rate 83 /min Dr. Maximino Lu MD Work Phone: [facility] 10-19-2024 10:28-0400 Respiratory rate 16 /min Dr. Maximino Lu MD Work Phone: [facility] 10-19-2024 10:28-0400 SaO2% (BldA) [Mass fraction] 98 % Dr. Maximino Lu MD Work Phone: [facility] 10-19-2024 10:28-0400 Systolic blood pressure 118 mm[Hg] Dr. Maximino Lu MD Work Phone: [facility] Encounters Encounter Date Encounter Type Care Provider Facility Start: 11-05-2024 End: 11-05-[address] Maximino Lu MD Work Phone: [facility] Work Phone: Start: 11-05-2024 End: 11-05-[address] Maximino Lu MD -Laboratory Work Phone: Start: 11-05-2024 End: 11-05-2024 ambulatory [facility] Facility:[facility] Start: 10-28-2024 End: 10-28-[address] Maximino Lu MD Work Phone: [facility] Work Phone: Start: 10-28-2024 End: 10-28-[address] Maximino Lu MD -Cat Scan, [facility] Work Phone: Start: 10-27-2024 End: 10-28-[address] Maximino Lu MD Work Phone: [facility] Work Phone: Start: 10-27-2024 End: 10-27-[address] Maximino Lu MD -Laboratory, [facility] [address] [place] [address] Start: 10-27-2024 End: 10-27-[facility] Start: 10-19-2024 End: 10-19-2024 [facility] Start: 10-19-2024 End: 10-19-2024 ambulatory Javi Cho Marc [employer] Facility:[facility] Start: 07-10-2024 End: 07-10-[address] Maximino Lu MD -[facility] Work Phone: Start: 07-10-2024 End: 07-10-2024 ambulatory Maximino Chi Aly Facility:[facility] Start: 06-24-2024 ambulatory Frantz Fishman Facility:[facility] Start: 06-24-2024 End: 06-24-2024 ambulatory William Leigh Facility:[facility] Start: 05-06-2024 End: 05-06-2024 ambulatory Maximino Chi Aly Facility:[facility] Start: 03-28-2024 End: 04-03-2024 Evaluation and management of inpatient Maximino Chi Aly Facility:[facility] Start: 03-26-2024 ambulatory Maximino Chi Aly Facility:[facility] Start: 03-25-2024 ambulatory Babak Claude Facility: [facility] Start: 03-25-2024 End: 03-28-2024 Evaluation and management of inpatient Babak Claude Facility:[facility] Start: 03-25-2024 End: 03-25-2024 ambulatory Maximino Chi Aly Facility:[facility] Start: 03-29-2023 End: 03-29-2023 ambulatory [facility] Work Phone: Start: 03-29-2023 End: 03-29-2023 Patient encounter procedure [facility]-Laboratory, [facility] 3rd Flr Start: 09-21-2022 End: 09-21-2022 ambulatory [facility] Work Phone: Start: 09-21-2022 End: 09-21-2022 Patient encounter procedure [facility]Laboratory, [facility] Office 3rd Flr Start: 03-23-2022 End: 03-23-2022 ambulatory [facility] Work Phone: Start: 03-23-2022 End: 03-23-2022 Patient encounter procedure [facility]Laboratory, [facility] Office 3rd Flr Procedures Date Procedure Procedure Detail Performing Clinician Start: 10-28-2024 CT of head without contrast Dr. Maximino Lu MD Work Phone: Start: 10-27-2024 SARS-CoV-2, Influenza & RSV (PCR) Dr. Maximino Lu MD Work Phone: Start: 07-10-2024 MRI of neck vessels with contrast Dr. Maximino Lu MD Work Phone: Start: 07-10-2024 Magnetic resonance angiography of head without contrast Dr. Maximino Lu MD Work Phone: Start: 07-10-2024 MRI of brain without contrast Dr. Maximino Lu MD Work Phone: History of operative procedure on knee Status post right unicompartmental knee replacement Immunizations Immunization Date Immunization Notes Care Provider Fa [facility] 03-29-2023 influenza, injectabl e, quadrivalent, preservative free Dr. Maximino Lu MD Work Phone: [facility] 10-01-2020 Covid (Moderna) [facility] 09-03-2020 Covid (Moderna) [facility] 04-02-2014 pneumococcal conjuga te vaccine, [address] Maximino Lu MD Work Phone: [facility] 01-05-2014 Influenza virus vaccine [facility] 01-05-2014 Pneumococcal Vaccine [facility] Work Phone: 01-05-2014 pneumococcal vaccine , unspecified formulation [facility] Payers Date Payer Category Payer Self-pay [id number] 2014 Medicare [id number] Medicare MEDICARE PART A B [id number] Unknown [id number] 2.16.8 [id number] Unknown [id number] 2.16.8 [id number] Unknown [id number] 2.16.8 [id number] Unknown [id number] 2.16.8 [id number] Unknown [id number] 2.16.8 [id number] Unknown [id number] 2.16.8 [id number] Unknown [id number] 2.16.8 [id number] Unknown [id number] 2.16.8 [id number] Unknown [id number] 2.16.8 [id number] Unknown [id number] 2.16.8 [id number] Unknown [id number] 2.16.8 [id number] Unknown [id number] 2.16.8 [id number] Unknown [id number] 2.16.8 [id number] Unknown [id number] 2.16.8 [id number] Unknown [id number] 2.16.8 [id number] Unknown [id number] 2.16.8 [id number] Social History Date Type Detail Facility Start: 01-08-2020 End: 01-08-2020 Tobacco smoking status NHIS Unknown if ever smoked [facility] Start: 11-04-[address] [facility] Start: 11-04-[address] [facility] Start: 11-04-2014 Non-smoker [facility] Start: 1935 Sex Assigned At Female [facility] Start: 03-28-2024 [facility] Start: 11-03-2024 End: 11-06-2024 Sex Female (finding) [facility] Goals Date Patient Goal Desired Activity /State Radiology Diagnostic study note 10-28-2024 Note Date & Type Note Facility 10-28-2024 Radiology Diagnostic study note [facility] Imaging Services [address] [place] [address] Brain/Head without Contrast MR#: [id number] Acct: [id number] Name: DENZEL CHU Rep #: [id number] : 1935 F 89 From: Ana Casas MD PCP: Dr. Maximino Lu MD Status: REG C ORALIA Study:Brain/Head without Contrast Date of Exa m: 10/28/24 Exam# [id number] Ordering Dr: Maximino Lu MD EXAM: CT Head Without Intravenous Contrast CLINICAL INDICATION: CLOSED HEAD INJURY TECHNIQUE: Axial computed tomography images of the head/brain without intravenous contrast. This CT exam was performed using one or more of the following dose reduction techniques: automated exposure control, adjustment of the mA and/or kV according to patient size, and/or use of iterative reconstruction technique. COMPARISON: No relevant prior studies available. FINDINGS: BRAIN AND EXTRA-AXIAL SPACES: The cerebral and cerebellar sulci are prominent consistent with brain atrophy. Areas of decreased attenuation in the deep cerebral white matter are consistent with small vessel ischemic/degenerative changes. No acute intracranial hemorrhage, midline shift or mass effect. If symptoms persist, further evaluation with MRI is recommended. BONES/JOINTS: Unremarkable. No acute fracture. SOFT TISSUES: Unremarkable. SINUSES: Unremarkable as visualized. No acute sinusitis. MASTOID AIR CELLS: Unremarkable as visualized. No mastoid effusion. CT/Brain/Head without Contrast IMPRESSION: 1. Generalized brain atrophy. 2. Small vessel ischemic/degenerative changes. 3. No acute intracranial hemorrhage, midline shift or mass effect. If symptoms persist, further evaluation with MRI is recommended. Reading Location: [facility] CC: Dr. 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 [facility] Evaluation note 10-19-2024 Note Date & Type Note Facility 03-16-2025 Evaluation note Diagnosis Onset Date Resolution URI (upper respiratory infection) acute October 19, 2024 10:02am [facility] Work Phone: Discharge summary note 04-02-2024 Note Date & Type Note Facility 04-02-2024 Note [facility] Clinical Note 03-28-2024 Note Date & Type Note Facility 03-28-2024 Note [facility] Discharge summary note 03-28-2024 Note Date & Type Note Facility 03-28-2024 Note [facility] Evaluation note Note Date & Type Note Facility Evaluation note No assessment information availa ble [facility] Work Phone: Reason for referral (narrative) Note Date & Type Note Facility Reason for referral (narrative) No reason for referral information available [facility] Work Phone: Family History No Family History Records Found Relationship Condition Age at Onset Recorded Date/T guillermo mother Diabetes mellitus Unknown Myocardial infarction Unknown father Malignant neoplasm Unknown Advance Directives No Advanced Directives Records Found Advance Directive Response Recorded Date/ Time Advance Directives No October 22 11:21am Living Will No December 23, 2018 9 :21am 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 December 23, 2018 9:21am Advance Directive Response Recorded Date/ Time Advance Directives No October 22 10:21am Living Will No December 23, 2018 8 :21am 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 Maximino Lu MD Family Provider Active Dr. Maximino Lu MD Primary Care Provider Active Team Status: Inactive Member Role Status Dates Dr. Maximino Lu MD Primary Care Provider, Attending Provider Active Team Status: Active Member Role Status Dates Dr. Maximino Lu MD Primary Care Provider Active Team Status: Inactive Member Role Status Dates Dr. Maximino Lu MD Primary Care Provider Active Start: July 10, 2024 End: July 10, 2024 Dr. Maximino Lu MD Attending Provider Active Start: July 10, 2024 End: July 10, 2024 Dr. Maximino Lu MD Referring Provider Active Start: July 10, 2024 End: July 10, 2024 Team Status: Inactive Member Role Status Dates Dr. Maximino Lu MD Primary Care Provider Active Start: October 19, 2024 End: October 19, 2024 Dr. Maximino Lu MD Referring Provider Active Start: October 19, 2024 End: October 19, 2024 [facility] Attending Provider Active Start: [facility] 2024 End: October 19, 2024 Team Status: Active Member Role Status Dates Dr. Maximino Lu MD Primary Care Provider Active Start: October 27, 2024 Dr. Maximino Lu MD Attending Provider Active Start: October 27, 2024 Team Status: Inactive Member Role Status Dates Dr. Maximino Lu MD Primary Care Provider Active Start: October 28, 2024 End: October 28, 2024 Dr. Maximino Lu MD Attending Provider Active Start: October 28, 2024 End: October 28, 2024 Dr. Maximino Lu MD Referring Provider Active Start: October 28, 2024 End: October 28, 2024 Team Status: Inactive Member Role Status Dates Dr. Maximino Lu MD Primary Care Provider Active Start: October 27, 2024 End: October 27, 2024 Dr. Maximino Lu MD Attending Provider Active Start: October 27, 2024 End: October 27, 2024 Team Status: Inactive Member Role Status Dates Dr. Maximino Lu MD Primary Care Provider Active Start: November 05, 2024 End: November 05, 2024 Dr. Maximino Lu MD Attending Provider Active Start: November 05, 2024 End: November 05, 2024 Dr. Maximino Lu MD Referring Provider Active Start: November 05, 2024 End: November 05, 2024 INFORMATION SOURCE (unrecogn ized section and content) DATE CREATED AUTHOR 11/16/2024 [facility] FOR RECORDS PERTAINING TO PATIENTS WHO ARE OR HAVE BEEN ENROLLED IN A CHEMICAL DEPENDENCY/SUBSTANCEABUSE PROGRAM, SOME INFORMATION MAY BE OMITTED. This clinical summary was aggregated from multiple sources. Caution should be exercised in using it in the provision of clinical care. This summary normalizes information from multiple sources, and as a consequence, information in this document may materially change the coding, format and clinical context of patient data. In addition, data may be omitted in some cases. CLINICAL DECISIONS SHOULD BE BASED ON THE PRIMARY CLINICAL RECORDS. [facility]. provides no warranty or guarantee of the accuracy or completeness of information in this document.
== END | disposition home or self-care (01) ==
LOC: LAB 11:01
PROVIDERS: PCP Family Medicine Geriatric Medicine; Referring Provider Family Medicine Geriatric Medicine; Visit Provider Family Medicine Geriatric Medicine
DX: R11.2 Nausea with vomiting, unspecified (principal); M54.50 Low back pain, unspecified; R07.81 Pleurodynia
CPT/HCPCS: 36415; 71101; 72110; 80053; 85025

== ENCOUNTER → 2025-04-17 | Outpatient (CLI) | payer MEDICARE, SELFPAY ==
[2025-04-17 11:07] LABS: Color, Urine Yellow (Yellow); Glucose, Dipstick Normal (Normal); Ketone-Dipstick Negative (Negative); Leukocyte Esterase-Dipstick 500 /ul (Negative); Nitrite-Dipstick Positive (Negative); Occult Blood-Urine 25 /ul (Negative); Protein-Dipstick 15 mg/dl (Negative); Specific Gravity, Urine 1.015 (1.002-1.030); Urine Bilirubin Dipstick Negative (Negative)
--- OUTSIDE RECORDS SUMMARY | 2025-04-17 12:08 | XMS RPT_ITS | CCD ---
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 Maximino Sullivan Primary Care Provider Aly CHEN, Dr. Maximino Sullivan Attending Provider Aly CHEN, Dr. Maximino Sullivan Referring Provider Clinic, NOW Attending Provider Unavailable Aly CHEN, Dr. Maximino Sullivan Primary Care Provider Aly CHEN, Dr. Maximino Sullivan Referring Provider Roof BIOINFORMATICIAN-Javi Hughes Attending Provider Aly CHEN, Dr. Maximino Sullivan Attending Provider [phone] Aly, Maximino Chi Primary Care Unavailable Aly, Maximino Chi Referring Unavailable Roof Javi CLIFFORD Attending Unavailable Aly, Maximino Chi Attending Unavailable Aly, Maximino Chi Primary Care Unavailable Aly, Maximino Chi Referring Unavailable Aly, Maximino Chi Primary Care Unavailable Claude, Babak Consulting Unavailable Claude, Babak Admitting Unavailable White, Anel L Attending Unavailable White, Anel L Consulting Unavailable Claude, Babak Attending Unavailable Aly, Maximino Chi Attending Unavailable Aly, Maximino Chi Primary Care Unavailable Aly, Maximino Chi Referring Unavailable Aly, Maximino Chi Primary Care Unavailable Aly, Maximino Chi Referring Unavailable Aly, Maximino Chi Attending Unavailable Aly, Maximino Chi Attending Unavailable Aly, Maxmiino Chi Referring Unavailable William Leigh Consulting Unavailable Aly, Maximino Chi Primary Care Unavailable Aly, Maximino Chi Attending Unavailable Aly, Maximino Chi Referring Unavailable Aly, Maximino Chi Primary Care Unavailable Aly, Maximino Chi Primary Care Unavailable Lay, Maximino Chi Attending Unavailable Aly, Maximino Chi Primary Care Unavailable Aly, Maximino Chi Referring Unavailable Aly, Maximino Chi Attending Unavailable Aly, Maximino Chi Primary Care Unavailable Aly, Maximino Chi Referring Unavailable William Leigh Consulting Unavailable Frantz Fishman Attending Unavailable Aly, Maximino Chi Consulting Unavailable Aly, Maximino Chi Primary Care Unavailable Aly, Maximino Chi Referring Unavailable Aly, Maximino Chi Attending Unavailable Aly, Maximino Chi Attending Unavailable Aly, Maximino Chi Primary Care Unavailable Aly, Maximino Chi Primary Care Unavailable Claude, Babak Consulting Unavailable Claude, Babak Admitting Unavailable White, Anel L Attending Unavailable Aly, Maximino Chi Admitting Unavailable Aly, Maximino Chi Attending Unavailable Aly, Maximino Chi Referring Unavailable Aly, Maximino Chi Primary Care Unavailable Allergies Allergy Classification Reported Allergen(s) Allergy Type Date of Onset Reaction(s) Facility (7 sources) Ibandronate Drug Allergy 01-08-2020 Other [facility] Comment on above: LEG PAIN (7 sources) Latex Allergy to substance 01-08-2020 Other [facility] (1 source) Ibadronate Drug Allergy 10-19-2024 [facility] Repository (1 source) Latex Drug allergy (disorder) 10-19-2024 [facility] Repository Medications Current Medications Medication Drug Class(es) Dates Sig (Normalized) Sig (Original) aspirin 81 mg delayed release oral tablet (8 sources) Platelet Aggregation Inhibitor, Nonsteroidal Anti-inflammatory Drug [...] 2024 8:29pm azithromycin 250 mg oral tablet (4 sources) Macrolide Antimicrobial Start: 10-19-2024 Azithromycin (Zithromax Z-Chris) 250 mg tablet Active 0 PO .COMPLEX 6 October 19, 2024 12:00am For 250 mg dose pack: take 500 mg today (day 1), then 250 mg for 4 days (days 2-5) PO cholecalciferol 0.125 mg oral tablet (4 sources) Vitamin D Start: 03-25-2024 Cholecalciferol (Vitamin D3) (Vitamin D3) 125 mcg (5,000 unit) tablet Active 250 ug PO PEREZ March 25, 2024 12:00am lisinopril 20 mg oral tablet (7 sources) Angiotensin Converting Enzyme Inhibitor Start: 01-08-2020 take 1 tablet by mouth once daily Lisinopril 20 mg tablet Active 20 mg PO DAILY January 08, 2020 12:00am Multivitamin,Tx-Iron- Minerals (3 sources) Start: 10-27-2014 take 1 tablet by mouth once daily Multivitamin,Tx-Iron -Minerals Active 1 TABLET PO DAILY October 26, 2014 11:00pm Start: 10-27-2014 take 1 tablet by calvin th once daily Multivitamin,Jr-Uqgw-Dsbujxib Active 1 T ABLET PO DAILY October 27, 2014 12:00am Completed/Discontinued Medications Medication Drug Class(es) Dates Sig (Normalized) Sig (Original) acetaminophen 325 mg oral tablet (7 sources) Start: 11-12-2014 End: 10-22-2018 take 2 [...] / oxyCODONE hydrochloride 5 mg oral tablet (7 sources) Opioid Agonist Start: 11-05-2014 End: 11-12-2014 [...] 2014 8:32am baclofen 10 mg oral tablet (7 sources) gamma-Aminobutyric Acid-ergic Agonist Start: 01-08-2019 End: 01-08-2020 Baclofen 10 mg tablet Discontinued PO 14 14 January 08, 2019 12:00am January 08, 2020 11:37am Start: 01-08-2019 End: 01-08-2020 Baclofen Discontinued PO 14 14 January 08, 2019 12:00am January 08, 2020 11:37am diclofenac sodium 75 mg delayed release oral tablet (7 sources) Nonsteroidal Anti-inflammatory Drug Start: 01-08-2019 End: 01-08-2019 take 1 tablet by mouth twice daily Diclofenac Sodium 75 mg tablet,delayed release (DR/EC) Discontinued 75 mg PO TWICE A DAY January 08, 2019 12:00am January 08, 2019 2:32pm docusate sodium 50 mg / sennosides, longterm 8.6 mg oral tablet (7 sources) Start: 11-12-2014 End: 10-22-2018 Sennosides-Docusate Sodium 1 TABLET tablet Discontinued 1 {tbl} PO TWICE A DAY 0 November 12, 2014 12:00am October 22, 2018 10:23am Start: 11-12-2014 End: 10-22-2018 take 1 tablet by mouth twice daily Sennosides-Docusate Sodium Discontinued 1 TABLET PO TWICE A DAY 0 November 12, 2014 12:00am October 22, 2018 10:23am 0.3 ml enoxaparin sodium 100 mg/ml prefilled syringe (18 sources) Low Molecular Weight Heparin Start: 03-27-2024 End: 04-02-2024 Enoxaparin 30 mg/0.3 mL Syringe Discontinued 30 mg SC TWICE A DAY 0 March 27, 2024 12:00am April 02, 2024 8:30pm Start: 11-05-2014 End: 10-22-2018 Enoxaparin 30 MG/0.3 ML syri nge Discontinued 30 mg SC DAILY@0600 4 November 11, 2014 7:56am October 22, 2018 10:23am ergocalciferol 1.25 mg oral capsule (7 sources) Provitamin D2 Compound Start: 10-27-2014 End: 03-25-2024 Ergocalciferol (Vitamin D2) 50,000 UNIT capsule Discontinued 65880 U PO EVERY MONTH October 27, 2014 12:00am March 25, 2024 4:16pm hydroCHLOROthiazide 12.5 mg / lisinopril 20 mg oral tablet (7 sources) Thiazide Diuretic, Angiotensin Converting Enzyme Inhibitor Start: 10-27-2014 End: 01-08-2020 Lisinopril-Hydrochlor othiazide 1 TABLET tablet Discontinued 1 {tbl} PO DAILY October 27, 2014 12:00am January 08, 2020 11:37am Start: 10-27-2014 End: 01-08-2020 take 1 tablet by mouth once daily Lisinopril-Hydrochlorothiazide Discontin ued 1 TABLET PO DAILY October 27, 2014 12:00am January 08, 2020 11:37am Multivitamin,Xv-Senn-Pjhrazv s 1 TABLET tablet (4 sources) Start: 10-27-2014 End: 04-02-2024 take 1 tablet by mouth once daily Multivitamin,Av-Boqq-Jhyhbxdp 1 TABLET tablet Discontinued 1 {tbl} PO DAILY October 27, 2014 12:00am April 02, 2024 8:30pm ondansetron 4 mg disintegrating oral tablet (7 sources) Seroto kasia-3 Recept or Antago nist Start: 12-23-2018 End: 01-08-2019 take 1 tablet by mouth every six hours as needed for nausea Ondansetron 4 MG tablet Discontinued 4 mg PO EVERY 6 HOURS NEEDED as needed for Nausea December 23, 2018 2:24pm January 08, 2019 2:15pm prasterone 25 mg oral capsul e (7 sources) Start: 10-27-2014 End: 01-08-2019 take 1 capsule by mouth once daily Prasterone (Dhea) 25 MG capsule Discontinued 25 mg PO DAILY October 27, 2014 12:00am January 08, 2019 2:15pm pravastatin sodium 40 mg ora l tablet (7 sources) HMG-Co A Reduct ase Inhibi tor [...] 2018 10:23am predniSONE 20 mg oral tablet (4 sources) Start: 10-19-2024 End: 10-24-2024 take 2 tablets by mouth once daily Prednisone 20 mg tablet Discontinued 40 mg PO daily 10 October 19, 2024 12:00am October 23, 2024 12:00am October 24, 2024 12:14am promethazine hydrochloride 25 mg oral tablet (7 sources) Phenothiazine Start: 11-05-2014 End: 11-12-2014 take 1 tablet by mouth every four hours as needed for nausea Promethazine 25 MG tablet Discontinued 25 mg PO EVERY 4 HOURS NEEDED as needed for Nausea November 05, 2014 12:00am November 12, 2014 8:32am simvastatin 20 mg oral tablet (7 sources) HMG-CoA Reductase Inhibitor Start: 10-22-2018 End: 01-08-2020 take 1 tablet by mouth at bedtime Simvastatin 20 mg tablet Discontinued 20 mg PO AT BEDTIME October 22, 2018 12:00am January 08, 2020 11:37am Problems Active Problems Problem Classification Problem Date Documented Date Episodic/Chronic Acute cerebrovascular disease (1 source) Cerebral infarction, unspecified; Translations: [Cerebral infarction, unspecified] Onset: 07-21-2024 Chronic Cardiac dysrhythmias (7 sources) Premature atrial contraction; Translations: [Atrial premature depolarization] 01-07-2020 Chronic Disorders of lipid metabolism (7 sources) Hyperlipidemia; Translations: [Hyperlipidemia, unspecified] 01-07-2019 Chronic Essential hypertension (12 sources) Essential hypertension; Translations: [Essential (primary) hypertension] Onset: 11-06-2024 01-07-2019 Chronic Malaise and fatigue (4 sources) Asthenia; Translations: [Other malaise] 03-28-2024 Episodic Nausea and vomiting (1 source) Nausea with vomiting, unspecified; Translations: [Nausea with vomiting, unspecified] Onset: 01-12-2025 Episodic Nutritional deficiencies (4 sources) Vitamin D deficiency; Translations: [Vitamin D deficiency, unspecified] 03-28-2024 Chronic Other connective tissue disease (6 sources) History of prosthetic unicompartmental arthroplasty of right knee; Translations: [Presence of right artificial knee joint] 01-07-2019 Chronic Other connective tissue disease (4 sources) Rhabdomyolysis; Translations: [Rhabdomyolysis] 04-05-2024 Episodic Other injuries and conditions due to external causes (1 source) Unspecified injury of head, initial encounter; Translations: [Unspecified injury of head, initial encounter] Onset: 11-03-2024 Episodic Other upper respiratory infections (9 sources) Upper respiratory infection; Translations: [Acute upper respiratory infection, unspecified] Onset: 11-14-2024 10-19-2024 Episodic Residual codes; unclassified (1 source) Chills (without fever); Translations: [Chills (without fever)] Onset: 11-03-2024 Episodic Viral infection (8 sources) Disease caused by 2019-nCoV; Translations: [COVID-19] [...] electrocardiogram [ECG] [EKG]] Onset: 07-21-2024 Episodic Syncope (8 sources) Syncope; Translations: [Syncope and collapse] Onset: 12-23-2018 01-07-2020 Episodic Results Test Name Value Interpretation Reference Range Facility Absolute lymphocyte countOrd ered By: Maximino Lu on 01-07-2025 Lymphocytes Auto (Unsp spec) [#/Vol] 1.39 10*3/uL 0.83-4.51 [facility] Absolute neutrophil countOrd ered By: Maximino Lu on 01-07-2025 Neutrophils (Bld) [#/Vol] 9.3 10*3/uL High 2.0-7.7 [facility] Anion gap in Serum or Plasma Ordered By: Maximino Lu on 01-07-2025 Anion gap [Moles/Vol] 12 mmol/L 5-15 [facility] Automated lymphocyte count a s percentage of total leukocytesOrdered By: Maximino Lu on 01-07-2025 Lymphocytes/100 WBC Auto (Unsp spec) 12.0 % Low 19-41 [facility] BUN/creatinine ratioOrdered By: Maximino Lu on 01-07-2025 Urea nitrogen/Creatinine [Mass ratio] 23.2 mg/mg High 10-20 [facility] Basophil percentageOrdered B y: Maximino Lu on 01-07-2025 Basophils/100 WBC (Bld) 0.3 % 0-1 [facility] Bilirubin, totalOrdered By: Maximino Lu on 01-07-2025 Bilirubin [Mass/Vol] 0.64 mg/dL 0.00-1.30 [facility] CBC W/Diff, Automatedon -2024 Absolute Lymph 1.39 X10 3/uL Normal 0.83-4.51 [facility] Comment on above: Performed By: #### L 100.0100, L500.4050 ####[facility] [address] [place], [address] Absolute Neut 9.3 X10 3/uL High 2.0-7.7 [facility] Comment on above: Performed By: #### L 100.0100, L500.4050 ####[facility] [address] [place], [address] Basophils/100 WBC (Bld) 0.3 % Normal 0-1 [facility] Comment on above: Performed By: #### L 100.0100, L500.4050 ####[facility] [address] [place], [address] Eosinophils/100 WBC (Bld) 0.3 % Normal 0-5 [facility] Comment on above: Performed By: #### L 100.0100, L500.4050 ####[facility] [address] [place], [address] Erythrocyte distribution width (RBC) [Ratio] 14.6 % Normal 11.6-14.6 [facility] Comment on above: Performed By: #### L 100.0100, L500.4050 ####[facility] [address] [place], [address] Hematocrit (Bld) [Volume fraction] 36.7 % Low 37-47 [facility] Comment on above: Performed By: #### L 100.0100, L500.4050 ####[facility] [address] [place], [address] Hemoglobin (Bld) [Mass/Vol] 11.8 g/dL Low 12.0-15.0 [facility] Comment on above: Performed By: #### L 100.0100, L500.4050 ####[facility] [address] [place], [address] IG% 0.300 Normal 0.0-0.9 [facility] Comment on above: Result Comment: IG% - Immature Granulocytes (promyelocytes, myelocytes andmetamyelocytes) > 1% indicates that a LEFT SHIFT is Present. Performed By: #### L 100.0100, L500.4050 ####[facility] [address] [place], [address] Lymphocytes/100 WBC (Bld) 12.0 % Low 19-41 [facility] Comment on above: Performed By: #### L 100.0100, L500.4050 ####[facility] [address] [place], [address] MCH (RBC) [Entitic mass] 27.8 pg Normal 27.0-32.0 [facility] Comment on above: Performed By: #### L 100.0100, L500.4050 ####[facility] [address] [place], [address] MCHC (RBC) [Mass/Vol] 32.2 g/dL Normal 32-36 [facility] Comment on above: Performed By: #### L 100.0100, L500.4050 ####[facility] [address] [place], [address] MCV (RBC) [Entitic vol] 86.6 fL Normal 81-99 [facility] Comment on above: Performed By: #### L 100.0100, L500.4050 ####[facility] [address] [place], [address] Monocytes/100 WBC (Bld) 7.6 % Normal 0-10 [facility] Comment on above: Performed By: #### L 100.0100, L500.4050 ####[facility] [address] [place], [address] Neutrophils/100 WBC (Bld) 79.5 % High 47-70 [facility] Comment on above: Performed By: #### L 100.0100, L500.4050 ####[facility] [address] [place], [address] Nucleated RBC (Bld) [#/Vol] 0 10*3/uL Normal 0-5 [facility] Comment on above: Performed By: #### L 100.0100, L500.4050 ####[facility] [address] [place], [address] Platelet mean volume (Bld) [Entitic vol] 9.5 fL Normal 6.2-12.0 [facility] Comment on above: Performed By: #### L 100.0100, L500.4050 ####[facility] [address] [place], [address] Platelets (Bld) [#/Vol] 276 10*3/uL Normal 150-450 [facility] Comment on above: Performed By: #### L 100.0100, L500.4050 ####[facility] [address] [place], [address] RBC (Bld) [#/Vol] 4.24 10*6/uL Normal 4.2-5.4 [facility] Comment on above: Performed By: #### L 100.0100, L500.4050 ####[facility] [address] [place], [address] RDW SD 46.6 fl High 35.1-43.9 [facility] Comment on above: Performed By: #### L 100.0100, [id number] ####[facility] [address] [place], [address] WBC (Bld) [#/Vol] 11.6 10*3/uL High 4.4-11.0 [facility] Comment on above: Performed By: #### L 100.0100, L500.4050 ####[facility] [address] [place], [address] Carbon dioxide, total [Moles /volume] in Central venous bloodOrdered By: Maximino Lu on 01-07-2025 CO2 [Moles/Vol] 25.5 mmol/L 21.0-32.0 [facility] Chloride assayOrdered By: Tom Lu on 01-07-2025 Chloride [Moles/Vol] 103 mmol/L 98-108 [facility] Comprehensive Metabolic Prof ilon 01-07-2025 Albumin [Mass/Vol] 3.6 g/dL Normal 3.4-4.8 [facility] Comment on above: Performed By: #### L 100.0100, L500.4050 ####[facility] [address] [place], [address] Albumin/Globulin [Mass ratio] 1.3 {ratio} Normal 0.9-2.4 [facility] Comment on above: Performed By: #### L 100.0100, L500.4050 ####[facility] [address] [place], [address] ALK PHOS 58 U/L Normal 35-104 [facility] Comment on above: Performed By: #### L 100.0100, [id number] ####[facility] [address] [place], [address] ALT [Catalytic activity/Vol] 16 U/L Normal <=34 [facility] Comment on above: Performed By: #### L 100.0100, L500.4050 ####[facility] [address] [place], [address] AST [Catalytic activity/Vol] 26 U/L Normal <=31 [facility] Comment on above: Performed By: #### L 100.0100, L500.4050 ####[facility] [address] [place], [address] Bilirubin [Mass/Vol] 0.64 mg/dL Normal 0.00-1.30 [facility] Comment on above: Performed By: #### L 100.0100, [id number] ####[facility] [address] [place], [address] BUN/CRE 23.2 RATIO High 10-20 [facility] Comment on above: Performed By: #### L 100.0100, [id number] ####[facility] [address] [place], [address] Calcium [Mass/Vol] 8.8 mg/dL Normal 7.6-11.0 [facility] Comment on above: Performed By: #### L 100.0100, [id number] ####[facility] [address] [place], [address] Chloride [Moles/Vol] 103 mmol/L Normal 98-108 [facility] Comment on above: Performed By: #### L 100.0100, [id number] ####[facility] [address] [place], [address] CO2 [Moles/Vol] 25.5 mmol/L Normal 21.0-32.0 [facility] Comment on above: Performed By: #### L 100.0100, L500.4050 ####[facility] [address] [place], [address] Creatinine [Mass/Vol] 1.05 mg/dL Normal 0.70-1.20 [facility] Comment on above: Performed By: #### L 100.0100, L500.4050 ####[facility] [address] [place], [address] GAP 12 Normal 5-15 [facility] Comment on above: Performed By: #### L 100.0100, [id number] ####[facility] [address] [place], [address] GFR/1.73 sq M.predicted among non-blacks MDRD (S/P/Bld) [Vol rate/Area] 51 mL/min/{1.73_m2} Low >60 [facility] Comment on above: Result Comment: mL/m in/1.73m2 CKD-EPI Creatinine Equation (2020) Performed By: #### L 100.0100, [id number] ####[facility] [address] [place], [address] Globulin (S) [Mass/Vol] 2.7 g/dL Normal 2.2-4.2 [facility] Comment on above: Performed By: #### L 100.0100, [id number] ####[facility] [address] [place], [address] Glucose [Mass/Vol] 131 mg/dL High 70-99 [facility] Comment on above: Performed By: #### L 100.0100, [id number] ####[facility] [address] [place], [address] Potassium [Moles/Vol] 4.0 mmol/L Normal 3.3-5.1 [facility] Comment on above: Performed By: #### L 100.0100, L500.4050 ####[facility] [address] [place], [address] Sodium [Moles/Vol] 140 mmol/L Normal 133-145 [facility] Comment on above: Performed By: #### L 100.0100, [id number] ####[facility] [address] [place], [address] T PROT 6.3 g/dL Normal 5.9-8.4 [facility] Comment on above: Performed By: #### L 100.0100, L500.4050 ####[facility] [address] [place], [address] Urea nitrogen [Mass/Vol] 24 mg/dL High 4-19 [facility] Comment on above: Performed By: #### L 100.0100, [id number] ####[facility] [address] [place], [address] Eosinophil percentageOrdered By: Maximino Lu on 01-07-2025 Eosinophils/100 WBC (Bld) 0.3 % 0-5 [facility] Erythrocyte distribution wid th ratioOrdered By: Maximino Lu on 01-07-2025 Erythrocyte distribution width (RBC) [Ratio] 14.6 % 11.6-14.6 [facility] Erythrocyte distribution wid th standard deviationOrdered By: Maximino Lu on 01-07-2025 Erythrocyte distribution width (RBC) [Ratio] 46.6 fl High 35.1-43.9 [facility] Glomerular filtration rate ( GFR) estimation/1.73 sq m using serum, plasma, or whole bOrdered By: Maximino Lu on 01-07-2025 GFR/1.73 sq M.predicted among non-blacks MDRD (S/P/Bld) [Vol rate/Area] 51 mL/min/{1.73_m2} Low >60 [facility] Comment on above: mL/min/1.73m2 CKD-EP I Creatinine Equation (2020) Hematocrit Auto (Bld) [Volum e fraction]Ordered By: Maximino Lu on 01-07-2025 Hematocrit (Bld) [Volume fraction] 36.7 % Low 37-47 [facility] Hemoglobin measurementOrdere d By: Maximino Lu on 01-07-2025 Hemoglobin (Bld) [Mass/Vol] 11.8 g/dL Low 12.0-15.0 [facility] Immature granulocytes/100 WB C Auto (Bld)Ordered By: Maximino Lu on 01-07-2025 Immature granulocytes/100 WBC (Bld) 0.300 % 0.0-0.9 [facility] Comment on above: IG% - Immature Granu locytes (promyelocytes, myelocytes and metamyelocytes) > 1% indicates that a LEFT SHIFT is Present. L/S Spine Min 4 Viewson L/S Spine Min 4 Views Normal [facility] Laboratory - Chemistry and C hemistry - challengeOrdered By: Maximino Lu on 01-07-2025 AST [Catalytic activity/Vol] 26 U/L <32 [facility] MCV (mean corpuscular volume ) determinationOrdered By: Maixmino Lu 01-07-2025 MCV (RBC) [Entitic vol] 86.6 fL 81-99 [facility] Mean corpuscular hemoglobin (MCH) determinationOrdered By: Maximino Lu 01-07-2025 MCH (RBC) [Entitic mass] 27.8 pg 27.0-32.0 [facility] Mean corpuscular hemoglobin concentration (MCHC) determinationOrdered By: Maximino Lu 01-07-2025 MCHC (RBC) [Mass/Vol] 32.2 g/dL 32-36 [facility] Mean platelet volume determi nationOrdered By: Maximino Lu 01-07-2025 Platelet mean volume (Bld) [Entitic vol] 9.5 fL 6.2-12.0 [facility] Monocyte percentageOrdered B y: Maximino Lu on 01-07-2025 Monocytes/100 WBC (Bld) 7.6 % 0-10 [facility] Neutrophil percentageOrdered By: Maximino Lu on 01-07-2025 Neutrophils/100 WBC (Bld) 79.5 % High 47-70 [facility] Nucleated red blood cell per centageOrdered By: Maximino Lu on 01-07-2025 Nucleated RBC/100 WBC (Bld) [Ratio] 0 % 0-5 [facility] Platelet countOrdered By: Tom Lu on 01-07-2025 Platelets (Bld) [#/Vol] 276 10*3/uL 150-450 [facility] Potassium measurement (mass/ volume)Ordered By: Maximino Lu on 01-07-2025 Potassium (Unsp spec) [Mass/Vol] 4.0 mmol/L 3.3-5.1 [facility] RBC Auto (Bld) [#/Vol]Ordere d By: Maximino Lu on 01-07-2025 RBC (Bld) [#/Vol] 4.24 10*6/uL 4.2-5.4 [facility] Ribs Uni Min 3V w/PA Cheston 01-07-2025 Ribs Uni Min 3V w/PA Chest Normal [facility] Serum creatinine measurement (mass/volume)Ordered By: Maximino Lu on 01-07-2025 Creatinine [Mass/Vol] 1.05 mg/dL 0.70-1.20 [facility] Serum globulin measurementOr dered By: Maximino Lu on 01-07-2025 Globulin (S) [Mass/Vol] 2.7 g/dL 2.2-4.2 [facility] Serum glucose measurement (m ass/volume)Ordered By: Maximino Lu on 01-07-2025 Glucose [Mass/Vol] 131 mg/dL High 70-99 [facility] Serum or plasma alanine goode otransferase (ALT) measurementOrdered By: Maximino Lu on 01-07-2025 ALT [Catalytic activity/Vol] 16 U/L <35 [facility] [facility] Serum or plasma albumin marcellus urement (mass/volume)Ordered By: Maximino Lu on 01-07-2025 Albumin [Mass/Vol] 3.6 g/dL 3.4-4.8 [facility] Serum or plasma albumin/glob ulin mass ratioOrdered By: Maximino Lu 01-07-2025 Albumin/Globulin [Mass ratio] 1.3 {ratio} 0.9-2.4 [facility] Serum or plasma alkaline layne sphatase measurementOrdered By: Maximino Lu on 01-07-2025 ALP [Catalytic activity/Vol] 58 U/L 35-104 [facility] Serum or plasma calcium marcellus urement (mass/volume)Ordered By: Maximino Lu on 01-07-2025 Calcium [Mass/Vol] 8.8 mg/dL 7.6-11.0 [facility] Serum or plasma urea nitroge n measurement (mass/volume)Ordered By: Maximino Lu on 01-07-2025 Urea nitrogen [Mass/Vol] 24 mg/dL High 4-19 [facility] Sodium levelOrdered By: Maximino Lu on 01-07-2025 Sodium [Moles/Vol] 140 mmol/L 133-145 [facility] Total proteinOrdered By: Maximino Lu on 01-07-2025 Protein [Mass/Vol] 6.3 g/dL 5.9-8.4 [facility] White blood cell (WBC) count Ordered By: Maximino Lu on 01-07-2025 WBC (Bld) [#/Vol] 11.6 10*3/uL High 4.4-11.0 [facility] Absolute lymphocyte countOrd ered By: Maximino Lu on 11-05-2024 Lymphocytes Auto (Unsp spec) [#/Vol] 2.75 10*3/uL 0.83-4.51 [facility] Absolute neutrophil countOrd ered By: Maximino Lu on 11-05-2024 Neutrophils (Bld) [#/Vol] 7.6 10*3/uL 2.0-7.7 [facility] Anion gap in Serum or Plasma Ordered By: Maximino Lu on 11-05-2024 Anion gap [Moles/Vol] 10 mmol/L 5-15 [facility] Automated lymphocyte count a s percentage of total leukocytesOrdered By: Maximino Lu on 11-05-2024 Lymphocytes/100 WBC Auto (Unsp spec) 24.1 % 19-41 [facility] BUN/creatinine ratioOrdered By: Maximino Lu on 11-05-2024 Urea nitrogen/Creatinine [Mass ratio] 30.2 mg/mg High 10-20 [facility] Basophil percentageOrdered B y: Maximino Lu on 11-05-2024 Basophils/100 WBC (Bld) 0.5 % 0-1 [facility] Bilirubin, totalOrdered By: Maximino Lu on 11-05-2024 Bilirubin [Mass/Vol] 0.65 mg/dL Normal 0.00-1.30 [facility] Comment on above: Performed By: #### L 506.1001, L500.4050, L500.4100, L501.9520, L100.0100 ####[facility] [address] [place], [address] CBC W/Diff, Automatedon Absolute Lymph 2.75 X10 3/uL Normal 0.83-4.51 [facility] Comment on above: Performed By: #### L 506.1001, L500.4050, L500.4100, L501.9520, L100.0100 ####[facility] [address] [place], [address] Absolute Neut 7.6 X10 3/uL Normal 2.0-7.7 [facility] Comment on above: Performed By: #### L 506.1001, L500.4050, L500.4100, L501.9520, L100.0100 ####[facility] [address] [place], [address] Basophils/100 WBC (Bld) 0.5 % Normal 0-1 [facility] Comment on above: Performed By: #### L 506.1001, L500.4050, L500.4100, L501.9520, L100.0100 ####[facility] [address] [place], [address] Eosinophils/100 WBC (Bld) 1.1 % Normal 0-5 [facility] Comment on above: Performed By: #### L 506.1001, L500.4050, L500.4100, L501.9520, L100.0100 ####[facility] [address] [place], [address] Erythrocyte distribution width (RBC) [Ratio] 15.2 % High 11.6-14.6 [facility] Comment on above: Performed By: #### L 506.1001, L500.4050, L500.4100, L501.9520, L100.0100 ####[facility] [address] [place], [address] Hematocrit (Bld) [Volume fraction] 39.0 % Normal 37-47 [facility] Comment on above: Performed By: #### L 506.1001, L500.4050, L500.4100, L501.9520, L100.0100 ####[facility] [address] [place], [address] Hemoglobin (Bld) [Mass/Vol] 12.5 g/dL Normal 12.0-15.0 [facility] Comment on above: Performed By: #### L 506.1001, L500.4050, L500.4100, L501.9520, L100.0100 ####[facility] [address] [place], [address] IG% 0.800 Normal 0.0-0.9 [facility] Comment on above: Result Comment: IG% - Immature Granulocytes (promyelocytes, myelocytes andmetamyelocytes) > 1% indicates that a LEFT SHIFT is Present. Performed By: #### L 506.1001, L500.4050, L500.4100, L501.9520, L100.0100 ####[facility] [address] [place], [address] Lymphocytes/100 WBC (Bld) 24.1 % Normal 19-41 [facility] Comment on above: Performed By: #### L 506.1001, L500.4050, L500.4100, L501.9520, L100.0100 ####[facility] [address] [place], [address] MCH (RBC) [Entitic mass] 27.6 pg Normal 27.0-32.0 [facility] Comment on above: Performed By: #### L 506.1001, L500.4050, L500.4100, L501.9520, L100.0100 ####[facility] [address] [place], [address] MCHC (RBC) [Mass/Vol] 32.1 g/dL Normal 32-36 [facility] Comment on above: Performed By: #### L 506.1001, L500.4050, L500.4100, L501.9520, L100.0100 ####[facility] [address] [place], [address] MCV (RBC) [Entitic vol] 86.1 fL Normal 81-99 [facility] Comment on above: Performed By: #### L 506.1001, L500.4050, L500.4100, L501.9520, L100.0100 ####[facility] [address] [place], [address] Monocytes/100 WBC (Bld) 6.5 % Normal 0-10 [facility] Comment on above: Performed By: #### L 506.1001, L500.4050, L500.4100, L501.9520, L100.0100 ####[facility] [address] [place], [address] Neutrophils/100 WBC (Bld) 67.0 % Normal 47-70 [facility] Comment on above: Performed By: #### L 506.1001, L500.4050, L500.4100, L501.9520, L100.0100 ####[facility] [address] [place], [address] Nucleated RBC (Bld) [#/Vol] 0 10*3/uL Normal 0-5 [facility] Comment on above: Performed By: #### L 506.1001, L500.4050, L500.4100, L501.9520, L100.0100 ####[facility] [address] [place], [address] Platelet mean volume (Bld) [Entitic vol] 9.1 fL Normal 6.2-12.0 [facility] Comment on above: Performed By: #### L 506.1001, L500.4050, L500.4100, L501.9520, L100.0100 ####[facility] [address] [place], [address] Platelets (Bld) [#/Vol] 304 10*3/uL Normal 150-450 [facility] Comment on above: Performed By: #### L 506.1001, L500.4050, L500.4100, L501.9520, L100.0100 ####[facility] [address] [place], [address] RBC (Bld) [#/Vol] 4.53 10*6/uL Normal 4.2-5.4 [facility] Comment on above: Performed By: #### L 506.1001, L500.4050, L500.4100, L501.9520, L100.0100 ####[facility] [address] [place], [address] RDW SD 47.5 fl High 35.1-43.9 [facility] Comment on above: Performed By: #### L 506.1001, L500.4050, L500.4100, L501.9520, L100.0100 ####[facility] [address] [place], [address] WBC (Bld) [#/Vol] 11.4 10*3/uL High 4.4-11.0 [facility] Comment on above: Performed By: #### L 506.1001, L500.4050, L500.4100, L501.9520, L100.0100 ####[facility] [address] [place], [address] Calculated very low density lipoprotein (VLDL) cholesterol measurementOrdered By: Maximino Lu on 11-05-2024 Calculated very low density lipoprotein (VLDL) cholesterol measurement 20 mg/dL 5-40 [facility] VLDL Cholesterol 20 mg/dL 5-40 [facility] Carbon dioxide, total [Moles /volume] in Central venous bloodOrdered By: Maximino Lu on 11-05-2024 CO2 [Moles/Vol] 26.7 mmol/L Normal 21.0-32.0 [facility] Comment on above: Performed By: #### L 506.1001, L500.4050, L500.4100, L501.9520, L100.0100 ####[facility] [address] [place], [place], [id number] Chloride assayOrdered By: Tom Lu on 11-05-2024 Chloride [Moles/Vol] 105 mmol/L Normal 98-108 [facility] Comment on above: Performed By: #### L 506.1001, L500.4050, L500.4100, L501.9520, L100.0100 ####[facility] [address] [place], [address] Comprehensive Metabolic Prof ilon 11-05-2024 ALK PHOS 54 U/L Normal 35-104 [facility] Comment on above: Performed By: #### L 506.1001, L500.4050, L500.4100, L501.9520, L100.0100 ####[facility] [address] [place], [address] BUN/CRE 30.2 RATIO High 10-20 [facility] Comment on above: Performed By: #### L 506.1001, L500.4050, L500.4100, L501.9520, L100.0100 ####[facility] [address] [place], [address] GAP 10 Normal 5-15 [facility] Comment on above: Performed By: #### L 506.1001, L500.4050, L500.4100, L501.9520, L100.0100 ####[facility] [address] [place], [place], [id number] T PROT 6.3 g/dL Normal 5.9-8.4 [facility] Comment on above: Performed By: #### L 506.1001, L500.4050, L500.4100, L501.9520, L100.0100 ####[facility] [address] [place], [address] Comprehensive Metabolic Prof ilOrdered By: Maximino Lu on 11-05-2024 AST [Catalytic activity/Vol] 24 U/L Normal <=31 [facility] Comment on above: Performed By: #### L 506.1001, L500.4050, L500.4100, L501.9520, L100.0100 ####[facility] [address] [place], [place], [address] Eosinophil percentageOrdered By: Maximino Lu on 11-05-2024 Eosinophils/100 WBC (Bld) 1.1 % 0-5 [facility] Erythrocyte distribution wid th (RBC) [Ratio]Ordered By: Maximino Lu on 11-05-2024 Erythrocyte distribution width (RBC) [Entitic vol] 47.5 fL High 35.1-43.9 [facility] Erythrocyte distribution wid th ratioOrdered By: Maximino [place] on 11-05-2024 Erythrocyte distribution width (RBC) [Ratio] 15.2 % High 11.6-14.6 [facility] Erythrocyte distribution wid th standard deviationOrdered By: Maximino Aly on 11-05-2024 Erythrocyte distribution width (RBC) [Ratio] 47.5 fl High 35.1-43.9 [facility] GFR/1.73 sq M.predicted nani g non-blacks MDRD (S/P/Bld) [Vol rate/Area]Ordered By: Maximino Lu on 11-05-2024 Estimated GFR (MDRD) Non-Af Amer 72 >60 [facility] Comment on above: mL/min/1.73m2 CKD-EP I Creatinine Equation (2020) Glomerular filtration rate ( GFR) estimation/1.73 sq m using serum, plasma, or whole bOrdered By: Maximino Lu on 11-05-2024 GFR/1.73 sq M.predicted among non-blacks MDRD (S/P/Bld) [Vol rate/Area] 72 mL/min/{1.73_m2} Normal >60 [facility] Comment on above: mL/min/1.73m2 CKD-EP I Creatinine Equation (2020) Result Comment: mL/m in/1.73m2 CKD-EPI Creatinine Equation (2020) Performed By: #### L 506.1001, L500.4050, L500.4100, L501.9520, L100.0100 ####[facility] [address] [place], [address] Hematocrit Auto (Bld) [Volum e fraction]Ordered By: Maximino Lu on 11-05-2024 Hematocrit (Bld) [Volume fraction] 39.0 % 37-47 [facility] Hemoglobin measurementOrdere d By: Maximino Lu on 11-05-2024 Hemoglobin (Bld) [Mass/Vol] 12.5 g/dL 12.0-15.0 [facility] Immature granulocytes/100 WB C Auto (Bld)Ordered By: Maximino Lu on 11-05-2024 Immature granulocytes/100 WBC (Bld) 0.800 % 0.0-0.9 [facility] Comment on above: IG% - Immature Granu locytes (promyelocytes, myelocytes and metamyelocytes) > 1% indicates that a LEFT SHIFT is Present. L506.1001on 11-05-2024 Vitamin D 25-OH 40.1 ng/mL Normal 30-100 [facility] Comment on above: Result Comment: Leyda min D StatusDeficiency: <20 ng/mL (50nmol/L)Insufficiency: 20-30 ng/mL (50-75 nmol/L)Sufficiency: 30-100 ng/mL (75-250 nmol/L)Toxicity: >100 ng/mL (>250 nmol/L) Performed By: #### L 506.1001, L500.4050, L500.4100, L501.9520, L100.0100 ####[facility] [address] [place], [address] LDL calc ser/plasOrdered By: Maximino Lu on 11-05-2024 Cholesterol in LDL [Mass/Vol] 58 mg/dL Normal [facility] Comment on above: Lssjkwgjtc=457-051 m g/dL & Higher Pnmh=998 mg/dL or greater Result Comment: Bord xvppha=984-586 mg/dL Higher Dqce=692 mg/dL or greater Performed By: #### L 506.1001, L500.4050, L500.4100, L501.9520, L100.0100 ####[facility] [address] [place], [address] LDL Cholesterol, Calculated 58 mg/dL [facility] Comment on above: Cczmeivhvh=824-205 m g/dL & Higher Qxaw=423 mg/dL or greater Lipid Profileon 11-05-2024 CHOL:HDL 2.47 Normal [facility] Comment on above: Performed By: #### L 506.1001, L500.4050, L500.4100, L501.9520, L100.0100 ####[facility] [address] [place], [address] Cholesterol in VLDL [Mass/Vol] 20 mg/dL Normal 5-40 [facility] Comment on above: Performed By: #### L 506.1001, L500.4050, L500.4100, L501.9520, L100.0100 ####[facility] [address] [place], [address] Lymphocytes Auto (Unsp spec) [#/Vol]Ordered By: Maximino Lu on 11-05-2024 Lymphocytes (Bld) [#/Vol] 2.75 10*3/uL 0.83-4.51 [facility] Lymphocytes/100 WBC Auto (Un sp spec)Ordered By: Maximino Lu on 11-05-2024 Lymphocytes/100 WBC (Bld) 24.1 % 19-41 [facility] MCV (mean corpuscular volume ) determinationOrdered By: Maximino Lu on 11-05-2024 MCV (RBC) [Entitic vol] 86.1 fL 81-99 [facility] Mean corpuscular hemoglobin (MCH) determinationOrdered By: Maximino Lu on 11-05-2024 MCH (RBC) [Entitic mass] 27.6 pg 27.0-32.0 [facility] Mean corpuscular hemoglobin concentration (MCHC) determinationOrdered By: Maximino Lu on 11-05-2024 MCHC (RBC) [Mass/Vol] 32.1 g/dL 32-36 [facility] Mean platelet volume determi nationOrdered By: Maximino Lu on 11-05-2024 Platelet mean volume (Bld) [Entitic vol] 9.1 fL 6.2-12.0 [facility] Monocyte percentageOrdered B y: aMximino Lu on 11-05-2024 Monocytes/100 WBC (Bld) 6.5 % 0-10 [facility] Neutrophil percentageOrdered By: Maximino Lu on 11-05-2024 Neutrophils/100 WBC (Bld) 67.0 % 47-70 [facility] Nucleated red blood cell per centageOrdered By: Maximino Lu on 11-05-2024 Nucleated RBC/100 WBC (Bld) [Ratio] 0 % 0-5 [facility] Platelet countOrdered By: Tom Lu on 11-05-2024 Platelets (Bld) [#/Vol] 304 10*3/uL 150-450 [facility] Potassium measurement (mass/ volume)Ordered By: Maximino Lu on 11-05-2024 Potassium (Unsp spec) [Mass/Vol] 4.3 mmol/L 3.3-5.1 [facility] Potassium [Moles/Vol] 4.3 mmol/L Normal 3.3-5.1 [facility] Comment on above: Performed By: #### L 506.1001, L500.4050, L500.4100, L501.9520, L100.0100 ####[facility] [address] [place], [address] RBC Auto (Bld) [#/Vol]Ordere d By: Maximino Lu on 11-05-2024 RBC (Bld) [#/Vol] 4.53 10*6/uL 4.2-5.4 [facility] Screening total cholesterol/ high density lipoprotein (HDL) cholesterol ratioOrdered By: Maximino Lu on 11-05-2024 Cholesterol.total/Anabella sterol in HDL [Mass ratio] 2.47 {ratio} [facility] Serum creatinine measurement (mass/volume)Ordered By: Maximino Lu on 11-05-2024 Creatinine [Mass/Vol] 0.79 mg/dL Normal 0.70-1.20 [facility] Comment on above: Performed By: #### L 506.1001, L500.4050, L500.4100, L501.9520, L100.0100 ####[facility] [address] [place], [address] Serum globulin measurementOr dered By: Maximino Lu on 11-05-2024 Globulin (S) [Mass/Vol] 2.6 g/dL Normal 2.2-4.2 [facility] Comment on above: Performed By: #### L 506.1001, L500.4050, L500.4100, L501.9520, L100.0100 ####[facility] [address] [place], [address] Serum glucose measurement (m ass/volume)Ordered By: Maximino Lu on 11-05-2024 Glucose [Mass/Vol] 80 mg/dL Normal 70-99 [facility] Comment on above: Performed By: #### L 506.1001, L500.4050, L500.4100, L501.9520, L100.0100 ####[facility] [address] [place], [address] Serum or plasma alanine goode otransferase (ALT) measurementOrdered By: Maximino Lu on 11-05-2024 ALT [Catalytic activity/Vol] 22 U/L Normal <=34 [facility] Comment on above: Performed By: #### L 506.1001, L500.4050, L500.4100, L501.9520, L100.0100 ####[facility] [address] [place], [place], [id number] Serum or plasma albumin marcellus urement (mass/volume)Ordered By: Maximino Lu on 11-05-2024 Albumin [Mass/Vol] 3.7 g/dL Normal 3.4-4.8 [facility] Comment on above: Performed By: #### L 506.1001, L500.4050, L500.4100, L501.9520, L100.0100 ####[facility] [address] [place], [place], [id number] Serum or plasma albumin/glob ulin mass ratioOrdered By: Maximino Lu on 11-05-2024 Albumin/Globulin [Mass ratio] 1.4 {ratio} Normal 0.9-2.4 [facility] Comment on above: Performed By: #### L 506.1001, L500.4050, L500.4100, L501.9520, L100.0100 ####[facility] [address] [place], [place], [address] Serum or plasma alkaline layne sphatase measurementOrdered By: Maximino Lu on 11-05-2024 ALP [Catalytic activity/Vol] 54 U/L 35-104 [facility] Serum or plasma calcium marcellus urement (mass/volume)Ordered By: Maximino Lu on 11-05-2024 Calcium [Mass/Vol] 9.3 mg/dL Normal 7.6-11.0 [facility] Comment on above: Performed By: #### L 506.1001, L500.4050, L500.4100, L501.9520, L100.0100 ####[facility] [address] [place], [place], [address] Serum or plasma cholesterol in HDL measurement (mass/volume)Ordered By: Maximino Lu on 11-05-2024 Cholesterol in HDL [Mass/Vol] 53 mg/dL Normal [facility] Comment on above: National Cholesterol Education [...] sex and age. Performed By: #### L 506.1001, L500.4050, L500.4100, L501.9520, L100.0100 ####[facility] [address] [place], [place], [address] Serum or plasma cholesterol measurement (mass/volume)Ordered By: Maximino Lu on 11-05-2024 Cholesterol [Mass/Vol] 131 mg/dL Normal <=200 [facility] Comment on above: Cholesterol level, D esirable <200 mg/dLBorderline high cholesterol 200-239 mg/dLHigh cholesterol >=240 mg/dLRecommendations of the NCEP Adult Treatment Panel for the following risk-cutoff thresholds for the [place] population. Result Comment: Chol esterol level, Desirable <200 mg/dLBorderline high cholesterol 200-239 mg/dLHigh cholesterol >=240 mg/dLRecommendations of the NCEP Adult Treatment Panel for thefollowing risk-cutoff thresholds for the [place] Americanpopulation. Performed By: #### L 506.1001, L500.4050, L500.4100, L501.9520, L100.0100 ####[facility] [address], [address] Serum or plasma urea nitroge n measurement (mass/volume)Ordered By: Maximino Lu on 11-05-2024 Urea nitrogen [Mass/Vol] 24 mg/dL High 4-19 [facility] Comment on above: Performed By: #### L 506.1001, L500.4050, L500.4100, L501.9520, L100.0100 ####[facility] [address] [place], [address] Sodium levelOrdered By: Maximino Lu on 11-05-2024 Sodium [Moles/Vol] 141 mmol/L Normal 133-145 [facility] Comment on above: Performed By: #### L 506.1001, L500.4050, L500.4100, L501.9520, L100.0100 ####[facility] [address] [place], [place], [id number] TSH DL <= 0.005 mIU/L QnOrde red By: Maximino Lu on 11-05-2024 Thyroid Stimulating Hormone (TSH) 1.360 uIU/mL 0.300-4.200 [facility] TSH Qn 1.360 uIU/mL 0.300-4.200 [facility] Thyroid Stim Hormone (TSH)on 11-05-2024 TSH 1.360 uIU/mL Normal 0.300-4.200 [facility] Comment on above: Performed By: #### L 506.1001, L500.4050, L500.4100, L501.9520, L100.0100 ####[facility] [address] [place], [address] Total proteinOrdered By: Maximino Lu on 11-05-2024 Protein [Mass/Vol] 6.3 g/dL 5.9-8.4 [facility] Triglycerides measurementOrd ered By: Maximino Lu on 11-05-2024 Triglyceride [Mass/Vol] 101 mg/dL Normal [facility] Comment on above: The drugs N-Acetylcy steine and Metamizole may falsely depress this assay. Normal range: <150 mg/dLBorderline High: 150-199 mg/dLHigh: 200-499 mg/dLVery High: >500 mg/dL Result Comment: The drugs N-Acetylcysteine and Metamizole may falselydepress this assay.Normal range: <150 mg/dLBorderline High: 150-199 mg/dLHigh: 200-499 mg/dLVery High: >500 mg/dL Performed By: #### L 506.1001, L500.4050, L500.4100, L501.9520, L100.0100 ####[facility] [address] [place], [place], [id number] Vitamin D, 25-hydroxyOrdered By: Maximino Lu on 11-05-2024 Vitamin D 25-Hydroxy 40.1 ng/mL 30-100 [facility] Comment on above: Vitamin D StatusDefi ciency: <20 ng/mL (50nmol/L)Insufficiency: 20-30 ng/mL (50-75 nmol/L)Sufficiency: 30-100 ng/mL (75-250 nmol/L)Toxicity: >100 ng/mL (>250 nmol/L) White blood cell (WBC) count Ordered By: Maximino Lu on 11-05-2024 WBC (Bld) [#/Vol] 11.4 10*3/uL High 4.4-11.0 [facility] Brain/Head without Contrasto n 10-28-2024 Brain/Head without Contrast Normal [facility] Absolute lymphocyte countOrd ered By: Maximino Lu on 10-27-2024 Lymphocytes Auto (Unsp spec) [#/Vol] 2.96 10*3/uL 0.83-4.51 [facility] Absolute neutrophil countOrd ered By: Maximino Lu on 10-27-2024 Neutrophils (Bld) [#/Vol] 6.3 10*3/uL 2.0-7.7 [facility] Automated lymphocyte count a s percentage of total leukocytesOrdered By: Maximino Lu on 10-27-2024 Lymphocytes/100 WBC Auto (Unsp spec) 29.7 % 19-41 [facility] Basophil percentageOrdered B y: Maximino Lu on 10-27-2024 Basophils/100 WBC (Bld) 0.3 % 0-1 [facility] CBC W/Diff, Automatedon 10-05 Absolute Lymph 2.96 X10 3/uL Normal 0.83-4.51 [facility] Comment on above: Performed By: #### M 100.678, L100.0100 ####[facility] [address] [place], [address] Absolute Neut 6.3 X10 3/uL Normal 2.0-7.7 [facility] Comment on above: Performed By: #### M 100.678, L100.0100 ####[facility] [address] [place], [address] Basophils/100 WBC (Bld) 0.3 % Normal 0-1 [facility] Comment on above: Performed By: #### M 100.678, L100.0100 ####[facility] [address] [place], [address] Eosinophils/100 WBC (Bld) 0.6 % Normal 0-5 [facility] Comment on above: Performed By: #### M 100.678, L100.0100 ####[facility] [address] [place], [address] Erythrocyte distribution width (RBC) [Ratio] 14.6 % Normal 11.6-14.6 [facility] Comment on above: Performed By: #### M 100.678, L100.0100 ####[facility] [address] [place], [address] Hematocrit (Bld) [Volume fraction] 43.5 % Normal 37-47 [facility] Comment on above: Performed By: #### M 100.678, L100.0100 ####[facility] [address] [place], [address] Hemoglobin (Bld) [Mass/Vol] 13.8 g/dL Normal 12.0-15.0 [facility] Comment on above: Performed By: #### M 100.678, L100.0100 ####[facility] [address] [place], [address] IG% 0.900 Normal 0.0-0.9 [facility] Comment on above: Result Comment: IG% - Immature Granulocytes (promyelocytes, myelocytes andmetamyelocytes) > 1% indicates that a LEFT SHIFT is Present. Performed By: #### M 100.678, L100.0100 ####[facility] [address] [place], [address] Lymphocytes/100 WBC (Bld) 29.7 % Normal 19-41 [facility] Comment on above: Performed By: #### M 100.678, L100.0100 ####[facility] [address] [place], [address] MCH (RBC) [Entitic mass] 27.6 pg Normal 27.0-32.0 [facility] Comment on above: Performed By: #### M 100.678, L100.0100 ####[facility] [address] [place], [address] MCHC (RBC) [Mass/Vol] 31.7 g/dL Low 32-36 [facility] Comment on above: Performed By: #### M 100.678, L100.0100 ####[facility] [address] [place], [address] MCV (RBC) [Entitic vol] 87.0 fL Normal 81-99 [facility] Comment on above: Performed By: #### M 100.678, L100.0100 ####[facility] [address] [place], [address] Monocytes/100 WBC (Bld) 5.1 % Normal 0-10 [facility] Comment on above: Performed By: #### M 100.678, L100.0100 ####[facility] [address] [place], [address] Neutrophils/100 WBC (Bld) 63.4 % Normal 47-70 [facility] Comment on above: Performed By: #### M 100.678, L100.0100 ####[facility] [address] [place], [address] Nucleated RBC (Bld) [#/Vol] 0 10*3/uL Normal 0-5 [facility] Comment on above: Performed By: #### M 100.678, L100.0100 ####[facility] [address] [place], [address] Platelet mean volume (Bld) [Entitic vol] 10.5 fL Normal 6.2-12.0 [facility] Comment on above: Performed By: #### M 100.678, L100.0100 ####[facility] [address] [place], [address] Platelets (Bld) [#/Vol] 258 10*3/uL Normal 150-450 [facility] Comment on above: Performed By: #### M 100.678, L100.0100 ####[facility] [address] [place], [address] RBC (Bld) [#/Vol] 5.00 10*6/uL Normal 4.2-5.4 [facility] Comment on above: Performed By: #### M 100.678, L100.0100 ####[facility] [address] [place], [address] RDW SD 46.5 fl High 35.1-43.9 [facility] Comment on above: Performed By: #### M 100.678, L100.0100 ####[facility] [address] [place], [address] WBC (Bld) [#/Vol] 10.0 10*3/uL Normal 4.4-11.0 [facility] Comment on above: Performed By: #### M 100.678, L100.0100 ####[facility] [address] [place], [place], [address] Eosinophil percentageOrdered By: Maximino Lu on 10-27-2024 Eosinophils/100 WBC (Bld) 0.6 % 0-5 [facility] Erythrocyte distribution wid th ratioOrdered By: [facility] on 10-27-2024 Erythrocyte distribution width (RBC) [Ratio] 14.6 % 11.6-14.6 [facility] Erythrocyte distribution wid th standard deviationOrdered By: [facility]24 Erythrocyte distribution width (RBC) [Entitic vol] 46.5 fL High 35.1-43.9 [facility] Erythrocyte distribution width (RBC) [Ratio] 46.5 fl High 35.1-43.9 [facility] Hematocrit Auto (Bld) [Volum e fraction]Ordered By[facility] 10-[facility]24 Hematocrit (Bld) [Volume fraction] 43.5 % 37-47 [facility] Hemoglobin measurementOrdere d By: Maximino [place] on 10-27-2024 Hemoglobin (Bld) [Mass/Vol] 13.8 g/dL 12.0-15.0 [facility] Immature granulocytes/100 WB C Auto (Bld)Ordered By: Maximino Aly 10-27-2024 Immature granulocytes/100 WBC (Bld) 0.900 % 0.0-0.9 [facility] Comment on above: IG% - Immature Granu locytes (promyelocytes, myelocytes and metamyelocytes) > 1% indicates that a LEFT SHIFT is Present. Influenza virus A and B and SARS-CoV-2 (COVID-19) and Respiratory syncytial virus RNAOrdered By: Maximino Aly on 10-27-2024 SARS-CoV-2 (COVID-19) RNA TAI+probe Ql (Unsp spec) Influenzae A Abnormal [facility] Lymphocytes Auto (Unsp spec) [#/Vol]Ordered By: Maximino Lu on 10-27-2024 Lymphocytes (Bld) [#/Vol] 2.96 10*3/uL 0.83-4.51 [facility] Lymphocytes/100 WBC Auto (Un sp spec)Ordered By: Maximino Lu on 10-27-2024 Lymphocytes/100 WBC (Bld) 29.7 % 19-41 [facility] M100.678on 10-27-2024 M100.678 Normal [facility] Comment on above: Performed By: #### M 100.678, L100.0100 ####[facility] [address] [place], [address] MCV (mean corpuscular volume ) determinationOrdered By: Maximino Lu on 10-27-2024 MCV (RBC) [Entitic vol] 87.0 fL 81-99 [facility] Mean corpuscular hemoglobin (MCH) determinationOrdered By: Maximino Lu on 10-27-2024 MCH (RBC) [Entitic mass] 27.6 pg 27.0-32.0 [facility] Mean corpuscular hemoglobin concentration (MCHC) determinationOrdered By: Maximino Lu on 10-27-2024 MCHC (RBC) [Mass/Vol] 31.7 g/dL Low 32-36 [facility] Mean platelet volume determi nationOrdered By: Maximino Lu on 10-27-2024 Platelet mean volume (Bld) [Entitic vol] 10.5 fL 6.2-12.0 [facility] Monocyte percentageOrdered B y: Maximino Lu on 10-27-2024 Monocytes/100 WBC (Bld) 5.1 % 0-10 [facility] Neutrophil percentageOrdered By: Maximino Lu on 10-27-2024 Neutrophils/100 WBC (Bld) 63.4 % 47-70 [facility] Nucleated red blood cell per centageOrdered By: Maximino Lu on 10-27-2024 Nucleated RBC/100 WBC (Bld) [Ratio] 0 % 0-5 [facility] Platelet countOrdered By: Tom Lu on 10-27-2024 Platelets (Bld) [#/Vol] 258 10*3/uL 150-450 [facility] RBC Auto (Bld) [#/Vol]Ordere d By: Maximino Lu on 10-27-2024 RBC (Bld) [#/Vol] 5.00 10*6/uL 4.2-5.4 [facility] White blood cell (WBC) count Ordered By: Maximino Lu on 10-27-2024 WBC (Bld) [#/Vol] 10.0 10*3/uL 4.4-11.0 [facility] Urgent Care Visit Reporton 0 10-19-2024 Urgent Care Visit Report Normal [facility] Brain without Contraston Brain without Contrast Normal [facility] CREATININE FINGERSTICKon CREATININE WB < 1.0 Normal 0.55-1.02 [facility] Comment on above: Performed By: #### L 9100.0200 ####[facility] [address] [place], [place], [address] EGFR WB > 60.0000 Normal >60 [facility] Comment on above: Performed By: #### L 9100.0200 ####[facility] [address] [place], [place], [address] Creatinine measurement at dsideOrdered By: Maximino Lu on 07-10-2024 Bedside Creatinine < 1.0 mg/dL 0.55-1.02 [facility] EGFROrdered By: Maximino Lu on 07-10-2024 Bedside Estimated GFR (eGFR) > 60.0000 mL/min >60 [facility] MRA Head ONLY without Contra ston 07-10-2024 MRA Head ONLY without Contrast Normal [facility] MRA Neck WITH and W/O Contra ston 07-10-2024 MRA Neck WITH and W/O Contrast Normal [facility] Echo Completeon 06-24-2024 Echo Complete Normal [facility] Stress Reporton 06-24-2024 Stress Report Normal [facility] Basic Metabolic Profile (BMP )on 05-09-2024 BUN Normal 7-18 [facility] Comment on above: Result Comment: Canc elled via OM: Order cancelled - Patient discharged Performed By: #### L 500.2500, L100.0100 ####[facility] [address] [place], [address] BUN/CRE Normal 10-20 [facility] Comment on above: Result Comment: Canc elled via OM: Order cancelled - Patient discharged Performed By: #### L 500.2500, L100.0100 ####[facility] [address] [place], [address] CA,Total Normal 8.5-10.1 [facility] Comment on above: Result Comment: Canc elled via OM: Order cancelled - Patient discharged Performed By: #### L 500.2500, L100.0100 ####[facility] [address] [place], [address] CL Normal 98-107 [facility] Comment on above: Result Comment: Canc elled via OM: Order cancelled - Patient discharged Performed By: #### L 500.2500, L100.0100 ####[facility] [address] [place], [address] CO2 Normal 21.0-32.0 [facility] Comment on above: Result Comment: Canc elled via OM: Order cancelled - Patient discharged Performed By: #### L 500.2500, L100.0100 ####[facility] [address] [place], [address] CREAT,SERUM Normal 0.55-1.02 [facility] Comment on above: Result Comment: Canc elled via OM: Order cancelled - Patient discharged Performed By: #### L 500.2500, L100.0100 ####[facility] [address] [place], [address] EST GFR Normal >60 [facility] Comment on above: Result Comment: Canc elled via OM: Order cancelled - Patient discharged Performed By: #### L 500.2500, L100.0100 ####[facility] [address] [place], [address] EST GFR - AA Normal >60 [facility] Comment on above: Result Comment: Canc elled via OM: Order cancelled - Patient discharged Performed By: #### L 500.2500, L100.0100 ####[facility] [address] [place], [address] GAP Normal 5-15 [facility] Comment on above: Result Comment: Canc elled via OM: Order cancelled - Patient discharged Performed By: #### L 500.2500, L100.0100 ####[facility] [address] [place], [address] GLU Normal 74-106 [facility] Comment on above: Result Comment: Canc elled via OM: Order cancelled - Patient discharged Performed By: #### L 500.2500, L100.0100 ####[facility] [address] [place], [address] Potassium Normal 3.5-5.1 [facility] Comment on above: Result Comment: Canc elled via OM: Order cancelled - Patient discharged Performed By: #### L 500.2500, L100.0100 ####[facility] [address] [place], [address] Basic Metabolic Profile (BMP) Normal 136-145 [facility] Comment on above: Result Comment: Canc elled via OM: Order cancelled - Patient discharged Performed By: #### L 500.2500, L100.0100 ####[facility] [address] [place], [address] CBC W/Diff, Automatedon 10-0 Absolute Neut Normal 2.0-7.7 [facility] Comment on above: Result Comment: Canc elled via OM: Order cancelled - Patient discharged Performed By: #### L 500.2500, L100.0100 ####[facility] [address] [place], [address] HCT Normal 37-47 [facility] Comment on above: Result Comment: Canc elled via OM: Order cancelled - Patient discharged Performed By: #### L 500.2500, L100.0100 ####[facility] [address] [place], [address] HGB Normal 12.0-15.0 [facility] Comment on above: Result Comment: Canc elled via OM: Order cancelled - Patient discharged Performed By: #### L 500.2500, L100.0100 ####[facility] [address] [place], [address] MCH Normal 27.0-32.0 [facility] Comment on above: Result Comment: Canc elled via OM: Order cancelled - Patient discharged Performed By: #### L 500.2500, L100.0100 ####[facility] [address] [place], [address] MCHC Normal 32-36 [facility] Comment on above: Result Comment: Canc elled via OM: Order cancelled - Patient discharged Performed By: #### L 500.2500, L100.0100 ####[facility] [address] [place], [address] MCV Normal 81-99 [facility] Comment on above: Result Comment: Canc elled via OM: Order cancelled - Patient discharged Performed By: #### L 500.2500, L100.0100 ####[facility] [address] [place], [address] NEUT% Normal 47-70 [facility] Comment on above: Result Comment: Canc elled via OM: Order cancelled - Patient discharged Performed By: #### L 500.2500, L100.0100 ####[facility] [address] [place], [address] PLT Normal 150-450 [facility] Comment on above: Result Comment: Canc elled via OM: Order cancelled - Patient discharged Performed By: #### L 500.2500, L100.0100 ####[facility] [address] [place], [address] RBC Normal 4.2-5.4 [facility] Comment on above: Result Comment: Canc elled via OM: Order cancelled - Patient discharged Performed By: #### L 500.2500, L100.0100 ####[facility] [address] [place], [address] RDW CV Normal 11.6-14.6 [facility] Comment on above: Result Comment: Canc elled via OM: Order cancelled - Patient discharged Performed By: #### L 500.2500, L100.0100 ####[facility] [address] [place], [address] RDW SD Normal 35.1-43.9 [facility] Comment on above: Result Comment: Canc elled via OM: Order cancelled - Patient discharged Performed By: #### L 500.2500, L100.0100 ####[facility] [address] [place], [address] WBC Normal 4.4-11.0 [facility] Comment on above: Result Comment: Canc elled via OM: Order cancelled - Patient discharged Performed By: #### L 500.2500, L100.0100 ####[facility] [address] [place], [address] CBC W/Diff, Automatedon 10-0 -2023 Absolute Lymph 2.73 X10 3/uL Normal 0.83-4.51 [facility] Comment on above: Performed By: #### L 500.4100, L500.4050, L506.1000, L501.9520, L100.0100 ####[facility] [address] [place], [address] Absolute Neut 4.8 X10 3/uL Normal 2.0-7.7 [facility] Comment on above: Performed By: #### L 500.4100, L500.4050, L506.1000, L501.9520, L100.0100 ####[facility] [address] [place], [address] Basophils/100 WBC (Bld) 0.7 % Normal 0-1 [facility] Comment on above: Performed By: #### L 500.4100, L500.4050, L506.1000, L501.9520, L100.0100 ####[facility] [address] [place], [address] Eosinophils/100 WBC (Bld) 1.7 % Normal 0-5 [facility] Comment on above: Performed By: #### L 500.4100, L500.4050, L506.1000, L501.9520, L100.0100 ####[facility] [address] [place], [address] Erythrocyte distribution width (RBC) [Ratio] 15.5 % High 11.6-14.6 [facility] Comment on above: Performed By: #### L 500.4100, L500.4050, L506.1000, L501.9520, L100.0100 ####[facility] [address] [place], [address] Hematocrit (Bld) [Volume fraction] 39.3 % Normal 37-47 [facility] Comment on above: Performed By: #### L 500.4100, L500.4050, L506.1000, L501.9520, L100.0100 ####[facility] [address] [place], [address] Hemoglobin (Bld) [Mass/Vol] 12.0 g/dL Normal 12.0-15.0 [facility] Comment on above: Performed By: #### L 500.4100, L500.4050, L506.1000, L501.9520, L100.0100 ####[facility] [address] [place], [address] IG% 0.400 Normal 0.0-0.9 [facility] Comment on above: Result Comment: IG% - Immature Granulocytes (promyelocytes, myelocytes andmetamyelocytes) > 1% indicates that a LEFT SHIFT is Present. Performed By: #### L 500.4100, L500.4050, L506.1000, L501.9520, L100.0100 ####[facility] [address] [place], [address] Lymphocytes/100 WBC (Bld) 33.1 % Normal 19-41 [facility] Comment on above: Performed By: #### L 500.4100, L500.4050, L506.1000, L501.9520, L100.0100 ####[facility] [address] [place], [address] MCH (RBC) [Entitic mass] 27.0 pg Normal 27.0-32.0 [facility] Comment on above: Performed By: #### L 500.4100, L500.4050, L506.1000, L501.9520, L100.0100 ####[facility] [address] [place], [address] MCHC (RBC) [Mass/Vol] 30.5 g/dL Low 32-36 [facility] Comment on above: Performed By: #### L 500.4100, L500.4050, L506.1000, L501.9520, L100.0100 ####[facility] [address] [place], [address] MCV (RBC) [Entitic vol] 88.5 fL Normal 81-99 [facility] Comment on above: Performed By: #### L 500.4100, L500.4050, L506.1000, L501.9520, L100.0100 ####[facility] [address] [place], [address] Monocytes/100 WBC (Bld) 6.4 % Normal 0-10 [facility] Comment on above: Performed By: #### L 500.4100, L500.4050, L506.1000, L501.9520, L100.0100 ####[facility] [address] [place], [address] Neutrophils/100 WBC (Bld) 57.7 % Normal 47-70 [facility] Comment on above: Performed By: #### L 500.4100, L500.4050, L506.1000, L501.9520, L100.0100 ####[facility] [address] [place], [address] Nucleated RBC (Bld) [#/Vol] 0 10*3/uL Normal 0-5 [facility] Comment on above: Performed By: #### L 500.4100, L500.4050, L506.1000, L501.9520, L100.0100 ####[facility] [address] [place], [address] Platelet mean volume (Bld) [Entitic vol] 9.5 fL Normal 6.2-12.0 [facility] Comment on above: Performed By: #### L 500.4100, L500.4050, L506.1000, L501.9520, L100.0100 ####[facility] [address] [place], [address] Platelets (Bld) [#/Vol] 296 10*3/uL Normal 150-450 [facility] Comment on above: Performed By: #### L 500.4100, L500.4050, L506.1000, L501.9520, L100.0100 ####[facility] [address] [place], [address] RBC (Bld) [#/Vol] 4.44 10*6/uL Normal 4.2-5.4 [facility] Comment on above: Performed By: #### L 500.4100, L500.4050, L506.1000, L501.9520, L100.0100 ####[facility] [address] [place], [address] RDW SD 50.5 fl High 35.1-43.9 [facility] Comment on above: Performed By: #### L 500.4100, L500.4050, L506.1000, L501.9520, L100.0100 ####[facility] [address] [place], [address] WBC (Bld) [#/Vol] 8.3 10*3/uL Normal 4.4-11.0 [facility] Comment on above: Performed By: #### L 500.4100, L500.4050, L506.1000, L501.9520, L100.0100 ####[facility] [address] [place], [address] Comprehensive Metabolic Prof [facility] 05-06-2024 Albumin [Mass/Vol] 3.6 g/dL Normal 3.2-5.0 [facility] Comment on above: Performed By: #### L 500.4100, L500.4050, L506.1000, L501.9520, L100.0100 ####[facility] [address] [place], [address] Albumin/Globulin [Mass ratio] 1.0 {ratio} Normal 0.9-2.4 [facility] Comment on above: Performed By: #### L 500.4100, L500.4050, L506.1000, L501.9520, L100.0100 ####[facility] [address] [place], [address] ALK P 58 U/L Normal 45-117 [facility] Comment on above: Performed By: #### L 500.4100, L500.4050, L506.1000, L501.9520, L100.0100 ####[facility] [address] [place], [address] ALT [Catalytic activity/Vol] 20 U/L Normal 13-56 [facility] Comment on above: Performed By: #### L 500.4100, L500.4050, L506.1000, L501.9520, L100.0100 ####[facility] [address] [place], [address] AST [Catalytic activity/Vol] 16 U/L Normal 15-37 [facility] Comment on above: Performed By: #### L 500.4100, L500.4050, L506.1000, L501.9520, L100.0100 ####[facility] [address] [place], [address] Bilirubin [Mass/Vol] 0.50 mg/dL Normal 0.20-1.00 [facility] Comment on above: Result Comment: For patients on eltrombopag therapy, use of Dimension [place] TBIL is not recommended. Performed By: #### L 500.4100, L500.4050, L506.1000, L501.9520, L100.0100 ####[facility] [address] [place], [address] BUN/CRE 22.7 RATIO High 10-20 [facility] Comment on above: Performed By: #### L 500.4100, L500.4050, L506.1000, L501.9520, L100.0100 ####[facility] [address] [place], [address] CA,Total 9.2 mg/dL Normal 8.5-10.1 [facility] Comment on above: Performed By: #### L 500.4100, L500.4050, L506.1000, L501.9520, L100.0100 ####[facility] [address] [place], [address] Chloride [Moles/Vol] 106 mmol/L Normal 98-107 [facility] Comment on above: Performed By: #### L 500.4100, L500.4050, L506.1000, L501.9520, L100.0100 ####[facility] [address] [place], [address] CO2 [Moles/Vol] 30.0 mmol/L Normal 21.0-32.0 [facility] Comment on above: Performed By: #### L 500.4100, L500.4050, L506.1000, L501.9520, L100.0100 ####[facility] [address] [place], [address] Creatinine [Mass/Vol] 0.84 mg/dL Normal 0.55-1.02 [facility] Comment on above: Result Comment: The validity of the calculated GFR GFRAA in patients over70 years has not been determined. Clinical correlation isessential. Performed By: #### L 500.4100, L500.4050, L506.1000, L501.9520, L100.0100 ####[facility] [address] [place], [address] EST GFR - AA 83 mL/min Normal >60 [facility] Comment on above: Result Comment: Afri can [place] GFR Calc Performed By: #### L 500.4100, L500.4050, L506.1000, L501.9520, L100.0100 ####[facility] [address] [place], [address] GAP 3 Low 5-15 [facility] Comment on above: Performed By: #### L 500.4100, L500.4050, L506.1000, L501.9520, L100.0100 ####[facility] [address] [place], [address] GFR/1.73 sq M.predicted among non-blacks MDRD (S/P/Bld) [Vol rate/Area] 69 mL/min/{1.73_m2} Normal >60 [facility] Comment on above: Result Comment: Non- GFR Calc Performed By: #### L 500.4100, L500.4050, L506.1000, L501.9520, L100.0100 ####[facility] [address] [place], [address] Globulin (S) [Mass/Vol] 3.6 g/dL Normal 2.2-4.2 [facility] Comment on above: Performed By: #### L 500.4100, L500.4050, L506.1000, L501.9520, L100.0100 ####[facility] [address] [place], [address] Glucose [Mass/Vol] 91 mg/dL Normal 74-106 [facility] Comment on above: Performed By: #### L 500.4100, L500.4050, L506.1000, L501.9520, L100.0100 ####[facility] [address] [place], [address] Potassium [Moles/Vol] 3.8 mmol/L Normal 3.5-5.1 [facility] Comment on above: Performed By: #### L 500.4100, L500.4050, L506.1000, L501.9520, L100.0100 ####[facility] [address] [place], [address] Sodium [Moles/Vol] 139 mmol/L Normal 136-145 [facility] Comment on above: Performed By: #### L 500.4100, L500.4050, L506.1000, L501.9520, L100.0100 ####[facility] [address] [place], [address] T PROT 7.2 g/dL Normal 6.4-8.2 [facility] Comment on above: Performed By: #### L 500.4100, L500.4050, L506.1000, L501.9520, L100.0100 ####[facility] [address] [place], [address] Urea nitrogen [Mass/Vol] 19 mg/dL High 7-18 [facility] Comment on above: Performed By: #### L 500.4100, L500.4050, L506.1000, L501.9520, L100.0100 ####[facility] [address] [place], [address] Lipid Profileon 05-06-2024 Cholesterol [Mass/Vol] 185 mg/dL Normal 200 [facility] Comment on above: Result Comment: <200 mg/dL Desirable 200-240 mg/dL Borderline >240 mg/dL High Risk Performed By: #### L 500.4100, L500.4050, L506.1000, L501.9520, L100.0100 ####[facility] [address] [place], [address] Cholesterol in HDL [Mass/Vol] 54 mg/dL Normal [facility] Comment on above: Result Comment: The drugs N-Acetylcysteine and Metamizole may falselydepress this assay. Reference Range HDL <40 mg/dL Low HDL Cholesterol HDL >or= 60 mg/dL High HDL Cholesterol Performed By: #### L 500.4100, L500.4050, L506.1000, L501.9520, L100.0100 ####[facility] [address] [place], [address] Cholesterol in LDL [Mass/Vol] 111 mg/dL Normal 0-130 [facility] Comment on above: Performed By: #### L 500.4100, L500.4050, L506.1000, L501.9520, L100.0100 ####[facility] [address] [place], [address] Cholesterol in VLDL [Mass/Vol] 20 mg/dL Normal 5-40 [facility] Comment on above: Performed By: #### L 500.4100, L500.4050, L506.1000, L501.9520, L100.0100 ####[facility] [address] [place], [address] Triglyceride [Mass/Vol] 98 mg/dL Normal [facility] Comment on above: Result Comment: The drugs N-Acetylcysteine and Metamizole may falselydepress this assay.Serum Triglycerides Reference Interval Normal <150 mg/dL Borderline high 150 - 199 mg/dL High 200 - 499 mg/dL Very High > or = 500 mg/dL Performed By: #### L 500.4100, L500.4050, L506.1000, L501.9520, L100.0100 ####[facility] [address] [place], [address] Thyroid Stim Hormone (TSH)on 05-06-2024 TSH 1.680 uIU/mL Normal 0.358-3.740 [facility] Comment on above: Performed By: #### L 500.4100, L500.4050, L506.1000, L501.9520, L100.0100 ####[facility] [address] [place], [address] Vitamin D,25 Hydroxyon 05-06 Vitamin D 25-OH 45.7 ng/mL Normal [facility] Comment on above: Result Comment: Leyda min D 25(OH) Status Range Deficiency <20 ng/mL (50nmol/L) Insufficiency 20 - 30 ng/mL (50 - 75 nmol/L) Sufficiency 30 - 100 ng/mL (75 - 250 nmol/L) Toxicity >100 ng/mL (>250 nmol/L) Performed By: #### L 500.4100, L500.4050, L506.1000, L501.9520, L100.0100 ####[facility] [address] [place], [address] Basic Metabolic Profile (BMP )on 05-02-2024 BUN Normal 7-18 [facility] Comment on above: Result Comment: Canc elled via OM: Order cancelled - Patient discharged Performed By: #### L 100.0100, L500.2500 ####[facility] [address] [place], [address] BUN/CRE Normal 10-20 [facility] Comment on above: Result Comment: Canc elled via OM: Order cancelled - Patient discharged Performed By: #### L 100.0100, L500.2500 ####[facility] [address] [place], [address] CA,Total Normal 8.5-10.1 [facility] Comment on above: Result Comment: Canc elled via OM: Order cancelled - Patient discharged Performed By: #### L 100.0100, L500.2500 ####[facility] [address] [place], [address] CL Normal 98-107 [facility] Comment on above: Result Comment: Canc elled via OM: Order cancelled - Patient discharged Performed By: #### L 100.0100, L500.2500 ####[facility] [address] [place], [address] CO2 Normal 21.0-32.0 [facility] Comment on above: Result Comment: Canc elled via OM: Order cancelled - Patient discharged Performed By: #### L 100.0100, L500.2500 ####[facility] [address] [place], [address] CREAT,SERUM Normal 0.55-1.02 [facility] Comment on above: Result Comment: Canc elled via OM: Order cancelled - Patient discharged Performed By: #### L 100.0100, L500.2500 ####[facility] [address] [place], [address] EST GFR Normal >60 [facility] Comment on above: Result Comment: Canc elled via OM: Order cancelled - Patient discharged Performed By: #### L 100.0100, L500.2500 ####[facility] [address] [place], [address] EST GFR - AA Normal >60 [facility] Comment on above: Result Comment: Canc elled via OM: Order cancelled - Patient discharged Performed By: #### L 100.0100, L500.2500 ####[facility] [address] [place], [address] GAP Normal 5-15 [facility] Comment on above: Result Comment: Canc elled via OM: Order cancelled - Patient discharged Performed By: #### L 100.0100, L500.2500 ####[facility] [address] [place], [address] GLU Normal 74-106 [facility] Comment on above: Result Comment: Canc elled via OM: Order cancelled - Patient discharged Performed By: #### L 100.0100, L500.2500 ####[facility] [address] [place], [address] Potassium Normal 3.5-5.1 [facility] Comment on above: Result Comment: Canc elled via OM: Order cancelled - Patient discharged Performed By: #### L 100.0100, L500.2500 ####[facility] [address] [place], [address] Basic Metabolic Profile (BMP) Normal 136-145 [facility] Comment on above: Result Comment: Canc elled via OM: Order cancelled - Patient discharged Performed By: #### L 100.0100, L500.2500 ####[facility] [address] [place], [address] CBC W/Diff, Automatedon 09-2 Absolute Neut Normal 2.0-7.7 [facility] Comment on above: Result Comment: Canc elled via OM: Order cancelled - Patient discharged Performed By: #### L 100.0100, L500.2500 ####[facility] [address] [place], [address] HCT Normal 37-47 [facility] Comment on above: Result Comment: Canc elled via OM: Order cancelled - Patient discharged Performed By: #### L 100.0100, L500.2500 ####[facility] [address] [place], [address] HGB Normal 12.0-15.0 [facility] Comment on above: Result Comment: Canc elled via OM: Order cancelled - Patient discharged Performed By: #### L 100.0100, L500.2500 ####[facility] [address] [place], [address] MCH Normal 27.0-32.0 [facility] Comment on above: Result Comment: Canc elled via OM: Order cancelled - Patient discharged Performed By: #### L 100.0100, L500.2500 ####[facility] [address] [place], [address] MCHC Normal 32-36 [facility] Comment on above: Result Comment: Canc elled via OM: Order cancelled - Patient discharged Performed By: #### L 100.0100, L500.2500 ####[facility] [address] [place], [address] MCV Normal 81-99 [facility] Comment on above: Result Comment: Canc elled via OM: Order cancelled - Patient discharged Performed By: #### L 100.0100, L500.2500 ####[facility] [address] [place], [address] NEUT% Normal 47-70 [facility] Comment on above: Result Comment: Canc elled via OM: Order cancelled - Patient discharged Performed By: #### L 100.0100, L500.2500 ####[facility] [address] [place], [address] PLT Normal 150-450 [facility] Comment on above: Result Comment: Canc elled via OM: Order cancelled - Patient discharged Performed By: #### L 100.0100, L500.2500 ####[facility] [address] [place], [address] RBC Normal 4.2-5.4 [facility] Comment on above: Result Comment: Canc elled via OM: Order cancelled - Patient discharged Performed By: #### L 100.0100, L500.2500 ####[facility] [address] [place], [address] RDW CV Normal 11.6-14.6 [facility] Comment on above: Result Comment: Canc elled via OM: Order cancelled - Patient discharged Performed By: #### L 100.0100, L500.2500 ####[facility] [address] [place], [address] RDW SD Normal 35.1-43.9 [facility] Comment on above: Result Comment: Canc elled via OM: Order cancelled - Patient discharged Performed By: #### L 100.0100, L500.2500 ####[facility] [address] [place], [address] WBC Normal 4.4-11.0 [facility] Comment on above: Result Comment: Canc elled via OM: Order cancelled - Patient discharged Performed By: #### L 100.0100, L500.2500 ####[facility] [address] [place], [address] Basic Metabolic Profile (BMP )on 04-25-2024 BUN Normal 7-18 [facility] Comment on above: Result Comment: Canc elled via OM: Order cancelled - Patient discharged Performed By: #### L 100.0100, L500.2500 ####[facility] [address] [place], [address] BUN/CRE Normal 10-20 [facility] Comment on above: Result Comment: Canc elled via OM: Order cancelled - Patient discharged Performed By: #### L 100.0100, L500.2500 ####[facility] [address] [place], [address] CA,Total Normal 8.5-10.1 [facility] Comment on above: Result Comment: Canc elled via OM: Order cancelled - Patient discharged Performed By: #### L 100.0100, L500.2500 ####[facility] [address] [place], [address] CL Normal 98-107 [facility] Comment on above: Result Comment: Canc elled via OM: Order cancelled - Patient discharged Performed By: #### L 100.0100, L500.2500 ####[facility] [address] [place], [address] CO2 Normal 21.0-32.0 [facility] Comment on above: Result Comment: Canc elled via OM: Order cancelled - Patient discharged Performed By: #### L 100.0100, L500.2500 ####[facility] [address] [place], [address] CREAT,SERUM Normal 0.55-1.02 [facility] Comment on above: Result Comment: Canc elled via OM: Order cancelled - Patient discharged Performed By: #### L 100.0100, L500.2500 ####[facility] [address] [place], [address] EST GFR Normal >60 [facility] Comment on above: Result Comment: Canc elled via OM: Order cancelled - Patient discharged Performed By: #### L 100.0100, L500.2500 ####[facility] [address] [place], [address] EST GFR - AA Normal >60 [facility] Comment on above: Result Comment: Canc elled via OM: Order cancelled - Patient discharged Performed By: #### L 100.0100, L500.2500 ####[facility] [address] [place], [address] GAP Normal 5-15 [facility] Comment on above: Result Comment: Canc elled via OM: Order cancelled - Patient discharged Performed By: #### L 100.0100, L500.2500 ####[facility] [address] [place], [address] GLU Normal 74-106 [facility] Comment on above: Result Comment: Canc elled via OM: Order cancelled - Patient discharged Performed By: #### L 100.0100, L500.2500 ####[facility] [address] [place], [address] Potassium Normal 3.5-5.1 [facility] Comment on above: Result Comment: Canc elled via OM: Order cancelled - Patient discharged Performed By: #### L 100.0100, L500.2500 ####[facility] [address] [place], [address] Basic Metabolic Profile (BMP) Normal 136-145 [facility] Comment on above: Result Comment: Canc elled via OM: Order cancelled - Patient discharged Performed By: #### L 100.0100, L500.2500 ####[facility] [address] [place], [address] CBC W/Diff, Automatedon 09-2 0-2023 Absolute Neut Normal 2.0-7.7 [facility] Comment on above: Result Comment: Canc elled via OM: Order cancelled - Patient discharged Performed By: #### L 100.0100, L500.2500 ####[facility] [address] [place], [address] HCT Normal 37-47 [facility] Comment on above: Result Comment: Canc elled via OM: Order cancelled - Patient discharged Performed By: #### L 100.0100, L500.2500 ####[facility] [address] [place], [address] HGB Normal 12.0-15.0 [facility] Comment on above: Result Comment: Canc elled via OM: Order cancelled - Patient discharged Performed By: #### L 100.0100, L500.2500 ####[facility] [address] [place], [address] MCH Normal 27.0-32.0 [facility] Comment on above: Result Comment: Canc elled via OM: Order cancelled - Patient discharged Performed By: #### L 100.0100, L500.2500 ####[facility] [address] [place], [address] MCHC Normal 32-36 [facility] Comment on above: Result Comment: Canc elled via OM: Order cancelled - Patient discharged Performed By: #### L 100.0100, L500.2500 ####[facility] [address] [place], [address] MCV Normal 81-99 [facility] Comment on above: Result Comment: Canc elled via OM: Order cancelled - Patient discharged Performed By: #### L 100.0100, L500.2500 ####[facility] [address] [place], [address] NEUT% Normal 47-70 [facility] Comment on above: Result Comment: Canc elled via OM: Order cancelled - Patient discharged Performed By: #### L 100.0100, L500.2500 ####[facility] [address] [place], [address] PLT Normal 150-450 [facility] Comment on above: Result Comment: Canc elled via OM: Order cancelled - Patient discharged Performed By: #### L 100.0100, L500.2500 ####[facility] [address] [place], [address] RBC Normal 4.2-5.4 [facility] Comment on above: Result Comment: Canc elled via OM: Order cancelled - Patient discharged Performed By: #### L 100.0100, L500.2500 ####[facility] [address] [place], [address] RDW CV Normal 11.6-14.6 [facility] Comment on above: Result Comment: Canc elled via OM: Order cancelled - Patient discharged Performed By: #### L 100.0100, L500.2500 ####[facility] [address] [place], [address] RDW SD Normal 35.1-43.9 [facility] Comment on above: Result Comment: Canc elled via OM: Order cancelled - Patient discharged Performed By: #### L 100.0100, L500.2500 ####[facility] [address] [place], [address] WBC Normal 4.4-11.0 [facility] Comment on above: Result Comment: Canc elled via OM: Order cancelled - Patient discharged Performed By: #### L 100.0100, L500.2500 ####[facility] [address] [place], [address] Basic Metabolic Profile (BMP )on 04-18-2024 BUN Normal 7-18 [facility] Comment on above: Result Comment: Canc elled via OM: Order cancelled - Patient discharged Performed By: #### L 500.2500, L100.0100 ####[place] [facility] [address] [place], [address] BUN/CRE Normal 10-20 [facility] Comment on above: Result Comment: Canc elled via OM: Order cancelled - Patient discharged Performed By: #### L 500.2500, L100.0100 ####[facility] [address] [place], [address] CA,Total Normal 8.5-10.1 [facility] Comment on above: Result Comment: Canc elled via OM: Order cancelled - Patient discharged Performed By: #### L 500.2500, L100.0100 ####[facility] [address] [place], [address] CL Normal 98-107 [facility] Comment on above: Result Comment: Canc elled via OM: Order cancelled - Patient discharged Performed By: #### L 500.2500, L100.0100 ####[facility] [address] [place], [address] CO2 Normal 21.0-32.0 [facility] Comment on above: Result Comment: Canc elled via OM: Order cancelled - Patient discharged Performed By: #### L 500.2500, L100.0100 ####[facility] [address] [place], [address] CREAT,SERUM Normal 0.55-1.02 [facility] Comment on above: Result Comment: Canc elled via OM: Order cancelled - Patient discharged Performed By: #### L 500.2500, L100.0100 ####[facility] [address] [place], [address] EST GFR Normal >60 [facility] Comment on above: Result Comment: Canc elled via OM: Order cancelled - Patient discharged Performed By: #### L 500.2500, L100.0100 ####[facility] [address] [place], [address] EST GFR - AA Normal >60 [facility] Comment on above: Result Comment: Canc elled via OM: Order cancelled - Patient discharged Performed By: #### L 500.2500, L100.0100 ####[facility] [address] [place], [address] GAP Normal 5-15 [facility] Comment on above: Result Comment: Canc elled via OM: Order cancelled - Patient discharged Performed By: #### L 500.2500, L100.0100 ####[facility] [address] [place], [address] GLU Normal 74-106 [facility] Comment on above: Result Comment: Canc elled via OM: Order cancelled - Patient discharged Performed By: #### L 500.2500, L100.0100 ####[facility] [address] [place], [address] Potassium Normal 3.5-5.1 [facility] Comment on above: Result Comment: Canc elled via OM: Order cancelled - Patient discharged Performed By: #### L 500.2500, L100.0100 ####[facility] [address] [place], [address] Basic Metabolic Profile (BMP) Normal 136-145 [facility] Comment on above: Result Comment: Canc elled via OM: Order cancelled - Patient discharged Performed By: #### L 500.2500, L100.0100 ####[facility] [address] [place], [address] CBC W/Diff, Automatedon - Absolute Neut Normal 2.0-7.7 [facility] Comment on above: Result Comment: Canc elled via OM: Order cancelled - Patient discharged Performed By: #### L 500.2500, L100.0100 ####[facility] [address] [place], [address] HCT Normal 37-47 [facility] Comment on above: Result Comment: Canc elled via OM: Order cancelled - Patient discharged Performed By: #### L 500.2500, L100.0100 ####[facility] [address] [place], [address] HGB Normal 12.0-15.0 [facility] Comment on above: Result Comment: Canc elled via OM: Order cancelled - Patient discharged Performed By: #### L 500.2500, L100.0100 ####[facility] [address] [place], [address] MCH Normal 27.0-32.0 [facility] Comment on above: Result Comment: Canc elled via OM: Order cancelled - Patient discharged Performed By: #### L 500.2500, L100.0100 ####[facility] [address] [place], [address] MCHC Normal 32-36 [facility] Comment on above: Result Comment: Canc elled via OM: Order cancelled - Patient discharged Performed By: #### L 500.2500, L100.0100 ####[facility] [address] [place], [address] MCV Normal 81-99 [facility] Comment on above: Result Comment: Canc elled via OM: Order cancelled - Patient discharged Performed By: #### L 500.2500, L100.0100 ####[facility] [address] [place], [address] NEUT% Normal 47-70 [facility] Comment on above: Result Comment: Canc elled via OM: Order cancelled - Patient discharged Performed By: #### L 500.2500, L100.0100 ####[facility] [address] [place], [address] PLT Normal 150-450 [facility] Comment on above: Result Comment: Canc elled via OM: Order cancelled - Patient discharged Performed By: #### L 500.2500, L100.0100 ####[facility] [address] [place], [address] RBC Normal 4.2-5.4 [facility] Comment on above: Result Comment: Canc elled via OM: Order cancelled - Patient discharged Performed By: #### L 500.2500, L100.0100 ####[facility] [address] [place], [address] RDW CV Normal 11.6-14.6 [facility] Comment on above: Result Comment: Canc elled via OM: Order cancelled - Patient discharged Performed By: #### L 500.2500, L100.0100 ####[facility] [address] [place], [address] RDW SD Normal 35.1-43.9 [facility] Comment on above: Result Comment: Canc elled via OM: Order cancelled - Patient discharged Performed By: #### L 500.2500, L100.0100 ####[facility] [address] [place], [address] WBC Normal 4.4-11.0 [facility] Comment on above: Result Comment: Canc elled via OM: Order cancelled - Patient discharged Performed By: #### L 500.2500, L100.0100 ####[facility] [address] [place], [address] Basic Metabolic Profile (BMP )on 04-11-2024 BUN Normal 7-18 [facility] Comment on above: Result Comment: Canc elled via OM: Order cancelled - Patient discharged Performed By: #### L 500.2500, L100.0100 ####[facility] [address] [place], [address] BUN/CRE Normal 10-20 [facility] Comment on above: Result Comment: Canc elled via OM: Order cancelled - Patient discharged Performed By: #### L 500.2500, L100.0100 ####[facility] [address] [place], [address] CA,Total Normal 8.5-10.1 [facility] Comment on above: Result Comment: Canc elled via OM: Order cancelled - Patient discharged Performed By: #### L 500.2500, L100.0100 ####[facility] [address] [place], [address] CL Normal 98-107 [facility] Comment on above: Result Comment: Canc elled via OM: Order cancelled - Patient discharged Performed By: #### L 500.2500, L100.0100 ####[facility] [address] [place], [address] CO2 Normal 21.0-32.0 [facility] Comment on above: Result Comment: Canc elled via OM: Order cancelled - Patient discharged Performed By: #### L 500.2500, L100.0100 ####[facility] [address] [place], [address] CREAT,SERUM Normal 0.55-1.02 [facility] Comment on above: Result Comment: Canc elled via OM: Order cancelled - Patient discharged Performed By: #### L 500.2500, L100.0100 ####[facility] [address] [place], [address] EST GFR Normal >60 [facility] Comment on above: Result Comment: Canc elled via OM: Order cancelled - Patient discharged Performed By: #### L 500.2500, L100.0100 ####[facility] [address] [place], [address] EST GFR - AA Normal >60 [facility] Comment on above: Result Comment: Canc elled via OM: Order cancelled - Patient discharged Performed By: #### L 500.2500, L100.0100 ####[facility] [address] [place], [address] GAP Normal 5-15 [facility] Comment on above: Result Comment: Canc elled via OM: Order cancelled - Patient discharged Performed By: #### L 500.2500, L100.0100 ####[facility] [address] [place], [address] GLU Normal 74-106 [facility] Comment on above: Result Comment: Canc elled via OM: Order cancelled - Patient discharged Performed By: #### L 500.2500, L100.0100 ####[facility] [address] [place], [address] Potassium Normal 3.5-5.1 [facility] Comment on above: Result Comment: Canc elled via OM: Order cancelled - Patient discharged Performed By: #### L 500.2500, L100.0100 ####[facility] [address] [place], [address] Basic Metabolic Profile (BMP) Normal 136-145 [facility] Comment on above: Result Comment: Canc elled via OM: Order cancelled - Patient discharged Performed By: #### L 500.2500, L100.0100 ####[facility] [address] [place], [address] CBC W/Diff, Automatedon 09-0 -2023 Absolute Neut Normal 2.0-7.7 [facility] Comment on above: Result Comment: Canc elled via OM: Order cancelled - Patient discharged Performed By: #### L 500.2500, L100.0100 ####[facility] [address] [place], [address] HCT Normal 37-47 [facility] Comment on above: Result Comment: Canc elled via OM: Order cancelled - Patient discharged Performed By: #### L 500.2500, L100.0100 ####[facility] [address] [place], [address] HGB Normal 12.0-15.0 [facility] Comment on above: Result Comment: Canc elled via OM: Order cancelled - Patient discharged Performed By: #### L 500.2500, L100.0100 ####[facility] [address] [place], [address] MCH Normal 27.0-32.0 [facility] Comment on above: Result Comment: Canc elled via OM: Order cancelled - Patient discharged Performed By: #### L 500.2500, L100.0100 ####[facility] [address] [place], [address] MCHC Normal 32-36 [facility] Comment on above: Result Comment: Canc elled via OM: Order cancelled - Patient discharged Performed By: #### L 500.2500, L100.0100 ####[facility] [address] [place], [address] MCV Normal 81-99 [facility] Comment on above: Result Comment: Canc elled via OM: Order cancelled - Patient discharged Performed By: #### L 500.2500, L100.0100 ####[facility] [address] [place], [address] NEUT% Normal 47-70 [facility] Comment on above: Result Comment: Canc elled via OM: Order cancelled - Patient discharged Performed By: #### L 500.2500, L100.0100 ####[facility] [address] [place], [address] PLT Normal 150-450 [facility] Comment on above: Result Comment: Canc elled via OM: Order cancelled - Patient discharged Performed By: #### L 500.2500, L100.0100 ####[facility] [address] [place], [address] RBC Normal 4.2-5.4 [facility] Comment on above: Result Comment: Canc elled via OM: Order cancelled - Patient discharged Performed By: #### L 500.2500, L100.0100 ####[facility] [address] [place], [address] RDW CV Normal 11.6-14.6 [facility] Comment on above: Result Comment: Canc elled via OM: Order cancelled - Patient discharged Performed By: #### L 500.2500, L100.0100 ####[facility] [address] [place], [address] RDW SD Normal 35.1-43.9 [facility] Comment on above: Result Comment: Canc elled via OM: Order cancelled - Patient discharged Performed By: #### L 500.2500, L100.0100 ####[facility] [address] [place], [address] WBC Normal 4.4-11.0 [facility] Comment on above: Result Comment: Canc elled via OM: Order cancelled - Patient discharged Performed By: #### L 500.2500, L100.0100 ####[facility] [address] [place], [address] Basic Metabolic Profile (BMP )on 04-04-2024 BUN Normal 7-18 [facility] Comment on above: Result Comment: Canc elled via OM: Order cancelled - Patient discharged Performed By: #### L 100.0100, L500.2500 ####[facility] [address] [place], [address] BUN/CRE Normal 10-20 [facility] Comment on above: Result Comment: Canc elled via OM: Order cancelled - Patient discharged Performed By: #### L 100.0100, L500.2500 ####[facility] [address] [place], [address] CA,Total Normal 8.5-10.1 [facility] Comment on above: Result Comment: Canc elled via OM: Order cancelled - Patient discharged Performed By: #### L 100.0100, L500.2500 ####[facility] [address] [place], [address] CL Normal 98-107 [facility] Comment on above: Result Comment: Canc elled via OM: Order cancelled - Patient discharged Performed By: #### L 100.0100, L500.2500 ####[facility] [address] [place], [address] CO2 Normal 21.0-32.0 [facility] Comment on above: Result Comment: Canc elled via OM: Order cancelled - Patient discharged Performed By: #### L 100.0100, L500.2500 ####[facility] [address] [place], [address] CREAT,SERUM Normal 0.55-1.02 [facility] Comment on above: Result Comment: Canc elled via OM: Order cancelled - Patient discharged Performed By: #### L 100.0100, L500.2500 ####[facility] [address] [place], [address] EST GFR Normal >60 [facility] Comment on above: Result Comment: Canc elled via OM: Order cancelled - Patient discharged Performed By: #### L 100.0100, L500.2500 ####[facility] [address] [place], [address] EST GFR - AA Normal >60 [facility] Comment on above: Result Comment: Canc elled via OM: Order cancelled - Patient discharged Performed By: #### L 100.0100, L500.2500 ####[facility] [address] [place], [address] GAP Normal 5-15 [facility] Comment on above: Result Comment: Canc elled via OM: Order cancelled - Patient discharged Performed By: #### L 100.0100, L500.2500 ####[facility] [address] [place], [address] GLU Normal 74-106 [facility] Comment on above: Result Comment: Canc elled via OM: Order cancelled - Patient discharged Performed By: #### L 100.0100, L500.2500 ####[facility] [address] [place], [address] Potassium Normal 3.5-5.1 [facility] Comment on above: Result Comment: Canc elled via OM: Order cancelled - Patient discharged Performed By: #### L 100.0100, L500.2500 ####[facility] [address] [place], [address] Basic Metabolic Profile (BMP) Normal 136-145 [facility] Comment on above: Result Comment: Canc elled via OM: Order cancelled - Patient discharged Performed By: #### L 100.0100, L500.2500 ####[facility] [address] [place], [address] CBC W/Diff, Automatedon 08-3 0-2023 Absolute Neut Normal 2.0-7.7 [facility] Comment on above: Result Comment: Canc elled via OM: Order cancelled - Patient discharged Performed By: #### L 100.0100, L500.2500 ####[facility] [address] [place], [address] HCT Normal 37-47 [facility] Comment on above: Result Comment: Canc elled via OM: Order cancelled - Patient discharged Performed By: #### L 100.0100, L500.2500 ####[facility] [address] [place], [address] HGB Normal 12.0-15.0 [facility] Comment on above: Result Comment: Canc elled via OM: Order cancelled - Patient discharged Performed By: #### L 100.0100, L500.2500 ####[facility] [address] [place], [address] MCH Normal 27.0-32.0 [facility] Comment on above: Result Comment: Canc elled via OM: Order cancelled - Patient discharged Performed By: #### L 100.0100, L500.2500 ####[facility] [address] [place], [address] MCHC Normal 32-36 [facility] Comment on above: Result Comment: Canc elled via OM: Order cancelled - Patient discharged Performed By: #### L 100.0100, L500.2500 ####[facility] [address] [place], [address] MCV Normal 81-99 [facility] Comment on above: Result Comment: Canc elled via OM: Order cancelled - Patient discharged Performed By: #### L 100.0100, L500.2500 ####[facility] [address] [place], [address] NEUT% Normal 47-70 [facility] Comment on above: Result Comment: Canc elled via OM: Order cancelled - Patient discharged Performed By: #### L 100.0100, L500.2500 ####[facility] [address] [place], [address] PLT Normal 150-450 [facility] Comment on above: Result Comment: Canc elled via OM: Order cancelled - Patient discharged Performed By: #### L 100.0100, L500.2500 ####[facility] [address] [place], [address] RBC Normal 4.2-5.4 [facility] Comment on above: Result Comment: Canc elled via OM: Order cancelled - Patient discharged Performed By: #### L 100.0100, L500.2500 ####[facility] [address] [place], [address] RDW CV Normal 11.6-14.6 [facility] Comment on above: Result Comment: Canc elled via OM: Order cancelled - Patient discharged Performed By: #### L 100.0100, L500.2500 ####[facility] [address] [place], [address] RDW SD Normal 35.1-43.9 [facility] Comment on above: Result Comment: Canc elled via OM: Order cancelled - Patient discharged Performed By: #### L 100.0100, L500.2500 ####[facility] [address] [place], [address] WBC Normal 4.4-11.0 [facility] Comment on above: Result Comment: Canc elled via OM: Order cancelled - Patient discharged Performed By: #### L 100.0100, L500.2500 ####[facility] [address] [place], [address] CBC W/Diff, Automatedon 08-2 Absolute Neut Normal 2.0-7.7 [facility] Comment on above: Result Comment: Canc elled via OM: Order cancelled - Patient discharged Performed By: #### L 500.4050, L100.0100 ####[facility] [address] [place], [address] HCT Normal 37-47 [facility] Comment on above: Result Comment: Canc elled via OM: Order cancelled - Patient discharged Performed By: #### L 500.4050, L100.0100 ####[facility] [address] [place], [address] HGB Normal 12.0-15.0 [facility] Comment on above: Result Comment: Canc elled via OM: Order cancelled - Patient discharged Performed By: #### L 500.4050, L100.0100 ####[facility] [address] [place], [address] MCH Normal 27.0-32.0 [facility] Comment on above: Result Comment: Canc elled via OM: Order cancelled - Patient discharged Performed By: #### L 500.4050, L100.0100 ####[facility] [address] [place], [address] MCHC Normal 32-36 [facility] Comment on above: Result Comment: Canc elled via OM: Order cancelled - Patient discharged Performed By: #### L 500.4050, L100.0100 ####[facility] [address] [place], [address] MCV Normal 81-99 [facility] Comment on above: Result Comment: Canc elled via OM: Order cancelled - Patient discharged Performed By: #### L 500.4050, L100.0100 ####[facility] [address] [place], [address] NEUT% Normal 47-70 [facility] Comment on above: Result Comment: Canc elled via OM: Order cancelled - Patient discharged Performed By: #### L 500.4050, L100.0100 ####[facility] [address] [place], [address] PLT Normal 150-450 [facility] Comment on above: Result Comment: Canc elled via OM: Order cancelled - Patient discharged Performed By: #### L 500.4050, L100.0100 ####[facility] [address] [place], [address] RBC Normal 4.2-5.4 [facility] Comment on above: Result Comment: Canc elled via OM: Order cancelled - Patient discharged Performed By: #### L 500.4050, L100.0100 ####[facility] [address] [place], [address] RDW CV Normal 11.6-14.6 [facility] Comment on above: Result Comment: Canc elled via OM: Order cancelled - Patient discharged Performed By: #### L 500.4050, L100.0100 ####[facility] [address] [place], [address] RDW SD Normal 35.1-43.9 [facility] Comment on above: Result Comment: Canc elled via OM: Order cancelled - Patient discharged Performed By: #### L 500.4050, L100.0100 ####[facility] [address] [place], [address] WBC Normal 4.4-11.0 [facility] Comment on above: Result Comment: Canc elled via OM: Order cancelled - Patient discharged Performed By: #### L 500.4050, L100.0100 ####[facility] [address] [place], [address] Comprehensive Metabolic Prof ilon 04-01-2024 ALB Normal 3.2-5.0 [facility] Comment on above: Result Comment: Canc elled via OM: Order cancelled - Patient discharged Performed By: #### L 500.4050, L100.0100 ####[facility] [address] [place], [address] ALK P Normal 45-117 [facility] Comment on above: Result Comment: Canc elled via OM: Order cancelled - Patient discharged Performed By: #### L 500.4050, L100.0100 ####[facility] [address] [place], [address] ALT Normal 13-56 [facility] Comment on above: Result Comment: Canc elled via OM: Order cancelled - Patient discharged Performed By: #### L 500.4050, L100.0100 ####[facility] [address] [place], [address] AST Normal 15-37 [facility] Comment on above: Result Comment: Canc elled via OM: Order cancelled - Patient discharged Performed By: #### L 500.4050, L100.0100 ####[facility] [address] [place], [address] BUN Normal 7-18 [facility] Comment on above: Result Comment: Canc elled via OM: Order cancelled - Patient discharged Performed By: #### L 500.4050, L100.0100 ####[facility] [address] [place], [address] BUN/CRE Normal 10-20 [facility] Comment on above: Result Comment: Canc elled via OM: Order cancelled - Patient discharged Performed By: #### L 500.4050, L100.0100 ####[facility] [address] [place], [address] CA,Total Normal 8.5-10.1 [facility] Comment on above: Result Comment: Canc elled via OM: Order cancelled - Patient discharged Performed By: #### L 500.4050, L100.0100 ####[facility] [address] [place], [address] CL Normal 98-107 [facility] Comment on above: Result Comment: Canc elled via OM: Order cancelled - Patient discharged Performed By: #### L 500.4050, L100.0100 ####[facility] [address] [place], [address] CO2 Normal 21.0-32.0 [facility] Comment on above: Result Comment: Canc elled via OM: Order cancelled - Patient discharged Performed By: #### L 500.4050, L100.0100 ####[facility] [address] [place], [address] CREAT,SERUM Normal 0.55-1.02 [facility] Comment on above: Result Comment: Canc elled via OM: Order cancelled - Patient discharged Performed By: #### L 500.4050, L100.0100 ####[facility] [address] [place], [address] EST GFR Normal >60 [facility] Comment on above: Result Comment: Canc elled via OM: Order cancelled - Patient discharged Performed By: #### L 500.4050, L100.0100 ####[facility] [address] [place], [address] EST GFR - AA Normal >60 [facility] Comment on above: Result Comment: Canc elled via OM: Order cancelled - Patient discharged Performed By: #### L 500.4050, L100.0100 ####[facility] [address] [place], [address] GAP Normal 5-15 [facility] Comment on above: Result Comment: Canc elled via OM: Order cancelled - Patient discharged Performed By: #### L 500.4050, L100.0100 ####[facility] [address] [place], [address] GLU Normal 74-106 [facility] Comment on above: Result Comment: Canc elled via OM: Order cancelled - Patient discharged Performed By: #### L 500.4050, L100.0100 ####[facility] [address] [place], [address] Potassium Normal 3.5-5.1 [facility] Comment on above: Result Comment: Canc elled via OM: Order cancelled - Patient discharged Performed By: #### L 500.4050, L100.0100 ####[facility] [address] [place], [address] T BILI Normal 0.20-1.00 [facility] Comment on above: Result Comment: Canc elled via OM: Order cancelled - Patient discharged Performed By: #### L 500.4050, L100.0100 ####[facility] [address] [place], [address] T PROT Normal 6.4-8.2 [facility] Comment on above: Result Comment: Canc elled via OM: Order cancelled - Patient discharged Performed By: #### L 500.4050, L100.0100 ####[facility] [address] [place], [address] Comprehensive Metabolic Profil Normal 136-145 [facility] Comment on above: Result Comment: Canc elled via OM: Order cancelled - Patient discharged Performed By: #### L 500.4050, L100.0100 ####[facility] [address] [place], [address] CBC W/Diff, Automatedon 08-2 Absolute Neut Normal 2.0-7.7 [facility] Comment on above: Result Comment: Canc elled via OM: Order cancelled - Patient discharged Performed By: #### L 100.0100, L500.4050 ####[facility] [address] [place], [address] HCT Normal 37-47 [facility] Comment on above: Result Comment: Canc elled via OM: Order cancelled - Patient discharged Performed By: #### L 100.0100, L500.4050 ####[facility] [address] [place], [address] HGB Normal 12.0-15.0 [facility] Comment on above: Result Comment: Canc elled via OM: Order cancelled - Patient discharged Performed By: #### L 100.0100, L500.4050 ####[facility] [address] [place], [address] MCH Normal 27.0-32.0 [facility] Comment on above: Result Comment: Canc elled via OM: Order cancelled - Patient discharged Performed By: #### L 100.0100, L500.4050 ####[facility] [address] [place], [address] MCHC Normal 32-36 [facility] Comment on above: Result Comment: Canc elled via OM: Order cancelled - Patient discharged Performed By: #### L 100.0100, L500.4050 ####[facility] [address] [place], [address] MCV Normal 81-99 [facility] Comment on above: Result Comment: Canc elled via OM: Order cancelled - Patient discharged Performed By: #### L 100.0100, L500.4050 ####[facility] [address] [place], [address] NEUT% Normal 47-70 [facility] Comment on above: Result Comment: Canc elled via OM: Order cancelled - Patient discharged Performed By: #### L 100.0100, L500.4050 ####[facility] [address] [place], [address] PLT Normal 150-450 [facility] Comment on above: Result Comment: Canc elled via OM: Order cancelled - Patient discharged Performed By: #### L 100.0100, L500.4050 ####[facility] [address] [place], [address] RBC Normal 4.2-5.4 [facility] Comment on above: Result Comment: Canc elled via OM: Order cancelled - Patient discharged Performed By: #### L 100.0100, L500.4050 ####[facility] [address] [place], [address] RDW CV Normal 11.6-14.6 [facility] Comment on above: Result Comment: Canc elled via OM: Order cancelled - Patient discharged Performed By: #### L 100.0100, L500.4050 ####[facility] [address] [place], [address] RDW SD Normal 35.1-43.9 [facility] Comment on above: Result Comment: Canc elled via OM: Order cancelled - Patient discharged Performed By: #### L 100.0100, L500.4050 ####[facility] [address] [place], [address] WBC Normal 4.4-11.0 [facility] Comment on above: Result Comment: Canc elled via OM: Order cancelled - Patient discharged Performed By: #### L 100.0100, L500.4050 ####[facility] [address] [place], [address] CPK Total, Creatine Kinaseon 03-31-2024 CPK TOTAL 47 U/L Normal 26-192 [facility] Comment on above: Performed By: #### L 501.3620 ####[facility] [address] [place], [address] Comprehensive Metabolic Prof ilon 03-31-2024 ALB Normal 3.2-5.0 [facility] Comment on above: Result Comment: Canc elled via OM: Order cancelled - Patient discharged Performed By: #### L 100.0100, L500.4050 ####[facility] [address] [place], [address] ALK P Normal 45-117 [facility] Comment on above: Result Comment: Canc elled via OM: Order cancelled - Patient discharged Performed By: #### L 100.0100, L500.4050 ####[facility] [address] [place], [address] ALT Normal 13-56 [facility] Comment on above: Result Comment: Canc elled via OM: Order cancelled - Patient discharged Performed By: #### L 100.0100, L500.4050 ####[facility] [address] [place], [address] AST Normal 15-37 [facility] Comment on above: Result Comment: Canc elled via OM: Order cancelled - Patient discharged Performed By: #### L 100.0100, L500.4050 ####[facility] [address] [place], [address] BUN Normal 7-18 [facility] Comment on above: Result Comment: Canc elled via OM: Order cancelled - Patient discharged Performed By: #### L 100.0100, L500.4050 ####[facility] [address] [place], [address] BUN/CRE Normal 10-20 [facility] Comment on above: Result Comment: Canc elled via OM: Order cancelled - Patient discharged Performed By: #### L 100.0100, L500.4050 ####[facility] [address] [place], [address] CA,Total Normal 8.5-10.1 [facility] Comment on above: Result Comment: Canc elled via OM: Order cancelled - Patient discharged Performed By: #### L 100.0100, L500.4050 ####[facility] [address] [place], [address] CL Normal 98-107 [facility] Comment on above: Result Comment: Canc elled via OM: Order cancelled - Patient discharged Performed By: #### L 100.0100, L500.4050 ####[facility] [address] [place], [address] CO2 Normal 21.0-32.0 [facility] Comment on above: Result Comment: Canc elled via OM: Order cancelled - Patient discharged Performed By: #### L 100.0100, L500.4050 ####[facility] [address] [place], [address] CREAT,SERUM Normal 0.55-1.02 [facility] Comment on above: Result Comment: Canc elled via OM: Order cancelled - Patient discharged Performed By: #### L 100.0100, L500.4050 ####[facility] [address] [place], [address] EST GFR Normal >60 [facility] Comment on above: Result Comment: Canc elled via OM: Order cancelled - Patient discharged Performed By: #### L 100.0100, L500.4050 ####[facility] [address] [place], [address] EST GFR - AA Normal >60 [facility] Comment on above: Result Comment: Canc elled via OM: Order cancelled - Patient discharged Performed By: #### L 100.0100, L500.4050 ####[facility] [address] [place], [address] GAP Normal 5-15 [facility] Comment on above: Result Comment: Canc elled via OM: Order cancelled - Patient discharged Performed By: #### L 100.0100, L500.4050 ####[facility] [address] [place], [address] GLU Normal 74-106 [facility] Comment on above: Result Comment: Canc elled via OM: Order cancelled - Patient discharged Performed By: #### L 100.0100, L500.4050 ####[facility] [address] [place], [address] Potassium Normal 3.5-5.1 [facility] Comment on above: Result Comment: Canc elled via OM: Order cancelled - Patient discharged Performed By: #### L 100.0100, L500.4050 ####[facility] [address] [place], [address] T BILI Normal 0.20-1.00 [facility] Comment on above: Result Comment: Canc elled via OM: Order cancelled - Patient discharged Performed By: #### L 100.0100, L500.4050 ####[facility] [address] [place], [address] T PROT Normal 6.4-8.2 [facility] Comment on above: Result Comment: Canc elled via OM: Order cancelled - Patient discharged Performed By: #### L 100.0100, L500.4050 ####[facility] [address] [place], [address] Comprehensive Metabolic Profil Normal 136-145 [facility] Comment on above: Result Comment: Canc elled via OM: Order cancelled - Patient discharged Performed By: #### L 100.0100, L500.4050 ####[facility] [address] [place], [address] CBC W/Diff, Automatedon 08-2 Absolute Neut Normal 2.0-7.7 [facility] Comment on above: Result Comment: Canc elled via OM: Order cancelled - Patient discharged Performed By: #### L 100.0100, L500.4050 ####[facility] [address] [place], [address] HCT Normal 37-47 [facility] Comment on above: Result Comment: Canc elled via OM: Order cancelled - Patient discharged Performed By: #### L 100.0100, L500.4050 ####[facility] [address] [place], [address] HGB Normal 12.0-15.0 [facility] Comment on above: Result Comment: Canc elled via OM: Order cancelled - Patient discharged Performed By: #### L 100.0100, L500.4050 ####[facility] [address] [place], [address] MCH Normal 27.0-32.0 [facility] Comment on above: Result Comment: Canc elled via OM: Order cancelled - Patient discharged Performed By: #### L 100.0100, L500.4050 ####[facility] [address] [place], [address] MCHC Normal 32-36 [facility] Comment on above: Result Comment: Canc elled via OM: Order cancelled - Patient discharged Performed By: #### L 100.0100, L500.4050 ####[facility] [address] [place], [address] MCV Normal 81-99 [facility] Comment on above: Result Comment: Canc elled via OM: Order cancelled - Patient discharged Performed By: #### L 100.0100, L500.4050 ####[facility] [address] [place], [address] NEUT% Normal 47-70 [facility] Comment on above: Result Comment: Canc elled via OM: Order cancelled - Patient discharged Performed By: #### L 100.0100, L500.4050 ####[facility] [address] [place], [address] PLT Normal 150-450 [facility] Comment on above: Result Comment: Canc elled via OM: Order cancelled - Patient discharged Performed By: #### L 100.0100, L500.4050 ####[facility] [address] [place], [address] RBC Normal 4.2-5.4 [facility] Comment on above: Result Comment: Canc elled via OM: Order cancelled - Patient discharged Performed By: #### L 100.0100, L500.4050 ####[facility] [address] [place], [address] RDW CV Normal 11.6-14.6 [facility] Comment on above: Result Comment: Canc elled via OM: Order cancelled - Patient discharged Performed By: #### L 100.0100, L500.4050 ####[facility] [address] [place], [address] RDW SD Normal 35.1-43.9 [facility] Comment on above: Result Comment: Canc elled via OM: Order cancelled - Patient discharged Performed By: #### L 100.0100, L500.4050 ####[facility] [address] [place], [address] WBC Normal 4.4-11.0 [facility] Comment on above: Result Comment: Canc elled via OM: Order cancelled - Patient discharged Performed By: #### L 100.0100, L500.4050 ####[facility] [address] [place], [address] CPK Total, Creatine Kinaseon 03-30-2024 CPK TOTAL 73 U/L Normal 26-192 [facility] Comment on above: Performed By: #### L 501.3620 ####[facility] [address] [place], [address] Comprehensive Metabolic Prof ilon 03-30-2024 ALB Normal 3.2-5.0 [facility] Comment on above: Result Comment: Canc elled via OM: Order cancelled - Patient discharged Performed By: #### L 100.0100, L500.4050 ####[facility] [address] [place], [address] ALK P Normal 45-117 [facility] Comment on above: Result Comment: Canc elled via OM: Order cancelled - Patient discharged Performed By: #### L 100.0100, L500.4050 ####[facility] [address] [place], [address] ALT Normal 13-56 [facility] Comment on above: Result Comment: Canc elled via OM: Order cancelled - Patient discharged Performed By: #### L 100.0100, L500.4050 ####[facility] [address] [place], [address] AST Normal 15-37 [facility] Comment on above: Result Comment: Canc elled via OM: Order cancelled - Patient discharged Performed By: #### L 100.0100, L500.4050 ####[facility] [address] [place], [address] BUN Normal 7-18 [facility] Comment on above: Result Comment: Canc elled via OM: Order cancelled - Patient discharged Performed By: #### L 100.0100, L500.4050 ####[facility] [address] [place], [address] BUN/CRE Normal 10-20 [facility] Comment on above: Result Comment: Canc elled via OM: Order cancelled - Patient discharged Performed By: #### L 100.0100, L500.4050 ####[facility] [address] [place], [address] CA,Total Normal 8.5-10.1 [facility] Comment on above: Result Comment: Canc elled via OM: Order cancelled - Patient discharged Performed By: #### L 100.0100, L500.4050 ####[facility] [address] [place], [address] CL Normal 98-107 [facility] Comment on above: Result Comment: Canc elled via OM: Order cancelled - Patient discharged Performed By: #### L 100.0100, L500.4050 ####[facility] [address] [place], [address] CO2 Normal 21.0-32.0 [facility] Comment on above: Result Comment: Canc elled via OM: Order cancelled - Patient discharged Performed By: #### L 100.0100, L500.4050 ####[facility] [address] [place], [address] CREAT,SERUM Normal 0.55-1.02 [facility] Comment on above: Result Comment: Canc elled via OM: Order cancelled - Patient discharged Performed By: #### L 100.0100, L500.4050 ####[facility] [address] [place], [address] EST GFR Normal >60 [facility] Comment on above: Result Comment: Canc elled via OM: Order cancelled - Patient discharged Performed By: #### L 100.0100, L500.4050 ####[facility] [address] [place], [address] EST GFR - AA Normal >60 [facility] Comment on above: Result Comment: Canc elled via OM: Order cancelled - Patient discharged Performed By: #### L 100.0100, L500.4050 ####[facility] [address] [place], [address] GAP Normal 5-15 [facility] Comment on above: Result Comment: Canc elled via OM: Order cancelled - Patient discharged Performed By: #### L 100.0100, L500.4050 ####[facility] [address] [place], [address] GLU Normal 74-106 [facility] Comment on above: Result Comment: Canc elled via OM: Order cancelled - Patient discharged Performed By: #### L 100.0100, L500.4050 ####[facility] [address] [place], [address] Potassium Normal 3.5-5.1 [facility] Comment on above: Result Comment: Canc elled via OM: Order cancelled - Patient discharged Performed By: #### L 100.0100, L500.4050 ####[facility] [address] [place], [address] T BILI Normal 0.20-1.00 [facility] Comment on above: Result Comment: Canc elled via OM: Order cancelled - Patient discharged Performed By: #### L 100.0100, L500.4050 ####[facility] [address] [place], [address] T PROT Normal 6.4-8.2 [facility] Comment on above: Result Comment: Canc elled via OM: Order cancelled - Patient discharged Performed By: #### L 100.0100, L500.4050 ####[facility] [address] [place], [address] Comprehensive Metabolic Profil Normal 136-145 [facility] Comment on above: Result Comment: Canc elled via OM: Order cancelled - Patient discharged Performed By: #### L 100.0100, L500.4050 ####[facility] [address] [place], [address] Basic Metabolic Profile (BMP )on 03-29-2024 BUN/CRE 23.3 RATIO High 10-20 [facility] Comment on above: Performed By: #### L 500.2500, L100.0100 ####[facility] [address] [place], [address] CA,Total 8.8 mg/dL Normal 8.5-10.1 [facility] Comment on above: Performed By: #### L 500.2500, L100.0100 ####[facility] [address] [place], [address] Chloride [Moles/Vol] 107 mmol/L Normal 98-107 [facility] Comment on above: Performed By: #### L 500.2500, L100.0100 ####[facility] [address] [place], [address] CO2 [Moles/Vol] 28.0 mmol/L Normal 21.0-32.0 [facility] Comment on above: Performed By: #### L 500.2500, L100.0100 ####[facility] [address] [place], [address] Creatinine [Mass/Vol] 0.73 mg/dL Normal 0.55-1.02 [facility] Comment on above: Result Comment: The validity of the calculated GFR GFRAA in patients over70 years has not been determined. Clinical correlation isessential. Performed By: #### L 500.2500, L100.0100 ####[facility] [address] [place], [address] ECRCL 45.93 ml/min Normal [facility] Comment on above: Performed By: #### L 500.2500, L100.0100 ####[facility] [address] [place], [address] EST GFR - AA 97 mL/min Normal >60 [facility] Comment on above: Result Comment: Afri can Maur[place] GFR Calc Performed By: #### L 500.2500, L100.0100 ####[facility] [address] [place], [address] GAP 5 Normal 5-15 [facility] Comment on above: Performed By: #### L 500.2500, L100.0100 ####[facility] [address] [place], [address] GFR/1.73 sq M.predicted among non-blacks MDRD (S/P/Bld) [Vol rate/Area] 80 mL/min/{1.73_m2} Normal >60 [facility] Comment on above: Result Comment: Non- GFR Calc Performed By: #### L 500.2500, L100.0100 ####[facility] [address] [place], [address] Glucose [Mass/Vol] 102 mg/dL Normal 74-106 [facility] Comment on above: Result Comment: Fast ing Glucose result from 100 to 125 mg/dLsuggests IMPAIRED HOMEOSTASIS per A.D.A. criteria. Performed By: #### L 500.2500, L100.0100 ####[facility] [address] [place], [address] Potassium [Moles/Vol] 4.3 mmol/L Normal 3.5-5.1 [facility] Comment on above: Performed By: #### L 500.2500, L100.0100 ####[facility] [address] [place], [address] Sodium [Moles/Vol] 140 mmol/L Normal 136-145 [facility] Comment on above: Performed By: #### L 500.2500, L100.0100 ####[facility] [address] [place], [address] Urea nitrogen [Mass/Vol] 17 mg/dL Normal 7-18 [facility] Comment on above: Performed By: #### L 500.2500, L100.0100 ####[facility] [address] [place], [address] CBC W/Diff, Automatedon 03-07 Absolute Lymph 1.70 X10 3/uL Normal 0.83-4.51 [facility] Comment on above: Performed By: #### L 500.2500, L100.0100 ####[facility] [address] [place], [address] Absolute Neut 2.5 X10 3/uL Normal 2.0-7.7 [facility] Comment on above: Performed By: #### L 500.2500, L100.0100 ####[facility] [address] [place], [address] Basophils/100 WBC (Bld) 0.6 % Normal 0-1 [facility] Comment on above: Performed By: #### L 500.2500, L100.0100 ####[facility] [address] [place], [address] Eosinophils/100 WBC (Bld) 1.7 % Normal 0-5 [facility] Comment on above: Performed By: #### L 500.2500, L100.0100 ####[facility] [address] [place], [address] Erythrocyte distribution width (RBC) [Ratio] 14.3 % Normal 11.6-14.6 [facility] Comment on above: Performed By: #### L 500.2500, L100.0100 ####[facility] [address] [place], [address] Hematocrit (Bld) [Volume fraction] 38.6 % Normal 37-47 [facility] Comment on above: Performed By: #### L 500.2500, L100.0100 ####[facility] [address] [place], [address] Hemoglobin (Bld) [Mass/Vol] 12.4 g/dL Normal 12.0-15.0 [facility] Comment on above: Performed By: #### L 500.2500, L100.0100 ####[facility] [address] [place], [address] IG% 0.600 Normal 0.0-0.9 [facility] Comment on above: Result Comment: IG% - Immature Granulocytes (promyelocytes, myelocytes andmetamyelocytes) > 1% indicates that a LEFT SHIFT is Present. Performed By: #### L 500.2500, L100.0100 ####[facility] [address] [place], [address] Lymphocytes/100 WBC (Bld) 35.3 % Normal 19-41 [facility] Comment on above: Performed By: #### L 500.2500, L100.0100 ####[facility] [address] [place], [address] MCH (RBC) [Entitic mass] 27.3 pg Normal 27.0-32.0 [facility] Comment on above: Performed By: #### L 500.2500, L100.0100 ####[facility] [address] [place], [address] MCHC (RBC) [Mass/Vol] 32.1 g/dL Normal 32-36 [facility] Comment on above: Performed By: #### L 500.2500, L100.0100 ####[facility] [address] [place], [address] MCV (RBC) [Entitic vol] 85.0 fL Normal 81-99 [facility] Comment on above: Performed By: #### L 500.2500, L100.0100 ####[facility] [address] [place], [address] Monocytes/100 WBC (Bld) 9.6 % Normal 0-10 [facility] Comment on above: Performed By: #### L 500.2500, L100.0100 ####[facility] [address] [place], [address] Neutrophils/100 WBC (Bld) 52.2 % Normal 47-70 [facility] Comment on above: Performed By: #### L 500.2500, L100.0100 ####[facility] [address] [place], [address] Nucleated RBC (Bld) [#/Vol] 0 10*3/uL Normal 0-5 [facility] Comment on above: Performed By: #### L 500.2500, L100.0100 ####[facility] [address] [place], [address] Platelet mean volume (Bld) [Entitic vol] 9.2 fL Normal 6.2-12.0 [facility] Comment on above: Performed By: #### L 500.2500, L100.0100 ####[facility] [address] [place], [address] Platelets (Bld) [#/Vol] 198 10*3/uL Normal 150-450 [facility] Comment on above: Performed By: #### L 500.2500, L100.0100 ####[facility] [address] [place], [address] RBC (Bld) [#/Vol] 4.54 10*6/uL Normal 4.2-5.4 [facility] Comment on above: Performed By: #### L 500.2500, L100.0100 ####[facility] [address] [place], [address] RDW SD 44.3 fl High 35.1-43.9 [facility] Comment on above: Performed By: #### L 500.2500, L100.0100 ####[facility] [address] [place], [address] WBC (Bld) [#/Vol] 4.8 10*3/uL Normal 4.4-11.0 [facility] Comment on above: Performed By: #### L 500.2500, L100.0100 ####[facility] [address] [place], [address] Absolute Neut Normal 2.0-7.7 [facility] Comment on above: Result Comment: Canc elled via OM: Order cancelled - Patient discharged Performed By: #### L 500.4050, L100.0100 ####[facility] [address] [place], [address] HCT Normal 37-47 [facility] Comment on above: Result Comment: Canc elled via OM: Order cancelled - Patient discharged Performed By: #### L 500.4050, L100.0100 ####[facility] [address] [place], [address] HGB Normal 12.0-15.0 [facility] Comment on above: Result Comment: Canc elled via OM: Order cancelled - Patient discharged Performed By: #### L 500.4050, L100.0100 ####[facility] [address] [place], [address] MCH Normal 27.0-32.0 [facility] Comment on above: Result Comment: Canc elled via OM: Order cancelled - Patient discharged Performed By: #### L 500.4050, L100.0100 ####[facility] [address] [place], [address] MCHC Normal 32-36 [facility] Comment on above: Result Comment: Canc elled via OM: Order cancelled - Patient discharged Performed By: #### L 500.4050, L100.0100 ####[facility] [address] [place], [address] MCV Normal 81-99 [facility] Comment on above: Result Comment: Canc elled via OM: Order cancelled - Patient discharged Performed By: #### L 500.4050, L100.0100 ####[facility] [address] [place], [address] NEUT% Normal 47-70 [facility] Comment on above: Result Comment: Canc elled via OM: Order cancelled - Patient discharged Performed By: #### L 500.4050, L100.0100 ####[facility] [address] [place], [address] PLT Normal 150-450 [facility] Comment on above: Result Comment: Canc elled via OM: Order cancelled - Patient discharged Performed By: #### L 500.4050, L100.0100 ####[facility] [address] [place], [address] RBC Normal 4.2-5.4 [facility] Comment on above: Result Comment: Canc elled via OM: Order cancelled - Patient discharged Performed By: #### L 500.4050, L100.0100 ####[facility] [address] [place], [address] RDW CV Normal 11.6-14.6 [facility] Comment on above: Result Comment: Canc elled via OM: Order cancelled - Patient discharged Performed By: #### L 500.4050, L100.0100 ####[facility] [address] [place], [address] RDW SD Normal 35.1-43.9 [facility] Comment on above: Result Comment: Canc elled via OM: Order cancelled - Patient discharged Performed By: #### L 500.4050, L100.0100 ####[facility] [address] [place], [address] WBC Normal 4.4-11.0 [facility] Comment on above: Result Comment: Canc elled via OM: Order cancelled - Patient discharged Performed By: #### L 500.4050, L100.0100 ####[facility] [address] [place], [address] CPK Total, Creatine Kinaseon 03-29-2024 CPK TOTAL 174 U/L Normal 26-192 [facility] Comment on above: Performed By: #### L 501.3620 ####[facility] [address] [place], [address] Comprehensive Metabolic Prof ilon 03-29-2024 ALB Normal 3.2-5.0 [facility] Comment on above: Result Comment: Canc elled via OM: Order cancelled - Patient discharged Performed By: #### L 500.4050, L100.0100 ####[facility] [address] [place], [address] ALK P Normal 45-117 [facility] Comment on above: Result Comment: Canc elled via OM: Order cancelled - Patient discharged Performed By: #### L 500.4050, L100.0100 ####[facility] [address] [place], [address] ALT Normal 13-56 [facility] Comment on above: Result Comment: Canc elled via OM: Order cancelled - Patient discharged Performed By: #### L 500.4050, L100.0100 ####[facility] [address] [place], [address] AST Normal 15-37 [facility] Comment on above: Result Comment: Canc elled via OM: Order cancelled - Patient discharged Performed By: #### L 500.4050, L100.0100 ####[facility] [address] [place], [address] BUN Normal 7-18 [facility] Comment on above: Result Comment: Canc elled via OM: Order cancelled - Patient discharged Performed By: #### L 500.4050, L100.0100 ####[facility] [address] [place], [address] BUN/CRE Normal 10-20 [facility] Comment on above: Result Comment: Canc elled via OM: Order cancelled - Patient discharged Performed By: #### L 500.4050, L100.0100 ####[facility] [address] [place], [address] CA,Total Normal 8.5-10.1 [facility] Comment on above: Result Comment: Canc elled via OM: Order cancelled - Patient discharged Performed By: #### L 500.4050, L100.0100 ####[facility] [address] [place], [address] CL Normal 98-107 [facility] Comment on above: Result Comment: Canc elled via OM: Order cancelled - Patient discharged Performed By: #### L 500.4050, L100.0100 ####[facility] [address] [place], [address] CO2 Normal 21.0-32.0 [facility] Comment on above: Result Comment: Canc elled via OM: Order cancelled - Patient discharged Performed By: #### L 500.4050, L100.0100 ####[facility] [address] [place], [address] CREAT,SERUM Normal 0.55-1.02 [facility] Comment on above: Result Comment: Canc elled via OM: Order cancelled - Patient discharged Performed By: #### L 500.4050, L100.0100 ####[facility] [address] [place], [address] EST GFR Normal >60 [facility] Comment on above: Result Comment: Canc elled via OM: Order cancelled - Patient discharged Performed By: #### L 500.4050, L100.0100 ####[facility] [address] [place], [address] EST GFR - AA Normal >60 [facility] Comment on above: Result Comment: Canc elled via OM: Order cancelled - Patient discharged Performed By: #### L 500.4050, L100.0100 ####[facility] [address] [place], [address] GAP Normal 5-15 [facility] Comment on above: Result Comment: Canc elled via OM: Order cancelled - Patient discharged Performed By: #### L 500.4050, L100.0100 ####[facility] [address] [place], [address] GLU Normal 74-106 [facility] Comment on above: Result Comment: Canc elled via OM: Order cancelled - Patient discharged Performed By: #### L 500.4050, L100.0100 ####[facility] [address] [place], [address] Potassium Normal 3.5-5.1 [facility] Comment on above: Result Comment: Canc elled via OM: Order cancelled - Patient discharged Performed By: #### L 500.4050, L100.0100 ####[facility] [address] [place], [address] T BILI Normal 0.20-1.00 [facility] Comment on above: Result Comment: Canc elled via OM: Order cancelled - Patient discharged Performed By: #### L 500.4050, L100.0100 ####[facility] [address] [place], [address] T PROT Normal 6.4-8.2 [facility] Comment on above: Result Comment: Canc elled via OM: Order cancelled - Patient discharged Performed By: #### L 500.4050, L100.0100 ####[facility] [address] [place], [address] Comprehensive Metabolic Profil Normal 136-145 [facility] Comment on above: Result Comment: Canc elled via OM: Order cancelled - Patient discharged Performed By: #### L 500.4050, L100.0100 ####[facility] [address] [place], [address] CBC W/Diff, Automatedon 08 Absolute Lymph 1.64 X10 3/uL Normal 0.83-4.51 [facility] Comment on above: Performed By: #### L 100.0100 ####[facility] [address] [place], [address] Absolute Neut 2.1 X10 3/uL Normal 2.0-7.7 [facility] Comment on above: Performed By: #### L 100.0100 ####[facility] [address] [place], [address] Basophils/100 WBC (Bld) 0.7 % Normal 0-1 [facility] Comment on above: Performed By: #### L 100.0100 ####[facility] [address] [place], [address] Eosinophils/100 WBC (Bld) 1.4 % Normal 0-5 [facility] Comment on above: Performed By: #### L 100.0100 ####[facility] [address] [place], [address] Erythrocyte distribution width (RBC) [Ratio] 14.3 % Normal 11.6-14.6 [facility] Comment on above: Performed By: #### L 100.0100 ####[facility] [address] [place], [address] Hematocrit (Bld) [Volume fraction] 39.6 % Normal 37-47 [facility] Comment on above: Performed By: #### L 100.0100 ####[facility] [address] [place], [address] Hemoglobin (Bld) [Mass/Vol] 12.5 g/dL Normal 12.0-15.0 [facility] Comment on above: Performed By: #### L 100.0100 ####[facility] [address] [place], [address] IG% 0.200 Normal 0.0-0.9 [facility] Comment on above: Result Comment: IG% - Immature Granulocytes (promyelocytes, myelocytes andmetamyelocytes) > 1% indicates that a LEFT SHIFT is Present. Performed By: #### L 100.0100 ####[facility] [address] [place], [address] Lymphocytes/100 WBC (Bld) 38.7 % Normal 19-41 [facility] Comment on above: Performed By: #### L 100.0100 ####[facility] [address] [place], [address] MCH (RBC) [Entitic mass] 27.1 pg Normal 27.0-32.0 [facility] Comment on above: Performed By: #### L 100.0100 ####[facility] [address] [place], [address] MCHC (RBC) [Mass/Vol] 31.6 g/dL Low 32-36 [facility] Comment on above: Performed By: #### L 100.0100 ####[facility] [address] [place], [address] MCV (RBC) [Entitic vol] 85.7 fL Normal 81-99 [facility] Comment on above: Performed By: #### L 100.0100 ####[facility] [address] [place], [address] Monocytes/100 WBC (Bld) 9.4 % Normal 0-10 [facility] Comment on above: Performed By: #### L 100.0100 ####[facility] [address] [place], [address] Neutrophils/100 WBC (Bld) 49.6 % Normal 47-70 [facility] Comment on above: Performed By: #### L 100.0100 ####[facility] [address] [place], [address] Nucleated RBC (Bld) [#/Vol] 0 10*3/uL Normal 0-5 [facility] Comment on above: Performed By: #### L 100.0100 ####[facility] [address] [place], [address] Platelet mean volume (Bld) [Entitic vol] 9.6 fL Normal 6.2-12.0 [facility] Comment on above: Performed By: #### L 100.0100 ####[facility] [address] [place], [address] Platelets (Bld) [#/Vol] 214 10*3/uL Normal 150-450 [facility] Comment on above: Performed By: #### L 100.0100 ####[facility] [address] [place], [address] RBC (Bld) [#/Vol] 4.62 10*6/uL Normal 4.2-5.4 [facility] Comment on above: Performed By: #### L 100.0100 ####[facility] [address] [place], [address] RDW SD 44.7 fl High 35.1-43.9 [facility] Comment on above: Performed By: #### L 100.0100 ####[facility] [address] [place], [address] WBC (Bld) [#/Vol] 4.2 10*3/uL Low 4.4-11.0 [facility] Comment on above: Performed By: #### L 100.0100 ####[facility] [address] [place], [address] CPK Total, Creatine Kinaseon 03-28-2024 CPK TOTAL 303 U/L High 26-192 [facility] Comment on above: Performed By: #### L 501.3620, L500.4050 ####[facility] [address] [place], [address] Comprehensive Metabolic Prof ilon 03-28-2024 Albumin [Mass/Vol] 3.1 g/dL Low 3.2-5.0 [facility] Comment on above: Performed By: #### L 501.3620, L500.4050 ####[facility] [address] [place], [address] Albumin/Globulin [Mass ratio] 0.9 {ratio} Normal 0.9-2.4 [facility] Comment on above: Performed By: #### L 501.3620, L500.4050 ####[facility] [address] [place], [address] ALK P 51 U/L Normal 45-117 [facility] Comment on above: Performed By: #### L 501.3620, L500.4050 ####[facility] [address] [place], [address] ALT [Catalytic activity/Vol] 43 U/L Normal 13-56 [facility] Comment on above: Performed By: #### L 501.3620, L500.4050 ####[facility] [address] [place], [address] AST [Catalytic activity/Vol] 39 U/L High 15-37 [facility] Comment on above: Performed By: #### L 501.3620, L500.4050 ####[facility] [address] [place], [address] Bilirubin [Mass/Vol] 0.40 mg/dL Normal 0.20-1.00 [facility] Comment on above: Result Comment: For patients on eltrombopag therapy, use of Dimension Stanton TBIL is not recommended. Performed By: #### L 501.3620, L500.4050 ####[facility] [address] [place], [address] BUN/CRE 26.0 RATIO High 10-20 [facility] Comment on above: Performed By: #### L 501.3620, L500.4050 ####[facility] [address] [place], [address] CA,Total 8.6 mg/dL Normal 8.5-10.1 [facility] Comment on above: Performed By: #### L 501.3620, L500.4050 ####[facility] [address] [place], [address] Chloride [Moles/Vol] 109 mmol/L High 98-107 [facility] Comment on above: Performed By: #### L 501.3620, L500.4050 ####[facility] [address] [place], [address] CO2 [Moles/Vol] 26.0 mmol/L Normal 21.0-32.0 [facility] Comment on above: Performed By: #### L 501.3620, L500.4050 ####[facility] [address] [place], [address] Creatinine [Mass/Vol] 0.69 mg/dL Normal 0.55-1.02 [facility] Comment on above: Result Comment: The validity of the calculated GFR GFRAA in patients over70 years has not been determined. Clinical correlation isessential. Performed By: #### L 501.3620, L500.4050 ####[facility] [address] [place], [address] ECRCL 46.20 ml/min Normal [facility] Comment on above: Performed By: #### L 501.3620, L500.4050 ####[facility] [address] [place], [address] EST GFR - AA 103 mL/min Normal >60 [facility] Comment on above: Result Comment: Afri can Mauritanian GFR Calc Performed By: #### L 501.3620, L500.4050 ####[facility] [address] [place], [address] GAP 5 Normal 5-15 [facility] Comment on above: Performed By: #### L 501.3620, L500.4050 ####[facility] [address] [place], [address] GFR/1.73 sq M.predicted among non-blacks MDRD (S/P/Bld) [Vol rate/Area] 85 mL/min/{1.73_m2} Normal >60 [facility] Comment on above: Result Comment: Non- GFR Calc Performed By: #### L 501.3620, L500.4050 ####[facility] [address] [place], [address] Globulin (S) [Mass/Vol] 3.4 g/dL Normal 2.2-4.2 [facility] Comment on above: Performed By: #### L 501.3620, L500.4050 ####[facility] [address] [place], [address] Glucose [Mass/Vol] 113 mg/dL High 74-106 [facility] Comment on above: Result Comment: Fast ing Glucose result from 100 to 125 mg/dLsuggests IMPAIRED HOMEOSTASIS per A.D.A. criteria. Performed By: #### L 501.3620, L500.4050 ####[facility] [address] [place], [address] Potassium [Moles/Vol] 4.1 mmol/L Normal 3.5-5.1 [facility] Comment on above: Performed By: #### L 501.3620, L500.4050 ####[facility] [address] [place], [address] Sodium [Moles/Vol] 140 mmol/L Normal 136-145 [facility] Comment on above: Performed By: #### L 501.3620, L500.4050 ####[facility] [address] [place], [address] T PROT 6.5 g/dL Normal 6.4-8.2 [facility] Comment on above: Performed By: #### L 501.3620, L500.4050 ####[facility] [address] [place], [address] Urea nitrogen [Mass/Vol] 18 mg/dL Normal 7-18 [facility] Comment on above: Performed By: #### L 501.3620, L500.4050 ####[facility] [address] [place], [address] CBC W/Diff, Automatedon 08-2 -2023 Absolute Lymph 2.18 X10 3/uL Normal 0.83-4.51 [facility] Comment on above: Performed By: #### L 100.0100 ####[facility] [address] [place], [address] Absolute Neut 2.7 X10 3/uL Normal 2.0-7.7 [facility] Comment on above: Performed By: #### L 100.0100 ####[facility] [address] [place], [address] Basophils/100 WBC (Bld) 0.6 % Normal 0-1 [facility] Comment on above: Performed By: #### L 100.0100 ####[facility] [address] [place], [address] Eosinophils/100 WBC (Bld) 0.9 % Normal 0-5 [facility] Comment on above: Performed By: #### L 100.0100 ####[facility] [address] [place], [address] Erythrocyte distribution width (RBC) [Ratio] 14.4 % Normal 11.6-14.6 [facility] Comment on above: Performed By: #### L 100.0100 ####[facility] [address] [place], [address] Hematocrit (Bld) [Volume fraction] 41.6 % Normal 37-47 [facility] Comment on above: Performed By: #### L 100.0100 ####[facility] [address] [place], [address] Hemoglobin (Bld) [Mass/Vol] 13.0 g/dL Normal 12.0-15.0 [facility] Comment on above: Performed By: #### L 100.0100 ####[facility] [address] [place], [address] IG% 0.600 Normal 0.0-0.9 [facility] Comment on above: Result Comment: IG% - Immature Granulocytes (promyelocytes, myelocytes andmetamyelocytes) > 1% indicates that a LEFT SHIFT is Present. Performed By: #### L 100.0100 ####[facility] [address] [place], [address] Lymphocytes/100 WBC (Bld) 40.3 % Normal 19-41 [facility] Comment on above: Performed By: #### L 100.0100 ####[facility] [address] [place], [address] MCH (RBC) [Entitic mass] 27.0 pg Normal 27.0-32.0 [facility] Comment on above: Performed By: #### L 100.0100 ####[facility] [address] [place], [address] MCHC (RBC) [Mass/Vol] 31.3 g/dL Low 32-36 [facility] Comment on above: Performed By: #### L 100.0100 ####[facility] [address] [place], [address] MCV (RBC) [Entitic vol] 86.5 fL Normal 81-99 [facility] Comment on above: Performed By: #### L 100.0100 ####[facility] [address] [place], [address] Monocytes/100 WBC (Bld) 8.1 % Normal 0-10 [facility] Comment on above: Performed By: #### L 100.0100 ####[facility] [address] [place], [address] Neutrophils/100 WBC (Bld) 49.5 % Normal 47-70 [facility] Comment on above: Performed By: #### L 100.0100 ####[facility] [address] [place], [address] Nucleated RBC (Bld) [#/Vol] 0 10*3/uL Normal 0-5 [facility] Comment on above: Performed By: #### L 100.0100 ####[facility] [address] [place], [address] Platelet mean volume (Bld) [Entitic vol] 9.6 fL Normal 6.2-12.0 [facility] Comment on above: Performed By: #### L 100.0100 ####[facility] [address] [place], [address] Platelets (Bld) [#/Vol] 237 10*3/uL Normal 150-450 [facility] Comment on above: Performed By: #### L 100.0100 ####[facility] [address] [place], [address] RBC (Bld) [#/Vol] 4.81 10*6/uL Normal 4.2-5.4 [facility] Comment on above: Performed By: #### L 100.0100 ####[facility] [address] [place], [address] RDW SD 45.7 fl High 35.1-43.9 [facility] Comment on above: Performed By: #### L 100.0100 ####[facility] [address] [place], [address] WBC (Bld) [#/Vol] 5.4 10*3/uL Normal 4.4-11.0 [facility] Comment on above: Performed By: #### L 100.0100 ####[facility] [address] [place], [address] CPK Total, Creatine Kinaseon 03-27-2024 CPK TOTAL 572 U/L High 26-192 [facility] Comment on above: Performed By: #### L 501.3620, L500.4050 ####[facility] [address] [place], [address] Comprehensive Metabolic Prof ilon 03-27-2024 Albumin [Mass/Vol] 3.3 g/dL Normal 3.2-5.0 [facility] Comment on above: Performed By: #### L 501.3620, L500.4050 ####[facility] [address] [place], [address] Albumin/Globulin [Mass ratio] 0.9 {ratio} Normal 0.9-2.4 [facility] Comment on above: Performed By: #### L 501.3620, L500.4050 ####[facility] [address] [place], [address] ALK P 55 U/L Normal 45-117 [facility] Comment on above: Performed By: #### L 501.3620, L500.4050 ####[facility] [address] [place], [address] ALT [Catalytic activity/Vol] 45 U/L Normal 13-56 [facility] Comment on above: Performed By: #### L 501.3620, L500.4050 ####[facility] [address] [place], [address] AST [Catalytic activity/Vol] 53 U/L High 15-37 [facility] Comment on above: Performed By: #### L 501.3620, L500.4050 ####[facility] [address] [place], [address] Bilirubin [Mass/Vol] 0.30 mg/dL Normal 0.20-1.00 [facility] Comment on above: Result Comment: For patients on eltrombopag therapy, use of Dimension [place] TBIL is not recommended. Performed By: #### L 501.3620, L500.4050 ####[facility] [address] [place], [address] BUN/CRE 22.0 RATIO High 10-20 [facility] Comment on above: Performed By: #### L 501.3620, L500.4050 ####[facility] [address] [place], [address] CA,Total 9.2 mg/dL Normal 8.5-10.1 [facility] Comment on above: Performed By: #### L 501.3620, L500.4050 ####[facility] [address] [place], [address] Chloride [Moles/Vol] 109 mmol/L High 98-107 [facility] Comment on above: Performed By: #### L 501.3620, L500.4050 ####[facility] [address] [place], [address] CO2 [Moles/Vol] 27.0 mmol/L Normal 21.0-32.0 [facility] Comment on above: Performed By: #### L 501.3620, L500.4050 ####[facility] [address] [place], [address] Creatinine [Mass/Vol] 0.82 mg/dL Normal 0.55-1.02 [facility] Comment on above: Result Comment: The validity of the calculated GFR GFRAA in patients over70 years has not been determined. Clinical correlation isessential. Performed By: #### L 501.3620, L500.4050 ####[facility] [address] [place], [address] ECRCL 45.08 ml/min Normal [facility] Comment on above: Performed By: #### L 501.3620, L500.4050 ####[facility] [address] [place], [address] EST GFR - AA 85 mL/min Normal >60 [facility] Comment on above: Result Comment: Afri can Mauritanian GFR Calc Performed By: #### L 501.3620, L500.4050 ####[facility] [address] [place], [address] GAP 4 Low 5-15 [facility] Comment on above: Performed By: #### L 501.3620, L500.4050 ####[facility] [address] [place], [address] GFR/1.73 sq M.predicted among non-blacks MDRD (S/P/Bld) [Vol rate/Area] 70 mL/min/{1.73_m2} Normal >60 [facility] Comment on above: Result Comment: Non- GFR Calc Performed By: #### L 501.3620, L500.4050 ####[facility] [address] [place], [address] Globulin (S) [Mass/Vol] 3.6 g/dL Normal 2.2-4.2 [facility] Comment on above: Performed By: #### L 501.3620, L500.4050 ####[facility] [address] [place], [address] Glucose [Mass/Vol] 111 mg/dL High 74-106 [facility] Comment on above: Result Comment: Fast ing Glucose result from 100 to 125 mg/dLsuggests IMPAIRED HOMEOSTASIS per A.D.A. criteria. Performed By: #### L 501.3620, L500.4050 ####[facility] [address] [place], [address] Potassium [Moles/Vol] 4.4 mmol/L Normal 3.5-5.1 [facility] Comment on above: Performed By: #### L 501.3620, L500.4050 ####[facility] [address] [place], [address] Sodium [Moles/Vol] 140 mmol/L Normal 136-145 [facility] Comment on above: Performed By: #### L 501.3620, L500.4050 ####[facility] [address] [place], [address] T PROT 6.9 g/dL Normal 6.4-8.2 [facility] Comment on above: Performed By: #### L 501.3620, L500.4050 ####[facility] [address] [place], [address] Urea nitrogen [Mass/Vol] 18 mg/dL Normal 7-18 [facility] Comment on above: Performed By: #### L 501.3620, L500.4050 ####[facility] [address] [place], [address] Discharge Instructionon 03-07 Discharge Instruction Normal [facility] BNP,B-Type NATRIURETIC PEPTI Maria D 03-26-2024 Natriuretic peptide B (Bld) [Mass/Vol] 55.8 pg/mL Normal 0-100 [facility] Comment on above: Performed By: #### L 503.6620 ####[facility] [address] [place], [address] Basic Metabolic Profile (BMP )on 03-26-2024 BUN Normal 7-18 [facility] Comment on above: Result Comment: CANC EL PER DR Performed By: #### L 500.2500, L100.0100 ####[facility] [address] [place], [address] BUN/CRE Normal 10-20 [facility] Comment on above: Result Comment: CANC EL PER DR Performed By: #### L 500.2500, L100.0100 ####[facility] [address] [place], [address] CA,Total Normal 8.5-10.1 [facility] Comment on above: Result Comment: CANC EL PER DR Performed By: #### L 500.2500, L100.0100 ####[facility] [address] [place], [address] CL Normal 98-107 [facility] Comment on above: Result Comment: CANC EL PER DR Performed By: #### L 500.2500, L100.0100 ####[facility] [address] [place], [address] CO2 Normal 21.0-32.0 [facility] Comment on above: Result Comment: CANC EL PER DR Performed By: #### L 500.2500, L100.0100 ####[facility] [address] [place], [address] CREAT,SERUM Normal 0.55-1.02 [facility] Comment on above: Result Comment: CANC EL PER DR Performed By: #### L 500.2500, L100.0100 ####[facility] [address] [place], [address] EST GFR Normal >60 [facility] Comment on above: Result Comment: CANC EL PER DR Performed By: #### L 500.2500, L100.0100 ####[facility] [address] [place], [address] EST GFR - AA Normal >60 [facility] Comment on above: Result Comment: CANC EL PER DR Performed By: #### L 500.2500, L100.0100 ####[facility] [address] [place], [address] GAP Normal 5-15 [facility] Comment on above: Result Comment: CANC EL PER DR Performed By: #### L 500.2500, L100.0100 ####[facility] [address] [place], [address] GLU Normal 74-106 [facility] Comment on above: Result Comment: CANC EL PER DR Performed By: #### L 500.2500, L100.0100 ####[facility] [address] [place], [address] Potassium Normal 3.5-5.1 [facility] Comment on above: Result Comment: CANC EL PER DR Performed By: #### L 500.2500, L100.0100 ####[facility] [address] [place], [address] Basic Metabolic Profile (BMP) Normal 136-145 [facility] Comment on above: Result Comment: CANC EL PER DR Performed By: #### L 500.2500, L100.0100 ####[facility] [address] [place], [address] CBC W/Diff, Automatedon 08-2 -2023 Absolute Lymph 1.92 X10 3/uL Normal 0.83-4.51 [facility] Comment on above: Performed By: #### L 500.2500, L100.0100 ####[facility] [address] [place], [address] Absolute Neut 3.2 X10 3/uL Normal 2.0-7.7 [facility] Comment on above: Performed By: #### L 500.2500, L100.0100 ####[facility] [address] [place], [address] Basophils/100 WBC (Bld) 0.5 % Normal 0-1 [facility] Comment on above: Performed By: #### L 500.2500, L100.0100 ####[facility] [address] [place], [address] Eosinophils/100 WBC (Bld) 0.2 % Normal 0-5 [facility] Comment on above: Performed By: #### L 500.2500, L100.0100 ####[facility] [address] [place], [address] Erythrocyte distribution width (RBC) [Ratio] 14.5 % Normal 11.6-14.6 [facility] Comment on above: Performed By: #### L 500.2500, L100.0100 ####[facility] [address] [place], [address] Hematocrit (Bld) [Volume fraction] 37.8 % Normal 37-47 [facility] Comment on above: Performed By: #### L 500.2500, L100.0100 ####[facility] [address] [place], [address] Hemoglobin (Bld) [Mass/Vol] 12.1 g/dL Normal 12.0-15.0 [facility] Comment on above: Performed By: #### L 500.2500, L100.0100 ####[facility] [address] [place], [address] IG% 0.200 Normal 0.0-0.9 [facility] Comment on above: Result Comment: IG% - Immature Granulocytes (promyelocytes, myelocytes andmetamyelocytes) > 1% indicates that a LEFT SHIFT is Present. Performed By: #### L 500.2500, L100.0100 ####[facility] [address] [place], [address] Lymphocytes/100 WBC (Bld) 33.7 % Normal 19-41 [facility] Comment on above: Performed By: #### L 500.2500, L100.0100 ####[facility] [address] [place], [address] MCH (RBC) [Entitic mass] 27.4 pg Normal 27.0-32.0 [facility] Comment on above: Performed By: #### L 500.2500, L100.0100 ####[facility] [address] [place], [address] MCHC (RBC) [Mass/Vol] 32.0 g/dL Normal 32-36 [facility] Comment on above: Performed By: #### L 500.2500, L100.0100 ####[facility] [address] [place], [address] MCV (RBC) [Entitic vol] 85.5 fL Normal 81-99 [facility] Comment on above: Performed By: #### L 500.2500, L100.0100 ####[facility] [address] [place], [address] Monocytes/100 WBC (Bld) 9.6 % Normal 0-10 [facility] Comment on above: Performed By: #### L 500.2500, L100.0100 ####[facility] [address] [place], [address] Neutrophils/100 WBC (Bld) 55.8 % Normal 47-70 [facility] Comment on above: Performed By: #### L 500.2500, L100.0100 ####[facility] [address] [place], [address] Nucleated RBC (Bld) [#/Vol] 0 10*3/uL Normal 0-5 [facility] Comment on above: Performed By: #### L 500.2500, L100.0100 ####[facility] [address] [place], [address] Platelet mean volume (Bld) [Entitic vol] 9.5 fL Normal 6.2-12.0 [facility] Comment on above: Performed By: #### L 500.2500, L100.0100 ####[facility] [address] [place], [address] Platelets (Bld) [#/Vol] 207 10*3/uL Normal 150-450 [facility] Comment on above: Performed By: #### L 500.2500, L100.0100 ####[facility] [address] [place], [address] RBC (Bld) [#/Vol] 4.42 10*6/uL Normal 4.2-5.4 [facility] Comment on above: Performed By: #### L 500.2500, L100.0100 ####[facility] [address] [place], [address] RDW SD 45.8 fl High 35.1-43.9 [facility] Comment on above: Performed By: #### L 500.2500, L100.0100 ####[facility] [address] [place], [address] WBC (Bld) [#/Vol] 5.7 10*3/uL Normal 4.4-11.0 [facility] Comment on above: Performed By: #### L 500.2500, L100.0100 ####[facility] [address] [place], [address] CRPon 03-26-2024 C-REACTIVE PROT 16.20 mg/L High 0.0-3.0 [facility] Comment on above: Order Comment: Comme nts: May add to ED labs Result Comment: C-Re active Protein (CRP) provides useful information for thediagnosis, therapy and monitoring of inflammatory processesand associated diseases. For the evaluation of Relative Riskfor Cardiovascular Disease, a High Sensitivity CRP (HSCRP)should be ordered. Performed By: #### L 500.4050, L501.6710 ####[facility] [address] [place], [address] Comprehensive Metabolic Prof ilon 03-26-2024 Albumin [Mass/Vol] 3.0 g/dL Low 3.2-5.0 [facility] Comment on above: Order Comment: Comme nts: May add to ED labs Performed By: #### L 500.4050, L501.6710 ####[facility] [address] [place], [address] Albumin/Globulin [Mass ratio] 1.0 {ratio} Normal 0.9-2.4 [facility] Comment on above: Order Comment: Comme nts: May add to ED labs Performed By: #### L 500.4050, L501.6710 ####[facility] [address] [place], [address] ALK P 52 U/L Normal 45-117 [facility] Comment on above: Order Comment: Comme nts: May add to ED labs Performed By: #### L 500.4050, L501.6710 ####[facility] [address] [place], [address] ALT [Catalytic activity/Vol] 39 U/L Normal 13-56 [facility] Comment on above: Order Comment: Comme nts: May add to ED labs Performed By: #### L 500.4050, L501.6710 ####[facility] [address] [place], [address] AST [Catalytic activity/Vol] 59 U/L High 15-37 [facility] Comment on above: Order Comment: Comme nts: May add to ED labs Performed By: #### L 500.4050, L501.6710 ####[facility] [address] [place], [address] Bilirubin [Mass/Vol] 0.30 mg/dL Normal 0.20-1.00 [facility] Comment on above: Order Comment: Comme nts: May add to ED labs Result Comment: For patients on eltrombopag therapy, use of Dimension Stanton TBIL is not recommended. Performed By: #### L 500.4050, L501.6710 ####[facility] [address] [place], [address] BUN/CRE 24.6 RATIO High 10-20 [facility] Comment on above: Order Comment: Comme nts: May add to ED labs Performed By: #### L 500.4050, L501.6710 ####[facility] [address] [place], [address] CA,Total 8.3 mg/dL Low 8.5-10.1 [facility] Comment on above: Order Comment: Comme nts: May add to ED labs Performed By: #### L 500.4050, L501.6710 ####[facility] [address] [place], [address] Chloride [Moles/Vol] 114 mmol/L High 98-107 [facility] Comment on above: Order Comment: Comme nts: May add to ED labs Performed By: #### L 500.4050, L501.6710 ####[facility] [address] [place], [address] CO2 [Moles/Vol] 23.0 mmol/L Normal 21.0-32.0 [facility] Comment on above: Order Comment: Comme nts: May add to ED labs Performed By: #### L 500.4050, L501.6710 ####[facility] [address] [place], [address] Creatinine [Mass/Vol] 0.73 mg/dL Normal 0.55-1.02 [facility] Comment on above: Order Comment: Comme nts: May add to ED labs Result Comment: The validity of the calculated GFR GFRAA in patients over70 years has not been determined. Clinical correlation isessential. Performed By: #### L 500.4050, L501.6710 ####[facility] [address] [place], [address] ECRCL 46.14 ml/min Normal [facility] Comment on above: Order Comment: Comme nts: May add to ED labs Performed By: #### L 500.4050, L501.6710 ####[facility] [address] [place], [address] EST GFR - AA 97 mL/min Normal >60 [facility] Comment on above: Order Comment: Commhector nts: May add to ED labs Result Comment: Afri can Mauritanian GFR Calc Performed By: #### L 500.4050, L501.6710 ####[facility] [address] [place], [address] GAP 3 Low 5-15 [facility] Comment on above: Order Comment: Comme nts: May add to ED labs Performed By: #### L 500.4050, L501.6710 ####[facility] [address] [place], [address] GFR/1.73 sq M.predicted among non-blacks MDRD (S/P/Bld) [Vol rate/Area] 80 mL/min/{1.73_m2} Normal >60 [facility] Comment on above: Order Comment: Comme nts: May add to ED labs Result Comment: Non- GFR Calc Performed By: #### L 500.4050, L501.6710 ####[facility] [address] [place], [address] Globulin (S) [Mass/Vol] 3.1 g/dL Normal 2.2-4.2 [facility] Comment on above: Order Comment: Comme nts: May add to ED labs Performed By: #### L 500.4050, L501.6710 ####[facility] [address] [place], [address] Glucose [Mass/Vol] 104 mg/dL Normal 74-106 [facility] Comment on above: Order Comment: Comme nts: May add to ED labs Result Comment: Fast ing Glucose result from 100 to 125 mg/dLsuggests IMPAIRED HOMEOSTASIS per A.D.A. criteria. Performed By: #### L 500.4050, L501.6710 ####[facility] [address] [place], [address] Potassium [Moles/Vol] 4.2 mmol/L Normal 3.5-5.1 [facility] Comment on above: Order Comment: Comme nts: May add to ED labs Performed By: #### L 500.4050, L501.6710 ####[facility] [address] [place], [address] Sodium [Moles/Vol] 140 mmol/L Normal 136-145 [facility] Comment on above: Order Comment: Comme nts: May add to ED labs Performed By: #### L 500.4050, L501.6710 ####[facility] [address] [place], [address] T PROT 6.1 g/dL Low 6.4-8.2 [facility] Comment on above: Order Comment: Comme nts: May add to ED labs Performed By: #### L 500.4050, L501.6710 ####[facility] [address] [place], [address] Urea nitrogen [Mass/Vol] 18 mg/dL Normal 7-18 [facility] Comment on above: Order Comment: Comme nts: May add to ED labs Performed By: #### L 500.4050, L501.6710 ####[facility] [address] [place], [address] D-Dimer Quantitative (DVT/PE )on 03-26-2024 D-DIMER QUANT 0.63 FEU/ug/m Invalid Interpretation Code 0.27-0.49 [facility] Comment on above: Result Comment: D-Di brandon ELEVATED (>0.49): Additional studies and clinicalassessments are indicated to conclude diagnosis of:Deep Vein Thrombosis (DVT) or Pulmonary Embolism (PE)CRITICAL VALUE VERIFIED. CALLED TO YOLA BINGHAM (MS3)03/26/24 0911 Kofi Broussard.RESULTS READ BACK BY SAME. Performed By: #### L 101.9900, L300.8000, L509.7000 ####[facility] [address] [place], [address] Erythrocyte Sed Rateon 03-26 SED RATE 13 mm/hr Normal 0-30 [facility] Comment on above: Performed By: #### L 101.9900, L300.8000, L509.7000 ####[facility] [address] [place], [address] Ferritinon 03-26-2024 Ferritin [Mass/Vol] 143 ng/mL Normal 8-252 [facility] Comment on above: Order Comment: Comme nts: May add to ED labs'TROP' Serial specimen #1, #2 or #3: 1may add to ED labs11 Performed By: #### L 503.6550, L504.2610, L501.4020 ####[facility] [address] [place], [address] L501.4020on 03-26-2024 TROPONIN-I HS 36 pg/mL Normal 3.0-54.0 [facility] Comment on above: Order Comment: Comme nts: SPECIMEN #3'TROP' Serial specimen #1, #2 or #3: 3 Result Comment: Plea se Note: New Test Units and Gender Specific Reference Ranges. For more information see Policy Stat Procedure Stanton High Sensitivity Troponin (TNIH) and attachments. Performed By: #### L 501.4020 ####[facility] [address] [place], [address] TROPONIN-I HS 40 pg/mL Normal 3.0-54.0 [facility] Comment on above: Order Comment: Comme nts: SPECIMEN #2'TROP' Serial specimen #1, #2 or #3: 2 Result Comment: Plea se Note: New Test Units and Gender Specific Reference Ranges. For more information see Policy Stat Procedure Stanton High Sensitivity Troponin (TNIH) and attachments. Performed By: #### L 501.4020 ####[facility] [address] [place], [address] TROPONIN-I HS 44 pg/mL Normal 3.0-54.0 [facility] Comment on above: Order Comment: Comme nts: May add to ED labs'TROP' Serial specimen #1, #2 or #3: 1may add to ED labs11 Result Comment: Jazmín barriga Note: New Test Units and Gender Specific Reference Ranges. For more information see Policy Stat Procedure Stanton High Sensitivity Troponin (TNIH) and attachments. Performed By: #### L 503.6550, L504.2610, L501.4020 ####[facility] [address] [place], [address] LDHon 03-26-2024 LDH 290 U/L High 84-246 [facility] Comment on above: Order Comment: Comme nts: May add to ED labs'TROP' Serial specimen #1, #2 or #3: 1may add to ED labs11 Performed By: #### L 503.6550, L504.2610, L501.4020 ####[facility] [address] [place], [place], [address] Procalcitoninon 03-26-2024 Procalcitonin 0.06 ng/mL Normal 0.00-0.09 [facility] Comment on above: Result Comment: A [...] are obtained. Performed By: #### L 101.9900, L300.8000, L509.7000 ####[facility] [address] [place], [address] Urinalysis, Completeon 03-26 EPI,SQUAMOUS 0-5 SEEN Normal 5-10 [facility] Comment on above: Order Comment: CLEAN CATCH Performed By: #### L 400.0001 ####[facility] [address] [place], [address] WBC 5-10 SEEN Normal 0-5 [facility] Comment on above: Order Comment: CLEAN CATCH Performed By: #### L 400.0001 ####[facility] [address] [place], [address] BACTERIA 0 SEEN Normal None Seen [facility] Comment on above: Order Comment: CLEAN CATCH Performed By: #### L 400.0001 ####[facility] [address] [place], [address] Mucus Ql (Urine sed) 0 SEEN Normal [facility] Comment on above: Order Comment: CLEAN CATCH Performed By: #### L 400.0001 ####[facility] [address] [place], [address] RBC 0 SEEN Normal 0-5 [facility] Comment on above: Order Comment: CLEAN CATCH Performed By: #### L 400.0001 ####[facility] [address] [place], [address] 12 Lead EKGon 03-25-2024 12 Lead EKG Normal [facility] Basic Metabolic Profile (BMP )on 03-25-2024 BUN/CRE 17.9 RATIO Normal 10-20 [facility] Comment on above: Performed By: #### L 501.3620, L100.0100, L500.2500, M100.678 ####[facility] [address] [place], [address] CA,Total 9.2 mg/dL Normal 8.5-10.1 [facility] Comment on above: Performed By: #### L 501.3620, L100.0100, L500.2500, M100.678 ####[facility] [address] [place], [address] Chloride [Moles/Vol] 106 mmol/L Normal 98-107 [facility] Comment on above: Performed By: #### L 501.3620, L100.0100, L500.2500, M100.678 ####[facility] [address] [place], [address] CO2 [Moles/Vol] 25.0 mmol/L Normal 21.0-32.0 [facility] Comment on above: Performed By: #### L 501.3620, L100.0100, L500.2500, M100.678 ####[facility] [address] [place], [address] Creatinine [Mass/Vol] 1.12 mg/dL High 0.55-1.02 [facility] Comment on above: Result Comment: The validity of the calculated GFR GFRAA in patients over70 years has not been determined. Clinical correlation isessential. Performed By: #### L 501.3620, L100.0100, L500.2500, M100.678 ####[facility] [address] [place], [address] EST GFR - AA 59 mL/min Low >60 [facility] Comment on above: Result Comment: Afri can Mauritanian GFR Calc Performed By: #### L 501.3620, L100.0100, L500.2500, M100.678 ####[facility] [address] [place], [address] GAP 9 Normal 5-15 [facility] Comment on above: Performed By: #### L 501.3620, L100.0100, L500.2500, M100.678 ####[facility] [address] [place], [address] GFR/1.73 sq M.predicted among non-blacks MDRD (S/P/Bld) [Vol rate/Area] 49 mL/min/{1.73_m2} Low >60 [facility] Comment on above: Result Comment: Non- GFR Calc Performed By: #### L 501.3620, L100.0100, L500.2500, M100.678 ####[facility] [address] [place], [address] Glucose [Mass/Vol] 113 mg/dL High 74-106 [facility] Comment on above: Result Comment: Fast ing Glucose result from 100 to 125 mg/dLsuggests IMPAIRED HOMEOSTASIS per A.D.A. criteria. Performed By: #### L 501.3620, L100.0100, L500.2500, M100.678 ####[facility] [address] [place], [address] Potassium [Moles/Vol] 3.5 mmol/L Normal 3.5-5.1 [facility] Comment on above: Performed By: #### L 501.3620, L100.0100, L500.2500, M100.678 ####[facility] [address] [place], [address] Sodium [Moles/Vol] 140 mmol/L Normal 136-145 [facility] Comment on above: Performed By: #### L 501.3620, L100.0100, L500.2500, M100.678 ####[facility] [address] [place], [address] Urea nitrogen [Mass/Vol] 20 mg/dL High 7-18 [facility] Comment on above: Performed By: #### L 501.3620, L100.0100, L500.2500, M100.678 ####[facility] [address] [place], [address] Brain/Head without Contrasto n 08-20-2023 Brain/Head without Contrast Normal [facility] CBC W/Diff, Automatedon 08- 0-2023 Absolute Lymph 1.52 X10 3/uL Normal 0.83-4.51 [facility] Comment on above: Performed By: #### L 501.3620, L500.4050, L100.0100, L501.4020 ####[facility] [address] [place], [address] Absolute Neut 5.5 X10 3/uL Normal 2.0-7.7 [facility] Comment on above: Performed By: #### L 501.3620, L500.4050, L100.0100, L501.4020 ####[facility] [address] [place], [address] Basophils/100 WBC (Bld) 0.4 % Normal 0-1 [facility] Comment on above: Performed By: #### L 501.3620, L500.4050, L100.0100, L501.4020 ####[facility] [address] [place], [address] Eosinophils/100 WBC (Bld) 0.0 % Normal 0-5 [facility] Comment on above: Performed By: #### L 501.3620, L500.4050, L100.0100, L501.4020 ####[facility] [address] [place], [address] Erythrocyte distribution width (RBC) [Ratio] 14.5 % Normal 11.6-14.6 [facility] Comment on above: Performed By: #### L 501.3620, L500.4050, L100.0100, L501.4020 ####[facility] [address] [place], [address] Hematocrit (Bld) [Volume fraction] 42.5 % Normal 37-47 [facility] Comment on above: Performed By: #### L 501.3620, L500.4050, L100.0100, L501.4020 ####[facility] [address] [place], [address] Hemoglobin (Bld) [Mass/Vol] 14.7 g/dL Normal 12.0-15.0 [facility] Comment on above: Performed By: #### L 501.3620, L500.4050, L100.0100, L501.4020 ####[facility] [address] [place], [address] IG% 0.300 Normal 0.0-0.9 [facility] Comment on above: Result Comment: IG% - Immature Granulocytes (promyelocytes, myelocytes andmetamyelocytes) > 1% indicates that a LEFT SHIFT is Present. Performed By: #### L 501.3620, L500.4050, L100.0100, L501.4020 ####[facility] [address] [place], [address] Lymphocytes/100 WBC (Bld) 19.5 % Normal 19-41 [facility] Comment on above: Performed By: #### L 501.3620, L500.4050, L100.0100, L501.4020 ####[facility] [address] [place], [address] MCH (RBC) [Entitic mass] 29.6 pg Normal 27.0-32.0 [facility] Comment on above: Performed By: #### L 501.3620, L500.4050, L100.0100, L501.4020 ####[facility] [address] [place], [address] MCHC (RBC) [Mass/Vol] 34.6 g/dL Normal 32-36 [facility] Comment on above: Performed By: #### L 501.3620, L500.4050, L100.0100, L501.4020 ####[facility] [address] [place], [address] MCV (RBC) [Entitic vol] 85.5 fL Normal 81-99 [facility] Comment on above: Performed By: #### L 501.3620, L500.4050, L100.0100, L501.4020 ####[facility] [address] [place], [address] Monocytes/100 WBC (Bld) 9.1 % Normal 0-10 [facility] Comment on above: Performed By: #### L 501.3620, L500.4050, L100.0100, L501.4020 ####[facility] [address] [place], [address] Neutrophils/100 WBC (Bld) 70.7 % High 47-70 [facility] Comment on above: Performed By: #### L 501.3620, L500.4050, L100.0100, L501.4020 ####[facility] [address] [place], [address] Nucleated RBC (Bld) [#/Vol] 0 10*3/uL Normal 0-5 [facility] Comment on above: Performed By: #### L 501.3620, L500.4050, L100.0100, L501.4020 ####[facility] [address] [place], [address] Platelet mean volume (Bld) [Entitic vol] 10.3 fL Normal 6.2-12.0 [facility] Comment on above: Performed By: #### L 501.3620, L500.4050, L100.0100, L501.4020 ####[facility] [address] [place], [address] Platelets (Bld) [#/Vol] 316 10*3/uL Normal 150-450 [facility] Comment on above: Performed By: #### L 501.3620, L500.4050, L100.0100, L501.4020 ####[facility] [address] [place], [address] RBC (Bld) [#/Vol] 4.97 10*6/uL Normal 4.2-5.4 [facility] Comment on above: Performed By: #### L 501.3620, L500.4050, L100.0100, L501.4020 ####[facility] [address] [place], [address] RDW SD 45.0 fl High 35.1-43.9 [facility] Comment on above: Performed By: #### L 501.3620, L500.4050, L100.0100, L501.4020 ####[facility] [address] [place], [address] WBC (Bld) [#/Vol] 7.8 10*3/uL Normal 4.4-11.0 [facility] Comment on above: Performed By: #### L 501.3620, L500.4050, L100.0100, L501.4020 ####[facility] [address] [place], [address] Absolute Lymph 2.26 X10 3/uL Normal 0.83-4.51 [facility] Comment on above: Performed By: #### L 501.3620, L100.0100, L500.2500, M100.678 ####[facility] [address] [place], [address] Absolute Neut 8.1 X10 3/uL High 2.0-7.7 [facility] Comment on above: Performed By: #### L 501.3620, L100.0100, L500.2500, M100.678 ####[facility] [address] [place], [address] Basophils/100 WBC (Bld) 0.5 % Normal 0-1 [facility] Comment on above: Performed By: #### L 501.3620, L100.0100, L500.2500, M100.678 ####[facility] [address] [place], [address] Eosinophils/100 WBC (Bld) 0.1 % Normal 0-5 [facility] Comment on above: Performed By: #### L 501.3620, L100.0100, L500.2500, M100.678 ####[facility] [address] [place], [address] Erythrocyte distribution width (RBC) [Ratio] 14.6 % Normal 11.6-14.6 [facility] Comment on above: Performed By: #### L 501.3620, L100.0100, L500.2500, M100.678 ####[facility] [address] [place], [address] Hematocrit (Bld) [Volume fraction] 44.0 % Normal 37-47 [facility] Comment on above: Performed By: #### L 501.3620, L100.0100, L500.2500, M100.678 ####[facility] [address] [place], [address] Hemoglobin (Bld) [Mass/Vol] 14.0 g/dL Normal 12.0-15.0 [facility] Comment on above: Performed By: #### L 501.3620, L100.0100, L500.2500, M100.678 ####[facility] [address] [place], [address] IG% 0.300 Normal 0.0-0.9 [facility] Comment on above: Result Comment: IG% - Immature Granulocytes (promyelocytes, myelocytes andmetamyelocytes) > 1% indicates that a LEFT SHIFT is Present. Performed By: #### L 501.3620, L100.0100, L500.2500, M100.678 ####[facility] [address] [place], [address] Lymphocytes/100 WBC (Bld) 19.7 % Normal 19-41 [facility] Comment on above: Performed By: #### L 501.3620, L100.0100, L500.2500, M100.678 ####[facility] [address] [place], [address] MCH (RBC) [Entitic mass] 27.2 pg Normal 27.0-32.0 [facility] Comment on above: Performed By: #### L 501.3620, L100.0100, L500.2500, M100.678 ####[facility] [address] [place], [address] MCHC (RBC) [Mass/Vol] 31.8 g/dL Low 32-36 [facility] Comment on above: Performed By: #### L 501.3620, L100.0100, L500.2500, M100.678 ####[facility] [address] [place], [address] MCV (RBC) [Entitic vol] 85.6 fL Normal 81-99 [facility] Comment on above: Performed By: #### L 501.3620, L100.0100, L500.2500, M100.678 ####[facility] [address] [place], [address] Monocytes/100 WBC (Bld) 9.1 % Normal 0-10 [facility] Comment on above: Performed By: #### L 501.3620, L100.0100, L500.2500, M100.678 ####[facility] [address] [place], [address] Neutrophils/100 WBC (Bld) 70.3 % High 47-70 [facility] Comment on above: Performed By: #### L 501.3620, L100.0100, L500.2500, M100.678 ####[facility] [address] [place], [address] Nucleated RBC (Bld) [#/Vol] 0 10*3/uL Normal 0-5 [facility] Comment on above: Performed By: #### L 501.3620, L100.0100, L500.2500, M100.678 ####[facility] [address] [place], [address] Platelet mean volume (Bld) [Entitic vol] 9.9 fL Normal 6.2-12.0 [facility] Comment on above: Performed By: #### L 501.3620, L100.0100, L500.2500, M100.678 ####[facility] [address] [place], [address] Platelets (Bld) [#/Vol] 265 10*3/uL Normal 150-450 [facility] Comment on above: Performed By: #### L 501.3620, L100.0100, L500.2500, M100.678 ####[facility] [address] [place], [address] RBC (Bld) [#/Vol] 5.14 10*6/uL Normal 4.2-5.4 [facility] Comment on above: Performed By: #### L 501.3620, L100.0100, L500.2500, M100.678 ####[facility] [address] [place], [address] RDW SD 45.4 fl High 35.1-43.9 [facility] Comment on above: Performed By: #### L 501.3620, L100.0100, L500.2500, M100.678 ####[facility] [address] [place], [address] WBC (Bld) [#/Vol] 11.5 10*3/uL High 4.4-11.0 [facility] Comment on above: Performed By: #### L 501.3620, L100.0100, L500.2500, M100.678 ####[facility] [address] [place], [address] CPK Total, Creatine Kinaseon 03-25-2024 CPK TOTAL 1849 U/L High 26-192 [facility] Comment on above: Order Comment: 'TROP ' Serial specimen #1, #2 or #3: 1 Performed By: #### L 501.3620, L500.4050, L100.0100, L501.4020 ####[facility] [address] [place], [address] CPK TOTAL 2161 U/L High -192 [facility] Comment on above: Result Comment: Crit ical Result(s) Called at: 12:55:16 03/25/2024 by:elzbieta martini to ronald badillo Results read back by same. Performed By: #### L 501.3620, L100.0100, L500.2500, M100.678 ####[facility] [address] [place], [address] Chest 1 View (Portable)on Chest 1 View (Portable) Normal [facility] Comprehensive Metabolic Prof ilon 03-25-2024 Albumin [Mass/Vol] 3.5 g/dL Normal 3.2-5.0 [facility] Comment on above: Order Comment: 'TROP ' Serial specimen #1, #2 or #3: 1 Performed By: #### L 501.3620, L500.4050, L100.0100, L501.4020 ####[facility] [address] [place], [address] Albumin/Globulin [Mass ratio] 0.9 {ratio} Normal 0.9-2.4 [facility] Comment on above: Order Comment: 'TROP ' Serial specimen #1, #2 or #3: 1 Performed By: #### L 501.3620, L500.4050, L100.0100, L501.4020 ####[facility] [address] [place], [address] ALK P 65 U/L Normal 45-117 [facility] Comment on above: Order Comment: 'TROP ' Serial specimen #1, #2 or #3: 1 Performed By: #### L 501.3620, L500.4050, L100.0100, L501.4020 ####[facility] [address] [place], [address] ALT [Catalytic activity/Vol] 44 U/L Normal 13-56 [facility] Comment on above: Order Comment: 'TROP ' Serial specimen #1, #2 or #3: 1 Performed By: #### L 501.3620, L500.4050, L100.0100, L501.4020 ####[facility] [address] [place], [address] AST [Catalytic activity/Vol] 81 U/L High 15-37 [facility] Comment on above: Order Comment: 'TROP ' Serial specimen #1, #2 or #3: 1 Performed By: #### L 501.3620, L500.4050, L100.0100, L501.4020 ####[facility] [address] [place], [address] Bilirubin [Mass/Vol] 0.30 mg/dL Normal 0.20-1.00 [facility] Comment on above: Order Comment: 'TROP ' Serial specimen #1, #2 or #3: 1 Result Comment: For patients on eltrombopag therapy, use of Dimension [place] TBIL is not recommended. Performed By: #### L 501.3620, L500.4050, L100.0100, L501.4020 ####[facility] [address] [place] [place], [address] BUN/CRE 21.3 RATIO High 10-20 [facility] Comment on above: Order Comment: 'TROP ' Serial specimen #1, #2 or #3: 1 Performed By: #### L 501.3620, L500.4050, L100.0100, L501.4020 ####[facility] [address] [place], [address] CA,Total 8.9 mg/dL Normal 8.5-10.1 [facility] Comment on above: Order Comment: 'TROP ' Serial specimen #1, #2 or #3: 1 Performed By: #### L 501.3620, L500.4050, L100.0100, L501.4020 ####[facility] [address] [place], [address] Chloride [Moles/Vol] 107 mmol/L Normal 98-107 [facility] Comment on above: Order Comment: 'TROP ' Serial specimen #1, #2 or #3: 1 Performed By: #### L 501.3620, L500.4050, L100.0100, L501.4020 ####[facility] [address] [place], [address] CO2 [Moles/Vol] 25.0 mmol/L Normal 21.0-32.0 [facility] Comment on above: Order Comment: 'TROP ' Serial specimen #1, #2 or #3: 1 Performed By: #### L 501.3620, L500.4050, L100.0100, L501.4020 ####[facility] [address] [place], [address] Creatinine [Mass/Vol] 1.08 mg/dL High 0.55-1.02 [facility] Comment on above: Order Comment: 'TROP ' Serial specimen #1, #2 or #3: 1 Result Comment: The validity of the calculated GFR GFRAA in patients over70 years has not been determined. Clinical correlation isessential. Performed By: #### L 501.3620, L500.4050, L100.0100, L501.4020 ####[facility] [address] [place], [address] ECRCL 34.51 ml/min Normal [facility] Comment on above: Order Comment: 'TROP ' Serial specimen #1, #2 or #3: 1 Performed By: #### L 501.3620, L500.4050, L100.0100, L501.4020 ####[facility] [address] [place], [address] EST GFR - AA 62 mL/min Normal >60 [facility] Comment on above: Order Comment: 'TROP ' Serial specimen #1, #2 or #3: 1 Result Comment: Afri can Maur[place] GFR Calc Performed By: #### L 501.3620, L500.4050, L100.0100, L501.4020 ####[facility] [address] [place], [address] GAP 7 Normal 5-15 [facility] Comment on above: Order Comment: 'TROP ' Serial specimen #1, #2 or #3: 1 Performed By: #### L 501.3620, L500.4050, L100.0100, L501.4020 ####[facility] [address] [place], [address] GFR/1.73 sq M.predicted among non-blacks MDRD (S/P/Bld) [Vol rate/Area] 51 mL/min/{1.73_m2} Low >60 [facility] Comment on above: Order Comment: 'TROP ' Serial specimen #1, #2 or #3: 1 Result Comment: Non- GFR Calc Performed By: #### L 501.3620, L500.4050, L100.0100, L501.4020 ####[facility] [address] [place], [address] Globulin (S) [Mass/Vol] 3.9 g/dL Normal 2.2-4.2 [facility] Comment on above: Order Comment: 'TROP ' Serial specimen #1, #2 or #3: 1 Performed By: #### L 501.3620, L500.4050, L100.0100, L501.4020 ####[facility] [address] [place], [address] Glucose [Mass/Vol] 106 mg/dL Normal 74-106 [facility] Comment on above: Order Comment: 'TROP ' Serial specimen #1, #2 or #3: 1 Result Comment: Fast ing Glucose result from 100 to 125 mg/dLsuggests IMPAIRED HOMEOSTASIS per A.D.A. criteria. Performed By: #### L 501.3620, L500.4050, L100.0100, L501.4020 ####[facility] [address] [place], [address] Potassium [Moles/Vol] 3.7 mmol/L Normal 3.5-5.1 [facility] Comment on above: Order Comment: 'TROP ' Serial specimen #1, #2 or #3: 1 Performed By: #### L 501.3620, L500.4050, L100.0100, L501.4020 ####[facility] [address] [place], [address] Sodium [Moles/Vol] 139 mmol/L Normal 136-145 [facility] Comment on above: Order Comment: 'TROP ' Serial specimen #1, #2 or #3: 1 Performed By: #### L 501.3620, L500.4050, L100.0100, L501.4020 ####[facility] [address] [place], [address] T PROT 7.4 g/dL Normal 6.4-8.2 [facility] Comment on above: Order Comment: 'TROP ' Serial specimen #1, #2 or #3: 1 Performed By: #### L 501.3620, L500.4050, L100.0100, L501.4020 ####[facility] [address] [place], [address] Urea nitrogen [Mass/Vol] 23 mg/dL High 7-18 [facility] Comment on above: Order Comment: 'TROP ' Serial specimen #1, #2 or #3: 1 Performed By: #### L 501.3620, L500.4050, L100.0100, L501.4020 ####[facility] [address] [place], [address] Emergency Department Summary on 03-25-2024 Emergency Department Summary Normal [facility] H AND P Exam - Hospitaliston 03-25-2024 H&P Exam - Hospitalist Normal [facility] L501.4020on 03-25-2024 TROPONIN-I HS 61 pg/mL High 3.0-54.0 [facility] Comment on above: Order Comment: 'TROP ' Serial specimen #1, #2 or #3: 1 Result Comment: Plea se Note: New Test Units and Gender Specific Reference Ranges. For more information see Policy Stat Procedure Stanton High Sensitivity Troponin (TNIH) and attachments. Performed By: #### L 501.3620, L500.4050, L100.0100, L501.4020 ####[facility] [address] [place], [address] M100.678on 03-25-2024 M100.678 Normal [facility] Comment on above: Performed By: #### L 501.3620, L100.0100, L500.2500, M100.678 ####[facility] [address] [place], [address] Magnesiumon 03-25-2024 Magnesium [Mass/Vol] 2.2 mg/dL Normal 1.6-2.6 [facility] Comment on above: Result Comment: Mode rate Hemolysis, Result may be falsely increased. Performed By: #### L 501.2300, L501.5200 ####[facility] [address] [place], [address] Phosphoruson 03-25-2024 Phosphate [Mass/Vol] 3.8 mg/dL Normal 2.5-4.9 [facility] Comment on above: Performed By: #### L 501.2300, L501.5200 ####[facility] [address] [place], [address] Absolute lymphocyte countOrd ered By: Maximino Lu on 03-29-2023 Lymphocytes Auto (Unsp spec) [#/Vol] 2.81 10*3/uL 0.83-4.51 [facility] Basophil percentageOrdered B y: Maximino Lu on 03-29-2023 Basophils/100 WBC (Bld) 0.6 % 0-1 [facility] Bilirubin [Mass/Vol] 0.30 mg/dL 0.20-1.00 [facility] Comment on above: For patients on eltr ombopag therapy, use of Dimension [place] TBIL is not recommended. Chloride [Moles/Vol] 104 mmol/L 98-107 [facility] Eosinophils/100 WBC (Bld) 1.3 % 0-5 [facility] Glucose [Mass/Vol] 85 mg/dL 74-106 [facility] Neutrophils (Bld) [#/Vol] 4.7 10*3/uL 2.0-7.7 [facility] Neutrophils/100 WBC (Bld) 57.6 % 47-70 [facility] Potassium [Moles/Vol] 4.0 mmol/L 3.5-5.1 [facility] Protein [Mass/Vol] 7.4 g/dL 6.4-8.2 [facility] Sodium [Moles/Vol] 139 mmol/L 136-145 [facility] WBC (Bld) [#/Vol] 8.2 10*3/uL 4.4-11.0 [facility] Blood erythrocytes count (nu mber/volume)Ordered By: Maximino Lu on 03-29-2023 RBC (Bld) [#/Vol] 4.96 10*6/uL 4.2-5.4 [facility] Blood hemoglobin measurement (mass/volume)Ordered By: Maximino Lu on 03-29-2023 Hemoglobin (Bld) [Mass/Vol] 13.7 g/dL 12.0-15.0 [facility] Blood lymphocytes/100 leukoc ytesOrdered By: Maximino Lu on 03-29-2023 Lymphocytes/100 WBC (Bld) 34.2 % 19-41 [facility] Blood monocytes/100 leukocyt esOrdered By: Maximino Lu on 03-29-2023 Monocytes/100 WBC (Bld) 6.1 % 0-10 [facility] Blood platelet mean volumeOr dered By: Maximino Lu on 03-29-2023 Platelet mean volume (Bld) [Entitic vol] 9.8 fL 6.2-12.0 [facility] Determination of erythrocyte mean corpuscular volume (MCV)Ordered By: Maximino Lu on 03-29-2023 MCV (RBC) [Entitic vol] 89.1 fL 81-99 [facility] Hematocrit Auto (Bld) [Volum e fraction]Ordered By: Maximino Aly on 03-29-2023 Hematocrit (Bld) [Volume fraction] 44.2 % 37-47 [facility] Laboratory - Chemistry and C hemistry - challengeOrdered By: Maximino Lu on 03-29-2023 ALP [Catalytic activity/Vol] 54 U/L 45-117 [facility] ALT [Catalytic activity/Vol] 24 U/L 13-56 [facility] CO2 [Moles/Vol] 27.0 mmol/L 21.0-32.0 [facility] Globulin (S) [Mass/Vol] 3.6 g/dL 2.2-4.2 [facility] Urea nitrogen/Creatinine [Mass ratio] 17.1 mg/mg 10-20 [facility] Laboratory - Hematology and Cell countsOrdered By: Maximino Lu on 03-29-2023 Erythrocyte distribution width (RBC) [Entitic vol] 49.0 fL 35.1-43.9 [facility] Erythrocyte distribution width (RBC) [Ratio] 14.9 % 11.6-14.6 [facility] Immature granulocytes/100 WBC (Bld) 0.200 % 0.0-0.9 [facility] Comment on above: IG% - Immature Granu locytes (promyelocytes, myelocytes and metamyelocytes) > 1% indicates that a LEFT SHIFT is Present. MCH (RBC) [Entitic mass] 27.6 pg 27.0-32.0 [facility] Nucleated RBC/100 WBC (Bld) [Ratio] 0 % 0-5 [facility] MCHC Auto (RBC) [Mass/Vol]Or dered By: Maximino Lu on 03-29-2023 MCHC (RBC) [Mass/Vol] 31.0 g/dL 32-36 [facility] No Panel InformationOrdered By: Maximino Lu on 03-29-2023 Estimated GFR (MDRD) Amer 73 mL/min >60 [facility] Comment on above: GFR Calc Estimated GFR (MDRD) Non-Af Amer 60 mL/min >60 [facility] Comment on above: Non- GFR Calc Thyroid Stimulating Hormone (TSH) 1.58 uIU/mL 0.358-3.74 [facility] Vitamin D 25-Hydroxy 44.4 ng/mL [facility] Comment on above: Vitamin D 25(OH) Sta tus Range Deficiency <20 ng/mL (50nmol/L) Insufficiency 20 - 30 ng/mL (50 - 75 nmol/L) Sufficiency 30 - 100 ng/mL (75 - 250 nmol/L) Toxicity >100 ng/mL (>250 nmol/L) Platelets bldOrdered By: Maximino Lu on 03-29-2023 Platelets (Bld) [#/Vol] 316 10*3/uL 150-450 [facility] Serum or plasma albumin marcellus urement (mass/volume)Ordered By: Maximino Lu on 03-29-2023 Albumin [Mass/Vol] 3.8 g/dL 3.2-5.0 [facility] Serum or plasma albumin/glob ulin mass ratioOrdered By: Maximino Lu on 03-29-2023 Albumin/Globulin [Mass ratio] 1.1 {ratio} 0.9-2.4 [facility] Serum or plasma calcium marcellus urement (mass/volume)Ordered By: Maximino Lu on 03-29-2023 Calcium [Mass/Vol] 9.3 mg/dL 8.5-10.1 [facility] Serum or plasma creatinine m easurement (mass/volume)Ordered By: Maximino Lu on 03-29-2023 Creatinine [Mass/Vol] 0.94 mg/dL 0.55-1.02 [facility] Comment on above: The validity of the calculated GFR & GFRAA in patients over 70 years has not been determined. Clinical correlation is essential. Serum or plasma urea nitroge n measurement (mass/volume)Ordered By: Maximino Lu on 03-29-2023 Urea nitrogen [Mass/Vol] 16 mg/dL 7-18 [facility] Thin prep Papanicolaou smear with manual screeningOrdered By: Maximino Lu on 03-29-2023 Thin prep Papanicolaou smear with manual screening 17 U/L 15-37 [facility] Thin prep Papanicolaou smear with manual screening 8 5-15 [facility] Absolute lymphocyte countOrd ered By: Dr. Lu on 09-21-2022 Lymphocytes Auto (Unsp spec) [#/Vol] 1.82 10*3/uL 0.83-4.51 [facility] Basophil percentageOrdered B y: Dr. Lu on 09-21-2022 Basophils/100 WBC (Bld) 0.7 % 0-1 [facility] Bilirubin [Mass/Vol] 0.30 mg/dL 0.20-1.00 [facility] Comment on above: For patients on eltr ombopag therapy, use of Dimension [place] TBIL is not recommended. Chloride [Moles/Vol] 107 mmol/L 98-107 [facility] Eosinophils/100 WBC (Bld) 1.7 % 0-5 [facility] Glucose [Mass/Vol] 92 mg/dL 74-106 [facility] Neutrophils (Bld) [#/Vol] 4.7 10*3/uL 2.0-7.7 [facility] Neutrophils/100 WBC (Bld) 66.1 % 47-70 [facility] Potassium [Moles/Vol] 4.0 mmol/L 3.5-5.1 [facility] Protein [Mass/Vol] 7.3 g/dL 6.4-8.2 [facility] Sodium [Moles/Vol] 141 mmol/L 136-145 [facility] WBC (Bld) [#/Vol] 7.1 10*3/uL 4.4-11.0 [facility] Blood erythrocytes count (nu mber/volume)Ordered By: Dr. Lu on 09-21-2022 RBC (Bld) [#/Vol] 4.68 10*6/uL 4.2-5.4 [facility] Blood hemoglobin measurement (mass/volume)Ordered By: Dr. Lu on 09-21-2022 Hemoglobin (Bld) [Mass/Vol] 12.9 g/dL 12.0-15.0 [facility] Blood lymphocytes/100 leukoc ytesOrdered By: Dr. Lu on 09-21-2022 Lymphocytes/100 WBC (Bld) 25.7 % 19-41 [facility] Blood monocytes/100 leukocyt esOrdered By: Dr. Lu on 09-21-2022 Monocytes/100 WBC (Bld) 5.4 % 0-10 [facility] Blood platelet mean volumeOr dered By: Dr. Lu on 09-21-2022 Platelet mean volume (Bld) [Entitic vol] 9.8 fL 6.2-12.0 [facility] Determination of erythrocyte mean corpuscular volume (MCV)Ordered By: Dr. Lu on 09-21-2022 MCV (RBC) [Entitic vol] 88.0 fL 81-99 [facility] Hematocrit Auto (Bld) [Volum e fraction]Ordered By: Dr. Lu on 09-21-2022 Hematocrit (Bld) [Volume fraction] 41.2 % 37-47 [facility] Laboratory - Chemistry and C hemistry - challengeOrdered By: Dr. Lu on 09-21-2022 ALP [Catalytic activity/Vol] 58 U/L 45-117 [facility] ALT [Catalytic activity/Vol] 23 U/L 13-56 [facility] CO2 [Moles/Vol] 28.0 mmol/L 21.0-32.0 [facility] Globulin (S) [Mass/Vol] 3.6 g/dL 2.2-4.2 [facility] Urea nitrogen/Creatinine [Mass ratio] 21.7 mg/mg 10-20 [facility] Laboratory - Hematology and Cell countsOrdered By: Dr. Lu on 09-21-2022 Erythrocyte distribution width (RBC) [Entitic vol] 47.0 fL 35.1-43.9 [facility] Erythrocyte distribution width (RBC) [Ratio] 14.6 % 11.6-14.6 [facility] Immature granulocytes/100 WBC (Bld) 0.400 % 0.0-0.9 [facility] Comment on above: IG% - Immature Granu locytes (promyelocytes, myelocytes and metamyelocytes) > 1% indicates that a LEFT SHIFT is Present. MCH (RBC) [Entitic mass] 27.6 pg 27.0-32.0 [facility] Nucleated RBC/100 WBC (Bld) [Ratio] 0 % 0-5 [facility] MCHC Auto (RBC) [Mass/Vol]Or dered By: Dr. Lu on 09-21-2022 MCHC (RBC) [Mass/Vol] 31.3 g/dL 32-36 [facility] No Panel InformationOrdered By: Dr. Lu on 09-21-2022 Estimated GFR (MDRD) Amer 74 mL/min >60 [facility] Comment on above: GFR Calc Estimated GFR (MDRD) Non-Af Amer 61 mL/min >60 [facility] Comment on above: Non- GFR Calc Thyroid Stimulating Hormone (TSH) 1.33 uIU/mL 0.358-3.74 [facility] Vitamin D 25-Hydroxy 38.7 ng/mL [facility] Comment on above: Vitamin D 25(OH) Sta tus Range Deficiency <20 ng/mL (50nmol/L) Insufficiency 20 - 30 ng/mL (50 - 75 nmol/L) Sufficiency 30 - 100 ng/mL (75 - 250 nmol/L) Toxicity >100 ng/mL (>250 nmol/L) Platelets bldOrdered By: Dr. Lu on 09-21-2022 Platelets (Bld) [#/Vol] 279 10*3/uL 150-450 [facility] Serum or plasma albumin marcellus urement (mass/volume)Ordered By: Dr. Lu on 09-21-2022 Albumin [Mass/Vol] 3.7 g/dL 3.2-5.0 [facility] Serum or plasma albumin/glob ulin mass ratioOrdered By: Dr. Lu on 09-21-2022 Albumin/Globulin [Mass ratio] 1.0 {ratio} 0.9-2.4 [facility] Serum or plasma calcium marcellus urement (mass/volume)Ordered By: Dr. Lu on 09-21-2022 Calcium [Mass/Vol] 9.1 mg/dL 8.5-10.1 [facility] Serum or plasma creatinine m easurement (mass/volume)Ordered By: Dr. Lu on 09-21-2022 Creatinine [Mass/Vol] 0.92 mg/dL 0.55-1.02 [facility] Comment on above: The validity of the calculated GFR & GFRAA in patients over 70 years has not been determined. Clinical correlation is essential. Serum or plasma urea nitroge n measurement (mass/volume)Ordered By: Dr. Lu on 09-21-2022 Urea nitrogen [Mass/Vol] 20 mg/dL 7-18 [facility] Thin prep Papanicolaou smear with manual screeningOrdered By: Dr. Lu on 09-21-2022 Thin prep Papanicolaou smear with manual screening 18 U/L 15-37 [facility] Thin prep Papanicolaou smear with manual screening 6 5-15 [facility] Absolute lymphocyte counton 03-23-2022 Lymphocytes Auto (Unsp spec) [#/Vol] 2.30 10*3/uL 0.83-4.51 [facility] Work Phone: Basophil percentageon 2021 Basophils/100 WBC (Bld) 0.7 % 0-1 [facility] Work Phone: Bilirubin [Mass/Vol] 0.30 mg/dL 0.20-1.00 [facility] Work Phone: [phone] Comment on above: For patients on eltr ombopag therapy, use of Dimension [place] TBIL is not recommended. Chloride [Moles/Vol] 107 mmol/L 98-107 [facility] Work Phone: Eosinophils/100 WBC (Bld) 2.5 % 0-5 [facility] Work Phone: Glucose [Mass/Vol] 94 mg/dL 74-106 [facility] Work Phone: Neutrophils (Bld) [#/Vol] 3.9 10*3/uL 2.0-7.7 [facility] Work Phone: Neutrophils/100 WBC (Bld) 56.5 % 47-70 [facility] Work Phone: Potassium [Moles/Vol] 4.2 mmol/L 3.5-5.1 [facility] Work Phone: Protein [Mass/Vol] 7.4 g/dL 6.4-8.2 [facility] Work Phone: [phone] Sodium [Moles/Vol] 141 mmol/L 136-145 [facility] Work Phone: WBC (Bld) [#/Vol] 6.9 10*3/uL 4.4-11.0 [facility] Work Phone: Blood erythrocytes count (nu mber/volume)on 03-23-2022 RBC (Bld) [#/Vol] 4.77 10*6/uL 4.2-5.[address] [facility] Work Phone: Blood hemoglobin measurement (mass/volume)on 03-23-2022 Hemoglobin (Bld) [Mass/Vol] 13.1 g/dL 12.0-15.0 [facility] Work Phone: Blood lymphocytes/100 leukoc yteson 03-23-2022 Lymphocytes/100 WBC (Bld) 33.4 % 19-41 [facility] Work Phone: Blood monocytes/100 leukocyt eson 03-23-2022 Monocytes/100 WBC (Bld) 6.8 % 0-10 [facility] Work Phone: [phone] Blood platelet mean volumeon 03-23-2022 Platelet mean volume (Bld) [Entitic vol] 10.0 fL 6.2-12.0 [facility] Work Phone: Determination of erythrocyte mean corpuscular volume (MCV)on 03-23-2022 MCV (RBC) [Entitic vol] 87.8 fL 81-99 [facility] Work Phone: Hematocrit Auto (Bld) [Volum e fraction]on 03-23-2022 Hematocrit (Bld) [Volume fraction] 41.9 % 37-47 [facility] Work Phone: Laboratory - Chemistry and C hemistry - challengeon 03-23-2022 ALP [Catalytic activity/Vol] 51 U/L 45-117 [facility] Work Phone: ALT [Catalytic activity/Vol] 24 U/L 13-56 [facility] Work Phone: CO2 [Moles/Vol] 30.0 mmol/L 21.0-32.0 [facility] Work Phone: Globulin (S) [Mass/Vol] 3.7 g/dL 2.2-4.2 [facility] Work Phone: Urea nitrogen/Creatinine [Mass ratio] 28.5 mg/mg 10-20 [facility] Work Phone: Laboratory - Hematology and Cell countson 03-23-2022 Erythrocyte distribution width (RBC) [Entitic vol] 46.1 fL 35.1-43.9 [facility] Work Phone: Erythrocyte distribution width (RBC) [Ratio] 14.2 % 11.6-14.6 [facility] Work Phone: Immature granulocytes/100 WBC (Bld) 0.100 % 0.0-0.9 [facility] Work Phone: Comment on above: IG% - Immature Granu locytes (promyelocytes, myelocytes and metamyelocytes) > 1% indicates that a LEFT SHIFT is Present. MCH (RBC) [Entitic mass] 27.5 pg 27.0-32.0 [facility] Work Phone: [phone] Nucleated RBC/100 WBC (Bld) [Ratio] 0 % 0-5 [facility] Work Phone: MCHC Auto (RBC) [Mass/Vol]on 03-23-2022 MCHC (RBC) [Mass/Vol] 31.3 g/dL 32-36 [facility] Work Phone: No Panel Informationon 03-23 Estimated GFR (MDRD) Amer 76 mL/min >60 [facility] Work Phone: Comment on above: GFR Calc Estimated GFR (MDRD) Non-Af Amer 62 mL/min >60 [facility] Work Phone: Comment on above: Non- GFR Calc Thyroid Stimulating Hormone (TSH) 1.14 uIU/mL 0.358-3.74 [facility] Work Phone: Vitamin D 25-Hydroxy 45.2 ng/mL [facility] Work Phone: Comment on above: Vitamin D 25(OH) Sta tus Range Deficiency <20 ng/mL (50nmol/L) Insufficiency 20 - 30 ng/mL (50 - 75 nmol/L) Sufficiency 30 - 100 ng/mL (75 - 250 nmol/L) Toxicity >100 ng/mL (>250 nmol/L) Platelets bldon 03-23-2022 Platelets (Bld) [#/Vol] 299 10*3/uL 150-450 [facility] [facility] Work Phone: Serum or plasma albumin marcellus urement (mass/volume)on 03-23-2022 Albumin [Mass/Vol] 3.7 g/dL 3.2-5.0 [facility] Work Phone: Serum or plasma albumin/glob ulin mass ratioon 03-23-2022 Albumin/Globulin [Mass ratio] 1.0 {ratio} 0.9-2.4 [facility] Work Phone: Serum or plasma calcium marcellus urement (mass/volume)on 03-23-2022 Calcium [Mass/Vol] 10.0 mg/dL 8.5-10.1 [facility] Work Phone: Serum or plasma creatinine m easurement (mass/volume)on 03-23-2022 Creatinine [Mass/Vol] 0.91 mg/dL 0.55-1.02 [facility] Work Phone: Comment on above: The validity of the calculated GFR & GFRAA in patients over 70 years has not been determined. Clinical correlation is essential. Serum or plasma urea nitroge n measurement (mass/volume)on 03-23-2022 Urea nitrogen [Mass/Vol] 26 mg/dL - [facility] Work Phone: Thin prep Papanicolaou smear with manual screeningon 03-23-2022 Thin prep Papanicolaou smear with manual screening 14 U/L 15-37 [facility] Work Phone: Thin prep Papanicolaou smear with manual screening 4 5-15 [facility] Work Phone: Vital Signs Date Time Vital Sign Value Performing Clinician Faci lity 10-19-2024 10:28-0400 Body height 157.[address] Maximino Lu MD Work Phone: [facility] 10-19-2024 10:28-0400 Body mass index (BMI) [Ratio] 28.5 kg/m2 Dr. Maximino Lu MD Work Phone: [facility] 10-19-2024 10:28-0400 Body temperature 98.4 [degF] Dr. Maximino Lu MD Work Phone: [facility] 10-19-2024 10:28-0400 Body weight 70.[address] Maximino Lu MD Work Phone: [facility] 10-19-2024 10:28-0400 Diastolic blood pressure 70 mm[Hg] Dr. Maximino Lu MD Work Phone: [facility] 10-19-2024 10:28-0400 Heart rate 83 /min Dr. Maximino Lu MD Work Phone: [facility] 10-19-2024 10:28-0400 Respiratory rate 16 /min Dr. Maximino Lu MD Work Phone: [facility] 10-19-2024 10:28-0400 SaO2% (BldA) [Mass fraction] 98 % Dr. Maximino Lu MD Work Phone: [facility] 10-19-2024 10:28040 Systolic blood pressure 118 mm[Hg] Dr. Maximino Lu MD Work Phone: [facility] Encounters Encounter Date Encounter Type Care Provider Facility Start: 01-07-2025 End: 01-07-[address] Maximino Lu MD Work Phone: [facility] Work Phone: Start: 01-07-2025 End: 01-07-[address] Maximino Lu MD -Laboratory Work Phone: Start: 01-07-2025 End: 01-07-2025 ambulatory Maximino Lu Facility:[facility] Start: 11-05-2024 End: 11-05-[address] Maximino Lu MD Work Phone: [facility] Work Phone: Start: 11-05-2024 End: 11-05-[address] Maximino Lu MD -Laboratory Work Phone: Start: 11-05-2024 End: 11-05-2024 ambulatory Maximino Lu Facility:[facility] Start: 10-28-2024 End: 10-28-[address] Maximino Lu MD Work Phone: [facility] Work Phone: Start: 10-28-2024 End: 10-28-[address] Maximino Lu MD -Cat Scan, [facility] Work Phone: Start: 10-27-2024 End: 10-28-[address] Maximino Lu MD Work Phone: [facility] Work Phone: Start: 10-27-2024 End: 10-27-[address] Maximino Lu MD -Laboratory, [facility] Office [address] [place] [address] Start: 10-27-2024 End: 10-27-2024 ambulatory Maximino Chi Aly Facility:[facility] Start: 10-19-2024 End: 10-19-2024 [facility] Start: 10-19-2024 End: 10-19-2024 ambulatory Maximino Chi Aly Facility:[facility] Start: 07-10-2024 End: 07-10-[address] Maximino Lu MD -[facility] Work Phone: Start: 07-10-2024 End: 07-10-2024 ambulatory Maximino Chi Aly Facility:[facility] Start: 06-24-2024 ambulatory Maximino Chi Aly Facility:[facility] Start: 06-24-2024 End: 06-24-2024 ambulatory Maximino Chi Aly Facility:[facility] Start: 05-06-2024 End: 05-06-2024 ambulatory Maximino Chi Aly Facility:[facility] Start: 03-28-2024 End: 04-03-2024 Evaluation and management of inpatient Maximino Chi Aly Facility:[facility] Start: 03-26-2024 ambulatory Maximino Chi Aly Facility:[facility] Start: 03-25-2024 ambulatory Maximino Chi Aly Facility:[facility] Start: 03-25-2024 End: 03-28-2024 Evaluation and management of inpatient Maximino Chi Aly Facility:[facility] Start: 03-25-2024 End: 03-25-2024 ambulatory Maximino Chi Aly Facility:[facility] Start: 03-29-2023 End: 03-29-2023 ambulatory [facility] Work Phone: Start: 03-29-2023 End: 03-29-2023 Patient encounter procedure [facility]-Laboratory, [facility] 3rd Flr Start: 09-21-2022 End: 09-21-2022 ambulatory [facility] Work Phone: Start: 09-21-2022 End: 09-21-2022 Patient encounter procedure [facility]atory, Phy Office 3rd Flr Start: 03-23-2022 End: 03-23-2022 ambulatory [facility] Work Phone: Start: 03-23-2022 End: 03-23-2022 Patient encounter procedure [facility], Phy Office 3rd Flr Procedures Date Procedure Procedure Detail Performing Clinician Start: 01-07-2025 X-ray of chest posteroanterior view Dr. Maximino Lu MD Work Phone: Start: 01-07-2025 X-ray of lumbosacral spine Dr. Maximino Lu MD Work Phone: Start: 11-05-2024 Vitamin D, 25-hydrox y measurement Dr. Maximino Lu MD Work Phone: Comment on above: Vitamin D StatusDefi ciency: <20 ng/mL (50nmol/L)Insufficiency: 20-30 ng/mL (50-75 nmol/L)Sufficiency: 30-100 ng/mL (75-250 nmol/L)Toxicity: >100 ng/mL (>250 nmol/L) Start: 10-28-2024 CT of head without contrast Dr. Maximino Lu MD Work Phone: Start: 10-27-2024 SARS-CoV-2, Influenz a & RSV (PCR) Dr. Maximino Lu MD [...] Immunization Date Immunization Notes Care Provider Fa [facility] 03-29-2023 influenza, injectabl e, quadrivalent, preservative free Dr. Maximino Lu MD Work Phone: [facility] 10-01-2020 Covid (Moderna) [facility] 09-03-2020 Covid (Moderna) [facility] 04-02-2014 pneumococcal conjuga te vaccine, [address] Maximino Lu MD Work Phone: [facility] 01-05-2014 Influenza virus vaccine [facility] 01-05-2014 Pneumococcal Vaccine [facility] Work Phone: 01-05-2014 pneumococcal vaccine , unspecified formulation [facility] Payers Date Payer Category Payer Self-pay [id number] 2014 Medicare [id number] Medicare MEDICARE PART A B [id number] Unknown [id number] 2.16.8 [id number] Unknown [id number] 2.16.8 [id number] Unknown [id number] 2.16.8 [id number] Unknown [id number] 2.16.8 [id number] Unknown [id number] 2.16.8 [id number] Unknown [id number] 2.16.8 [id number] Unknown [id number] 2.16.8 40.1.684741.3.579.2.462 Unknown [id number] 2.16.8 40.1.568296.3.579.2.462 Unknown [id number] 2.16.8 40.1.497556.3.579.2.462 Unknown [id number] 2.16.8 40.1.465809.3.579.2.462 Unknown [id number] 2.16.8 40.1.908482.3.579.2.462 Unknown [id number] 2.16.8 40.1.963823.3.579.2.462 Unknown [id number] 2.16.8 40.1.903259.3.579.2.462 Unknown [id number] 2.16.8 40.1.663603.3.579.2.462 Unknown [id number] 2.16.8 40.1.331037.3.579.2.462 Unknown [id number] 2.16.8 [id number] Unknown [id number] 2.16.8 [id number] Social History Date Type Detail Facility Start: 01-08-2020 End: 01-08-2020 Tobacco smoking status ILIS Unknown if ever smoked [facility] Start: 11-04-2014 None [facility] Start: 11-04-2014 Alone [facility] Start: 11-04-2014 Non-smoker [facility] Start: 1935 Sex Assigned At Female [facility] Start: 03-28-2024 Tobacco smoking stat [facility] Ex-smoker (finding) [facility] Start: 11-03-2024 End: 11-06-2024 Sex Female (finding) [facility] Goals Date Patient Goal Desired Activity /State Radiology Diagnostic study note 01-08-2025 Note Date & Type Note Facility 01-08-2025 Radiology Diagnostic study note [facility] Imaging Services [address] [place] [address] Ribs Uni Min 3V w/PA Chest MR#: [id number] Acct: [id number] Name: DENZEL CHU Rep #: [id number] : 1935 F 89 From: Arsenio Arce MD PCP: Dr. Maximino Lu MD Status: CASTRO BARTON Study:Ribs Uni Min 3V w/PA Chest Date of Exam : 01/07/25 Exam# [id number] Ordering Dr: Maximino Lu MD PROCEDURE: RIBS UNI MIN 3V W/PA CHEST 01/07/2025 REASON FOR EXAM: R RIB PAIN TECHNIQUE: Frontal view of the chest and bilateral oblique views of the bilateral ribs. COMPARISON: Portable chest, 03/25/2020. FINDINGS: There is mild chronic blunting of both costophrenic angles. The lungs are otherwise clear. The heart size is normal. There is calcific vascular disease of the thoracic aorta. There are minimally displaced fractures of the right 7th, 8th and 9th ribs. There is no evidence of pneumothorax or pulmonary contusion. There is mild dextroscoliosis of the thoracolumbar spine. The upper abdominal bowel gas pattern is normal. RAD/Ribs Uni Min 3V w/PA Chest IMPRESSION: 1. Acute fractures of the right 7th through 9th ribs without evidence of complications. 2. Other findings as noted. Reading Location: [id number] CC: Dr. Maximino Lu MD ~ Clinical Technician: Signed [facility] Work Phone: Radiology Diagnostic study note 01-08-2025 Note Date & Type Note Facility 01-08-2025 Radiology Diagnostic study note [facility] Imaging Services [address] [place] [id number] L/S Spine Min 4 Views MR#: [id number] Acct: [id number] Name: DENZEL CHU Rep #: [id number] : 1935 F 89 From: Arsenio Arce MD PCP: Dr. Maximino Lu MD Status: REG C ORALIA Study:L/S Spine Min 4 Views Date of Exam: 01/07/25 Exam# [id number] Ordering Dr: Maximino Lu MD PROCEDURE: L/S SPINE MIN 4 VIEWS 01/07/2025 REASON FOR EXAM: LOW BACK PAIN TECHNIQUE: Standing four view lumbar spine series was performed. FINDINGS: There is maintenance of the normal lumbar lordosis. There are no compression fractures. There is degenerative disc disease, L1-2 through L5-S1 with narrowing of the intervertebral disc spaces and marginalosteophytes, most severe at the L1-2 and L2-3 levels were there is almost complete loss of the intervertebral disc space and endplate sclerosis. There is multilevel facet arthropathy. There is degenerative grade 1 retrolisthesis of L2 on L3 and L4 onL5 and degenerative grade 1 anterolisthesis of L5 on S1. Suspect central canal stenosis L2-3 through L4-5. There is mild degenerative spurring of both SI joints. There is calcific vascular disease of the abdominal aorta. RAD/L/S Spine Min 4 Views IMPRESSION: 1. 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 2. Multilevel facet arthropathy with degenerative spondylolisthesis at multiplelevels as described. 3. Suspect central canal stenosis L2-3 through L4-5. 4. Other findings as noted. Reading Location: [id number] CC: Dr. Maximino Lu MD ~ Clinical Technician: Signed [facility] Work Phone: Radiology Diagnostic study note 10-28-2024 Note Date & Type Note Facility 10-28-2024 Radiology Diagnostic study note [facility] Imaging Services [address] [place] [address] [id number] Brain/Head without Contrast MR#: [id number] Acct: [id number] Name: DENZEL CHU Rep #: [id number] : 1935 F 89 From: Ana Casas MD PCP: Dr. Maximino Lu MD Status: CASTRO BARTON Study:Brain/Head without Contrast Date of Exa m: 10/28/24 Exam# [id number] Ordering Dr: Maximino Lu MD EXAM: CT [...] evaluation with MRI is recommended. Reading Location[facility] CC: Dr. Maximino Lu MD ~ Clinical Technician: Signed [facility] Evaluation note 10-19-2024 Note Date & Type Note Facility 10-19-2024 Evaluation note Diagnosis Onset Date Resolution URI (upper respiratory infection) acute October 19, 2024 10:02am [facility] Work Phone: Discharge summary note 04-02-2024 Note Date & Type Note Facility 04-02-[address] [facility] Clinical Note 03-28-2024 Note Date & Type Note Facility 03-28-[address] [facility] Discharge summary note 03-28-2024 Note Date & Type Note Facility 03-28-[address] [facility] Evaluation note Note Date & Type Note Facility Evaluation note No assessment information availa ble [facility] Work Phone: Reason for referral (narrative) Note Date & Type Note Facility Reason for referral (narrative) No reason for referral information available [facility] Work Phone: Family History No Family History Records Found Relationship Condition Age at Onset Recorded Date/T guillermo mother Diabetes mellitus Unknown Myocardial infarction Unknown father Malignant neoplasm Unknown Advance Directives No Advanced Directives Records Found Advance Directive Response Recorded Date/ Time Advance Directives No October 22 11:21am Living Will No December 23, 2018 9 :21am Power of Embossograph Operator No December 23, 2018 9:21am Advance Directive Response Recorded Date/ Time Advance Directives No October 22 10:21am Living Will No December 23, 2018 8 :21am Power of Embossograph Operator No December 23, 2018 8:21am Advance Directive Response Recorded Date/ Time Advance Directives No October 22 11:21am Chief Complaint and Reason for Visit Chief Complaint Admit Date COUGH, CONGESTION October 19, 2024 10: 02am HEAD INJURY October 28, 2024 7:5 1am Reason for Visit Admit Date URI (upper respiratory infection) October 19, 2024 10:02am Chief Complaint Admit Date ISCHEMIC STROKE July 10, 2024 7 :10am COUGH, CONGESTION October 19, 2024 10: 02am HEAD INJURY October 28, 2024 7:5 1am Summary Purpose Additional Source Comments Care Teams [...] October 19, 2024 End: October 19, 2024 [facility] Attending Provider Active Start: [facility] 2024 End: October 19, 2024 Team Status: [...] November 05, 2024 End: November 05, 2024 Team Status: Inactive Member Role Status Dates Dr. Maximino Lu MD Primary Care Provider Active Start: October 19, 2024 End: October 19, 2024 Dr. Maximino Lu MD Referring Provider Active Start: October 19, 2024 End: October 19, 2024 Javi Tran BIOINFORMATICIAN, BIOINFORMATICIAN-C Attending Provider Active S tart: October 19, 2024 End: October 19, 2024 Team Status: Inactive Member Role Status Dates Dr. Maximino Lu MD Primary Care Provider Active Start: January 07, 2025 End: January 07, 2025 Dr. Maximino Lu MD Attending Provider Active Start: January 07, 2025 End: January 07, 2025 Dr. Maximino Lu MD Referring Provider Active Start: January 07, 2025 End: January 07, 2025 INFORMATION SOURCE (unrecogn ized section and content) DATE CREATED AUTHOR 01/12/2025 [facility] FOR RECORDS PERTAINING TO PATIENTS WHO [...] BE BASED ON THE PRIMARY CLINICAL RECORDS. [employer] provides no warranty or guarantee of the accuracy or completeness of information in this document.
== END | disposition home or self-care (01) ==
LOC: LAB 10:22 → LABSPEC 10:23
PROVIDERS: PCP Family Medicine Geriatric Medicine; Referring Provider Family Medicine Geriatric Medicine; Visit Provider Family Medicine Geriatric Medicine
DX: N39.0 Urinary tract infection, site not specified (principal)
CPT/HCPCS: 81002; 87077; 87086; 87088; 87186

== ENCOUNTER → 2025-05-07 | Outpatient (CLI) | payer MEDICARE, SELFPAY ==
[2025-05-07 09:34] LABS: Hematocrit 40.7 % (37-47); Hemoglobin 12.9 g/dL (12.0-15.0); Immature Granulocytes Count 0.020 X10^3/uL (0.0-0.0); Mean Corp Hgb Conc 31.7 g/dL (32-36); Mean Corpuscular Volume 84.3 fL (81-99); Mean Platelet Vol. 9.1 fl (6.2-12.0); NRBC Flagged by Analyzer 0 % (0-5); Platelet Count 281 K/mm3 (150-450); RBC Distribution Width CV 15.8 % (11.6-14.6); RBC Distribution Width SD 47.8 fl (35.1-43.9); Red Blood Count 4.83 M/mm3 (4.2-5.4); White Blood Count 7.0 K/mm3 (4.4-11.0)
[2025-05-07 10:05] LABS: AST(SGOT) 30 U/L (<=31); Alanine Aminotransfer ALT/SGPT 18 U/L (<=34); Albumin, Serum 3.9 g/dL (3.4-4.8); Alkaline Phosphatase 70 U/L (35-104); Anion Gap 11 (5-15); BUN 18 mg/dL (4-19); BUN/Creat Ratio 22.7 RATIO (10-20); Calcium,Total 9.4 mg/dL (7.6-11.0); Carbon Dioxide 26.4 mmol/L (21.0-32.0); Chloride 105 mmol/L (98-108); Cholesterol 117 mg/dL (<=200); Globulin 3.0 g/dL (2.2-4.2); Glucose 83 mg/dL (70-99); Low Density Lipoprotein Calc. 49 mg/dL; Potassium 3.6 mmol/L (3.3-5.1); Triglycerides 70 mg/dL; Very Low Density Lipoprotein 14 mg/dL (5-40); cholesterol:hdl ratio screen 2.17
[2025-05-07 10:35] LABS: Vitamin D,25 Hydroxy 41.9 ng/mL (30-100)
[2025-05-07 17:20] LABS: Xtra Tube Kwok EXTRA TUBE
== END | disposition home or self-care (01) ==
LOC: POLAB3 09:19
PROVIDERS: PCP Family Medicine Geriatric Medicine; Visit Provider Family Medicine Geriatric Medicine
DX: E78.5 Hyperlipidemia, unspecified (principal); I10 Essential (primary) hypertension; E03.9 Hypothyroidism, unspecified; E55.9 Vitamin D deficiency, unspecified
CPT/HCPCS: 36415; 80053; 80061; 82306; 84443; 85025